=== PATIENT | male | born 1945 | race American Indian/Alaskan Native ===

== ENCOUNTER 2016-11-09 18:09 | Emergency (ER) | payer MEDICARE ==
--- NOTE | 2016-11-09 20:51 | Emergency Department Report ---
Chief Complaint: Arrhythmia/Palpitations Stated Complaint: ELEVATED HEART RATE/COLD Time Seen by Provider: 11/09/16 20:46 - HPI History of Present Illness: Every 71-year-old male comes in for not feeling well feels like his chest and heart is racing. He reports has a past medical history of A. fib and is on warfarin. 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 Clear to auscultation bilateral MSE screening note: Focused history and physical exam performed. Due to findings the following was ordered: CBC CMP PT PTT patient evaluated in the main ER ED Disposition for MSE Condition: Stable
[2016-11-09 21:44] LABS: Hematocrit 43.4 % (35.5-45.6); Hemoglobin 14.5 gm/dl (11.8-15.2); Mean Corpuscular HGB Conc 33 % (32-34); Mean Corpuscular Hemoglobin 31 pg (28-32); Mean Corpuscular Volume 93 fl (84-94); Platelet Count 242 K/mm3 (140-440); Red Blood Count 4.66 M/mm3 (3.65-5.03); Red Cell Distribution Width 15.1 % (13.2-15.2); White Blood Count 5.1 K/mm3 (4.5-11.0)
[2016-11-09 21:54] LABS: INR 2.03 (0.87-1.13)
[2016-11-09 21:55] LABS: Partial Thromboplastin Time 40.5 Sec. (24.2-36.6)
[2016-11-09 22:05] LABS: Anion Gap 19 mmol/L; BUN/Creatinine Ratio 11.11; Blood Urea Nitrogen 10 mg/dL (9-20); Calcium 9.5 mg/dL (8.4-10.2); Carbon Dioxide 29 mmol/L (22-30); Chloride 95.5 mmol/L (98-107); Glucose 103 mg/dL (75-100); Potassium 3.8 mmol/L (3.6-5.0); Sodium 140 mmol/L (137-145)
[2016-11-09 22:39] LABS: Bilirubin,Urine NEG (Negative); Blood,Urine SM (Negative); Ketones,Urine TR mg/dL (Negative); Leukocyte Esterase,Urine NEG (Negative); Mucus,Urine FEW /HPF; Nitrite,Urine NEG (Negative); Protein,Urine <15 mg/dL mg/dL (Negative); Urobilinogen,Urine < 2.0 mg/dL (<2.0)
--- NOTE | 2016-11-10 04:13 | Emergency Department Report ---
HPI - General Chief Complaint: Arrhythmia/Palpitations Time Seen by Provider: 11/09/16 20:46 - HPI HPI: This is a 71-year-old -[place] male who presents to the emergency department from home with complaint of palpitations and feeling as if his heart is racing. He denies any chest pain or shortness of breath, nausea or vomiting , fever or diaphoresis. All started while the patient was resting. It has greatly improved if not resolved since presentation. He did not take anything for symptoms prior to presentation. Patient has history of CVA, atrial fibrillation, kidney stones, hypertension and "prostate problems." The patient has both a primary care doctor and general manager land department but cannot remember their name at this time. Patient takes Coumadin for his history of atrial fibrillation and says he has been compliant with it. No recent travel or sick contacts at home. ED Past Medical Hx - Past Medical History Hx Hypertension: Yes Hx CVA: Yes (2010) Hx Congestive Heart Failure: No Hx Diabetes: No Hx Deep Vein Thrombosis: No Hx Renal Disease: Yes (has ureteral stent for the last year, renal insufficiency ) Hx Kidney Stones: (stents) Hx Asthma: No Hx COPD: No Hx Dementia: No Additional medical history: "prostate Problems" - Surgical History Hx Pacemaker: No Hx Internal Defibrillator: No Additional Surgical History: hernia repair. PROSTATE SURGERY? - Social History Smoking Status: Former Smoker Substance Use Type: None - Medications Home Medications: Home Medications Medication Instructions Recorded Confirmed Last Taken Type Isosorbide Mononitrate [Isosorbide 30 mg PO QDAY 07/24/14 02/19/16 02/18/16 History Mononitrate ER] Simvastatin 20 mg PO QHS 07/24/14 02/19/16 02/18/16 History hydrALAZINE [Apresoline TAB] 25 mg PO Q12H 07/24/14 02/19/16 02/18/16 History Diltiazem HCl [Diltiazem ER] 120 mg PO QDAY #30 capsule.er 10/02/14 02/19/1601/30 Rx Metoprolol [Lopressor TAB] 50 mg PO BID #60 tablet 10/02/14 02/19/16 02/18/16 Rx HYDROcodone/APAP 5-325 [[place] 1 each PO Q6HR PRN #10 tablet 01/10/15 02/19/16 2 Weeks Ago Rx 5-325 mg TAB] Saccharomyces Boulardii [Florastor] 250 mg PO BID #14 capsule 01/10/15 02/09/16 01/31/16 Rx Pantoprazole [Protonix TAB] 40 mg PO QDAY #30 tablet 03/19/15 02/19/16 01/31/16 Rx Tamsulosin [Flomax] 0.4 mg PO QDAY #30 capsule 03/19/15 02/09/16 01/31/16 Rx Warfarin [Coumadin] 2.5 mg PO 1XW 01/30/16 02/19/16 02/15/16 History Warfarin [Coumadin] 5 mg PO 6XW 01/30/16 02/19/16 02/14/16 History HYDROcodone/APAP 5-325 [[place] 1 each PO Q4HR PRN #24 tablet 02/19/16 Unknown Rx 5-325 mg TAB] ED Review of Systems ROS: Stated complaint: ELEVATED HEART RATE/COLD Other details as noted in HPI Comment: All other systems reviewed and negative Constitutional: denies: chills, fever Eyes: denies: eye pain, eye discharge, vision change ENT: denies: ear pain, throat pain Respiratory: denies: cough, shortness of breath, wheezing Cardiovascular: palpitations. denies: edema Gastrointestinal: denies: abdominal pain, nausea, diarrhea Genitourinary: denies: urgency, dysuria Musculoskeletal: denies: back pain, joint swelling, arthralgia Skin: denies: rash, lesions Neurological: denies: headache, weakness, paresthesias Physical Exam - Physical Exam Vital Signs: Vital Signs 11/09/16 11/10/16 11/10/16 20:08 03:04 03:34 Temperature 98.4 F 98.4 F 98.5 F Pulse Rate 95 H 94 H 87 Respiratory 18 18 22 Rate Blood Pressure 153/80 Blood Pressure 152/96 139/91 [Left] O2 Sat by Pulse 96 95 99 Oximetry Physical Exam: GENERAL: The patient is well-developed well-nourished. HEENT: Normocephalic. Atraumatic. Extraocular motions are intact. Patient has moist mucous membranes. Pupils equal reactive to light bilaterally. NECK: Supple. Trachea is midline. CHEST/LUNGS: Clear to auscultation. There is no respiratory distress noted. HEART/CARDIOVASCULAR: Irregularly irregular with normal rate. ABDOMEN: Abdomen is soft, nontender. Patient has normal bowel sounds. There is no abdominal distention. SKIN: There is no rash. There is no diaphoresis. NEURO: The patient is awake, alert, and oriented. The patient is cooperative. The patient has no focal neurologic deficits. The patient has normal speech. MUSCULOSKELETAL: There is no tenderness or deformity. There is no limitation range of motion. There is no evidence of acute injury. ED Course Vital Signs 11/09/16 11/10/16 11/10/16 20:08 03:04 03:34 Temperature 98.4 F 98.4 F 98.5 F Pulse Rate 95 H 94 H 87 Respiratory 18 18 22 Rate Blood Pressure 153/80 Blood Pressure 152/96 139/91 [Left] O2 Sat by Pulse 96 95 99 Oximetry ED Medical Decision Making - Lab Data Result diagrams: 11/09/16 21:29 11/09/16 21:29 - EKG Data -: EKG Interpreted by Nh - EKG Data When compared to previous EKG there are: changes noted (patient's previous EKG showed A. fib with RVR and some apparent conduction, which is not currently seen.) Interpretation: other (atrial fibrillation with controlled rate, no ST elevation [place]) - Radiology Data Radiology results: image reviewed - Medical Decision Making 71-year-old male presents the emergency department with complaint of what appears to be palpitations. Patient does have a history of chronic atrial fibrillation. It is possible the patient had rapid ventricular rate but since he has been in the emergency department and has been rate controlled. Patient had labs that did not show any signs of infection, electrolyte abnormalities, renal insufficiency or glucose abnormalities. Patient does not have any significant thyroid dysfunction. Patient's coags show an INR of greater than 2 which show him to be therapeutic on his Coumadin. This reason there is low suspicion that a pulmonary embolism as the cause of the patient's palpitations. Patient has had a negative troponin. EKG shows atrial fibrillation with a controlled rate. Chest x-ray does not show any acute process. Patient was reevaluated multiple times for multiple hours and is asymptomatic. Vital signs stable throughout his ED course. I spoke with the patient's daughter, at his request, and updated her about the ED course. He'll be discharged home and encouraged to follow up with his general manager land department and primary care doctor the next few days. He'll be brought back to the emergency department with any return of his palpitations, any development of chest pain or shortness of breath or any acute distress. - Differential Diagnosis atrial fibrillation, thyroid dysfunction, [place], pneumonia Critical Care Time: No Critical care attestation.: If time is entered above; I have spent that time in minutes in the direct care of this critically ill patient, excluding procedure time. ED Disposition Clinical Impression: Palpitations, Chronic a-fib Disposition: DISCHARGED TO HOME OR SELFCARE Is pt being admited?: No Condition: Stable Instructions: Palpitations (ED) Additional Instructions: Please follow-up with your primary care doctor and general manager land department in the next few days. Return to the emergency department with any chest pain, shortness of breath/respiratory distress, or any acute distress. Referrals: ROSA PORTER MD [Primary Care Provider] - 3-5 Days ASHER EWING MD [Staff Physician] - 3-5 Days MAITE SPRAGUE MD [Staff Physician] - 3-5 Days Time of Disposition: 05:33
[2016-11-10 05:55] VITALS: BP 128/71
--- NOTE | 2016-11-10 07:49 | XRay Report ---
AP CHEST: HISTORY: Palpitations Mild cardiomegaly is unchanged since 03/16/15. The lungs are clear. No evidence for pneumonia, CHF or pneumothorax. IMPRESSION: Stable cardiomegaly.
== END 2016-11-10 06:00 | disposition home or self-care (01) ==
LOC: ED 18:09
DX: R00.2 Palpitations (principal); I48.2 Chronic atrial fibrillation; I10 Essential (primary) hypertension; I63.9 Cerebral infarction, unspecified; Z87.891 Personal history of nicotine dependence
CPT/HCPCS: 36415; 71010; 80048; 81001; 84443; 84484; 85027; 85610; 85730; 93005; 93010

== ENCOUNTER 2017-11-17 17:04 | Emergency (ER) | payer MEDICARE ==
[2017-11-17 20:27] LABS: Hematocrit 50.9 % (35.5-45.6); Hemoglobin 16.5 gm/dl (11.8-15.2); Mean Corpuscular HGB Conc 33 % (32-34); Mean Corpuscular Hemoglobin 31 pg (28-32); Mean Corpuscular Volume 96 fl (84-94); Platelet Count 284 K/mm3 (140-440); Red Blood Count 5.31 M/mm3 (3.65-5.03); Red Cell Distribution Width 15.4 % (13.2-15.2)
[2017-11-17 20:43] LABS: Alanine Aminotransferase 21 units/L (7-56); Albumin 4.4 g/dL (3.9-5); BUN/Creatinine Ratio 12; Blood Urea Nitrogen 11 mg/dL (9-20); Hemolysis Index 71
[2017-11-17] MEDS ORDERED: NACL 0.9% 1000 ML 1,000 ML IV ONE (21:39)
[2017-11-17 21:58] LABS: Bilirubin,Urine NEG (Negative); Blood,Urine NEG (Negative); Color,Urine Yellow (Yellow); Mucus,Urine FEW /HPF; Nitrite,Urine NEG (Negative); Protein,Urine <15 mg/dL mg/dL (Negative); Urobilinogen,Urine < 2.0 mg/dL (<2.0)
--- NOTE | 2017-11-18 01:28 | Cat Scan Report ---
FINAL REPORT EXAM: CT ABDOMEN PELVIS W CON HISTORY: lower abd pain TECHNIQUE: Routine axial imaging was obtained of the abdomen and pelvis following the intravenous injection of 100 cc of Omnipaque 300. Delayed axial imaging was obtained for evaluation of the kidneys, ureters and bladder. Sagittal coronal reconstructions were reviewed. Comparison is made to the previous study of 05/12/2016. FINDINGS: The lung bases are clear. Pleural fluid is not seen. There is a small hiatal hernia at the GE junction. The liver, gallbladder, pancreas, spleen, and adrenal glands appear normal. The kidneys reveal multiple foci of cortical thinning bilaterally suggesting remote cortical infarcts versus the sequela of bilateral pyelonephritis. There is no evidence of hydronephrosis at this time. There are 2 small stones in the left renal pelvis which are nonobstructing measuring up to 4 millimeters in diameter. Once again there is no evidence of hydronephrosis at this time. The vascular structures enhance normally. The bowel loops are normal in caliber. No definite obstructive pattern is seen. The appendix is not enlarged. There is no evidence of free fluid or adenopathy. In the pelvis there is a Escalona catheter in the bladder. The bladder is decompressed. The prostate gland is mildly enlarged. The skeletal structures reveal multilevel disc degeneration in the lumbar spine. There is also abnormal serpiginous enhancement throughout the lower thoracic and lumbar spine. Some type of vascular malformation within the spine is suspected. IMPRESSION: Nonobstructing calcifications in the left renal pelvis. No evidence of hydronephrosis at this time. Multiple foci of cortical thinning of both kidneys suggesting a history of pyelonephritis versus bilateral infarcts. No acute process in the abdomen and pelvis otherwise Abnormal serpiginous areas of enhancement throughout the spinal column as stated. An underlying spinal vascular malformation cannot be excluded. Further evaluation is recommended with outpatient MRI of the spine without and with contrast.
--- NOTE | 2017-11-18 01:46 | Emergency Department Report ---
ED Male HPI - General Chief complaint: Abdominal Pain Stated complaint: ABD PAIN Time Seen by Provider: 11/17/17 19:42 Source: patient Mode of arrival: Stretcher Limitations: Physical Limitation - History of Present Illness Initial comments: Patient is a 72-year-old male who is presenting with inability to urinate for the past 12 hours. Patient states he has suprapubic discomfort as well. Patient states pain is 3 out of 10. Patient is a poor historian secondary to some mild dementia and has a history also of hypertension and non- insulin-dependent diabetes. Patient denies any fevers chills nausea vomiting or diarrhea at this time. Improves with: none Worsens with: none - Related Data Home Medications Medication Instructions Recorded Confirmed Last Taken Isosorbide Mononitrate [Isosorbide 30 mg PO QDAY 07/24/14 02/19/16 02/18/16 Mononitrate ER] Simvastatin 20 mg PO QHS 07/24/14 02/19/16 02/18/16 hydrALAZINE [Apresoline TAB] 25 mg PO Q12H 07/24/14 02/19/16 02/18/16 Warfarin [Coumadin] 2.5 mg PO 1XW 01/30/16 02/19/16 02/15/16 Warfarin [Coumadin] 5 mg PO 6XW 01/30/16 02/19/16 02/14/16 Previous Rx's Medication Instructions Recorded Last Taken Type Diltiazem HCl [Diltiazem 24Hr ER] 120 mg PO QDAY #30 capsule.er 10/02/14 Rx Metoprolol [Lopressor TAB] 50 mg PO BID #60 tablet 10/02/14 02/18/16 Rx HYDROcodone/APAP 5-325 [[place] 1 each PO Q6HR PRN #10 tablet 01/10/15 2 Weeks Ago Rx 5-325 mg TAB] ~02/05/16 Saccharomyces Boulardii [Florastor] 250 mg PO BID #14 capsule 01/10/15 01/31/16 Rx Pantoprazole [Protonix TAB] 40 mg PO QDAY #30 tablet 03/19/15 01/31/16 Rx Tamsulosin [Flomax] 0.4 mg PO QDAY #30 capsule 03/19/15 01/31/16 Rx HYDROcodone/APAP 5-325 [[place] 1 each PO Q4HR PRN #24 tablet 02/19/16 Unknown Rx 5-325 mg TAB] Ciprofloxacin HCl [Cipro] 500 mg PO BID 7 Days tablet 11/18/17 Unknown Rx traMADol [Ultram] 50 mg PO Q6HR PRN #12 tablet 11/18/17 Unknown Rx Allergies Allergy/AdvReac Type Severity Reaction Status Date / Time No Known Allergies Allergy Verified 12/14/14 12:09 ED Review of Systems ROS: Stated complaint: ABD PAIN Other details as noted in HPI Comment: All other systems reviewed and negative ED Past Medical Hx - Past Medical History Previous Medical History?: Yes Hx Hypertension: Yes Hx CVA: Yes (2010) Hx Congestive Heart Failure: No Hx Diabetes: No Hx Deep Vein Thrombosis: No Hx Renal Disease: Yes (has ureteral stent for the last year, renal insufficiency ) Hx Kidney Stones: (stents) Hx Asthma: No Hx COPD: No Hx Dementia: No Additional medical history: "prostate Problems" - Surgical History Past Surgical History?: Yes Hx Pacemaker: No Hx Internal Defibrillator: No Additional Surgical History: hernia repair. PROSTATE SURGERY? - Social History Smoking Status: Former Smoker Substance Use Type: None - Medications Home Medications: Home Medications Medication Instructions Recorded Confirmed Last Taken Type Isosorbide Mononitrate [Isosorbide 30 mg PO QDAY 07/24/14 02/19/16 02/18/16 History Mononitrate ER] Simvastatin 20 mg PO QHS 07/24/14 02/19/16 02/18/16 History hydrALAZINE [Apresoline TAB] 25 mg PO Q12H 07/24/14 02/19/16 02/18/16 History Diltiazem HCl [Diltiazem 24Hr ER] 120 mg PO QDAY #30 capsule.er 10/02/1402/18/16 Rx Metoprolol [Lopressor TAB] 50 mg PO BID #60 tablet 10/02/14 02/19/16 02/18/16 Rx HYDROcodone/APAP 5-325 [[place] 1 each PO Q6HR PRN #10 tablet 01/10/15 02/19/16 2 Weeks Ago Rx 5-325 mg TAB] ~02/05/16 Saccharomyces Boulardii [Florastor] 250 mg PO BID #14 capsule 01/10/15 02/09/16 01/31/16 Rx Pantoprazole [Protonix TAB] 40 mg PO QDAY #30 tablet 03/19/15 02/19/16 01/31/16 Rx Tamsulosin [Flomax] 0.4 mg PO QDAY #30 capsule 03/19/15 02/09/16 01/31/16 Rx Warfarin [Coumadin] 2.5 mg PO 1XW 01/30/16 02/19/16 02/15/16 History Warfarin [Coumadin] 5 mg PO 6XW 01/30/16 02/19/16 02/14/16 History HYDROcodone/APAP 5-325 [[place] 1 each PO Q4HR PRN #24 tablet 02/19/16 Unknown Rx 5-325 mg TAB] Ciprofloxacin HCl [Cipro] 500 mg PO BID 7 Days tablet 11/18/17 Unknown Rx traMADol [Ultram] 50 mg PO Q6HR PRN #12 tablet 11/18/17 Unknown Rx ED Physical Exam - General Limitations: Physical Limitation General appearance: alert, in no apparent distress - Head Head exam: Present: atraumatic, normocephalic - Eye Eye exam: Present: normal appearance - ENT ENT exam: Present: mucous membranes moist - Neck Neck exam: Present: normal inspection - Respiratory Respiratory exam: Present: normal lung sounds bilaterally. Absent: respiratory distress, wheezes, rales, rhonchi - Cardiovascular Cardiovascular Exam: Present: regular rate, normal rhythm. Absent: systolic murmur, diastolic murmur, rubs, gallop - GI/Abdominal GI/Abdominal exam: Present: soft, tenderness (mild tenderness in suprapubic region), normal bowel sounds. Absent: distended, guarding - Rectal Rectal exam: Present: deferred - Extremities Exam Extremities exam: Present: normal inspection - Back Exam Back exam: Present: normal inspection - Neurological Exam Neurological exam: Present: alert, oriented X3 - Psychiatric Psychiatric exam: Present: normal affect, normal mood - Skin Skin exam: Present: warm, dry, intact, normal color. Absent: rash ED Course Vital Signs 11/17/17 11/17/17 11/17/17 18:04 19:25 19:30 Temperature 98.9 F Pulse Rate 78 79 Respiratory 18 17 28 H Rate Blood Pressure 132/82 135/78 O2 Sat by Pulse 98 99 Oximetry 11/17/17 11/17/17 11/17/17 19:45 20:00 20:15 Temperature Pulse Rate 76 74 92 H Respiratory 13 15 20 Rate Blood Pressure 138/79 129/78 119/86 O2 Sat by Pulse 98 97 99 Oximetry 11/17/17 11/17/17 11/17/17 20:30 20:45 21:00 Temperature Pulse Rate 72 69 72 Respiratory 18 18 14 Rate Blood Pressure 134/71 116/76 119/72 O2 Sat by Pulse 98 98 97 Oximetry 11/17/17 11/17/17 11/17/17 21:15 21:30 21:46 Temperature Pulse Rate 72 79 81 Respiratory 13 9 L 13 Rate Blood Pressure 126/73 117/81 126/73 O2 Sat by Pulse 97 98 95 Oximetry 11/17/17 11/17/17 11/17/17 22:00 22:16 22:30 Temperature Pulse Rate 73 71 75 Respiratory 12 15 25 H Rate Blood Pressure 122/83 111/81 142/82 O2 Sat by Pulse 98 98 99 Oximetry 11/17/17 11/17/17 11/17/17 22:45 23:00 23:15 Temperature Pulse Rate 71 74 74 Respiratory 10 L 17 14 Rate Blood Pressure 147/77 153/87 146/80 O2 Sat by Pulse 99 99 99 Oximetry 11/17/17 11/17/17 11/18/17 23:30 23:45 00:00 Temperature Pulse Rate 76 71 72 Respiratory 15 25 H 12 Rate Blood Pressure 144/81 145/86 141/82 O2 Sat by Pulse 99 99 99 Oximetry 11/18/17 11/18/17 00:15 00:30 Temperature Pulse Rate 73 77 Respiratory 12 13 Rate Blood Pressure 148/78 150/81 O2 Sat by Pulse 98 100 Oximetry ED Medical Decision Making - Lab Data Result diagrams: 11/17/17 19:45 11/17/17 19:45 Lab Results 11/17/17 11/17/17 11/17/17 Range/Units 19:45 19:45 21:00 WBC 7.2 (4.5-11.0) K/mm3 RBC 5.31 H (3.65-5.03) M/mm3 Hgb 16.5 H (11.8-15.2) gm/dl Hct 50.9 H (35.5-45.6) % MCV 96 H (84-94) fl MCH 31 (28-32) pg MCHC 33 (32-34) % RDW 15.4 H (13.2-15.2) % Plt Count 284 (140-440) K/mm3 Lymph % (Auto) Adjunct Professor Sharp % (Auto) Adjunct Professor Eos % (Auto) Adjunct Professor Baso % (Auto) Adjunct Professor Lymph # Adjunct Professor Sharp # Adjunct Professor Eos # Adjunct Professor Baso # Adjunct Professor Seg Neutrophils % Adjunct Professor Seg Neutrophils # Adjunct Professor Sodium 131 L (137-145) mmol/L Potassium 4.5 (3.6-5.0) mmol/L Chloride 92.3 L (98-107) mmol/L Carbon Dioxide 20 L (22-30) mmol/L Anion Gap 23 mmol/L BUN 11 (9-20) mg/dL Creatinine 0.9 (0.8-1.5) mg/dL Estimated GFR > 60 ml/min BUN/Creatinine Ratio 12 % Glucose 102 H (75-100) mg/dL Calcium 10.0 (8.4-10.2) mg/dL Total Bilirubin 0.80 (0.1-1.2) mg/dL AST 24 (5-40) units/L ALT 21 (7-56) units/L Alkaline Phosphatase 69 (35-129) units/L Total Protein 8.8 H (6.3-8.2) g/dL Albumin 4.4 (3.9-5) g/dL Albumin/Globulin Ratio 1.0 % Urine Color Yellow (Yellow) Urine Turbidity Clear (Clear) Urine pH 7.0 (5.0-7.0) Ur Specific [place] 1.017 (1.003-1.030) Urine Protein <15 mg/dl (Negative) mg/dL Urine Glucose (UA) Neg (Negative) mg/dL Urine Ketones Tr (Negative) mg/dL Urine Blood Neg (Negative) Urine Nitrite Neg (Negative) Urine Bilirubin Neg (Negative) Urine Urobilinogen < 2.0 (<2.0) mg/dL Ur Leukocyte Esterase Neg (Negative) Urine WBC (Auto) 1.0 (0.0-6.0) /HPF Urine RBC (Auto) 6.0 (0.0-6.0) /HPF U Epithel Cells (Auto) < 1.0 (0-13.0) /HPF Urine Mucus Few /HPF - Radiology Data Radiology results: report reviewed Some bilateral cortical scarring of the kidneys however no acute process found - Medical Decision Making Patient is a 72-year-old [place] male who is presenting with difficulty urinating for the past 12 hours. Patient is a halfway patient. Escalona catheter was placed in the hopes of alleviating a urinary retention. Escalona cath was placed and only approximately 100 mL of urine was able to be drained. Patient's kidney function is 5 and is not in renal failure at this time. Patient was given IV fluids and patient was made adequate amount of urine. Patient's pain was not alleviated after the Escalona catheter is therefore a CT scan was done. This did not give any further information to the source of the patient's pain. Patient does have a prostate may have a mild prostatitis. Patient will be started on Cipro be given Ultram for pain and will be discharged home with a Escalona catheter in place Critical care attestation.: If time is entered above; I have spent that time in minutes in the direct care of this critically ill patient, excluding procedure time. ED Disposition Clinical Impression: Prostatitis Qualifiers: Prostatitis type: other Qualified Code(s): N41.8 - Other inflammatory diseases of prostate Disposition: DC-01 TO HOME OR SELFCARE Is pt being admited?: No Does the pt Need Aspirin: No Condition: Fair Prescriptions: Ciprofloxacin HCl [Cipro] 500 mg PO BID 7 Days tablet traMADol [Ultram] 50 mg PO Q6HR PRN #12 tablet PRN Reason: Pain Referrals: CONOR JIMÉNEZ MD [Primary Care Provider] - 3-5 Days
[2017-11-18 02:44] VITALS: BP 134/78
== END 2017-11-18 04:18 | disposition home or self-care (01) ==
LOC: ED 17:04
DX: N41.9 Inflammatory disease of prostate, unspecified (principal); I10 Essential (primary) hypertension; Z86.73 Personal history of transient ischemic attack (TIA), and cerebral infarction without residual deficits; Z87.891 Personal history of nicotine dependence; Z79.01 Long term (current) use of anticoagulants
CPT/HCPCS: 36415; 51701; 74177; 80053; 81001; 85025; 96360; 99284; J7030; Q9967

== ENCOUNTER 2018-05-17 10:52 | Day surgery (SDC) | payer MEDICARE ==
[2018-05-11 11:22] LABS: Basophils % (Auto) 0.6 % (0.0-1.8); Eosinophils # (Auto) 0.1 K/mm3 (0.0-0.4); Eosinophils % (Auto) 1.6 % (0.0-4.3); Hematocrit 37.2 % (35.5-45.6); Lymphocytes # (Auto) 1.5 K/mm3 (1.2-5.4); Lymphocytes % (Auto) 33.8 % (13.4-35.0); Mean Corpuscular HGB Conc 35 % (32-34); Mean Corpuscular Hemoglobin 32 pg (28-32); Mean Corpuscular Volume 92 fl (84-94); Monocytes # (Auto) 0.5 K/mm3 (0.0-0.8); Monocytes % (Auto) 11.9 % (0.0-7.3); Platelet Count 191 K/mm3 (140-440); Red Blood Count 4.07 M/mm3 (3.65-5.03); Red Cell Distribution Width 15.1 % (13.2-15.2)
[2018-05-11 11:33] LABS: INR 1.49 (0.87-1.13)
[2018-05-11 11:37] LABS: Alanine Aminotransferase 9 units/L (7-56); Albumin 4.3 g/dL (3.9-5); BUN/Creatinine Ratio 19; Blood Urea Nitrogen 15 mg/dL (9-20); Calcium 9.2 mg/dL (8.4-10.2); Hemolysis Index 8
[~2018-05-17 10:52] MED LIST: WATER FOR IRRIG STERILE IR ONE
[2018-05-17] MEDS ORDERED: NACL BACTERIOSTATIC INFILTRATI ONE (11:04)
[2018-05-17 12:00] LABS: INR 1.04 (0.87-1.13)
[2018-05-17] MEDS ORDERED: ANCEF/STERILE WATER 2 GM/20 ML 2 GM/20 ML SYRINGE IV NR (12:00)
[2018-05-17 12:01] LABS: Partial Thromboplastin Time 36.5 Sec. (24.2-36.6)
[2018-05-17] MEDS ORDERED: ZEMURON IV ONE (12:03)
[2018-05-17] MEDS ORDERED: NACL 0.9% 1000 ML 1,000 ML IV SCH ×3 (12:03→13:00)
[2018-05-17] MEDS ORDERED: DIPRIVAN 10 MG/ML IV ONE (12:03)
[2018-05-17] MEDS ORDERED: XYLOCAINE MPF 2% ONE (12:03)
[2018-05-17] MEDS ORDERED: SUBLIMAZE ONE (12:03)
--- NOTE | 2018-05-17 12:19 | Anesthesia Day of Surgery ---
Anesthesia Day of Surgery - Day of Surgery Patient Examined: Yes Patient H&P Reviewed: Yes Patient is NPO: Yes
[2018-05-17] MEDS ORDERED: DILAUDID IV PRN (12:20)
[2018-05-17] MEDS ORDERED: ZOFRAN IV PRN (12:20)
--- NOTE | 2018-05-17 12:20 | Anesthesia Consultation ---
Anesthesia Consult and Med Hx Date of service: 05/17/18 - Airway ROM Head & Neck: Adequate Mental/Hyoid Distance: Adequate Mallampati Class: Class II Intubation Access Assessment: Probably Good - Pulmonary Exam CTA: Yes - Cardiac Exam Cardiac Exam: RRR - Pre-Operative Health Status ASA Pre-Surgery Classification: ASA3 Proposed Anesthetic Plan: General (Afib, HTN, DM) - Pulmonary Hx Smoking: Yes (STOPPED X 30 YRS) Hx Asthma: No SOB: Yes (SOB WITH ACTIVITY) COPD: No Hx Pneumonia: No Hx Sleep Apnea: No (ANDRIY PRE SCREEN HIGH RISK) - Cardiovascular System Hx Hypertension: Yes (X 10 YRS) Hx Coronary Artery Disease: Yes Hx Angina: Yes (Admitted with afib and chest pain) Hx Cardia Arrhythmia: Yes (Afib) Hx Pacemaker: No Hx Internal Defibrillator: No Hx Valvular 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
[2018-05-17] MEDS ORDERED: DECADRON ONE (13:15)
[2018-05-17] MEDS ORDERED: ZOFRAN ONE (13:15)
[2018-05-17] MEDS ORDERED: NACL 0.9% IR ONE (13:32)
[2018-05-17] MEDS ORDERED: NEO SYNEPHRINE/NS Syringe(OR USE) IV ONE (13:39)
[2018-05-17] MEDS ORDERED: WATER FOR IRRIG STERILE IR ONE (13:54)
--- NOTE | 2018-05-17 14:40 | Post Operative Note ---
Date of procedure: 05/17/18 Pre-op diagnosis: cap Post-op diagnosis: same Findings: rec cap Procedure: cysto cryo ablation prostate Anesthesia: GETA Surgeon: OSKAR QUIÑONES Estimated blood loss: minimal Pathology: none Condition: stable Disposition: PACU
--- NOTE | 2018-05-17 14:41 | Discharge Summary ---
Short Stay Discharge Plan Activity: other (no strainin g) Weight Bearing Status: Full Weight Bearing Diet: low fat Wound: other (ice packs in rr and 24 hrs ) Special Instructions: other (teach chamberlain care) Durable Medical Equipment Needed Upon Discharge: other (chamberlain ) Follow up with: PRIMARY CARE, [Primary Care Provider] - 7 Days OSKAR QUIÑONES MD [Staff Physician] - 7 Days
[2018-05-17] MEDS ORDERED: NACL 0.9% 1000 ML 1,000 ML ONE (14:51)
[2018-05-17 17:12] VITALS: BP 154/81
--- NOTE | 2018-05-17 20:22 | Operative Report ---
PREOPERATIVE DIAGNOSIS: Adenocarcinoma of the prostate, previous cryo over 5 years ago. POSTOPERATIVE DIAGNOSIS: Small area of recurrence. PROCEDURES: Cystoscopy, cryosurgical ablation of prostate. SURGEON: Kali Stratton MD ANESTHESIA: General. FINDINGS: This is a gentleman who has had previous treatment about 5 years ago, now presents for followup. Very low-grade minimal cancer. He wanted it treated. All risks and implications discussed. DESCRIPTION OF PROCEDURE: The patient was brought to the operating room and placed on the operating table. Following induction of anesthesia, placed in lithotomy position, prepped and draped in usual sterile fashion. At this point, a [place] catheter was placed, probes were all checked. At the direction of the ultrasound in the computer, we had basic coordinates for the 6 probes. The gland measured approximately 20-21 g. Probes 1 and 2 were then placed and excellent visualization was achieved, but the gland did move up. We placed [place]villiers in excellent position and the external sphincter temperature probe in excellent position. Probes 5 and 6 and then 4 and 5 were then placed, and before placing them, we changed all of the lengths to 3 because it was a short gland. The patient tolerated the procedure well. Multiple probes were checked multiple times in different images. The patient tolerated the procedure well. At this point, the catheter was removed. Cystoscopy showed no urethral damage, no bladder damage. A stiff Amplatz was placed in the warmer, which was checked and was placed in good position. We then rechecked all the probes and began the first freeze. The first freeze was carried out for a total of approximately 8 minutes. We started 1 and 2 at 40, came down to 3 and 4 and then 5 and 6. We got excellent ice and it met at the midline and a great ice ball was achieved. Den[place]villiers get down to approximately 20 degrees. The second thaw was carried out and the second freeze was carried out in a similar fashion. The patient tolerated the procedure well. The 20-minute warmer was placed. The thaw was carried out, probes were removed and an 8 coude catheter was placed. The patient tolerated the procedure well and brought to recovery in stable condition. JOB# [id number] WILLIAM/MADDISON
== END 2018-05-17 16:58 | disposition home or self-care (01) ==
LOC: OR 10:52
PROVIDERS: ATTEND Urology
DX: C61 Malignant neoplasm of prostate (principal); I48.91 Unspecified atrial fibrillation; I10 Essential (primary) hypertension; E78.00 Pure hypercholesterolemia, unspecified; I25.10 Atherosclerotic heart disease of native coronary artery without angina pectoris; K21.9 Gastro-esophageal reflux disease without esophagitis; E11.9 Type 2 diabetes mellitus without complications; I69.854 Hemiplegia and hemiparesis following other cerebrovascular disease affecting left non-dominant side; Z79.01 Long term (current) use of anticoagulants; Z79.899 Other long term (current) drug therapy; Z87.891 Personal history of nicotine dependence; Z98.890 Other specified postprocedural states
CPT/HCPCS: 36415; 55873; 80053; 82962; 85025; 85610; 85730; A4217; C2618; J0690; J1100; J2370; J2405; J2704; J3010; J7030

== ENCOUNTER 2019-06-02 08:38 | Emergency (ER) | payer MEDICARE ==
--- NOTE | 2019-06-02 09:01 | Emergency Department Report ---
ED Chest Pain HPI - General Stated Complaint: WEAKNESS Time Seen by Provider: 06/02/19 08:47 Source: patient, EMS, old records reviewed Mode of arrival: Stretcher - History of Present Illness Initial Comments: Mr. Santos is a 74-year-old male with history of atrial fibrillation, CVA, diabetes mellitus, GI bleed, CAD, anemia, diverticulitis, nephrolithiasis, congestive heart failure who presents with "heart skipping a beat". His daughter called EMS. According to EMS she was concerned about her father's chest pain. Patient states that he feels as if his heart is skipping a beat. Nonspecific pain, mild discomfort. The discomfort has been present since last night. He also feels cold. Denies fever. Denies shortness of breath. Denies abdominal pain. On warfarin, Patient informed nurse that he has had frequent urination. [facility] Medications metformin tamsulosin pravastatin hydralazine isosorbide mononitrate metoprolol warfarin According to EMR, admitted January 2018 for chest apin January 2018 TTE: EF 55-60%, systolic function normal January 2018 lexican negative for ischemia MD Complaint: chest pain -: Gradual, Last night Onset: during rest Pain Location: substernal Severity: mild Severity scale (0 -10): 4 Quality: dull Consistency: constant Improves With: nothing Worsens With: nothing - Related Data Home Medications Medication Instructions Recorded Confirmed Last Taken Isosorbide Mononitrate [Isosorbide 30 mg PO DAILY 07/24/14 05/16/18 05/16/18 Mononitrate ER] metFORMIN [Glucophage] 500 mg PO QDAY 01/23/18 05/11/18 05/16/18 Aspirin [Aspirin TAB] 325 mg PO PRN PRN 05/11/18 05/17/18 2 Months Ago ~03/17/18 Metoprolol [Lopressor TAB] 25 mg PO BID 05/11/18 05/16/18 05/16/18 Silodosin [Rapaflo] 8 mg PO QHS 05/11/18 05/11/18 05/16/18 Simvastatin (Nf) [Zocor TAB] 20 mg PO QHS 05/11/18 05/11/18 Unknown Furosemide [Lasix] 20 mg PO PRN PRN 05/16/18 05/16/18 05/16/18 Temazepam [Restoril] 15 mg PO QHS 05/16/18 05/16/18 05/16/18 hydrALAZINE [Apresoline] 25 mg PO BID 05/16/18 05/17/18 05/17/18 07:00 Previous Rx's Medication Instructions Recorded Last Taken Type Diltiazem HCl [Diltiazem 24Hr ER] 120 mg PO QDAY #30 capsule.er 10/02/14 05/16/18 Rx Tamsulosin [Flomax] 0.4 mg PO QDAY #30 capsule 01/27/18 05/16/18 Rx Warfarin [Coumadin] 5 mg PO DAILY #30 tablet 01/27/18 5 Days Ago Rx ~05/12/18 cephALEXin [Keflex] 500 mg PO TID 7 Days #21 capsule 06/02/19 Unknown Rx Allergies Allergy/AdvReac Type Severity Reaction Status Date / Time No Known Allergies Allergy Verified 12/14/14 12:09 Heart Score - HEART Score History: Slightly suspicious EKG: Non-specific Age: > 65 Risk factors: > 3 risk factors or hx of atherosclerotic disease Troponin: < normal limit HEART Score: 5 ED Review of Systems ROS: Stated complaint: WEAKNESS Other details as noted in HPI Comment: All other systems reviewed and negative Constitutional: denies: fever, malaise Respiratory: denies: cough Cardiovascular: chest pain, palpitations ED Past Medical Hx - Past Medical History Previous Medical History?: Yes Hx Hypertension: Yes (X 10 YRS) Hx CVA: Yes (2010) Hx Congestive Heart Failure: No Hx Diabetes: Yes Hx Deep Vein Thrombosis: No Hx GERD: Yes Hx Renal Disease: Yes (has ureteral stent for the last year, renal insufficiency) Hx Kidney Stones: Yes Hx Asthma: No Hx COPD: No Hx Dementia: No Hx HIV: No Additional medical history: "prostate Problems" - Surgical History Hx Pacemaker: No Hx Internal Defibrillator: No Additional Surgical History: hernia repair. PROSTATE SURGERY? - Social History Smoking Status: Former Smoker - Medications Home Medications: Home Medications Medication Instructions Recorded Confirmed Last Taken Type Isosorbide Mononitrate [Isosorbide 30 mg PO DAILY 07/24/14 05/16/18 05/16/18 History Mononitrate ER] Diltiazem HCl [Diltiazem 24Hr ER] 120 mg PO QDAY #30 capsule.er 1205/11/18 05/16/18 Rx metFORMIN [Glucophage] 500 mg PO QDAY 01/23/18 05/11/18 05/16/18 History Tamsulosin [Flomax] 0.4 mg PO QDAY #30 capsule 01/27/18 05/11/18 05/16/18 Rx Warfarin [Coumadin] 5 mg PO DAILY #30 tablet 01/27/18 05/17/18 5 Days Ago Rx ~05/12/18 Aspirin [Aspirin TAB] 325 mg PO PRN PRN 05/11/18 05/17/18 2 Months Ago History ~03/17/18 Metoprolol [Lopressor TAB] 25 mg PO BID 05/11/18 05/16/18 05/16/18 History Silodosin [Rapaflo] 8 mg PO QHS 05/11/18 05/11/18 05/16/18 History Simvastatin (Nf) [Zocor TAB] 20 mg PO QHS 05/11/18 05/11/18 Unknown History Furosemide [Lasix] 20 mg PO PRN PRN 05/16/18 05/16/18 05/16/18 History Temazepam [Restoril] 15 mg PO QHS 05/16/18 05/16/18 05/16/18 History hydrALAZINE [Apresoline] 25 mg PO BID 05/16/18 05/17/18 05/17/18 07:00 History cephALEXin [Keflex] 500 mg PO TID 7 Days #21 capsule 06/02/19 Unknown Rx ED Physical Exam - General General appearance: alert, in no apparent distress - Head Head exam: Present: atraumatic, normocephalic - Eye Eye exam: Present: normal appearance - ENT ENT exam: Present: mucous membranes moist - Neck Neck exam: Present: normal inspection, full ROM - Respiratory Respiratory exam: Present: normal lung sounds bilaterally. Absent: respiratory distress, wheezes, rales, rhonchi - Cardiovascular Cardiovascular Exam: Present: regular rate, irregular rhythm. Absent: rubs, gallop - GI/Abdominal GI/Abdominal exam: Present: soft. Absent: distended, tenderness, guarding, rebound - Rectal Rectal exam: Present: deferred - Neurological Exam Neurological exam: Present: alert, oriented X3 - Psychiatric Psychiatric exam: Present: normal affect, normal mood - Skin Skin exam: Present: warm, dry, intact, normal color. Absent: rash ED Course Vital Signs 06/02/19 06/02/19 06/02/19 08:51 09:13 09:16 Temperature 98.1 F Pulse Rate 71 69 69 Respiratory 16 11 L 13 Rate Blood Pressure 150/69 Blood Pressure [Left] O2 Sat by Pulse 100 98 98 Oximetry 06/02/19 06/02/19 06/02/19 09:21 10:00 10:30 Temperature Pulse Rate 62 61 Respiratory 10 L 10 L Rate Blood Pressure 150/69 141/68 Blood Pressure 150/69 [Left] O2 Sat by Pulse 100 100 Oximetry 06/02/19 11:00 Temperature Pulse Rate 61 Respiratory 18 Rate Blood Pressure 135/72 Blood Pressure [Left] O2 Sat by Pulse 100 Oximetry ED Medical Decision Making - Lab Data Result diagrams: 06/02/19 09:33 06/02/19 09:33 Laboratory Results - last 24 hr 06/02/19 06/02/19 06/02/19 09:33 09:33 09:40 WBC 5.5 RBC 4.65 Hgb 15.2 Hct 44.5 MCV 96 H MCH 33 H MCHC 34 RDW 14.9 Plt Count 226 Lymph % (Auto) 42.5 H [place] % (Auto) 11.7 H Eos % (Auto) 2.8 Baso % (Auto) 1.0 Lymph # 2.3 [place] # 0.6 Eos # 0.2 Baso # 0.1 Seg Neutrophils % 42.0 Seg Neutrophils # 2.3 PT 23.5 H INR 2.14 H Sodium 138 Potassium 4.4 Chloride 99.3 Carbon Dioxide 26 Anion Gap 17 BUN 20 Creatinine 1.0 Estimated GFR > 60 BUN/Creatinine Ratio 20 Glucose 90 Calcium 10.0 Total Bilirubin 0.80 AST 20 ALT 10 Alkaline Phosphatase 44 Troponin T < 0.010 Total Protein 9.0 H Albumin 4.9 Albumin/Globulin Ratio 1.2 Urine Bilirubin Urine RBC (Auto) 06/02/19 10:33 WBC RBC Hgb Hct MCV MCH MCHC RDW Plt Count Lymph % (Auto) [place] % (Auto) Eos % (Auto) Baso % (Auto) Lymph # [place] # Eos # Baso # Seg Neutrophils % Seg Neutrophils # PT INR Sodium Potassium Chloride Carbon Dioxide Anion Gap BUN Creatinine Estimated GFR BUN/Creatinine Ratio Glucose Calcium Total Bilirubin AST ALT Alkaline Phosphatase Troponin T Total Protein Albumin Albumin/Globulin Ratio Urine Bilirubin Neg Urine RBC (Auto) 4.0 - EKG Data 06/02/19 10:25 EKG obtained 1018 atrial fibrillation ventricular rate 60 bpm nl axis no ST elevation normal T wa ve pattern - Radiology Data Radiology results: report reviewed Portable chest x-ray: No acute process - Medical Decision Making Mr. Santos presents with generalized malaise, nonspecific chest pain. After clarification, he states "I just do not feel too good." I spoke with his daughter per phone. Daughter also stated that he has not been feeling well for the past week. X-ray labs within normal limits. +UTI on UA INR therapeutic level. EKG showed afib ventricular rate 60. No evidence of acute coronary syndrome. No evidence of infection or sepsis. I spoke with his PCP Dr. Rajput with her close follow-up. Keflex prescribed. I have asked daughter to decrease warfarin from 1 1/2 tabs to 1 tab while on antibiotics. She will arrange INR check this upcoming week. Critical care attestation.: If time is entered above; I have spent that time in minutes in the direct care of this critically ill patient, excluding procedure time. ED Disposition Clinical Impression: Atrial fibrillation, Acute UTI (urinary tract infection), Chest pain Disposition: DC-01 TO HOME OR SELFCARE Is pt being admited?: No Does the pt Need Aspirin: No Condition: Stable Instructions: Urinary Tract Infection in Men (ED) Additional Instructions: Please take 1 tablet of warfarin instead of 1 1/2 tablets while on antibiotics. Prescriptions: cephALEXin [Keflex] 500 mg PO TID 7 Days #21 capsule Referrals: ASHER RAJPUT MD [Staff Physician] - 3-5 Days
[2019-06-02 09:47] LABS: Basophils # (Auto) 0.1 K/mm3 (0.0-0.1); Eosinophils # (Auto) 0.2 K/mm3 (0.0-0.4); Eosinophils % (Auto) 2.8 % (0.0-4.3); Hematocrit 44.5 % (35.5-45.6); Hemoglobin 15.2 gm/dl (11.8-15.2); Lymphocytes # (Auto) 2.3 K/mm3 (1.2-5.4); Lymphocytes % (Auto) 42.5 % (13.4-35.0); Mean Corpuscular HGB Conc 34 % (32-34); Mean Corpuscular Volume 96 fl (84-94); Monocytes # (Auto) 0.6 K/mm3 (0.0-0.8); Monocytes % (Auto) 11.7 % (0.0-7.3); Red Blood Count 4.65 M/mm3 (3.65-5.03); Red Cell Distribution Width 14.9 % (13.2-15.2)
[2019-06-02 09:57] LABS: INR 2.14 (0.87-1.13)
[2019-06-02 10:05] LABS: Alanine Aminotransferase 10 units/L (7-56); Albumin 4.9 g/dL (3.9-5); BUN/Creatinine Ratio 20; Blood Urea Nitrogen 20 mg/dL (9-20); Hemolysis Index 38
[2019-06-02 10:42] LABS: Platelet Count 226 K/mm3 (140-440)
[2019-06-02 10:54] LABS: Bacteria,Urine 1+ /HPF (Negative); Bilirubin,Urine NEG (Negative); Blood,Urine SM (Negative); Color,Urine Yellow (Yellow); Mucus,Urine FEW /HPF; Protein,Urine <15 mg/dL mg/dL (Negative); Urobilinogen,Urine < 2.0 mg/dL (<2.0)
--- NOTE | 2019-06-02 10:55 | XRay Report ---
CHEST 1 VIEW INDICATION: Chest Pain. COMPARISON: 01/23/2018 FINDINGS: SUPPORT DEVICES: None. HEART / MEDIASTINUM: No significant abnormality. LUNGS / PLEURA: No significant pulmonary or pleural abnormality. No pneumothorax. ADDITIONAL FINDINGS: IMPRESSION: 1. No acute findings. Signer Name: Everardo Navarrete MD Signed: 06/02/2019 10:51 AM Workstation Name: [id number]
[2019-06-02 11:15] VITALS: BP 135/72
[2019-06-02] MEDS ORDERED: KEFLEX PO ONE (12:12)
== END 2019-06-02 15:45 | disposition home or self-care (01) ==
LOC: ED 08:38
DX: I48.91 Unspecified atrial fibrillation (principal); N39.0 Urinary tract infection, site not specified; I10 Essential (primary) hypertension; E11.9 Type 2 diabetes mellitus without complications; K21.9 Gastro-esophageal reflux disease without esophagitis; N28.9 Disorder of kidney and ureter, unspecified; Z86.73 Personal history of transient ischemic attack (TIA), and cerebral infarction without residual deficits; Z87.442 Personal history of urinary calculi; Z98.890 Other specified postprocedural states; Z87.891 Personal history of nicotine dependence; Z79.84 Long term (current) use of oral hypoglycemic drugs; Z79.899 Other long term (current) drug therapy
CPT/HCPCS: 36415; 71045; 80053; 81001; 84484; 85025; 85610; 87076; 87086; 87186; 93005; 93010

== ENCOUNTER 2021-03-29 13:02 | Observation (INO) | payer MEDICARE ==
--- NOTE | 2021-03-29 13:40 | Emergency Department Report ---
Blank Doc - Documentation Documentation: 75-year-old male that presents with weakness, dizziness, unsteady gait. Exam: slight left sided weakness. some slurred speech. HX of left sided CVA. Unknown baseline for patient. Stated symptoms started 4 days ago. 1- This initial assessment/diagnostic orders/clinical plan/ treatment(s) is/are subject to change based on pt's health status, clinical progression and re- assessment by fellow clinical providers in the ED. Further treatment and workup at subsequent clinical provers discretion. Patient/guardians urged not to elope from ED as their condition may be serious if not clinically assessed and managed. 2-code stroke initiated
--- NOTE | 2021-03-29 13:54 | Emergency Department Report ---
HPI - General Chief Complaint: Dizziness Time Seen by Provider: 03/29/21 13:32 - HPI HPI: At 1:40 PM I was called to see the patient in triage because stroke alert was activated by IV PA. This is a 75-year-old male with history of A. fib on Coumadin, CHF, prostate cancer and prior stroke with chronic left-sided weakness and slurred speech. He reports that since (4 days ago) he has had several symptoms which have been intermittent. He describes loss of appetite, generalized weakness, nausea, dizziness, and feeling off balance when he tries to walk. He also feels that his left-sided weakness got worse on . This was all I was able to obtain on my initial assessment because the patient was brought emergently to CT for Noncon CT of the head. After CT I resumed my interview. The patient reports that since he has had dizziness which is not room spinning dizziness but is actually the feeling as if he is off balance. He also says his gait has gotten much worse. He says he has had some generalized abdominal pain which is intermittent in nature. He also says he has had urinary frequency with occasional urinary incontinence, although he does have a known history of prostate cancer. He denies any saddle anesthesia or bowel incontinence/retention. He denies any other symptoms or complaints including fever, vision change, neck pain, chest pain, shortness of breath, cough, vomiting, or any other complaints. ED Past Medical Hx - Past Medical History Hx Hypertension: Yes (X 10 YRS) Hx CVA: Yes (2010) Hx Congestive Heart Failure: No Hx Diabetes: Yes Hx Deep Vein Thrombosis: No Hx GERD: Yes Hx Renal Disease: Yes (has ureteral stent for the last year, renal insufficiency) Hx Kidney Stones: Yes Hx Asthma: No Hx COPD: No Hx Dementia: No Hx HIV: No Additional medical history: "prostate Problems" - Surgical History Hx Pacemaker: No Hx Internal Defibrillator: No Additional Surgical History: hernia repair. PROSTATE SURGERY? - Social History Smoking Status: Never Smoker Substance Use Type: None - Medications Home Medications: Home Medications Medication Instructions Recorded Confirmed Last Taken Type Isosorbide Mononitrate [Isosorbide 30 mg PO DAILY 07/24/14 05/16/18 05/16/18 History Mononitrate ER] Diltiazem HCl [Diltiazem 24Hr ER] 120 mg PO QDAY #30 capsule.er 10/02/14 05/11/18 05/16/18 Rx metFORMIN [Glucophage] 500 mg PO QDAY 01/23/18 05/11/18 05/16/18 History Tamsulosin [Flomax] 0.4 mg PO QDAY #30 capsule 01/27/18 05/11/18 05/16/18 Rx Warfarin [Coumadin] 5 mg PO DAILY #30 tablet 01/27/18 05/17/18 5 Days Ago Rx ~05/12/18 Aspirin [Aspirin TAB] 325 mg PO PRN PRN 05/11/18 05/17/18 2 Months Ago History ~03/17/18 Metoprolol [Lopressor TAB] 25 mg PO BID 05/11/18 05/16/18 05/16/18 History Silodosin [Rapaflo] 8 mg PO QHS 05/11/18 05/11/18 05/16/18 History Simvastatin (Nf) [Zocor TAB] 20 mg PO QHS 05/11/18 05/11/18 Unknown History Furosemide [Lasix] 20 mg PO PRN PRN 05/16/18 05/16/18 05/16/18 History Temazepam [Restoril] 15 mg PO QHS 05/16/18 05/16/18 05/16/18 History hydrALAZINE [Apresoline] 25 mg PO BID 05/16/18 05/17/18 05/17/18 07:00 History cephALEXin [Keflex] 500 mg PO TID 7 Days #21 capsule 06/02/19 Unknown Rx ED Review of Systems ROS: Stated complaint: INCOHEARANT/WEAK/COLD/DIZZY Other details as noted in HPI Constitutional: denies: chills, fever Eyes: denies: eye pain, vision change ENT: denies: throat pain, congestion Respiratory: denies: cough, shortness of breath Cardiovascular: denies: chest pain, palpitations, syncope Gastrointestinal: nausea. denies: abdominal pain, diarrhea, constipation, hematochezia Genitourinary: frequency. denies: dysuria, hematuria Musculoskeletal: back pain. denies: myalgia Skin: denies: rash Neurological: weakness, numbness, abnormal gait. denies: headache Psychiatric: denies: anxiety Physical Exam - Physical Exam Vital Signs: Vital Signs 03/29/21 03/29/21 13:33 13:39 Temperature 98.5 F 98.5 F Pulse Rate 76 70 Respiratory 16 18 Rate Blood Pressure 146/73 Blood Pressure 146/73 [Right] O2 Sat by Pulse 99 100 Oximetry Physical Exam: GENERAL: Well developed and well nourished. No acute distress HEENT: Normocephalic. No obvious signs of trauma. Moist mucous membranes. EYES: Extraocular movements are intact but he is slow to follow commands. Pupils are equal round and reactive to light bilaterally NECK: Supple. Trachea is midline. LUNGS: Nonlabored breathing. Equal chest rise bilaterally. Clear to auscultation bilaterally. HEART/CARDIOVASCULAR: Regular rate and rhythm. No murmurs or rubs. ABDOMEN: Abdomen is distended and firm. There is mild generalized tenderness without guarding or rebound. SKIN: Skin is warm and dry NEURO: Patient is awake, alert, and oriented. There is a left-sided facial droop. There is 3 out of 5 strength of the left upper extremity and left lower extremity with 4 out of 5 strength of the right upper extremity and right lower extremity. There is bilateral dysmetria present on aicanj-ilkf-wrvada. NIHSS 6 MUSCULOSKELETAL: No obvious deformities. No significant tenderness. Normal ROM throughout. BACK/SPINE: No midline tenderness or step-offs of the C/T/L spine. No costovertebral angle tenderness. ED Course Vital Signs 03/29/21 03/29/21 13:33 13:39 Temperature 98.5 F 98.5 F Pulse Rate 76 70 Respiratory 16 18 Rate Blood Pressure 146/73 Blood Pressure 146/73 [Right] O2 Sat by Pulse 99 100 Oximetry ED Medical Decision Making - Lab Data Result diagrams: 03/29/21 14:20 03/29/21 14:20 Lab Results 03/29/21 03/29/21 03/29/21 Range/Units 13:38 14:20 14:20 WBC 4.5 (4.5-11.0) K/mm3 RBC 4.31 (3.65-5.03) M/mm3 Hgb 13.8 (11.8-15.2) gm/dl Hct 40.9 (35.5-45.6) % MCV 95 H (84-94) fl MCH 32 (28-32) pg MCHC 34 (32-34) % RDW 15.0 (13.2-15.2) % Plt Count 208 (140-440) K/mm3 Lymph % (Auto) 34.1 (13.4-35.0) % [place] % (Auto) 13.7 H (0.0-7.3) % Eos % (Auto) 1.7 (0.0-4.3) % Baso % (Auto) 0.7 (0.0-1.8) % Lymph # (Auto) 1.5 (1.2-5.4) K/mm3 [place] # (Auto) 0.6 (0.0-0.8) K/mm3 Eos # (Auto) 0.1 (0.0-0.4) K/mm3 Baso # (Auto) 0.0 (0.0-0.1) K/mm3 Seg Neutrophils % 49.8 (40.0-70.0) % Seg Neutrophils # 2.2 (1.8-7.7) K/mm3 PT 20.0 H (12.2-14.9) Sec. INR 1.64 H (0.87-1.13) APTT 32.7 (24.2-36.6) Sec. Thrombin Time 16.5 (15.1-19.6) Sec. Sodium (137-145) mmol/L Potassium (3.6-5.0) mmol/L Chloride (98-107) mmol/L Carbon Dioxide (22-30) mmol/L Anion Gap mmol/L BUN (9-20) mg/dL Creatinine (0.8-1.3) mg/dL Estimated GFR ml/min BUN/Creatinine Ratio % Glucose (75-100) mg/dL POC Glucose 81 (70-105) mg/dL Calcium (8.4-10.2) mg/dL Magnesium (1.7-2.3) mg/dL Total Bilirubin (0.1-1.2) mg/dL AST (5-40) units/L ALT (7-56) units/L Alkaline Phosphatase (35-129) units/L Total Creatine Kinase (55-170) units/L CK-MB (CK-2) (0.0-4.0) ng/mL CK-MB (CK-2) Rel Index (0-4) Troponin T (0.00-0.029) ng/mL Total Protein (6.3-8.2) g/dL Albumin (3.9-5) g/dL Albumin/Globulin Ratio % Urine Color (Yellow) Urine Turbidity (Clear) Urine pH (5.0-7.0) Ur Specific [place] (1.003-1.030) Urine Protein (Negative) mg/dL Urine Glucose (UA) (Negative) mg/dL Urine Ketones (Negative) mg/dL Urine Blood (Negative) Urine Nitrite (Negative) Urine Bilirubin (Negative) Urine Urobilinogen (<2.0) mg/dL Ur Leukocyte Esterase (Negative) Urine WBC (Auto) (0.0-6.0) /HPF Urine RBC (Auto) (0.0-6.0) /HPF U Epithel Cells (Auto) (0-13.0) /HPF Urine Bacteria (Auto) (Negative) /HPF Urine Mucus /HPF 03/29/21 03/29/21 03/29/21 Range/Units 14:20 14:20 Unknown WBC (4.5-11.0) K/mm3 RBC (3.65-5.03) M/mm3 Hgb (11.8-15.2) gm/dl Hct (35.5-45.6) % MCV (84-94) fl MCH (28-32) pg MCHC (32-34) % RDW (13.2-15.2) % Plt Count (140-440) K/mm3 Lymph % (Auto) (13.4-35.0) % [place] % (Auto) (0.0-7.3) % Eos % (Auto) (0.0-4.3) % Baso % (Auto) (0.0-1.8) % Lymph # (Auto) (1.2-5.4) K/mm3 [place] # (Auto) (0.0-0.8) K/mm3 Eos # (Auto) (0.0-0.4) K/mm3 Baso # (Auto) (0.0-0.1) K/mm3 Seg Neutrophils % (40.0-70.0) % Seg Neutrophils # (1.8-7.7) K/mm3 PT (12.2-14.9) Sec. INR (0.87-1.13) APTT (24.2-36.6) Sec. Thrombin Time (15.1-19.6) Sec. Sodium 136 L (137-145) mmol/L Potassium 4.6 (3.6-5.0) mmol/L Chloride 97.6 L (98-107) mmol/L Carbon Dioxide 28 (22-30) mmol/L Anion Gap 15 mmol/L BUN 20 (9-20) mg/dL Creatinine 1.0 (0.8-1.3) mg/dL Estimated GFR > 60 ml/min BUN/Creatinine Ratio 20 % Glucose 105 H (75-100) mg/dL POC Glucose (70-105) mg/dL Calcium 9.3 (8.4-10.2) mg/dL Magnesium 1.80 (1.7-2.3) mg/dL Total Bilirubin 0.80 (0.1-1.2) mg/dL AST 24 (5-40) units/L ALT 5 L (7-56) units/L Alkaline Phosphatase 44 (35-129) units/L Total Creatine Kinase 159 (55-170) units/L CK-MB (CK-2) 2.9 (0.0-4.0) ng/mL CK-MB (CK-2) Rel Index 1.8 (0-4) Troponin T < 0.010 (0.00-0.029) ng/mL Total Protein 7.5 (6.3-8.2) g/dL Albumin 4.8 (3.9-5) g/dL Albumin/Globulin Ratio 1.8 % Urine Color Yellow (Yellow) Urine Turbidity Clear (Clear) Urine pH 5.0 (5.0-7.0) Ur Specific [place] 1.018 (1.003-1.030) Urine Protein <15 mg/dl (Negative) mg/dL Urine Glucose (UA) Neg (Negative) mg/dL Urine Ketones Neg (Negative) mg/dL Urine Blood Sm (Negative) Urine Nitrite Pos (Negative) Urine Bilirubin Neg (Negative) Urine Urobilinogen < 2.0 (<2.0) mg/dL Ur Leukocyte Esterase Sm (Negative) Urine WBC (Auto) 23.0 H (0.0-6.0) /HPF Urine RBC (Auto) 3.0 (0.0-6.0) /HPF U Epithel Cells (Auto) < 1.0 (0-13.0) /HPF Urine Bacteria (Auto) 4+ (Negative) /HPF Urine Mucus Few /HPF - EKG Data -: EKG Interpreted by Nd - EKG Data 03/29/21 17:51 Atrial fibrillation. Normal axis. Otherwise normal intervals. No significant ST segment abnormalities. Nonspecific T wave inversions noted in leads V1 throu gh V3 - Radiology Data CHEST 1 VIEW 03/29/2021 2:28 PM INDICATION / CLINICAL INFORMATION: Chest Pain. COMPARISON: 06/02/2019 FINDINGS: SUPPORT DEVICES: None. HEART / MEDIASTINUM: Stable. LUNGS / PLEURA: No significant pulmonary or pleural abnormality. No pneumothorax. ADDITIONAL FINDINGS: No significant additional findings. IMPRESSION: 1. No acute findings or significant interval change when compared to 06/02/2019. Signer Name: Gerardo Pfeiffer MD Signed: 03/29/2021 3:40 PM Workstation Name: [id number] CT head/brain wo con INDICATION / CLINICAL INFORMATION: 75 years Male; CODE STROKE Stroke symptoms ;EFT WEAKNESS HX CVA PH#[id number]. TECHNIQUE: Routine CT head without contrast. All CT scans at this location are performed using CT dose reduction for [employer] by means of automated exposure control. COMPARISON: None. FINDINGS: BRAIN / INTRACRANIAL CONTENTS: There is encephalomalacia involving right frontal lobe most consistent with old infarct at. There is otherwise mild to moderate cerebral white matter disease most consistent with microvascular angiopathy. There is also moderate cerebral atrophy with associated prominence of the ventricular system. There is no clear CT evidence of acute intracranial hemorrhage or significant mass effect. ORBITS: No significant abnormality of visualized orbits. SINUSES / MASTOIDS: No significant abnormality in the visualized paranasal sinuses or mastoid air cells. CRANIOCERVICAL JUNCTION: No significant abnormality. ADDITIONAL FINDINGS: None. IMPRESSION: 1. There is an older infarct involving right frontal lobe with encephalomalacia. 2. There is moderate to cerebral atrophy at. 3. There is no CT evidence of acute intracranial hemorrhage. Signer Name: Tripp Reyes MD Signed: 03/29/2021 1:29 PM Workstation Name: [id number] CT cervical spine wo con INDICATION / CLINICAL INFORMATION: 75 years Male; bilateral weakness, gait disturbance. TECHNIQUE: Axial CT images of the cervical spine were obtained. Sagittal and coronal reformatted images were produced. All CT scans at this location are performed using CT dose reduction for [employer] by means of automated exposure control. COMPARISON: None available. FINDINGS: POST-SURGICAL CHANGES: None. ALIGNMENT: This mild curvature the cervical spine, convex toward the right at. There is slight reversal the cervical lordosis without significant spondylolisthesis. VERTEBRAE: There are advanced degenerative the disc changes at C6-7 and C7-T1 with notable endplate changes. There is anterior osteophytic formation at C5-6 at. There is beam hardening artifact at the cervicothoracic junction along with prominent uncovertebral joint hypertrophy and facet joint changes additionally, there is small geode on the left at C5-6. The lucency along the lateral margins of the facets at these levels appear to be on a degenerative basis there is no clear evidence of acute fracture. INTRAVERTEBRAL DISCS: The left facet joint hypertrophy at C2-3 results in mild to moderate left foraminal narrowing at. The broad-based disc bulge at C3-4 effaces the ventral subarachnoid space. The moderate foraminal narrowing is greater on the right. There is moderate to marked left foraminal narrowing at C4-5 at. The spondylosis at C5-6 effaces the ventral subarachnoid space. There is moderate to marked foraminal narrowing, greater on the right. The spondylosis at C6-7 effaces the lateral recesses. Furthermore, there is marked neural foraminal narrowing bilaterally. There is milder degree of spondylosis at C7-T1 centrally. However, there does appear to be moderate foraminal narrowing, greater on the right. PARASPINAL SOFT TISSUES: No prevertebral soft tissue fluid collections are identified at. ADDITIONAL FINDINGS: There are foci of air projected the within the subclavian and left internal jugular veins which is likely related to the procedure and IV access at. There are more subtle foci projected within the visualized left pterygoid fossa which are also likely within the venous plexus. IMPRESSION: 1. There are multilevel degenerative the changes involving cervical spine, most notable at C6-7 and C7-T1 as detailed above. 2. There is no definitive CT evidence of acute fracture of the cervical spine. 3. There are scattered foci of air which appear to be intravascular and likely related to IV access. Signer Name: Tripp Reyes MD Signed: 03/29/2021 4:59 PM Workstation Name: [id number] CT thoracic spine wo con INDICATION / CLINICAL INFORMATION: 75 years Male; weakness, gait disturbance. TECHNIQUE: Axial CT images of the thoracic spine were obtained. Sagittal and coronal reformatted images were produced. All CT scans at this location are performed using CT dose reduction for [employer] by means of automated exposure control. COMPARISON: None available. FINDINGS: POST- SURGICAL CHANGES: None. ALIGNMENT: There is slight curvature of the mid to lower thoracic spine, convex toward the right. There is no significant spondylolisthesis. VERTEBRAE: There is slight deformity of the superior endplate of T3. However, there is associated focal sclerosis and this finding is likely on a degenerative basis. Otherwise, there is no clear evidence of acute compression fracture or bony retropulsion. INTERVERTEBRAL DISCS: The intervertebral disc spaces appear fairly well-maintained without evidence of significant bony of spinal stenosis. PARASPINAL SOFT TISSUES: No significant abnormality. ADDITIONAL FINDINGS: None. IMPRESSION: 1. There is no CT evidence of acute compression fracture involving the thoracic spine. Signer Name: Tripp Reyes MD Signed: 03/29/2021 5:05 PM Workstation Name: [id number] CT lumbar spine wo con INDICATION / CLINICAL INFORMATION: 75 years Male; weakness, gait disturbance, prostate Ca. TECHNIQUE: Axial CT images of the lumbar spine were obtained with sagittal and coronal reconstructions. All CT scans at this location are performed using CT dose reduction for [employer] by means of automated exposure control. COMPARISON: None available. FINDINGS: POST- SURGICAL CHANGES: None. ALIGNMENT: There is no significant spondylolisthesis or scoliosis of the lumbar spine. VERTEBRAE: There is transitional component to the L5 vertebrae with sacralization of the L5 transverse processes. There are multilevel degenerative the endplate changes with mild anterior osteophytic formation. However, there is no clear CT evidence of acute compression fracture of the lumbar spine. INTERVERTEBRAL DISCS: There is marked disc space narrowing at L4-5 with vacuum phenomenon, greater on the right. The degenerative the ch anges mildly effaces the right lateral recess at. Additionally, the right foraminal narrowing mildly encroaches on the exiting right L4 nerve root sheath. Spondylosis at L3-4 mildly deforms the ventral thecal sac. The facet joint hypertrophy contributes to right foraminal narrowing with mild encroachment on the exiting right L2 nerve root sheath. Nerve root sheath. Milder narrowing is seen on the left. There appears be mild to moderate degree of spinal stenosis and right foraminal narrowing at L2-3. Milder narrowing is seen on the left. There is no clear CT evidence of significant stenosis at L1-2 PARASPINAL SOFT TISSUES: No significant abnormality. ADDITIONAL FINDINGS: None. IMPRESSION: 1. There is no CT evidence of acute compression fracture involving lumbar spine. 2. There are multilevel degenerative the changes as detailed above. Signer Name: Tripp Reyes MD Signed: 03/29/2021 5:09 PM Workstation Name: [id number] CT ABDOMEN AND PELVIS WITH CONTRAST INDICATION / CLINICAL INFORMATION: abdominal distension and tenderness OMNIPAQUE 300 100ML. TECHNIQUE: Axial CT images were obtained through the abdomen and pelvis after 100 mL Omnipaque [address] scans at this location are performed using CT dose reduction for [employer] by means of automated exposure control. COMPARISON: CT abdomen pelvis 11/18/2017 FINDINGS: LOWER CHEST: Cardiomegaly. LIVER: No significant abnormality. BILIARY SYSTEM: No significant abnormality. PANCREAS: No significant abnormality. SPLEEN: No significant abnormality. ADRENALS: No significant abnormality. KIDNEYS and URETERS: Multifocal cortical scarring in both kidneys. There are several nonobstructive left intrarenal stones, the lar gest in the lower pole measuring up to 7 mm. No hydronephrosis or ureteral stone identified. STOMACH / BOWEL: No significant abnormality. PERITONEUM: No free fluid. No free air. No fluid collection. LYMPH NODES: No significant adenopathy. VASCULAR STRUCTURES: No significant abnormality. URINARY BLADDER: No significant abnormality. REPRODUCTIVE ORGANS: The prostate is heterogeneous. ADDITIONAL FINDINGS: None. SKELETAL SYSTEM: There are multiple prominent dural vessels seen within the lower thoracic and lumbar spine, with more focal dilation in the central canal at the L4-5 level measuring up to approximately 4.4 x 1.4 cm (series 602, image 96). This is overall similar in appearance to prior CT from 2018. IMPRESSION: 1. Prominent dural vessels in the lower thoracic and lumbar spine with more focal dilation at the L4-5 level as described above. This is overall similar in appearance to prior CT from 2018. An MRI was recommended at that time, though does not appear to have been done wi thin our system. Differential considerations include a dural AVM or fistula, and contrast-enhanced MRI could be performed for further evaluation. 2. Otherwise, no acute process identified within the abdomen or pelvis to account for patient's symptoms. 3. Multifocal cortical scarring in both kidneys, and nonobstructive left intrarenal stones. Signer Name: Kylah Valdez MD Signed: 03/29/2021 5:35 PM Workstation Name: [id number] - Medical Decision Making Called to triage for stroke alert which was initiated by the PA. This is a 75-year-old male with history of prior CVA with left-sided weakness and slurred speech as well as left-sided numbness which is chronic presenting with 4 days of balance disturbance, generalized weakness, worsening of his left-sided weakness ,and abnormal gait. On physical exam, the patient has left-sided weakness and numbness which is chronic although there is milder weakness of the right upper extremity and right lower extremity as well as bilateral dysmetria on [id number]-rhagrp. With these findings, suspicious for possible new stroke. In addition to the neurologic symptoms described, the patient reports that he has had very frequent urination with occasional episodes of incontinence. On exam, he has firmness of his abdomen which is distended but there is only very mild generalized tenderness. Given the patient's history of prostate cancer, his urinary frequency and incontinence may be secondary to this. However, given his known malignancy and the possibility of spinal metastasis, we will order CT of the C/T/L-spine in addition to CT of the abdomen pelvis to assess for evidence of metastasis and or other intra-abdominal abnormalities/catastrophe. We will follow up diagnostic studies and teleneurology consult. Spoke over the phone with teleneurologist Dr. Crump regarding the case. He has seen and assessed the patient and agrees with suspicion for new or acute versus subacute stroke. He reviewed the Noncon CT of the head and there is no evidence of intracranial bleeding. Radiology read also confirms that there is no ICH. There is evidence of an old large right frontal infarct. Patient is ineligible for TPA. He also does not recommend aspirin given that the patient is on Coumadin for atrial fibrillation, he recommends continuing anticoagulation. If MRI/MRA shows evidence of acute/subacute infarct he recommends changing this to apixaban. Labs have returned and reveal no significant leukocytosis or anemia. His kidney function is normal and there are no significant electrolyte abnormalities. Of note, the patient's INR is subtherapeutic at 1.6. In addition, his urinalysis shows 23 WBCs with positive leuk esterase and positive nitrites. Therefore I have ordered 1 g of IV ceftriaxone, 500 cc of IV fluid. I spoke over the phone with Dr. Crump regarding the subtherapeutic INR and in that setting he recommends switching the patient to apixaban 5 mg twice daily. I have initiated this order as well. CT of the C/T/L-spine and abdomen are still pending. CT of the C/T/L-spine does not reveal any evidence of pathological fracture and or gross evidence of metastasis. CT of the abdomen pelvis shows no acute abnormalities. We will therefore admit the patient to the hospitalist for further work-up and management. All this was explained to the patient who expressed understanding and agreement with the plan of care. Critical Care Time: Yes (55 mins) Critical care time in (mins) excluding proc time.: 55 Critical care attestation.: If time is entered above; I have spent that time in minutes in the direct care of this critically ill patient, excluding procedure time. Critical care time was spent in the assessment and management of acute stroke, subtherapeutic INR/anticoagulation status and concomitant UTI. ED Disposition Clinical Impression: Prostate CA, Subtherapeutic international normalized ratio (INR) Stroke Qualifiers: CVA mechanism: unspecified Qualified Code(s): I63.9 - Cerebral infarction, unspecified Urinary tract infection Qualifiers: Urinary tract infection type: site unspecified Atrial fibrillation Qualifiers: Atrial fibrillation type: unspecified Qualified Code(s): I48.91 - Unspecified atrial fibrillation Disposition: OP ADMIT IP TO THIS HOSP Is pt being admited?: Yes Does the pt Need Aspirin: No Condition: Serious Referrals: PRIMARY CARE,MD [Primary Care Provider] - 3-5 Days
[2021-03-29 14:27] LABS: Basophils % (Auto) 0.7 % (0.0-1.8); Eosinophils # (Auto) 0.1 K/mm3 (0.0-0.4); Eosinophils % (Auto) 1.7 % (0.0-4.3); Hematocrit 40.9 % (35.5-45.6); Hemoglobin 13.8 gm/dl (11.8-15.2); Lymphocytes # (Auto) 1.5 K/mm3 (1.2-5.4); Lymphocytes % (Auto) 34.1 % (13.4-35.0); Mean Corpuscular HGB Conc 34 % (32-34); Mean Corpuscular Volume 95 fl (84-94); Monocytes # (Auto) 0.6 K/mm3 (0.0-0.8); Monocytes % (Auto) 13.7 % (0.0-7.3); Platelet Count 208 K/mm3 (140-440); Red Blood Count 4.31 M/mm3 (3.65-5.03)
--- NOTE | 2021-03-29 14:34 | Cat Scan Report ---
CT head/brain wo con INDICATION / CLINICAL INFORMATION: 75 years Male; CODE STROKE Stroke symptoms ;EFT WEAKNESS HX CVA #[id number]. TECHNIQUE: Routine CT head without contrast. All CT scans at this location are performed using CT dos e reduction for ALARA by means of automated exposure control. COMPARISON: None. FINDINGS: BRAIN / INTRACRANIAL CONTENTS: There is encephalomalacia involving right frontal lobe most consistent with old infarct at. There is otherwise mild to moderate cerebral white matter disease most consiste nt with microvascular angiopathy. There is also moderate cerebral atrophy with associated prominence of the ventricular system. There is no clear CT evidence of acute intracranial hemorrhage or signific ant mass effect. ORBITS: No significant abnormality of visualized orbits. SINUSES / MASTOIDS: No significant abnormality in the visualized paranasal sinuses or mastoid air zoë ls. CRANIOCERVICAL JUNCTION: No significant abnormality. ADDITIONAL FINDINGS: None. IMPRESSION: 1. There is an older infarct involving right frontal lobe with encephalomalacia. 2. There is moderate to cerebral atrophy at. 3. There is no CT evidence of acute intracranial hemorrhage. Signer Name: Tripp Reyes MD Signed: 03/29/2021 2:29 PM Workstation Name: [id number]
[2021-03-29 14:38] LABS: INR 1.64 (0.87-1.13)
[2021-03-29 14:39] LABS: Partial Thromboplastin Time 32.7 Sec. (24.2-36.6); Thrombin Time 16.5 Sec. (15.1-19.6)
--- NOTE | 2021-03-29 14:39 | Consultation ---
History of Present Illness History of present illness: [facility] Consult Note # Demographics Consult Type: Acute Stroke Level 1 (0-4.5 hrs) Patient Location: Emergency Room First Name: ASHLEY Last Name: SOFÍA Date of : 1945 Age: 75 Gender: Male Time of Initial Page (): 03/29/2021, 13:40 Time of Return Call (): 03/29/2021, 13:41 # HPI Chief Complaint: left-sided weakness History: 75M with DM, CAD, HTN, HLD, prior stroke with residual left-sided weakness, atrial fibrillation on coumadin presents with left-sided weakness. Symptoms have been happening off and on for a year. This time has been going on since . Also feeling dizzy/trouble walking since that time. # Scores Time of exam and NIHSS (): 03/29/2021, 13:42 Level of Consciousness 1a: [0] = Alert; keenly responsive LOC Questions 1b: [0] = Answers both questions correctly LOC Commands 1c: [0] = Performs both tasks correctly Best Gaze 2: [0] = Normal Visual 3: [0] = No visual loss Facial Palsy 4: [2] = Partial paralysis Motor Arm Left 5a: [0] = No drift Motor Arm Right 5b: [0] = No drift Motor Leg Left 6a: [1] = Drift Motor Leg Right 6b: [1] = Drift Limb Ataxia 7: [0] = Absent Sensory 8: [1] = Ecuh-fi-avylzajd sensory loss Best Language 9: [0] = No aphasia Dysarthria 10: [1] = Zqwj-va-xwtfqpcr dysarthria Extinction and Inattention 11: [0] = No abnormality NIHSS Total: 6 # Data Time Head CT personally read by me (): 03/29/2021, 13:[address]: no bleed preliminarily reviewed by me, please refer to radiology read for official reading chronic right frontal stroke # Assessment Impression: Ischemic Stroke (Subacute) # Plan Thrombolytic/Intervention: NOT IV Thrombolytic or IA Intervention Thrombolytic Exclusion: > 4.5 hours Intraarterial Exclusion: other >24 hours Target Blood Pressure: SBP < 160 DBP < 105 Labs: hemoglobin A1c lipid panel Imaging: (urgency: routine): MR Angiogram Head without contrast MR Angiogram Neck with contrast MRI Brain without contrast Diagnostic Test: echo without bubble study Therapy/Evaluation: PT/OT evaluation speech/swallow consultation Medication: Continue coumadin with goal INR 2-3, atorvastatin 80 and tailor to LDL < 70 goal DVT Prophylaxis: SCD Other: telemetry monitoring I have discussed my recommendations with the referring provider Additional Recommendations: if new stroke identified on MRI, would switch from coumadin to NOAC; preferably apixaban Disposition: admit # Logistics Telemedicine: Interactive 2 way audio and visual telecommunication technology was utilized during this visit Electronically signed at 03/29/2021 14:38 (Eastern Time) by Theron Richardson MD Medications and Allergies Allergies Allergy/AdvReac Type Severity Reaction Status Date / Time No Known Allergies Allergy Verified 03/29/21 13:36 Home Medications Medication Instructions Recorded Confirmed Last Taken Type Isosorbide Mononitrate [Isosorbide 30 mg PO DAILY 07/24/14 05/16/18 05/16/18 History Mononitrate ER] Diltiazem HCl [Diltiazem 24Hr ER] 120 mg PO QDAY #30 capsule.er 10/02/14 05/11/18 05/16/18 Rx metFORMIN [Glucophage] 500 mg PO QDAY 01/23/18 05/11/18 05/16/18 History Tamsulosin [Flomax] 0.4 mg PO QDAY #30 capsule 01/27/18 05/11/18 05/16/18 Rx Warfarin [Coumadin] 5 mg PO DAILY #30 tablet 01/27/18 05/17/18 5 Days Ago Rx ~05/12/18 Aspirin [Aspirin TAB] 325 mg PO PRN PRN 05/11/18 05/17/18 2 Months Ago History ~03/17/18 Metoprolol [Lopressor TAB] 25 mg PO BID 05/11/18 05/16/18 05/16/18 History Silodosin [Rapaflo] 8 mg PO QHS 05/11/18 05/11/18 05/16/18 History Simvastatin (Nf) [Zocor TAB] 20 mg PO QHS 05/11/18 05/11/18 Unknown History Furosemide [Lasix] 20 mg PO PRN PRN 05/16/18 05/16/18 05/16/18 History Temazepam [Restoril] 15 mg PO QHS 05/16/18 05/16/18 05/16/18 History hydrALAZINE [Apresoline] 25 mg PO BID 05/16/18 05/17/18 05/17/18 07:00 History cephALEXin [Keflex] 500 mg PO TID 7 Days #21 capsule 06/02/19 Unknown Rx Physical Examination - Vital Signs Vital Signs: Vital Signs Temp Pulse Resp BP Pulse Ox 98.5 F 76 16 146/73 99 03/29/21 13:33 03/29/21 13:33 03/29/21 13:33 03/29/21 13:33 03/29/21 13:33 Results - Laboratory Findings CBC and BMP: 03/29/21 14:20 Abnormal Lab Findings: Abnormal Labs 03/29/21 03/29/21 14:20 14:20 MCV 95 H [place] % (Auto) 13.7 H PT 20.0 H INR 1.64 H
[2021-03-29 14:47] LABS: Bacteria,Urine 4+ /HPF (Negative); Bilirubin,Urine NEG (Negative); Blood,Urine SM (Negative); Color,Urine Yellow (Yellow); Mucus,Urine FEW /HPF; Protein,Urine <15 mg/dL mg/dL (Negative); Urobilinogen,Urine < 2.0 mg/dL (<2.0)
[2021-03-29 15:15] LABS: Creatine Kinase MB 2.9 ng/mL (0.0-4.0)
[2021-03-29 15:19] LABS: Alanine Aminotransferase 5 units/L (7-56); Albumin 4.8 g/dL (3.9-5); BUN/Creatinine Ratio 20; Blood Urea Nitrogen 20 mg/dL (9-20); Calcium 9.3 mg/dL (8.4-10.2); Hemolysis Index 12
[2021-03-29] MEDS ORDERED: SODIUM CHLORIDE 0.9% 500 ML 500 ML IV ONE (16:19)
[2021-03-29] MEDS ORDERED: cefTRIAXone/NS 1 GM/50 ML 1 GM/50 ML BAG IV ONE (16:20)
--- NOTE | 2021-03-29 16:45 | XRay Report ---
CHEST 1 VIEW 03/29/2021 2:28 PM INDICATION / CLINICAL INFORMATION: Chest Pain. COMPARISON: 06/02/2019 FINDINGS: SUPPORT DEVICES: None. HEART / MEDIASTINUM: Stable. LUNGS / PLEURA: No significant pulmonary or pleural abnormality. No pneumothorax. ADDITIONAL FINDINGS: No significant additional findings. IMPRESSION: 1. No acute findings or significant interval change when compared to 06/02/2019. Signer Name: Gerardo Pfeiffer MD Signed: 03/29/2021 4:40 PM Workstation Name: [id number]
--- NOTE | 2021-03-29 18:03 | Cat Scan Report ---
CT cervical spine wo con INDICATION / CLINICAL INFORMATION: 75 years Male; bilateral weakness, gait disturbance. TECHNIQUE: Axial CT images of the cervical spine were obtained. Sagittal and coronal reformatted images were pr oduced. All CT scans at this location are performed using CT dose reduction for ALARA by means of aut omated exposure control. COMPARISON: None available. FINDINGS: POST-SURGICAL CHANGES: None. ALIGNMENT: This mild curvature the cervical spine, convex toward the right at. There is slight revers al the cervical lordosis without significant spondylolisthesis. VERTEBRAE: There are advanced degenerative the disc changes at C6-7 and C7-T1 with notable endplate c hanges. There is anterior osteophytic formation at C5-6 at. There is beam hardening artifact at the c ervicothoracic junction along with prominent uncovertebral joint hypertrophy and facet joint changes additionally, there is small geode on the left at C5-6. The lucency along the lateral margins of the facets at these levels appear to be on a degenerative basis there is no clear evidence of acute fract ure. INTRAVERTEBRAL DISCS: The left facet joint hypertrophy at C2-3 results in mild to moderate left leonie inal narrowing at. The broad-based disc bulge at C3-4 effaces the ventral subarachnoid space. The mod erate foraminal narrowing is greater on the right. There is moderate to marked left foraminal narrowing at C4-5 at. The spondylosis at C5-6 effaces the ventral subarachnoid space. There is moderate to marked foraminal narrowing, greater on the right. The spondylosis at C6-7 effaces the lateral recesses. Furthermore, there is marked neural foraminal n arrowing bilaterally. There is milder degree of spondylosis at C7-T1 centrally. However, there does a ppear to be moderate foraminal narrowing, greater on the right. PARASPINAL SOFT TISSUES: No prevertebral soft tissue fluid collections are identified at. ADDITIONAL FINDINGS: There are foci of air projected the within the subclavian and left internal jugu lar veins which is likely related to the procedure and IV access at. There are more subtle foci proje cted within the visualized left pterygoid fossa which are also likely within the venous plexus. IMPRESSION: 1. There are multilevel degenerative the changes involving cervical spine, most notable at C6-7 and C 7-T1 as detailed above. 2. There is no definitive CT evidence of acute fracture of the cervical spine. 3. There are scattered foci of air which appear to be intravascular and likely related to IV access. Signer Name: Tripp Reyes MD Signed: 03/29/2021 5:59 PM Workstation Name: [id number]
--- NOTE | 2021-03-29 18:09 | Cat Scan Report ---
CT thoracic spine wo con INDICATION / CLINICAL INFORMATION: 75 years Male; weakness, gait disturbance. TECHNIQUE: Axial CT images of the thoracic spine were obtained. Sagittal and coronal reformatted images were pr oduced. All CT scans at this location are performed using CT dose reduction for ALARA by means of aut omated exposure control. COMPARISON: None available. FINDINGS: POST-SURGICAL CHANGES: None. ALIGNMENT: There is slight curvature of the mid to lower thoracic spine, convex toward the right. The re is no significant spondylolisthesis. VERTEBRAE: There is slight deformity of the superior endplate of T3. However, there is associated foc al sclerosis and this finding is likely on a degenerative basis. Otherwise, there is no clear evidenc e of acute compression fracture or bony retropulsion. INTERVERTEBRAL DISCS: The intervertebral disc spaces appear fairly well-maintained without evidence o f significant bony of spinal stenosis. PARASPINAL SOFT TISSUES: No significant abnormality. ADDITIONAL FINDINGS: None. IMPRESSION: 1. There is no CT evidence of acute compression fracture involving the thoracic spine. Signer Name: Tripp Reyes MD Signed: 03/29/2021 6:05 PM Workstation Name: [id number]
--- NOTE | 2021-03-29 18:14 | Cat Scan Report ---
CT lumbar spine wo con INDICATION / CLINICAL INFORMATION: 75 years Male; weakness, gait disturbance, prostate Ca. TECHNIQUE: Axial CT images of the lumbar spine were obtained with sagittal and coronal reconstructions. All CT s cans at this location are performed using CT dose reduction for ALARA by means of automated exposure control. COMPARISON: None available. FINDINGS: POST-SURGICAL CHANGES: None. ALIGNMENT: There is no significant spondylolisthesis or scoliosis of the lumbar spine. VERTEBRAE: There is transitional component to the L5 vertebrae with sacralization of the L5 transvers e processes. There are multilevel degenerative the endplate changes with mild anterior osteophytic fo rmation. However, there is no clear CT evidence of acute compression fracture of the lumbar spine. INTERVERTEBRAL DISCS: There is marked disc space narrowing at L4-5 with vacuum phenomenon, greater on the right. The degenerative the changes mildly effaces the right lateral recess at. Additionally, th e right foraminal narrowing mildly encroaches on the exiting right L4 nerve root sheath. Spondylosis at L3-4 mildly deforms the ventral thecal sac. The facet joint hypertrophy contributes to right foraminal narrowing with mild encroachment on the exiting right L2 nerve root sheath. Nerve ro ot sheath. Milder narrowing is seen on the left. There appears be mild to moderate degree of spinal stenosis and right foraminal narrowing at L2-3. Mi lder narrowing is seen on the left. There is no clear CT evidence of significant stenosis at L1-2 PARASPINAL SOFT TISSUES: No significant abnormality. ADDITIONAL FINDINGS: None. IMPRESSION: 1. There is no CT evidence of acute compression fracture involving lumbar spine. 2. There are multilevel degenerative the changes as detailed above. Signer Name: Tripp Reyes MD Signed: 03/29/2021 6:09 PM Workstation Name: [id number]
--- NOTE | 2021-03-29 18:40 | Cat Scan Report ---
CT ABDOMEN AND PELVIS WITH CONTRAST INDICATION / CLINICAL INFORMATION: abdominal distension and tenderness OMNIPAQUE 300 100ML. TECHNIQUE: Axial CT images were obtained through the abdomen and pelvis after 100 mL Omnipaque [address] scans at this location are performed using CT dose reduction for ALARA by means of automated exposure control. COMPARISON: CT abdomen pelvis 11/18/2017 FINDINGS: LOWER CHEST: Cardiomegaly. LIVER: No significant abnormality. BILIARY SYSTEM: No significant abnormality. PANCREAS: No significant abnormality. SPLEEN: No significant abnormality. ADRENALS: No significant abnormality. KIDNEYS and URETERS: Multifocal cortical scarring in both kidneys. There are several nonobstructive l eft intrarenal stones, the largest in the lower pole measuring up to 7 mm. No hydronephrosis or urete ral stone identified. STOMACH / BOWEL: No significant abnormality. PERITONEUM: No free fluid. No free air. No fluid collection. LYMPH NODES: No significant adenopathy. VASCULAR STRUCTURES: No significant abnormality. URINARY BLADDER: No significant abnormality. REPRODUCTIVE ORGANS: The prostate is heterogeneous. ADDITIONAL FINDINGS: None. SKELETAL SYSTEM: There are multiple prominent dural vessels seen within the lower thoracic and lumbar spine, with more focal dilation in the central canal at the L4-5 level measuring up to approximately 4.4 x 1.4 cm (series 602, image 96). This is overall similar in appearance to prior CT from 2018. IMPRESSION: 1. Prominent dural vessels in the lower thoracic and lumbar spine with more focal dilation at the L4- 5 level as described above. This is overall similar in appearance to prior CT from 2018. An MRI was r ecommended at that time, though does not appear to have been done within our system. Differential con siderations include a dural AVM or fistula, and contrast-enhanced MRI could be performed for further evaluation. 2. Otherwise, no acute process identified within the abdomen or pelvis to account for patient's sympt oms. 3. Multifocal cortical scarring in both kidneys, and nonobstructive left intrarenal stones. Signer Name: Kylah Valdez MD Signed: 03/29/2021 6:35 PM Workstation Name: [id number]
--- NOTE | 2021-03-29 18:57 | History and Physical Report ---
History of Present Illness Chief complaint: I feel weak, left side and I think is getting worse History of present illness: 75 YO Male with Atrial Fib on therapeutic anticoagulation, HLD, DM, HTN, CVA complicated by LHP and Dysarthria, Nephrolithiasis, BPH, CaP, GERD presents to ED for evaluation. Patient is confused and lethargic at the time of my evaluation and is unable to provide detailed history. Patient history provided by daughter who transported patient to the hospital. As per daughter the patient has experienced worsening weakness, slurred speech over the past 3 days with persistent symptoms over the same timeframe. Patient transported to [facility] via private vehicle for further care and evaluation of the aforementioned symptoms. The patient was seen and evaluated in the emergency department. All lab and imaging studies reviewed. Patient was found to have a neurologic deficit on initial evaluation and a code stroke was called. The patient was treated in accordance with stroke protocol. The patient was also found to have a urinary tract infection and was treated with empiric IV antibiotic therapy. Patient placed in observation status and admitted to telemetry for further care and evaluation of the aforementioned symptoms. No reports of fever, chills, palpitations, productive cough, NVD, syncope, trauma, fall, unilateral leg swelling, calf pain, prolonged immobility/travel, individual/family history of DVT/PE. Prior admission on 01/23/2018 reviewed. All medication listed at time of admission has been reconciled. Advanced care planning conducted in the emergency department. Patient has diminished cognition at the time my evaluation but has a positive gag reflex and is able to protect his airway without difficulty. Past History Past Medical History: atrial fib, hypertension, hyperlipidemia, stroke, other (See HPI) Past Surgical History: hernia repair, Other (Prostate surgery) Social history: . denies: smoking, alcohol abuse, prescription drug abuse Family history: hypertension Medications and Allergies Allergies Allergy/AdvReac Type Severity Reaction Status Date / Time No Known Allergies Allergy Verified 03/29/21 13:36 Home Medications Medication Instructions Recorded Confirmed Last Taken Type Isosorbide Mononitrate [Isosorbide 30 mg PO DAILY 07/24/14 05/16/18 05/16/18 History Mononitrate ER] Diltiazem HCl [Diltiazem 24Hr ER] 120 mg PO QDAY #30 capsule.er 10/02/14 05/11/18 05/16/18 Rx metFORMIN [Glucophage] 500 mg PO QDAY 01/23/18 05/11/18 05/16/18 History Tamsulosin [Flomax] 0.4 mg PO QDAY #30 capsule 01/27/18 05/11/18 05/16/18 Rx Warfarin [Coumadin] 5 mg PO DAILY #30 tablet 01/27/18 05/17/18 5 Days Ago Rx ~05/12/18 Aspirin [Aspirin TAB] 325 mg PO PRN PRN 05/11/18 05/17/18 2 Months Ago History ~03/17/18 Metoprolol [Lopressor TAB] 25 mg PO BID 05/11/18 05/16/18 05/16/18 History Silodosin [Rapaflo] 8 mg PO QHS 05/11/18 05/11/18 05/16/18 History Simvastatin (Nf) [Zocor TAB] 20 mg PO QHS 05/11/18 05/11/18 Unknown History Furosemide [Lasix] 20 mg PO PRN PRN 05/16/18 05/16/18 05/16/18 History Temazepam [Restoril] 15 mg PO QHS 05/16/18 05/16/18 05/16/18 History hydrALAZINE [Apresoline] 25 mg PO BID 05/16/18 05/17/18 05/17/18 07:00 History cephALEXin [Keflex] 500 mg PO TID 7 Days #21 capsule 06/02/19 Unknown Rx Active Meds: Active Medications Apixaban (Apixaban 5 Mg Tab) 5 mg PO Q12HR YARITZA Review of Systems ROS unobtainable: due to mental status Exam - Constitutional Vitals: Temp Pulse Resp BP Pulse Ox 98.5 F 70 18 146/73 100 03/29/21 13:39 03/29/21 13:39 03/29/21 13:39 03/29/21 13:39 03/29/21 13:39 General appearance: Present: mild distress - EENT Eyes: Present: PERRL ENT: hearing intact, clear oral mucosa - Neck Neck: Present: supple, normal ROM - Respiratory Respiratory effort: normal Respiratory: bilateral: CTA - Cardiovascular Rhythm: irregularly irregular Heart Sounds: Present: S1 & S2. Absent: rub, click - Extremities Extremities: pulses symmetrical, No edema Peripheral Pulses: within normal limits - Abdominal General gastrointestinal: Present: soft, non-tender, non-distended, normal bowel sounds Male genitourinary: Present: normal - Integumentary Integumentary: Present: clear, dry - Musculoskeletal Musculoskeletal: left sided weakness - Psychiatric Psychiatric: no appropriate mood/affect, no intact judgment & insight, no memory intact - Neurologic Neurologic: CNII-XII intact, focal deficits, moves all extremities, no gait normal HEART Score - HEART Score Troponin: Troponin T < 0.010 ng/mL (0.00-0.029) 03/29/21 14:20 Results - Labs CBC & Chem 7: 03/29/21 14:20 03/29/21 14:20 Labs: Abnormal lab results 03/29/21 03/29/21 03/29/21 Range/Units 14:20 14:20 14:20 MCV 95 H (84-94) fl [place] % (Auto) 13.7 H (0.0-7.3) % PT 20.0 H (12.2-14.9) Sec. INR 1.64 H (0.87-1.13) Sodium 136 L (137-145) mmol/L Chloride 97.6 L (98-107) mmol/L Glucose 105 H (75-100) mg/dL ALT 5 L (7-56) units/L Urine WBC (Auto) (0.0-6.0) /HPF 03/29/21 Range/Units Unknown MCV (84-94) fl [place] % (Auto) (0.0-7.3) % PT (12.2-14.9) Sec. INR (0.87-1.13) Sodium (137-145) mmol/L Chloride (98-107) mmol/L Glucose (75-100) mg/dL ALT (7-56) units/L Urine WBC (Auto) 23.0 H (0.0-6.0) /HPF Assessment and Plan - Patient Problems (1) CVA (cerebral vascular accident) Current Visit: Yes Status: Acute Plan to address problem: CVA protocol: CT head, seizure precautions, neuro precautions, carotid Doppler, echocardiogram, physical therapy consulted, Occupational Therapy consulted, speech therapy consulted, statin therapy, lipid panel, antiplatelet therapy, t elemetry neurology consulted in ED. (2) UTI (urinary tract infection) Current Visit: Yes Status: Acute Qualifiers: Encounter type: initial encounter Plan to address problem: Urinalysis, CBC, IV antibiotic therapy. (3) Diabetes Current Visit: Yes Status: Acute Plan to address problem: Consistent carbohydrate diet, slight scale insulin therapy, Accu-Chek, hypoglycemia protocol. (4) Atrial fibrillation Current Visit: Yes Status: Acute Qualifiers: Atrial fibrillation type: persistent (not longstanding) Qualified Code(s): I48.19 - Other persistent atrial fibrillation; I48.1 - Persistent atrial fibrillation Plan to address problem: Rate control, therapeutic anticoagulation, continue medical management. (5) HTN (hypertension) Current Visit: Yes Status: Acute Qualifiers: Hypertension type: essential hypertension Qualified Code(s): I10 - Essential (primary) hypertension Plan to address problem: Monitor blood pressure every shift, continue medical management (6) HLD (hyperlipidemia) Current Visit: Yes Status: Acute Qualifiers: Hyperlipidemia type: mixed hyperlipidemia Qualified Code(s): E78.2 - Mixed hyperlipidemia Plan to address problem: Lipid panel, statin therapy, supportive care. (7) DVT prophylaxis Current Visit: Yes Status: Acute Plan to address problem: SCD to bilateral lower extremities while in bed, continue therapeutic anticoagulation (8) Advance care planning Current Visit: Yes Status: Acute Plan to address problem: Disease education conducted, care plan discussed, diagnoses discussed, prognosis discussed, patient daughter knowledges understanding and agreement with care plan, patient is full code, +30 minutes.
[2021-03-29] MEDS ORDERED: ACETAMINOPHEN 325 MG TAB PO PRN (19:15)
[2021-03-29] MEDS ORDERED: METOCLOPRAMIDE 10 MG TAB PO PRN (19:15)
[2021-03-29] MEDS ORDERED: MAGNESIUM HYDROXIDE (MOM) ORAL LIQD UDC PO PRN (19:15)
[2021-03-29] MEDS ORDERED: PROMETHAZINE 25 MG RECT SUPP PR PRN (19:15)
[2021-03-29] MEDS ORDERED: ONDANSETRON 4 MG/2 ML INJ IV PRN (19:15)
[2021-03-29] MEDS ORDERED: FUROSEMIDE 20 MG TAB PO PRN (19:17)
[2021-03-29] MEDS ORDERED: SILODOSIN 8 MG PO SCH (22:00)
[2021-03-30 05:43] LABS: Chol/HDL Ratio 2.77 %
[2021-03-30] MEDS ORDERED: dilTIAZem CD 120 MG CAP PO SCH (10:00)
[2021-03-30] MEDS ORDERED: ASPIRIN 325 MG TAB PO SCH (10:00)
[2021-03-30] MEDS ORDERED: DILTIAZEM HCL 120 MG PO SCH (10:00)
[2021-03-30] MEDS ORDERED: TAMSULOSIN 0.4 MG CAP PO SCH (10:00)
[2021-03-30] MEDS: METOPROLOL TARTRATE 25 MG TAB PO SCH ×3 (10:33→21:54)
[2021-03-30] MEDS: hydrALAZINE 25 MG TAB PO SCH ×3 (10:33→21:53)
[2021-03-30] MEDS: TEMAZEPAM 15 MG CAP PO SCH ×2 (10:33→22:10)
[2021-03-30] MEDS: APIXABAN 5 MG TAB PO SCH ×3 (10:33→21:53)
--- NOTE | 2021-03-30 12:54 | Consultation ---
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 Patient is confused and lethargic at the time of my evaluation and is unable to provide detailed history. Patient history provided by daughter who transported patient to the hospital. As per daughter the patient has experienced worsening weakness, slurred speech over the past 3 days with persistent symptoms over the same timeframe. Patient transported to [facility] via private vehicle for further care and evaluation of the aforementioned symptoms. The patient was seen and evaluated in the emergency department. All lab and imaging studies reviewed. Patient was found to have a neurologic defi cit on initial evaluation and a code stroke was called. The patient was treated in accordance with stroke protocol. The patient was also found to have a urinary tract infection and was treated with empiric IV antibiotic therapy. Patient placed in observation status and admitted to telemetry for further care and evaluation of the aforementioned symptoms. No reports of fever, chills, palpitations, productive cough, NVD, syncope, trauma, fall, unilateral leg swelling, calf pain, prolonged immobility/travel, individual/family history of DVT/PE. Prior admission on 01/23/2018 reviewed. All medication listed at time of admission has been reconciled. Advanced care planning conducted in the [facility] department. Patient has diminished cognition at the time my evaluation but has a positive gag reflex and is able to protect his airway without difficulty. Past History Past Medical History: atrial fib, hypertension, hyperlipidemia, stroke, other (See HPI) Past Surgical History: hernia repair, Other (Prostate surgery) Social history: . denies: smoking, alcohol abuse, prescription drug abuse Family history: hypertension Medications and Allergies Allergies Allergy/AdvReac Type Severity Reaction Status Date / Time No Known Allergies Allergy Verified 03/29/21 13:36 Home Medications Medication Instructions Recorded Confirmed Last Taken Type Isosorbide Mononitrate [Isosorbide 30 mg PO DAILY 07/24/14 05/16/18 05/16/18 History Mononitrate ER] Diltiazem HCl [Diltiazem 24Hr ER] 120 mg PO QDAY #30 capsule.er 10/02/14 05/11/18 05/16/18 Rx metFORMIN [Glucophage] 500 mg PO QDAY 01/23/18 05/11/18 05/16/18 History Tamsulosin [Flomax] 0.4 mg PO QDAY #30 capsule 01/27/18 05/11/18 05/16/18 Rx Warfarin [Coumadin] 5 mg PO DAILY #30 tablet 01/27/18 05/17/18 5 Days Ago Rx ~05/12/18 Aspirin [Aspirin TAB] 325 mg PO PRN PRN 05/11/18 05/17/18 2 Months Ago History ~03/17/18 Metoprolol [Lopressor TAB] 25 mg PO BID 05/11/18 05/16/18 05/16/18 History Silodosin [Rapaflo] 8 mg PO QHS 05/11/18 05/11/18 05/16/18 History Simvastatin (Nf) [Zocor TAB] 20 mg PO QHS 05/11/18 05/11/18 Unknown History Furosemide [Lasix] 20 mg PO PRN PRN 05/16/18 05/16/18 05/16/18 History Temazepam [Restoril] 15 mg PO QHS 05/16/18 05/16/18 05/16/18 History hydrALAZINE [Apresoline] 25 mg PO BID 05/16/18 05/17/18 05/17/18 07:00 History cephALEXin [Keflex] 500 mg PO TID 7 Days #21 capsule 06/02/19 Unknown Rx Active Meds: Active Medications Apixaban (Apixaban 5 Mg Tab) 5 mg PO Q12HR [facility] Review of Systems ROS unobtainable: due to mental status Past History Past Medical History: atrial fib, hypertension, hyperlipidemia, stroke, other (See HPI) Past Surgical History: hernia repair, Other (Prostate surgery) Social history: . denies: smoking, alcohol abuse, prescription drug abuse Family history: hypertension Medications and Allergies Allergies Allergy/AdvReac Type Severity Reaction Status Date / Time No Known Allergies Allergy Verified 03/29/21 13:36 Home Medications Medication Instructions Recorded Confirmed Last Taken Type Isosorbide Mononitrate [Isosorbide 30 mg PO DAILY 07/24/14 05/16/18 05/16/18 History Mononitrate ER] Diltiazem HCl [Diltiazem 24Hr ER] 120 mg PO QDAY #30 capsule.er 10/02/14 05/11/18 05/16/18 Rx metFORMIN [Glucophage] 500 mg PO QDAY 01/23/18 05/11/18 05/16/18 History Tamsulosin [Flomax] 0.4 mg PO QDAY #30 capsule 01/27/18 05/11/18 05/16/18 Rx Warfarin [Coumadin] 5 mg PO DAILY #30 tablet 01/27/18 05/17/18 5 Days Ago Rx ~05/12/18 Aspirin [Aspirin TAB] 325 mg PO PRN PRN 05/11/18 05/17/18 2 Months Ago History ~03/17/18 Metoprolol [Lopressor TAB] 25 mg PO BID 05/11/18 05/16/18 05/16/18 History Silodosin [Rapaflo] 8 mg PO QHS 05/11/18 05/11/18 05/16/18 History Simvastatin (Nf) [Zocor TAB] 20 mg PO QHS 05/11/18 05/11/18 Unknown History Furosemide [Lasix] 20 mg PO PRN PRN 05/16/18 05/16/18 05/16/18 History Temazepam [Restoril] 15 mg PO QHS 05/16/18 05/16/18 05/16/18 History hydrALAZINE [Apresoline] 25 mg PO BID 05/16/18 05/17/18 05/17/18 07:00 History cephALEXin [Keflex] 500 mg PO TID 7 Days #21 capsule 06/02/19 Unknown Rx Active Meds: Active Medications Acetaminophen (Acetaminophen 325 Mg Tab) 650 mg PO Q4H PRN PRN Reason: Pain, Mild (1-3) Apixaban (Apixaban 5 Mg Tab) 5 mg PO Q12HR [facility] Last Admin: 03/30/21 10:41 Dose: 5 mg Documented by: Aspirin (Aspirin 325 Mg Tab) 325 mg PO QDAY [facility] Last Admin: 03/30/21 10:40 Dose: 325 mg Documented by: Atorvastatin Calcium (Atorvastatin 40 Mg Tab) 40 mg PO QHS [facility] Last Admin: 03/30/21 10:33 Dose: Not Given Documented by: Bisacodyl (Bisacodyl 10 Mg Rect Supp) 10 mg FL QDAY PRN PRN Reason: Constipation Diltiazem HCl (Diltiazem Cd 120 Mg Cap) 120 mg PO QDAY [facility] Last Admin: 03/30/21 10:41 Dose: 120 mg Documented by: Furosemide (Furosemide 20 Mg Tab) 20 mg PO PRN PRN PRN Reason: Edema Hydralazine HCl (Hydralazine 25 Mg Tab) 25 mg PO BID [facility] Last Admin: 03/30/21 10:41 Dose: 25 mg Documented by: Ceftriaxone Sodium (Rocephin/Ns 1 Gm/50 Ml) 1 gm in 50 mls @ 100 mls/hr IV Q24H [facility]; Protocol Isosorbide Mononitrate (Isosorbide Mononitrate Er 30 Mg Tab) 30 mg PO DAILY [facility] Last Admin: 03/30/21 10:41 Dose: 30 mg Documented by: Magnesium Hydroxide (Magnesium Hydroxide (Mom) Oral Liqd Udc) 30 ml PO Q4H PRN PRN Reason: Constipation Metoclopramide HCl (Metoclopramide 10 Mg Tab) 10 mg PO Q6H PRN PRN Reason: Nausea And Vomiting Metoprolol Tartrate (Metoprolol Tartrate 25 Mg Tab) 25 mg PO BID [facility] Last Admin: 03/30/21 10:41 Dose: 25 mg Documented by: Miscellaneous Medication (Silodosin [Rapaflo]) 8 mg PO QHS [facility] Ondansetron HCl (Ondansetron 4 Mg/2 Ml Inj) 4 mg IV Q8H PRN PRN Reason: Nausea And Vomiting Promethazine HCl (Promethazine 25 Mg Rect Supp) 25 mg FL Q6H PRN PRN Reason: Nausea And Vomiting Sodium Chloride (Sodium Chloride 0.9% 10 Ml Flush Syringe) 10 ml IV PRN PRN PRN Reason: LINE FLUSH Tamsulosin HCl (Tamsulosin 0.4 Mg Cap) 0.4 mg PO QDAY [facility] Last Admin: 03/30/21 10:41 Dose: 0.4 mg Documented by: Temazepam (Temazepam 15 Mg Cap) 15 mg PO QHS [facility] Last Admin: 03/30/21 10:33 Dose: Not Given Documented by: Physical Examination - Vital Signs Vital Signs: Vital Signs Temp Pulse Resp BP Pulse Ox 98.5 F 76 16 146/73 99 03/29/21 13:33 03/29/21 13:33 03/29/21 13:33 03/29/21 13:33 03/29/21 13:33 - Constitutional General appearance: comfortable - EENT EENT: Present: PERRL, mucous membranes moist - Respiratory Respiratory: Present: lungs clear, rhonchi - Cardiovascular Cardiovascular: Present: other (AF ) Extremities: Present: no peripheral edema bilatateraly, no inflammation - Gastrointestinal Gastrointestinal: Present: normoactive bowel sounds - Integumentary Integumentary: Present: normal - Neurologic Cranial nerve examination: EOMI, VFF, V1/V2/V3 grossly intact, intact Speech examination: intact Sensorimotor examination: intact Detailed motor examination: grossly full strength in - Musculoskeletal Musculoskeletal: Present: other (reflexes are suppressed bilteral ) Results - Laboratory Findings CBC and BMP: 03/29/21 14:20 03/29/21 14:20 Abnormal Lab Findings: Abnormal Labs 03/29/21 03/29/21 03/29/21 14:20 14:20 14:20 MCV 95 H [place] % (Auto) 13.7 H PT 20.0 H INR 1.64 H Sodium 136 L Chloride 97.6 L Glucose 105 H ALT 5 L HDL Cholesterol Urine WBC (Auto) 03/29/21 03/30/21 Unknown 04:36 MCV [place] % (Auto) PT INR Sodium Chloride Glucose ALT HDL Cholesterol 66 H Urine WBC (Auto) 23.0 H Assessment and Plan Assessment and Plan # CVA (cerebral vascular accident) -According to pt. he is feeling weak all over for X3 days -On initial evaluation in ER it was felt pt. is with left side weakness -NIH#6 _CT brain is remarkable for remote right frontal ischemia -today evaluation showed no focal weakness -MRI brain and MRA brain and neck are unremarkable. -Echo is pending -LDL#105 -Suggest ASA 325 mg Plus Eliquis ? According to pt. he is taking coumadine at home !!!! his INR#1.64 ? ++++ Findings is suggestive of either weakness diffuse Vs TIA resolved -pt. is with hx of AF # UTI (urinary tract infection) Urinalysis, CBC, IV antibiotic therapy. # Underlying neck pain - No sign of weakness reflexes are suppressed -CT cervical is suggestive of degenerative disc C6-7 and T1 -Ct Dorsal and lumber are unremarkable # Diabetes Consistent carbohydrate diet, slight scale insulin therapy, Accu-Chek, hypoglycemia protocol. # Atrial fibrillation Rate control, therapeutic anticoagulation, continue medical management. # HTN (hypertension) Monitor blood pressure every shift, continue medical management # HLD (hyperlipidemia) Lipid panel #LDL#105 statin therapy, supportive care. # DVT prophylaxis SCD to bilateral lower extremities while in bed, continue therapeutic anticoagulation # Advance care planning Disease education conducted, care plan discussed, diagnoses discussed, prognosis discussed, patient daughter knowledges understanding and agreement with care plan, patient is full code, +30 minutes. PLAN 1- Not sure what AC pt. is taking at home ? he said coumadin !!! 2- Add ASA 325 mg daily and lipitor 40 mg 3- Treat underlying UTI 4- Check PSA 5- review Echo 6- Pt therapy will follow as needed
--- NOTE | 2021-03-30 14:09 | Magnetic Resonance Report ---
MRI BRAIN WITHOUT CONTRAST INDICATION / CLINICAL INFORMATION: CVA. TECHNIQUE: Multisequence, multiplanar images were obtained. COMPARISON: CT head dated 03/29/2021 FINDINGS: CEREBRAL and CEREBELLAR HEMISPHERES: Moderate diffuse volume loss and mild chronic small vessel disea se in the white matter are again noted. Chronic ischemic infarct in the right posterior frontal lobe involving the precentral gyrus is also again noted measuring up to 5.2 x 2.1 cm in axial plane. No acute hemorrhage. No diffusion restriction to suggest acute infarct. No extra-axial fluid collectio n. VENTRICLES: Normal in size and configuration for age. VISUALIZED ORBITS: No significant abnormality. VISUALIZED PARANASAL SINUSES: No significant abnormality. ADDITIONAL FINDINGS: None. IMPRESSION: No acute intracranial abnormality is identified. Volume loss and chronic white matter changes. Chronic ischemic infarct in the right posterior frontal lobe. MRA NECK WITHOUT CONTRAST HISTORY: Stroke COMPARISON: None. TECHNIQUE: Routine MRA of the neck is performed. 3-D/MIP reformats postprocessed. Percentage stenosi s is determined by direct quantitative measurements of distal internal carotid artery diameter compar ed with normal reference segments or by criteria similar to NASCET where applicable. CONTRAST: None. FINDINGS: Aortic arch: Not included. Cervical vertebral arteries: No significant abnormality. Common carotid arteries: No significant abnormality. Cervical internal carotid arteries: No significant abnormality. Additional findings: None. IMPRESSION: No significant abnormality. MRA HEAD WITHOUT CONTRAST HISTORY: Stroke COMPARISON: None. TECHNIQUE: Routine MRA of the head is performed. 3-D/MIP reformats postprocessed. CONTRAST: None. FINDINGS: Comment: Images near the level of the [place] are somewhat compromised secondary to patient motion. Intracranial vertebral arteries: No significant abnormality. Basilar artery: No significant abnormality. Posterior cerebral arteries: No significant abnormality. Intracranial internal carotid arteries: No significant abnormality. Anterior cerebral arteries: No significant abnormality. Middle cerebral arteries: No significant abnormality. Additional findings: Small bilateral posterior communicating arteries are identified. IMPRESSION: Slightly limited exam due to patient motion. No large vessel occlusion or high-grade stenosis is iden tified. Signer Name: Zachary Marina Jr, MD Signed: 03/30/2021 2:05 PM Workstation Name: [id number]
[2021-03-30] MEDS ORDERED: cefTRIAXone/NS 1 GM/50 ML 1 GM/50 ML BAG IV SCH (16:00)
--- NOTE | 2021-03-30 17:30 | Discharge Summary ---
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 As per daughter the patient has experienced worsening weakness, slurred speech over the past 3 days with persistent symptoms over the same timeframe. Patient was found to have a neurologic deficit on initial evaluation and a code stroke was called. The patient was treated in accordance with stroke protocol. The patient was also found to have a urinary tract infection and was treated with empiric IV antibiotic therapy. Patient placed in observation status and admitted to telemetry for further care and evaluation of the aforementioned symptoms. Patient was not found to be a candidate for TPA. Patient was placed on antiplatelets, statin and allowed for permissive hypertension. CT head in the ER did not show any acute abnormality, old right frontal lobe infarct. Patient was further evaluated with MRA head and neck, MRI of the brain. MRI of the brain showed no acute infarct, MRA head and neck showed no large vessel stenosis or occlusion. PT OT evaluated the patient and recommended home health PT OT. Neurology further evaluated the patient and recommended to continue current management and further outpatient follow-up. Patient was further evaluated with a CT abdomen pelvis which was concerning for dural vessels in the lower thoracic and lumbar spine with modalities at L4-5 level. Patient was further evaluated with cervical lumbar and thoracic spine CT scan which did not reveal any acute fracture but did show multilevel degenerative disease. Patient was then discharge home with home health in stable condition. Disposition: HOME HEALTH CARE SERVICE Final Discharge Diagnosis (Prints w/discharge instructions): --Remote CVA: Old infarct involving right frontal lobe with encephalomalacia. --UTI. --Diabetes mellitus type 2. --Atrial fibrillation. --Hypertension. --Hyperlipidemia. --Left-sided weakness with chronic debility Time spent for discharge: 34 minutes Core Measure Documentation - Palliative Care Palliative Care/ Comfort Measures: Not Applicable - Core Measures Any of the following diagnoses?: history only Exam - Physical Exam Narrative exam: - Constitutional General appearance: comfortable - EENT EENT: Present: PERRL, mucous membranes moist - Respiratory Respiratory: Present: lungs clear, rhonchi - Cardiovascular Cardiovascular: Present: other (AF ) Extremities: Present: no peripheral edema bilatateraly, no inflammation - Gastrointestinal Gastrointestinal: Present: normoactive bowel sounds - Integumentary Integumentary: Present: normal - Neurologic Cranial nerve examination: EOMI, VFF, V1/V2/V3 grossly intact, intact Speech examination: intact Sensorimotor examination: intact Detailed motor examination: grossly full strength in - Musculoskeletal Musculoskeletal: Present: other (reflexes are suppressed bilteral ) - Constitutional Vitals: Temp Pulse Resp BP Pulse Ox 98.5 F 61 16 143/72 97 03/29/21 13:39 03/29/21 23:26 03/29/21 23:01 03/29/21 23:01 03/29/21 23:01 Plan Activity: fall precautions Diet: low fat, low salt Additional Instructions: Please follow the result of pending 2D echocardiogram. Outpatient lumbar spine MRI when clinically more stable. Continue anticoagulation for chronic atrial fibrillation. Follow-up with cardiology in 1 week Follow up with: ROSA PORTER MD [Primary Care Provider] - 3-5 Days NATHAN HAMMONDS MD [Staff Physician] - 7 Days
--- NOTE | 2021-03-31 02:53 | Vascular Lab Report ---
"DUPLEX DOPPLER ULTRASOUND CAROTID, BILATERAL INDICATION / CLINICAL INFORMATION: Stroke symptoms COMPARISON: MRA/MRV of the head and neck, 03/30/2021 FINDINGS: RIGHT CAROTID ARTERY: CCA velocity: 123 cm/sec. ICA peak systolic velocity: 95 cm/sec. ICA/CCA PSV Ratio: 0.9 Right Vertebral Artery: Antegrade flow. LEFT CAROTID ARTERY: CCA velocity: 134 cm/sec. ICA peak systolic velocity: 142 cm/sec. ICA/CCA PSV Ratio: 0.9 Left Vertebral Artery: Antegrade flow. IMPRESSION: 1. No evidence of hemodynamically significant stenosis of either carotid artery (less than 50% steno sis). Velocity criteria are extrapolated from diameter data as defined by the Society of Radiologists in Ul trasound Consensus Conference, Radiology 2003; 229;340-346. Degree of || ICA PSV || Plaque || ICA/CCA Stenosis (%) || (cm/sec) || estimate (%) || PSV Ratio Normal ............. || ...<125........... || ...None......... || ...<2.0 <50................... || ...<125........... || ......<50......... || ...<2.0 50-69................ || ..125-230...... || ......>50......... || 2.0-4.0 >70 but <100... || >230.............. || .......>50........ || ...>4.0 Near occlusion || High/low/none || ...visible....... || variable Total occlusion || ....None........... || ..no lumen... || ....N/A Signer Name: Grace Shi MD Signed: 03/31/2021 2:48 AM Workstation Name: [id number]"
[2021-03-31 04:06] VITALS: BP 128/67
--- NOTE | 2021-04-02 13:03 | Electrocardiograph Report ---
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
== END 2021-03-31 04:30 | disposition home or self-care (01) ==
LOC: ED 13:02 → 4A 19:15
PROVIDERS: ADMIT Internal Medicine; ATTEND Internal Medicine
DX: I63.9 Cerebral infarction, unspecified (principal); I48.91 Unspecified atrial fibrillation; N39.0 Urinary tract infection, site not specified; C61 Malignant neoplasm of prostate; E11.9 Type 2 diabetes mellitus without complications; I10 Essential (primary) hypertension; R79.1 Abnormal coagulation profile; E78.5 Hyperlipidemia, unspecified; K21.9 Gastro-esophageal reflux disease without esophagitis; R29.706 NIHSS score 6; M25.59 Pain in other specified joint; Z86.73 Personal history of transient ischemic attack (TIA), and cerebral infarction without residual deficits; Z79.899 Other long term (current) drug therapy; Z98.890 Other specified postprocedural states; Z79.01 Long term (current) use of anticoagulants; Z79.82 Long term (current) use of aspirin; Z79.84 Long term (current) use of oral hypoglycemic drugs; Z87.442 Personal history of urinary calculi
CPT/HCPCS: 36415; 70450; 70544; 70547; 70551; 71045; 72125; 72128; 72131; 74177; 80053; 80061; 81001; 82550; 82553; 82962; 83735; 84484; 85025; 85610; 85670; 85730; 87086; 93005; 93306; 93880; 96365; 96366; 97162; 97530; 99291; A9270; G0378; J0696; J7040; Q9967

== ENCOUNTER 2021-04-21 09:05 | Inpatient (IN) | payer MEDICARE ==
--- NOTE | 2021-04-21 09:13 | Emergency Department Report ---
ED Neuro Deficit HPI - General Chief Complaint: Weakness Stated Complaint: POSS STROKE Time Seen by Provider: 04/21/21 09:12 Source: patient, EMS (Verbal report received from emergency medical services. EMS documentation not available at time of chart dictation ), RN notes reviewed, old records reviewed Mode of arrival: Stretcher Limitations: Physical Limitation - History of Present Illness Initial Comments: Patient is a 75-year-old gentleman. His past medical history includes A. 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 Patient admitted to this hospital last month for remote stroke, encephalomalaci a, UTI, diabetes, A. fib, hypertension, hyperlipidemia. He had MRI of the brain which was negative for acute findings, MRA of the head and neck which was negative for acute findings, he was seen by physical therapy, Occupational Therapy, who recommended home health, PT/OT. Today, the patient is brought to the hospital by emergency medical services as a code stroke. Patient's last known well time was last night, as per EMS. Stroke symptoms are described as aphasia. The patient himself is awake. He is very dysarthric. He is not accompanied by friends or family at this time for additional information or collateral information. He reports he is having abdominal pain. He localizes the abdominal pain to his left upper quadrant. He indicates that he is not having any headache, neck pain, chest pain, shortness of breath, or urinary symptoms. Given his dysarthria, the patient does not able to describe the qualitative nature of his symptoms, exacerbating factors, relieving factors, or aggravating factors. EMS reports normal Accu-Chek in the field, and states that the patient was ne gative on their Somers stroke scale, except for "confusion." -: unknown (EMS states patient's last known well time was last night.) Location: speech Presenting Symptoms: Present: Unable to Speak Clearly History of same: Yes On Anticoagulants: Yes Context: other (Per history of present illness) - Related Data Home Medications: Home Medications Medication Instructions Recorded Confirmed Last Taken Isosorbide Mononitrate [Isosorbide 30 mg PO DAILY 07/24/14 05/16/18 05/16/18 Mononitrate ER] metFORMIN [Glucophage] 500 mg PO QDAY 01/23/18 05/11/18 05/16/18 Aspirin 325 mg PO PRN PRN 05/11/18 05/17/18 2 Months Ago ~03/17/18 Metoprolol [Lopressor TAB] 25 mg PO BID 05/11/18 05/16/18 05/16/18 Silodosin [Rapaflo] 8 mg PO QHS 05/11/18 05/11/18 05/16/18 Simvastatin (Nf) [Zocor TAB] 20 mg PO QHS 05/11/18 05/11/18 Unknown Furosemide [Lasix] 20 mg PO PRN PRN 05/16/18 05/16/18 05/16/18 Temazepam [Restoril] 15 mg PO QHS 05/16/18 05/16/18 05/16/18 hydrALAZINE [Apresoline TAB] 25 mg PO BID 05/16/18 05/17/18 05/17/18 07:00 Previous Rx's Medication Instructions Recorded Last Taken Type Diltiazem HCl [Diltiazem 24Hr ER] 120 mg PO QDAY #30 capsule.er 10/02/14 05/16/18 Rx Tamsulosin [Flomax] 0.4 mg PO QDAY #30 capsule 01/27/18 05/16/18 Rx Warfarin [Coumadin] 5 mg PO DAILY #30 tablet 01/27/18 5 Days Ago Rx ~05/12/18 cephALEXin [Keflex] 500 mg PO TID 5 Days #15 capsule 03/30/21 Unknown Rx Allergies/Adverse Reactions: Allergies Allergy/AdvReac Type Severity Reaction Status Date / Time No Known Allergies Allergy Verified 03/29/21 13:36 ED Review of Systems ROS: Stated complaint: POSS STROKE Other details as noted in HPI Comment: Unobtainable due to pts medical conditions Gastrointestinal: abdominal pain ED Past Medical Hx - Past Medical History Hx Hypertension: Yes (X 10 YRS) Hx CVA: Yes (2010) Hx Congestive Heart Failure: No Hx Diabetes: Yes Hx Deep Vein Thrombosis: No Hx GERD: Yes Hx Renal Disease: Yes (has ureteral stent for the last year, renal insufficiency) Hx Kidney Stones: Yes Hx Asthma: No Hx COPD: No Hx Dementia: No Hx HIV: No Additional medical history: "prostate Problems" - Surgical History Hx Pacemaker: No Hx Internal Defibrillator: No Additional Surgical History: hernia repair. PROSTATE SURGERY? - Social History Smoking Status: Never Smoker - Medications Home Medications: Home Medications Medication Instructions Recorded Confirmed Last Taken Type Isosorbide Mononitrate [Isosorbide 30 mg PO DAILY 07/24/14 05/16/18 05/16/18 History Mononitrate ER] Diltiazem HCl [Diltiazem 24Hr ER] 120 mg PO QDAY #30 capsule.er 10/02/14 05/11/18 05/16/18 Rx metFORMIN [Glucophage] 500 mg PO QDAY 01/23/18 05/11/18 05/16/18 History Tamsulosin [Flomax] 0.4 mg PO QDAY #30 capsule 01/27/18 05/11/18 05/16/18 Rx Warfarin [Coumadin] 5 mg PO DAILY #30 tablet 01/27/18 05/17/18 5 Days Ago Rx ~05/12/18 Aspirin 325 mg PO PRN PRN 05/11/18 05/17/18 2 Months Ago History ~03/17/18 Metoprolol [Lopressor TAB] 25 mg PO BID 05/11/18 05/16/18 05/16/18 History Silodosin [Rapaflo] 8 mg PO QHS 05/11/18 05/11/18 05/16/18 History Simvastatin (Nf) [Zocor TAB] 20 mg PO QHS 05/11/18 05/11/18 Unknown History Furosemide [Lasix] 20 mg PO PRN PRN 05/16/18 05/16/18 05/16/18 History Temazepam [Restoril] 15 mg PO QHS 05/16/18 05/16/18 05/16/18 History hydrALAZINE [Apresoline TAB] 25 mg PO BID 05/16/18 05/17/18 05/17/18 07:00 History cephALEXin [Keflex] 500 mg PO TID 5 Days #15 capsule 03/30/21 Unknown Rx ED Neuro Physical Exam - General Limitations: Physical Limitation General appearance: in no apparent distress, anxious Suspected Stroke: Yes - Head Head exam: Present: atraumatic, normocephalic - Eye Eye exam: Present: normal appearance, EOMI. Absent: nystagmus - ENT ENT exam: Present: normal exam, normal orophraynx, mucous membranes moist, normal external ear exam, other (Patient has poor dentition) - Neck Neck exam: Present: normal inspection, full ROM. Absent: tenderness, meningismus - Respiratory Respiratory exam: Present: normal lung sounds bilaterally. Absent: respiratory distress, wheezes, rales, rhonchi, stridor, chest wall tenderness - Cardiovascular Cardiovascular Exam: Present: regular rate, irregular rhythm, normal heart sounds. Absent: systolic murmur, diastolic murmur, rubs, gallop - GI/Abdominal GI/Abdominal exam: Present: soft. Absent: distended, tenderness, guarding, rebound, rigid, pulsatile mass - Rectal Rectal exam: Present: deferred - Extremities Exam Extremities exam: Present: normal inspection, other (2+ pulses noted in the bilateral upper and lower extremities. There is no palpable cord. negative Homans sign. Muscular compartments are soft. The pelvis is stable.). Absent: calf tenderness - Back Exam Back exam: Present: normal inspection. Absent: tenderness, CVA tenderness (R), CVA tenderness (L), paraspinal tenderness, vertebral tenderness - Neurological Exam Neurological exam: Present: alert, other (The patient is dysarthric. There is facial droop noted. EOMI sensation is intact to light touch and pinch in 4 extremities. Left-sided hemiparesis noted) - NIHSS Assessment Interval: Baseline 1a. Level of Consciousness: alert/keenly responsive 1b. LOC Questions: answers 1 question correctly 1c. LOC Commands: performs tasks correctly 2. Best Gaze: normal 3. Visual: no visual loss 4. Facial Palsy: minor paralysis 5b. Motor Arm Right: drift 5a. Motor Arm Left: drift 6a. Motor Leg Left: drift 6b. Motor Leg Right: drift 7. Limb Ataxia: amputation (Not tested) 8. Sensory: normal 9. Best Language: mild/moderate aphasia 10. Dysarthria: mild/moderate dysarthria 11. Extinction/Inattention: no abnormality Total Score: 8 Stroke Severity: Moderate Stroke - Psychiatric Psychiatric exam: Present: normal affect, normal mood - Skin Skin exam: Present: warm, dry, intact, normal color. Absent: rash ED Course Vital Signs 04/21/21 04/21/21 04/21/21 09:28 09:31 09:45 Temperature Pulse Rate 85 90 82 Respiratory 12 17 12 Rate Blood Pressure 119/67 O2 Sat by Pulse 99 97 Oximetry 04/21/21 09:49 Temperature 97.8 F Pulse Rate Respiratory Rate Blood Pressure O2 Sat by Pulse Oximetry - Reevaluation(s) Reevaluation #1: 04/21/21 11:54 Differential diagnosis, including but not limited to: Stroke, pneumonia, urinary tract infection, retroperitoneal hematoma, A. fib, anticoagulated Assessment and plan: 75-year-old gentleman, presenting with dysarthria, and concern for subacute stroke. Last known well time not explicitly known, patient on Coumadin/anticoagulation, woke up with symptoms, last known well time is last night as per collateral information from EMS. The patient is therefore not a candidate for TPA. He had an MRI/MRA of the brain last month which was negative for acute findings. He had a CT angiogram, CT head today, which did not demonstrate bleed, or large vessel occlusion that would require transfer for emergent endovascular intervention. CT scan of the abdomen pelvis was obtained given nonspecific complaint of abdominal pain, and presence of anticoagulation. Retroperitoneal hematoma, AAA not identified. He has no significant CVA tenderness. He has known renal stones. CT scan abdomen pelvis today demonstrates obstructive left-sided uropathy. Urinalysis reviewed and appreciated. Blood cultures, antibiotics ordered. Recommendation to admit this patient to the medical service for recurrent neurologic symptoms reviewed and appreciated. We will admit this patient to the hospitalist service. However, given potential for complicated urinary tract infection and obstructing stone, we will also obtain urologic consultation 04/21/21 11:55 04/21/21 12:02 04/21/21 12:11 Hospital physician, Dr. Leon, to admit patient to the medical service. Discussed history, physical, laboratory studies, imaging studies with urology on-call, Dr. Eric Rizo Recommends n.p.o. after midnight. He will see the patient in consultation, and advises he will likely place stent tomorrow. I will order blood cultures and a lactic acid. EKG is pending at this time. - Lab Data Result diagrams: 04/21/21 09:38 04/21/21 10:28 Lab Results 04/21/21 04/21/21 04/21/21 Range/Units 09:38 09:38 10:28 WBC 4.4 L (4.5-11.0) K/mm3 RBC 4.73 (3.65-5.03) M/mm3 Hgb 15.3 H (11.8-15.2) gm/dl Hct 44.2 (35.5-45.6) % MCV 94 (84-94) fl MCH 32 (28-32) pg MCHC 35 H (32-34) % RDW 14.5 (13.2-15.2) % Plt Count 224 (140-440) K/mm3 Lymph % (Auto) 21.7 (13.4-35.0) % Grayson % (Auto) 12.5 H (0.0-7.3) % Eos % (Auto) 0.6 (0.0-4.3) % Baso % (Auto) 0.4 (0.0-1.8) % Lymph # (Auto) 1.0 L (1.2-5.4) K/mm3 Grayson # (Auto) 0.5 (0.0-0.8) K/mm3 Eos # (Auto) 0.0 (0.0-0.4) K/mm3 Baso # (Auto) 0.0 (0.0-0.1) K/mm3 Seg Neutrophils % 64.8 (40.0-70.0) % Seg Neutrophils # 2.8 (1.8-7.7) K/mm3 PT 18.0 H (12.2-14.9) Sec. INR 1.44 H (0.87-1.13) APTT 28.8 (24.2-36.6) Sec. Thrombin Time 16.0 (15.1-19.6) Sec. Sodium 130 L (137-145) mmol/L Potassium 4.0 (3.6-5.0) mmol/L Chloride 94.6 L (98-107) mmol/L Carbon Dioxide 25 (22-30) mmol/L Anion Gap 14 mmol/L BUN 21 H (9-20) mg/dL Creatinine 1.0 (0.8-1.3) mg/dL Estimated GFR > 60 ml/min BUN/Creatinine Ratio 21 % Glucose 104 H (75-100) mg/dL Calcium 9.0 (8.4-10.2) mg/dL Magnesium (1.7-2.3) mg/dL Total Bilirubin 1.00 (0.1-1.2) mg/dL AST 16 (5-40) units/L ALT 9 (7-56) units/L Alkaline Phosphatase 38 (35-129) units/L Total Creatine Kinase 81 (55-170) units/L CK-MB (CK-2) 1.7 (0.0-4.0) ng/mL CK-MB (CK-2) Rel Index 2.0 (0-4) Troponin T < 0.010 (0.00-0.029) ng/mL Total Protein 6.7 (6.3-8.2) g/dL Albumin 4.1 (3.9-5) g/dL Albumin/Globulin Ratio 1.6 % Lipase (13-60) units/L Plasma/Serum Alcohol (0-0.07) % 04/21/21 04/21/21 04/21/21 Range/Units 10:28 10:28 10:28 WBC (4.5-11.0) K/mm3 RBC (3.65-5.03) M/mm3 Hgb (11.8-15.2) gm/dl Hct (35.5-45.6) % MCV (84-94) fl MCH (28-32) pg MCHC (32-34) % RDW (13.2-15.2) % Plt Count (140-440) K/mm3 Lymph % (Auto) (13.4-35.0) % Grayson % (Auto) (0.0-7.3) % Eos % (Auto) (0.0-4.3) % Baso % (Auto) (0.0-1.8) % Lymph # (Auto) (1.2-5.4) K/mm3 Grayson # (Auto) (0.0-0.8) K/mm3 Eos # (Auto) (0.0-0.4) K/mm3 Baso # (Auto) (0.0-0.1) K/mm3 Seg Neutrophils % (40.0-70.0) % Seg Neutrophils # (1.8-7.7) K/mm3 PT (12.2-14.9) Sec. INR (0.87-1.13) APTT (24.2-36.6) Sec. Thrombin Time (15.1-19.6) Sec. Sodium (137-145) mmol/L Potassium (3.6-5.0) mmol/L Chloride (98-107) mmol/L Carbon Dioxide (22-30) mmol/L Anion Gap mmol/L BUN (9-20) mg/dL Creatinine (0.8-1.3) mg/dL Estimated GFR ml/min BUN/Creatinine Ratio % Glucose (75-100) mg/dL Calcium (8.4-10.2) mg/dL Magnesium 1.80 (1.7-2.3) mg/dL Total Bilirubin (0.1-1.2) mg/dL AST (5-40) units/L ALT (7-56) units/L Alkaline Phosphatase (35-129) units/L Total Creatine Kinase 81 (55-170) units/L CK-MB (CK-2) (0.0-4.0) ng/mL CK-MB (CK-2) Rel Index (0-4) Troponin T (0.00-0.029) ng/mL Total Protein (6.3-8.2) g/dL Albumin (3.9-5) g/dL Albumin/Globulin Ratio % Lipase 37 (13-60) units/L Plasma/Serum Alcohol < 0.01 (0-0.07) % - EKG Data -: EKG Interpreted by Wa 04/21/21 12:46 EKG interpreted at 12: 17 A. fib, rate 70 bpm. Normal axis, QTC prolonged, motion artifact, abnormal EKG, not a STEMI. - Radiology Data Radiology results: report reviewed, image reviewed CT abdomen pelvis w con INDICATION / CLINICAL INFORMATION: acute abd pain 100 ML OMNI 350 . TECHNIQUE: Axial CT images were obtained through the abdomen and pelvis after IV contrast. All CT scans at this location are performed using CT dose reduction for ALARA by means of automated exposure control. COMPARISON: 03/29/2021. FINDINGS: LOWER CHEST: Heart is enlarged. Lung bases are clear. LIVER: No significant abnormality GALLBLADDER/BILIARY TREE: No significant abnormality PANCREAS: No significant abnormality SPLEEN: No significant abnormality ADRENALS: No significant abnormality KIDNEYS / URETER: Extensive bilateral renal cortical scarring. Small right renal cyst noted at the lower pole. 5 mm calcification is present within the mid left ureter. There is mild asymmetric prominence of the left ureter without significant hydronephrosis. Right ureter is normal in caliber. URINARY BLADDER: Bladder is partially decompressed, though grossly unremarkable. REPRODUCTIVE ORGANS: No significant abnormality STOMACH / BOWEL: No significant abnormality. The appendix is normal in caliber. LYMPH NODES: No significant adenopathy. VASCULATURE: Mild atherosclerotic calcification without acute abnormality. OTHER: No free air, kit e fluid, or focal fluid collection is identified. SKELETAL SYSTEM: Prominent dural vessels are again seen within the lower thoracic and lumbar spine with focal dilation/ectasia at the L4-L5 level. This is unchanged in appearance from prior exam. No acute process. IMPRESSION: 1. 5 mm mid left ureteral calculus with mild asymmetric prominence of the left ureter, may reflect early obstructive uropathy. No brad hydronephrosis. 2. Otherwise, no acute abnormality. 3. Stable prominent dural vessels in the lower thoracic and lumbar spine, unchanged in appearance from 2018. This could reflect a dural AVM or fistula. Recommendations are unchanged. 4. Other stable chronic and incidental findings as above. Signer Name: Dougie Ayala MD Signed: 04/21/2021 9:53 AM Workstation Name: [employer] . CT angio neck INDICATION / CLINICAL INFORMATION: 75 years Male; cva, dysarthria 100 ML OMNI 350 . TECHNIQUE: Thin cut axial images obtained through the head during IV bolus contrast administration. Sagittal, coronal, and 3 plane MIP reconstructions performed by the technologist. NASCET type criteria used evaluate stenoses. All CT scans at this location are performed using CT dose reduction for ALARA by means of automated exposure control. COMPARISON: None available. FINDINGS: ARCH: Normal aortic arch branching suggested. CAROTID ARTERIES: The visualized common and internal carotid arteries are patent. However, there are areas of bandlike narrowing in the mid to distal, extracranial internal carotid arteries. These findings have the appearance of fibromuscular dysplasia. Findings certainly may be hemodynamically significant. VERTEBRAL ARTERIES: Codominant vertebral system seen. No significant stenosis appreciated. ADDITIONAL FINDINGS: Mild mucosal thickening seen in the ethmoids. Disc space narrowing seen at C6-7 and C7-T1. Mild kyphosis identified, centered about the C6 level. There is osseous foraminal narrowing on the right at C3-4, C5-6, and C6-7 from uncinate and facet hypertrophy. Similar findings seen on the left at C6-7, as well as C5-6 and C4-5. Poor dentition noted. IMPRESSION: 1. Fibromuscular dysplasia type changes seen in both internal carotid arteries, as described above. 2. Otherwise, no significant narrowing appreciated. Signer Name: Carson Genao MD, III Signed: 04/21/2021 10:04 AM Workstation Name: [id number] Cerebrovascular accident. Dysarthria. TECHNIQUE: 0.625 mm thick contiguous axial scans were obtained from the skull base to the skull vertex during rapid bolus administration of intravenous contrast material. Multiplanar rec onstructions were produced in the coronal and sagittal planes. In addition 3 plane MIP instructions were produced and reviewed for this report. The axial source images and reconstructed images were reviewed for this report. CONTRAST DOSE REPORT: Omnipaque 350: 100 ml administered intravenously. All CT scans at this location are performed using CT dose reduction for ALARA by means of automated exposure control. COMPARISON: MRI brain 03/30/2021 and MRA head FINDINGS: Internal carotid arteries:Abena, cavernous, opthalmic, clinoid and supraclinoid segments of the ICAs have an unremarkable appearance. Middle cerebral arteries:Normal and symmetrical M1 segments of the middle cerebral arteries are demonstrated. No abnormalities are seen on evaluation of the insular or opercular branches. Anterior cerebral arteries:Bilaterally symmetrical A1 segments are demonstrated. No abnormalities are seen along the course of the A2 segments or their visualized pericallosal branches. Vertebral arteries:Bilaterally symmetrical vertebral arteries are demonstrated. Both vertebral arteries contribute to the basilar artery origin. Basilar artery:Basilar artery has an unremarkable appearance. Posterior cerebral arteries:Bilaterally symmetrical posterior cerebral arteries are identified. Large bilateral posterior communicating arteries are identified. Dural sinuses: Dural venous sinuses are well demonstrated on this exam. There is no evidence of dural sinus thrombosis. Evidence of remote right frontal lobe (right MCA) infarction is again demonstrated. IMPRESSION: 1. No indication of large vessel occlusion or intracranial stenosis. Signer Name: Obed Torres MD Signed: 04/21/2021 10:25 AM Workstation Name: [email or web address] CT HEAD WITHOUT CONTRAST INDICATION / CLINICAL INFORMATION: CODE STROKE CALL [phone] . TECHNIQUE: Axial imaging performed from the skull apex through the skull base without the use of contrast. Sagittal and coronal reformatted images. All CT scans at this location are performed using CT dose reduction for ALARA by means of automated exposure control. COMPARISON: 03/29/2021 FINDINGS: CEREBRAL PARENCHYMA: Mild cortical volume loss and nonspecific chronic white matter changes are again noted. Stable chronic infarct in the right frontal lobe measuring 3.7 x 3.9 cm in axial plane. No acute parenchymal abnormality is appreciated. HEMORRHAGE: None. EXTRA-AXIAL SPACES: Normal in size and morphology for the patient's age. VENTRICULAR SYSTEM: Normal in size and morphology for the patient's age. MIDLINE SHIFT OR HERNIATION: None. CEREBELLUM / BRAINSTEM: No significant abnormality. CALVARIUM: No significant abnormality. ORBITS: Normal as visualized. PARANASAL SINUSES / MASTOID AIR CELLS: Normal as visualized. SOFT TISSUES of HEAD: No significant abnormality. ADDITIONAL FINDINGS: None. IMPRESSION: No acute intracranial abnormality. No change since 03/29/2021. CODE STROKE: Time of Communication (JAVA SYSTEMS ANALYST/CDT): 0826 hours Licensed Practitioner Receiving Report: Morgan Morejon Signer Name: Zachary Marina Jr, MD Signed: 04/21/2021 8:26 AM Workstation Name: [id number] CT ABDOMEN AND PELVIS WITH CONTRAST INDICATION / CLINICAL INFORMATION: abdominal distension and tenderness OMNIPAQUE 300 100ML. TECHNIQUE: Axial CT images were obtained through the abdomen and pelvis after 100 mL Omnipaque [address] scans at this location are performed using CT dose reduction for ALARA by means of automated exposure control. COMPARISON: CT abdomen pel vis 11/18/2017 FINDINGS: LOWER CHEST: Cardiomegaly. LIVER: No significant abnormality. BILIARY SYSTEM: No significant abnormality. PANCREAS: No significant abnormality. SPLEEN: No significant abnormality. ADRENALS: No significant abnormality. KIDNEYS and URETERS: Multifocal cortical scarring in both kidneys. There are several nonobstructive left intrarenal stones, the largest in the lower pole measuring up to 7 mm. No hydronephrosis or ureteral stone identified. STOMACH / BOWEL: No significant abnormality. PERITONEUM: No free fluid. No free air. No fluid collection. LYMPH NODES: No significant adenopathy. VASCULAR STRUCTURES: No significant abnormality. URINARY BLADDER: No significant abnormality. REPRODUCTIVE ORGANS: The prostate is heterogeneous. ADDITIONAL FINDINGS: None. SKELETAL SYSTEM: There are multiple prominent dural vessels seen within the lower thoracic and lumbar spine, with more focal dilation in the central canal at the L4-5 level measuring up to approximately 4.4 x 1.4 cm (series 602, image 96). This is overall similar in appearance to prior CT from 2018. IMPRESSION: 1. Prominent dural vessels in the lower thoracic and lumbar spine with more focal dilation at the L4-5 level as described above. This is overall similar in appearance to prior CT from 2018. An MRI was recommended at that time, though does not appear to have been done within our system. Differential considerations include a dural AVM or fistula, and contrast-enhanced MRI could be performed for further evaluation. 2. Otherwise, no acute process identified within the abdomen or pelvis to account for patient's symptoms. 3. Multifocal cortical scarring in both kidneys, and nonobstructive left intrarenal stones. Signer Name: Kylah Valdez MD Signed: 03/29/2021 5:35 PM Workstation Name: [id number] - Core Measures Measure Exclusions: not indicated - Thrombolytic Inclusion/Exclusion Thrombolytic Exclusion Criteria: Onset of Symptoms Unknown Critical Care Time: Yes Critical care time in (mins) excluding proc time.: 35 Critical care attestation.: If time is entered above; I have spent that time in minutes in the direct care of this critically ill patient, excluding procedure time. ED Disposition Clinical Impression: Hydroureter, left, History of CVA (cerebrovascular accident), Acute abdominal pain, Nephrolithiasis, Acute UTI (urinary tract infection), Dysarthria Atrial fibrillation Qualifiers: Atrial fibrillation type: persistent (not longstanding) Qualified Code(s): I48.19 - Other persistent atrial fibrillation Disposition: OP ADMIT IP TO THIS HOSP Is pt being admited?: Yes Does the pt Need Aspirin: Yes Condition: Good
[2021-04-21] MEDS ORDERED: SODIUM CHLORIDE 0.9% 500 ML 500 ML IV ONE (09:25)
--- NOTE | 2021-04-21 09:31 | Cat Scan Report ---
CT HEAD WITHOUT CONTRAST INDICATION / CLINICAL INFORMATION: CODE STROKE CALL [phone] . TECHNIQUE: Axial imaging performed from the skull apex through the skull base without the use of cont rast. Sagittal and coronal reformatted images. All CT scans at this location are performed using CT dose reduction for ALARA by means of automated exposure control. COMPARISON: 03/29/2021 FINDINGS: CEREBRAL PARENCHYMA: Mild cortical volume loss and nonspecific chronic white matter changes are again noted. Stable chronic infarct in the right frontal lobe measuring 3.7 x 3.9 cm in axial plane. No ac adali parenchymal abnormality is appreciated. HEMORRHAGE: None. EXTRA-AXIAL SPACES: Normal in size and morphology for the patient's age. VENTRICULAR SYSTEM: Normal in size and morphology for the patient's age. MIDLINE SHIFT OR HERNIATION: None. CEREBELLUM / BRAINSTEM: No significant abnormality. CALVARIUM: No significant abnormality. ORBITS: Normal as visualized. PARANASAL SINUSES / MASTOID AIR CELLS: Normal as visualized. SOFT TISSUES of HEAD: No significant abnormality. ADDITIONAL FINDINGS: None. IMPRESSION: No acute intracranial abnormality. No change since 03/29/2021. 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
[2021-04-21 09:47] LABS: Basophils % (Auto) 0.4 % (0.0-1.8); Eosinophils % (Auto) 0.6 % (0.0-4.3); Hematocrit 44.2 % (35.5-45.6); Hemoglobin 15.3 gm/dl (11.8-15.2); Lymphocytes % (Auto) 21.7 % (13.4-35.0); Mean Corpuscular HGB Conc 35 % (32-34); Mean Corpuscular Volume 94 fl (84-94); Monocytes # (Auto) 0.5 K/mm3 (0.0-0.8); Monocytes % (Auto) 12.5 % (0.0-7.3); Platelet Count 224 K/mm3 (140-440); Red Blood Count 4.73 M/mm3 (3.65-5.03); Red Cell Distribution Width 14.5 % (13.2-15.2)
--- NOTE | 2021-04-21 09:50 | Consultation ---
Medications and Allergies Allergies Allergy/AdvReac Type Severity Reaction Status Date / Time No Known Allergies Allergy Verified 03/29/21 13:36 Home Medications Medication Instructions Recorded Confirmed Last Taken Type Isosorbide Mononitrate [Isosorbide 30 mg PO DAILY 07/24/14 05/16/18 05/16/18 H istory Mononitrate ER] Diltiazem HCl [Diltiazem 24Hr ER] 120 mg PO QDAY #30 capsule.er 10/02/14 05/11/18 05/16/18 Rx metFORMIN [Glucophage] 500 mg PO QDAY 01/23/18 05/11/18 05/16/18 History Tamsulosin [Flomax] 0.4 mg PO QDAY #30 capsule 01/27/18 05/11/18 05/16/18 Rx Warfarin [Coumadin] 5 mg PO DAILY #30 tablet 01/27/18 05/17/18 5 Days Ago Rx ~05/12/18 Aspirin 325 mg PO PRN PRN 05/11/18 05/17/18 2 Months Ago History ~03/17/18 Metoprolol [Lopressor TAB] 25 mg PO BID 05/11/18 05/16/18 05/16/18 History Silodosin [Rapaflo] 8 mg PO QHS 05/11/18 05/11/18 05/16/18 History Simvastatin (Nf) [Zocor TAB] 20 mg PO QHS 05/11/18 05/11/18 Unknown History Furosemide [Lasix] 20 mg PO PRN PRN 05/16/18 05/16/18 05/16/18 History Temazepam [Restoril] 15 mg PO QHS 05/16/18 05/16/18 05/16/18 History hydrALAZINE [Apresoline TAB] 25 mg PO BID 05/16/18 05/17/18 05/17/18 07:00 History cephALEXin [Keflex] 500 mg PO TID 5 Days #15 capsule 03/30/21 Unknown Rx Active Meds: Active Medications Sodium Chloride (Nacl 0.9% 500 Ml) 500 mls @ 999 mls/hr IV ONCE ONE Stop: 04/21/21 09:55 Physical Examination - Vital Signs Vital Signs: Vital Signs Temp 97.8 F 04/21/21 09:49 Results - Laboratory Findings CBC and BMP: 04/21/21 09:38 Abnormal Lab Findings: Abnormal Labs 04/21/21 09:38 WBC 4.4 L Hgb 15.3 H MCHC 35 H [place] % (Auto) 12.5 H Lymph # (Auto) 1.0 L Assessment and Plan [facility] Consult Note # Demographics Consult Type: Acute Stroke Level 2 (4.5-24 hrs) Patient Location: Emergency Room First Name: Vivek Last Name: Danielle Date of : 1945 Age: 75 Gender: Male Time of Initial Page ( Time): 04/21/2021, 09:11 Time of Return Call ( Time): 04/21/2021, 09:11 # HPI History: 75 yo man with history of AFib (on coumadin), previous stroke with left hemiparesis, presents wtih aphasia since awakening. Had similar symptoms last month associated with UTI Last Known Normal: I have collected independent history specific to time last normal or last known well. We have collaborated with the provider and at this time, we have the most current timeline with the information that is available. Last night # Scores Time of exam and NIHSS ( Time): 04/21/2021, 09:37 Level of Consciousness 1a: [0] = Alert; keenly responsive LOC Questions 1b: [0] = Answers both questions correctly LOC Commands 1c: [0] = Performs both tasks correctly Best Gaze 2: [0] = Normal Visual 3: [0] = No visual loss Facial Palsy 4: [1] = Minor paralysis Motor Arm Left 5a: [0] = No drift Motor Arm Right 5b: [0] = No drift Motor Leg Left 6a: [1] = Drift Motor Leg Right 6b: [2] = Some effort against gravity Limb Ataxia 7: [0] = Absent Sensory 8: [1] = Zltd-op-uxqptlnf sensory loss Best Language 9: [0] = No aphasia Dysarthria 10: [2] = Severe dysarthria Extinction and Inattention 11: [0] = No abnormality NIHSS Total: 7 # Exam SBP: 126 DBP: 62 # PMH-FH-SH Past Medical History: Diabetes stroke Social History: non-smoker non-drinker Medications: Metformin, Tamsulosin, Metoprolol, pravastatin, warfarin Allergies: NKDA # Assessment Impression: Severe dysarthria concerning for acute stroke. Given unclear time of onset and anticoagulation use he is not a candidate for IV tpa. # Plan Thrombolytic/Intervention: NOT IV Thrombolytic or IA Intervention Thrombolytic Exclusion (< 3 hour window): actively on Coumadin/warfarin with INR > 1.7 time of onset unclear Intraarterial Exclusion: other Symptoms not suggestive of LVO, call back if CTA abnormal Imaging: (urgency: routine): MRI Brain without contrast Therapy/Evaluation: NPO until swallow evaluation PT/OT evaluation speech/swallow consultation Medication: anticoagulation with coumadin (Warfarin) DVT Prophylaxis: SCD Other: permissive hypertension telemetry monitoring would not pursue stroke work-up if MRI is negative I have discussed my recommendations with the referring provider Additional Recommendations: Metabolic and infectious workup MRI brain to further rule out stroke Disposition: admit
[2021-04-21 09:58] LABS: INR 1.44 (0.87-1.13)
[2021-04-21 09:59] LABS: Partial Thromboplastin Time 28.8 Sec. (24.2-36.6)
[2021-04-21 10:49] LABS: Creatine Kinase MB 1.7 ng/mL (0.0-4.0)
[2021-04-21 10:50] LABS: Alanine Aminotransferase 9 units/L (7-56); Albumin 4.1 g/dL (3.9-5); BUN/Creatinine Ratio 21; Blood Urea Nitrogen 21 mg/dL (9-20); Hemolysis Index 6
--- NOTE | 2021-04-21 10:57 | Cat Scan Report ---
CT abdomen pelvis w con INDICATION / CLINICAL INFORMATION: acute abd pain 100 ML OMNI 350 . TECHNIQUE: Axial CT images were obtained through the abdomen and pelvis after IV contrast. All CT sc ans at this location are performed using CT dose reduction for ALARA by means of automated exposure c ontrol. COMPARISON: 03/29/2021. FINDINGS: LOWER CHEST: Heart is enlarged. Lung bases are clear. LIVER: No significant abnormality GALLBLADDER/BILIARY TREE: No significant abnormality PANCREAS: No significant abnormality SPLEEN: No significant abnormality ADRENALS: No significant abnormality KIDNEYS / URETER: Extensive bilateral renal cortical scarring. Small right renal cyst noted at the lo wer pole. 5 mm calcification is present within the mid left ureter. There is mild asymmetric prominen ce of the left ureter without significant hydronephrosis. Right ureter is normal in caliber. URINARY BLADDER: Bladder is partially decompressed, though grossly unremarkable. REPRODUCTIVE ORGANS: No significant abnormality STOMACH / BOWEL: No significant abnormality. The appendix is normal in caliber. LYMPH NODES: No significant adenopathy. VASCULATURE: Mild atherosclerotic calcification without acute abnormality. OTHER: No free air, free fluid, or focal fluid collection is identified. SKELETAL SYSTEM: Prominent dural vessels are again seen within the lower thoracic and lumbar spine wi th focal dilation/ectasia at the L4-L5 level. This is unchanged in appearance from prior exam. No acu te process. IMPRESSION: 1. 5 mm mid left ureteral calculus with mild asymmetric prominence of the left ureter, may reflect ea rly obstructive uropathy. No brad hydronephrosis. 2. Otherwise, no acute abnormality. 3. Stable prominent dural vessels in the lower thoracic and lumbar spine, unchanged in appearance fro 2017. This could reflect a dural AVM or fistula. Recommendations are unchanged. 4. Other stable chronic and incidental findings as above. Signer Name: Dougie Ayala MD Signed: 04/21/2021 10:53 AM Workstation Name: [id number]
--- NOTE | 2021-04-21 11:08 | Cat Scan Report ---
. CT angio neck INDICATION / CLINICAL INFORMATION: 75 years Male; cva, dysarthria 100 ML OMNI 350 . TECHNIQUE: Thin cut axial images obtained through the head during IV bolus contrast administration. S agittal, coronal, and 3 plane MIP reconstructions performed by the technologist. NASCET type criteria used evaluate stenoses. All CT scans at this location are performed using CT dose reduction for ALAR A by means of automated exposure control. COMPARISON: None available. FINDINGS: ARCH: Normal aortic arch branching suggested. CAROTID ARTERIES: The visualized common and internal carotid arteries are patent. However, there are areas of bandlike narrowing in the mid to distal, extracranial internal carotid ar teries. These findings have the appearance of fibromuscular dysplasia. Findings certainly may be hemo dynamically significant. VERTEBRAL ARTERIES: Codominant vertebral system seen. No significant stenosis appreciated. ADDITIONAL FINDINGS: Mild mucosal thickening seen in the ethmoids. Disc space narrowing seen at C6-7 and C7-T1. Mild kyphosis identified, centered about the C6 level. T here is osseous foraminal narrowing on the right at C3-4, C5-6, and C6-7 from uncinate and facet hype rtrophy. Similar findings seen on the left at C6-7, as well as C5-6 and C4-5. Poor dentition noted. IMPRESSION: 1. Fibromuscular dysplasia type changes seen in both internal carotid arteries, as described above. 2. Otherwise, no significant narrowing appreciated. Signer Name: Carson Genao MD, III Signed: 04/21/2021 11:04 AM Workstation Name: [id number]
--- NOTE | 2021-04-21 11:30 | Cat Scan Report ---
CTA head with intravenous contrast CLINICAL HISTORY: Cerebrovascular accident. Dysarthria. TECHNIQUE: 0.625 mm thick contiguous axial scans were obtained from the skull base to the skull vertex during r apid bolus administration of intravenous contrast material. Multiplanar reconstructions were produced in the coronal and sagittal planes. In addition 3 plane MIP instructions were produced and reviewed for this report. The axial source images and reconstructed images were reviewed for this report. CONTRAST DOSE REPORT: Omnipaque 350: 100 ml administered intravenously. All CT scans at this location are performed using CT dose reduction for ALARA by means of automated e xposure control. COMPARISON: MRI brain 03/30/2021 and MRA head FINDINGS: Internal carotid arteries:Abena, cavernous, opthalmic, clinoid and supraclinoid segments of the ICAs have an unremarkable appearance. Middle cerebral arteries:Normal and symmetrical M1 segments of the middle cerebral arteries are demon strated. No abnormalities are seen on evaluation of the insular or opercular branches. Anterior cerebral arteries:Bilaterally symmetrical A1 segments are demonstrated. No abnormalities are seen along the course of the A2 segments or their visualized pericallosal branches. Vertebral arteries:Bilaterally symmetrical vertebral arteries are demonstrated. Both vertebral arteri es contribute to the basilar artery origin. Basilar artery:Basilar artery has an unremarkable appearance. Posterior cerebral arteries:Bilaterally symmetrical posterior cerebral arteries are identified. Larg e bilateral posterior communicating arteries are identified. Dural sinuses: Dural venous sinuses are well demonstrated on this exam. There is no evidence of dural sinus thrombosis. Evidence of remote right frontal lobe (right MCA) infarction is again demonstrated. IMPRESSION: 1. No indication of large vessel occlusion or intracranial stenosis. Signer Name: Obed Torres MD Signed: 04/21/2021 11:25 AM Workstation Name: [id number]
[2021-04-21 11:43] LABS: Bacteria,Urine 3+ /HPF (Negative); Bilirubin,Urine NEG (Negative); Blood,Urine MOD (Negative); Color,Urine Yellow (Yellow); Mucus,Urine FEW /HPF; Protein,Urine <15 mg/dL mg/dL (Negative); Urobilinogen,Urine < 2.0 mg/dL (<2.0)
[2021-04-21] MEDS ORDERED: ASPIRIN 81 MG TAB CHEW PO ONE (11:57)
[2021-04-21] MEDS ORDERED: cefTRIAXone/NS 1 GM/50 ML 1 GM/50 ML BAG IV ONE (11:58)
[2021-04-21] MEDS ORDERED: ASPIRIN 300 MG RECT SUPP PR ONE (12:22)
[2021-04-21] MEDS ORDERED: oxyCODONE /ACETAMINOPHEN 5-325MG TAB PO PRN (12:30)
[2021-04-21] MEDS ORDERED: ONDANSETRON 4 MG/2 ML INJ IV PRN ×2 (12:30→12:32)
[2021-04-21] MEDS ORDERED: HYDROmorphone 1 MG/1 ML INJ IV PRN (12:30)
[2021-04-21] MEDS ORDERED: ACETAMINOPHEN 325 MG TAB PO PRN ×2 (12:30→12:32)
--- NOTE | 2021-04-21 12:30 | History and Physical Report ---
History of Present Illness Chief complaint: He cannot talk History of present illness: 75 YO Male with Atrial Fib on therapeutic anticoagulation, DM, HTN, 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 Patient has diminished cognition and provides minimal history. Patient history taken from EMS staff, ED staff, as well as the patient's family who was made available via telephone. Patient family reports the patient was in his usual state of health around bedtime at 2030 hrs. Patient awakened from sleep this morning and was found to have increased weakness and decreased abilit y to speak. EMS was notified and upon arrival the patient was found to have a new neurologic deficit. A code stroke was called and the patient was transported to [facility] for further care and evaluation of the aforementioned symptoms. The patient was seen and evaluated in the emergency department. All lab and imaging studies reviewed. Patient found to have clinical symptoms consistent with CVA. Patient initiated on CVA protocol and placed in observation status and admitted to medical floor due to increased risk of worsening symptoms. The patient was also found to have urinary tract infection complicated by left renal calculus with resultant urinary outlet obstruction. Urology team consulted in ED. Patient initiated on IV antibiotic therapy. Patient is n.p.o. for possible surgical intervention in a.m. No reports of fever, chills, chest pain, palpitation, productive cough, skin rash, recent ill contacts, or known exposure to COVID-19. No prior admission for review. All medication listed at time of admission has been reconciled. Advanced care planning conducted in ED. Past History Past Medical History: diabetes, GERD, hypertension, hyperlipidemia, stroke, other (See HPI) Past Surgical History: hernia repair, Other (Prostate surgery) Social history: , lives with family. denies: smoking, alcohol abuse, prescription drug abuse Family history: diabetes, hypertension Medications and Allergies Allergies Allergy/AdvReac Type Severity Reaction Status Date / Time No Known Allergies Allergy Verified 03/29/21 13:36 Home Medications Medication Instructions Recorded Confirmed Last Taken Type Isosorbide Mononitrate [Isosorbide 30 mg PO DAILY 07/24/14 05/16/18 05/16/18 History Mononitrate ER] Diltiazem HCl [Diltiazem 24Hr ER] 120 mg PO QDAY #30 capsule.er 10/02/14 05/11/18 05/16/18 Rx metFORMIN [Glucophage] 500 mg PO QDAY 01/23/18 05/11/18 05/16/18 History Tamsulosin [Flomax] 0.4 mg PO QDAY #30 capsule 01/27/18 05/11/18 05/16/18 Rx Warfarin [Coumadin] 5 mg PO DAILY #30 tablet 01/27/18 05/17/18 5 Days Ago Rx ~05/12/18 Aspirin 325 mg PO PRN PRN 05/11/18 05/17/18 2 Months Ago History ~03/17/18 Metoprolol [Lopressor TAB] 25 mg PO BID 05/11/18 05/16/18 05/16/18 History Silodosin [Rapaflo] 8 mg PO QHS 05/11/18 05/11/18 05/16/18 History Simvastatin (Nf) [Zocor TAB] 20 mg PO QHS 05/11/18 05/11/18 Unknown History Furosemide [Lasix] 20 mg PO PRN PRN 05/16/18 05/16/18 05/16/18 History Temazepam [Restoril] 15 mg PO QHS 05/16/18 05/16/18 05/16/18 History hydrALAZINE [Apresoline TAB] 25 mg PO BID 05/16/18 05/17/18 05/17/18 07:00 History cephALEXin [Keflex] 500 mg PO TID 5 Days #15 capsule 03/30/21 Unknown Rx Review of Systems ROS unobtainable: due to mental status Exam - Constitutional Vitals: Temp Pulse Resp BP Pulse Ox 97.8 F 82 12 119/67 97 04/21/21 09:49 04/21/21 09:45 04/21/21 09:45 04/21/21 09:45 04/21/21 09:45 General appearance: Present: mild distress - EENT Eyes: Present: PERRL ENT: clear oral mucosa, hearing decreased - Neck Neck: Present: supple, normal ROM - Respiratory Respiratory: bilateral: CTA - Cardiovascular Heart Sounds: Present: S1 & S2. Absent: rub, click - Extremities Extremities: pulses symmetrical, No edema Peripheral Pulses: within normal limits - Abdominal General gastrointestinal: Present: soft, non-tender, non-distended, normal bowel sounds Male genitourinary: Present: normal - Integumentary Integumentary: Present: dry, clammy, decreased turgor - Musculoskeletal Musculoskeletal: left sided weakness - Psychiatric Psychiatric: no appropriate mood/affect, no intact judgment & insight, no memory intact - Neurologic Neurologic: no CNII-XII intact (Amount over the last week, nephrology), focal deficits, moves all extremities, no gait normal HEART Score - HEART Score Troponin: Troponin T < 0.010 ng/mL (0.00-0.029) 04/21/21 10:28 Results - Labs CBC & Chem 7: 04/21/21 09:38 04/21/21 10:28 Labs: Abnormal lab results 04/21/21 04/21/21 04/21/21 Range/Units 09:38 09:38 10:28 WBC 4.4 L (4.5-11.0) K/mm3 Hgb 15.3 H (11.8-15.2) gm/dl MCHC 35 H (32-34) % [place] % (Auto) 12.5 H (0.0-7.3) % Lymph # (Auto) 1.0 L (1.2-5.4) K/mm3 PT 18.0 H (12.2-14.9) Sec. INR 1.44 H (0.87-1.13) Sodium 130 L (137-145) mmol/L Chloride 94.6 L (98-107) mmol/L BUN 21 H (9-20) mg/dL Glucose 104 H (75-100) mg/dL Ur Specific [place] (1.003-1.030) Urine WBC (Auto) (0.0-6.0) /HPF 04/21/21 Range/Units Unknown WBC (4.5-11.0) K/mm3 Hgb (11.8-15.2) gm/dl MCHC (32-34) % [place] % (Auto) (0.0-7.3) % Lymph # (Auto) (1.2-5.4) K/mm3 PT (12.2-14.9) Sec. INR (0.87-1.13) Sodium (137-145) mmol/L Chloride (98-107) mmol/L BUN (9-20) mg/dL Glucose (75-100) mg/dL Ur Specific [place] 1.049 H (1.003-1.030) Urine WBC (Auto) 15.0 H (0.0-6.0) /HPF Assessment and Plan - Patient Problems (1) CVA (cerebral vascular accident) Current Visit: Yes Status: Acute Plan to address problem: CVA protocol: CT head, neuro check, seizure precaution, aspiration cautions, physical therapy consulted, Occupational Therapy consulted, speech therapy consulted, antiplatelet therapy as clinically indicated. (2) Acute UTI (urinary tract infection) Current Visit: Yes Status: Acute Plan to address problem: Urinalysis, IV antibiotic therapy, CBC, supportive care. (3) Atrial fibrillation Current Visit: No Status: Chronic Qualifiers: Atrial fibrillation type: unspecified Qualified Code(s): I48.91 - Unspecified atrial fibrillation Plan to address problem: Continue therapeutic anticoagulation, supportive care. (4) HTN (hypertension) Current Visit: No Status: Chronic Qualifiers: Hypertension type: primary hypertension Qualified Code(s): I10 - Essential (primary) hypertension Plan to address problem: Monitor blood pressure every shift, continue medical management, permissive hypertension overnight. (5) GERD (gastroesophageal reflux disease) Current Visit: Yes Status: Acute Qualifiers: Esophagitis presence: without esophagitis Qualified Code(s): K21.9 - Gastro-esophageal reflux disease without esophagitis Plan to address problem: PPI therapy, supportive care. (6) BPH (benign prostatic hyperplasia) Current Visit: Yes Status: Acute Qualifiers: Lower urinary tract symptom detail: unspecified Plan to address problem: Supportive care, urology team consulted. Continue medical management. (7) Urinary obstruction Current Visit: Yes Status: Acute Plan to address problem: Urology team consulted, patient is pending surgical intervention as per urology team. (8) DVT prophylaxis Current Visit: Yes Status: Acute Plan to address problem: SCD to bilateral lower extremities while in bed, continue therapeutic anticoagulation (9) Advance care planning Current Visit: No Status: Acute Plan to address problem: Disease education conducted, care plan discussed, diagnoses discussed, prognosis discussed, patient is full code, patient family knowledges understanding and agree with care plan, +30 minutes.
[2021-04-21] MEDS ORDERED: MAGNESIUM HYDROXIDE (MOM) ORAL LIQD UDC PO PRN (12:32)
[2021-04-21] MEDS ORDERED: PROMETHAZINE 25 MG RECT SUPP PR PRN (12:32)
[2021-04-21] MEDS ORDERED: METOCLOPRAMIDE 10 MG TAB PO PRN (12:32)
[2021-04-22 06:22] LABS: BUN/Creatinine Ratio 20; Blood Urea Nitrogen 18 mg/dL (9-20); Calcium 9.2 mg/dL (8.4-10.2); Chol/HDL Ratio 2.91 %; HDL Cholesterol 56 mg/dL (40-59); Hemolysis Index 5; LDL Cholesterol,Direct 98 mg/dL (50-130)
[2021-04-22 06:23] LABS: Hematocrit 38.5 % (35.5-45.6); Hemoglobin 13.1 gm/dl (11.8-15.2); Mean Corpuscular HGB Conc 34 % (32-34); Mean Corpuscular Volume 92 fl (84-94); Platelet Count 200 K/mm3 (140-440); Red Blood Count 4.16 M/mm3 (3.65-5.03); Red Cell Distribution Width 14.6 % (13.2-15.2)
[2021-04-22] MEDS: ASPIRIN 325 MG TAB PO SCH (11:07)
--- NOTE | 2021-04-22 11:48 | Anesthesia Consultation ---
Anesthesia Consult and Med Hx Date of service: 04/22/21 - Airway Anesthetic Teeth Evaluation: Poor (multiple missing teeth, remaining teeth are loose) ROM Head & Neck: Adequate Mental/Hyoid Distance: Adequate Mallampati Class: Class III Intubation Access Assessment: Possibly Difficult - Pulmonary Exam CTA: Yes - Cardiac Exam Cardiac Exam: No Murmur (irregular rhythm) - Pre-Operative Health Status ASA Pre-Surgery Classification: ASA4 Proposed Anesthetic Plan: MAC - Pulmonary Hx Smoking: Yes (remote smoking hx) Hx Respiratory Symptoms: No Hx Sleep Apnea: No (ANDRIY PRE SCREEN HIGH RISK) - Cardiovascular System Hx Hypertension: Yes Hx Heart Attack/AMI: No Hx Percutaneous Transluminal Coronary Angioplasty (PTCA): No Hx Cardia Arrhythmia: Yes (Afib, last dose coumadin 04/20/21) Hx Pacemaker: No Hx Internal Defibrillator: No - Central Nervous System CVA: Yes (acute CVA this admission w/ left facial droop and slurred speech) - Endocrine Hx Renal Disease: No (obstructing renal stone) Hx Liver Disease: No Hx Insulin Dependent Diabetes: No Hx Non-Insulin Dependent Diabetes: No Hx Thyroid Disease: No - Other Systems Hx Obesity: No - Additional Comments Anesthesia Medical History Comments: No hx anesthetic complications. Significant left facial droop and slurred speech noted. B/l UE strength 5/5. LE strength somewhat diminished but equal bilaterally. Patient presented with symptoms of acute CVA 04/21/21 and was also found to have obstructing renal stone. Patient was not a candidate for thrombolytic interevention at time of presentation. Timing and urgency of procedure discussed with surgery. Discussed w/ patient risk of worsening of stroke symptoms perioperatively; he verbalized understanding.
--- NOTE | 2021-04-22 11:49 | Anesthesia Day of Surgery ---
Anesthesia Day of Surgery - Day of Surgery Patient Examined: Yes Patient H&P Reviewed: Yes Patient is NPO: Yes
[2021-04-22] MEDS: cefTRIAXone/NS 1 GM/50 ML 1 GM/50 ML BAG IV SCH (11:53)
[2021-04-22] MEDS ORDERED: LACTATED RINGERS 1,000 ML ONE (12:26)
[2021-04-22] MEDS: LACTATED RINGERS 1,000 ML IV SCH (12:30)
[2021-04-22 12:32] LABS: Platelet Estimate Consistent w Auto; RBC Morphology Normal; Total Cells Counted 100
[2021-04-22] MEDS ORDERED: LIDOCAINE 2% UROJECT 10 ML JELLY ONE (12:33)
[2021-04-22] MEDS ORDERED: propofoL 200 MG/20 ML VIAL IV ONE (12:45)
[2021-04-22] MEDS ORDERED: LIDOCAINE 2% UROJECT 10 ML JELLY UR ONE (13:07)
[2021-04-22] MEDS ORDERED: WATER FOR IRRIG STERILE 1,500 ML BOTTLE IR ONE (13:08)
[2021-04-22] MEDS ORDERED: WATER FOR IRRIG STERILE 2000 ML IR ONE (13:09)
[2021-04-22] MEDS ORDERED: PHENYLEPHRINE/NS 1,000 MCG/10 ML SYRINGE (OR USE) IV ONE (13:11)
[2021-04-22] MEDS ORDERED: LIDOCAINE MPF (2%) 20 MG/1 ML VIAL 5 ML ONE (13:11)
--- NOTE | 2021-04-22 13:32 | Post Operative Note ---
Date of procedure: 04/22/21 Pre-op diagnosis: left ureteral stone Post-op diagnosis: same Findings: ureteral stone Procedure: cysto l rpg ureteroscopy stent Anesthesia: GETA Surgeon: OSKAR QUIÑONES Estimated blood loss: none Pathology: none Specimen disposition: to lab Condition: stable Disposition: PACU
--- NOTE | 2021-04-22 13:34 | Progress Note ---
Assessment and Plan left stone for stent sig neuro issues Subjective Date of service: 04/22/21 Principal diagnosis: left ureteral stone Objective - Constitutional Vitals: Vital Signs - 12hr 04/22/21 04/22/21 04/22/21 05:00 08:30 11:15 Temperature 98.6 F 98.8 F 98.1 F Pulse Rate 82 84 86 Respiratory 18 20 20 Rate Blood Pressure 117/65 Blood Pressure 147/72 131/74 [Left] O2 Sat by Pulse 95 Oximetry General appearance: Present: mild distress - Respiratory Respiratory effort: normal - Genitourinary Male genitourinary: normal - Labs CBC & Chem 7: 04/22/21 04:54 04/22/21 04:54 Labs: Abnormal lab results 04/22/21 04/22/21 04/22/21 Range/Units 04:54 04:54 12:09 WBC 3.6 L (4.5-11.0) K/mm3 Monocytes % (Manual) 14.0 H (0.0-7.3) % Sodium 135 L (137-145) mmol/L Chloride 97.9 L (98-107) mmol/L POC Glucose 67 L (70-105) mg/dL Medications & Allergies - Medications Allergies/Adverse Reactions: Allergies No Known Allergies Allergy (Verified 03/29/21 13:36) Home Medications: Home Medications Medication Instructions Recorded Confirmed Last Taken Type Isosorbide Mononitrate [Isosorbide 30 mg PO DAILY 07/24/14 05/16/18 05/16/18 History Mononitrate ER] Diltiazem HCl [Diltiazem 24Hr ER] 120 mg PO QDAY #30 capsule.er 10/02/14 05/11/18 05/16/18 Rx metFORMIN [Glucophage] 500 mg PO QDAY 01/23/18 05/11/18 05/16/18 History Tamsulosin [Flomax] 0.4 mg PO QDAY #30 capsule 01/27/18 05/11/18 05/16/18 Rx Warfarin [Coumadin] 5 mg PO DAILY #30 tablet 01/27/18 05/17/18 5 Days Ago Rx ~05/12/18 Aspirin 325 mg PO PRN PRN 05/11/18 05/17/18 2 Months Ago History ~03/17/18 Metoprolol [Lopressor TAB] 25 mg PO BID 05/11/18 05/16/18 05/16/18 History Silodosin [Rapaflo] 8 mg PO QHS 05/11/18 05/11/18 05/16/18 History Simvastatin (Nf) [Zocor TAB] 20 mg PO QHS 05/11/18 05/11/18 Unknown History Furosemide [Lasix] 20 mg PO PRN PRN 05/16/18 05/16/18 05/16/18 History Temazepam [Restoril] 15 mg PO QHS 05/16/18 05/16/18 05/16/18 History hydrALAZINE [Apresoline TAB] 25 mg PO BID 05/16/18 05/17/18 05/17/18 07:00 History cephALEXin [Keflex] 500 mg PO TID 5 Days #15 capsule 03/30/21 Unknown Rx Active Medications: Generic Name Dose Route Start Last Admin Trade Name Freq PRN Reason Stop Dose Admin Acetaminophen 650 mg 04/21/21 12:30 Acetaminophen 325 Mg Tab PO Q4H PRN Pain MILD(1-3)/Fever >100.5/ARCINIEGA Aspirin 325 mg 04/22/21 10:00 04/22/21 11:07 Aspirin 325 Mg Tab PO Not Given QDAY [facility] Atorvastatin Calcium 40 mg 04/21/21 22:00 04/21/21 21:52 Atorvastatin 40 Mg Tab PO 40 mg QHS [facility] Administration Bisacodyl 10 mg 04/21/21 12:32 Bisacodyl 10 Mg Rect Supp MN QDAY PRN Constipation Hydromorphone HCl 0.5 mg 04/21/21 12:30 Hydromorphone 1 Mg/1 Ml Inj IV Q6H PRN Pain , Severe (7-10) Ceftriaxone Sodium 1 gm in 50 mls @ 100 mls/hr 04/22/21 10:00 04/22/21 11:53 Rocephin/Ns 1 Gm/50 Ml IV Not Given Q24H [facility] Protocol Magnesium Hydroxide 30 ml 04/21/21 12:32 Magnesium Hydroxide (Mom) Oral Liqd Udc PO Q4H PRN Constipation Metoclopramide HCl 10 mg 04/21/21 12:32 Metoclopramide 10 Mg Tab PO Q6H PRN Nausea And Vomiting Ondansetron HCl 4 mg 04/21/21 12:32 Ondansetron 4 Mg/2 Ml Inj IV Q8H PRN Nausea And Vomiting Oxycodone/Acetaminophen 1 tab 04/21/21 12:30 Oxycodone /Acetaminophen 5-325mg Tab PO Q6H PRN Pain, Moderate (4-6) Promethazine HCl 25 mg 04/21/21 12:32 Promethazine 25 Mg Rect Supp MN Q6H PRN Nausea And Vomiting Sodium Chloride 10 ml 04/21/21 22:00 04/21/21 21:52 Sodium Chloride 0.9% 10 Ml Flush Syringe IV 10 ml BID YARITZA Administration Sodium Chloride 10 ml 04/21/21 12:32 Sodium Chloride 0.9% 10 Ml Flush Syringe IV PRN PRN LINE FLUSH HEART Score - HEART Score Troponin: Troponin T < 0.010 ng/mL (0.00-0.029) 04/21/21 10:28
[2021-04-22] MEDS ORDERED: ONDANSETRON 4 MG/2 ML INJ IV PRN (14:30)
--- NOTE | 2021-04-22 14:36 | Fluoroscopy Report ---
FLUOROSCOPY RETROGRADE UROGRAPHY HISTORY: Left ureteral stone FINDINGS: Fluoroscopy was provided by radiology during retrograde urography by the urologist. Only im ages of the left collecting system are presented. A filling defect consistent with a stone is identif ied in the mid left ureter. Subsequent images demonstrate placement of a double-J left ureteral stent which appears in good position with good drainage on the final image. Please correlate with the proc edural report as needed. IMPRESSION: Left ureteral stent placement as described. Fluoroscopy time: 31 seconds Fluoroscopic images: 3 Signer Name: Zachary Marina Jr, MD Signed: 04/22/2021 2:31 PM Workstation Name: [id number]
--- NOTE | 2021-04-22 16:45 | Post Anesthesia Evaluation ---
- Post Anesthesia Evaluation Patient Participated: Yes Airway Patent: Yes Stable Respiratory Function: Yes Nausea/Vomiting: Yes (improved with IV antiemetics) Temp > 96.8F: Yes Pain Manageable: Yes Adequeate Hydration: Yes Anesthesia Complications: No
--- NOTE | 2021-04-22 17:36 | Progress Note ---
Assessment and Plan Assessment and Plan - Patient Problems (1) left ureteral stone with obstruction Cystoscopy and RPG's were done 2) UTI continue IV antibiotics (3) Atrial fibrillation Current Visit: No Status: Chronic Qualifiers: Atrial fibrillation type: unspecified Qualified Code(s): I48.91 - Unspecified atrial fibrillation Plan to address problem: Continue therapeutic anticoagulation, supportive care. (4) HTN (hypertension) Current Visit: No Status: Chronic Qualifiers: Hypertension type: primary hypertension Qualified Code(s): I10 - Essential (primary) hypertension Plan to address problem: Monitor blood pressure every shift, continue medical management, permissive hypertension overnight. (5) CVA Normal exam Patient had MRI/MRA recently No further work-up No neuro consult Patient may be discharged tomorrow with okay with Follow-up with urology as outpatient (6) BPH (benign prostatic hyperplasia) Current Visit: Yes Status: Acute Qualifiers: Lower urinary tract symptom detail: unspecified Plan to address problem: Supportive care, urology team consulted. Continue medical management. (7) Urinary obstruction Current Visit: Yes Status: Acute Plan to address problem: Had a cystoscopy and left RPG stent (8) DVT prophylaxis Current Visit: Yes Status: Acute Plan to address problem: SCD to bilateral lower extremities while in bed, continue therapeutic anticoag ulation (9) Advance care planning Current Visit: No Status: Acute Plan to address problem: Disease education conducted, care plan discussed, diagnoses discussed, prognosis discussed, patient is full code, patient family knowledges understanding and agree with care plan, +30 minutes. Subjective Date of service: 04/22/21 Principal diagnosis: left ureteral stone Interval history: 75 YO Male with Atrial Fib on therapeutic anticoagulation, DM, HTN, 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 Patient has diminished cognition and provides minimal history. Patient history taken from EMS staff, ED staff, as well as the patient's family who was made available via telephone. Patient family reports the patient was in his usual state of health around bedtime at 2030 hrs. Patient awakened from sleep this morning and was found to have increased weakness and decreased eliza lity to speak. EMS was notified and upon arrival the patient was found to have a new neurologic deficit. A code stroke was called and the patient was transported to [facility] for further care and evaluation of the aforementioned symptoms. The patient was seen and evaluated in the emergency department. All lab and imaging studies reviewed. Patient found to have clinical symptoms consistent with CVA. Patient initiated on CVA protocol and placed in observation status and admitted to medical floor due to increased risk of worsening symptoms. The patient was also found to have urinary tract infection complicated by left renal calculus with resultant urinary outlet obstruction. Urology team consulted in ED. Patient initiated on IV antibiotic therapy. Patient is n.p.o. for possible surgical intervention in a.m. No reports of fever, chills, chest pain, palpitation, productive cough, skin rash, recent ill contacts, or known exposure to COVID-19. No prior admission for review. All medication listed at time of admission has been reconciled. Advanced care planning conducted in ED. 04/22/2021 Had cysto l rpg ureteroscopy stent today Post procedure patient doing well Patient able to move all 4 extremities No signs of CVA No dysarthria Had CVA work-up recently 1 month ago along with MRI/MRA and was inconclusive If patient is cleared by physical therapy-patient can be discharged home to [place] to follow-up with urology as outpatient Objective - Constitutional Vitals: Vital Signs - 12hr 04/22/21 04/22/21 04/22/21 08:30 10:00 11:15 Temperature 98.8 F 98.1 F Pulse Rate 84 86 Respiratory 20 20 Rate Blood Pressure Blood Pressure 147/72 131/74 [Left] O2 Sat by Pulse 98 Oximetry 04/22/21 04/22/21 04/22/21 12:15 12:20 13:20 Temperature 98.7 F 98.7 F 96.9 F L Pulse Rate 88 88 83 Respiratory 18 18 12 Rate Blood Pressure 147/90 147/90 128/80 Blood Pressure [Left] O2 Sat by Pulse 96 96 98 Oximetry 04/22/21 04/22/21 04/22/21 13:25 13:30 13:45 Temperature Pulse Rate 80 87 84 Respiratory 16 16 18 Rate Blood Pressure 114/70 113/78 126/77 Blood Pressure [Left] O2 Sat by Pulse 100 100 99 Oximetry 04/22/21 15:50 Temperature 98.3 F Pulse Rate 88 Respiratory 20 Rate Blood Pressure Blood Pressure 147/70 [Left] O2 Sat by Pulse Oximetry General appearance: Present: no acute distress, well-nourished - EENT Eyes: PERRL, EOM intact ENT: hearing intact, clear oral mucosa Ears: bilateral: normal - Neck Neck: supple, normal ROM - Respiratory Respiratory effort: normal Respiratory: bilateral: CTA - Breasts Breasts: normal - Cardiovascular Heart rate: 78 Rhythm: regular Heart Sounds: Present: S1 & S2. Absent: gallop, rub Extremities: pulses intact, No edema, normal color, Full ROM - Gastrointestinal General gastrointestinal: Present: soft, non-tender, non-distended, normal bowel sounds - Genitourinary Male genitourinary: normal - Integumentary Integumentary: clear, warm, dry - Musculoskeletal Musculoskeletal: 1, strength equal bilaterally - Neurologic Neurologic: moves all extremities - Psychiatric Psychiatric: memory intact, appropriate mood/affect, intact judgment & insight - Labs CBC & Chem 7: 04/23/21 06:53 04/23/21 06:53 Labs: Abnormal lab results 04/22/21 04/22/21 04/22/21 Range/Units 04:54 04:54 12:09 WBC 3.6 L (4.5-11.0) K/mm3 Monocytes % (Manual) 14.0 H (0.0-7.3) % Sodium 135 L (137-145) mmol/L Chloride 97.9 L (98-107) mmol/L POC Glucose 67 L (70-105) mg/dL 04/22/21 Range/Units 15:39 WBC (4.5-11.0) K/mm3 Monocytes % (Manual) (0.0-7.3) % Sodium (137-145) mmol/L Chloride (98-107) mmol/L POC Glucose 67 L (70-105) mg/dL HEART Score - HEART Score Troponin: Troponin T < 0.010 ng/mL (0.00-0.029) 04/21/21 10:28
--- NOTE | 2021-04-22 17:56 | Electrocardiograph Report ---
[facility] Test Date: 2021-04-21 Test Time: 12:08:48 Pat Name: ASHLEY GORE Department: Room: B317 1 Gender: M Equity Structurer: PAIGE : 1945 Requested By: CONOR ASIF Order Number: [id number] Reading MD: Florentin Smith Measurements Intervals [place]er Rate: 77 P: AR: QRS: 70 QRSD: 85 T: 69 QT: 428 QTc: 486 Interpretive Statements Atrial fibrillation Early repolarization ST changes Compared to ECG 03/29/2021 14:34:54 No significant change Electronically Signed On 04-22-2021 17:55:47 EDT by Florentin Smith
[2021-04-22] MEDS: SODIUM CHLORIDE 0.9% 1000 ML 1,000 ML IV SCH (18:54)
--- NOTE | 2021-04-23 00:27 | Operative Report ---
DATE OF SURGERY: 04/22/2021 PREOPERATIVE DIAGNOSIS: Left mid ureteral stone. POSTOPERATIVE DIAGNOSIS: Left mid ureteral stone. PROCEDURE: Cystoscopy, left retrograde, left double-J stent. SURGEON: Kali Stratton MD ANESTHESIA: MAC. FINDINGS: This is a gentleman with progressive neurological acute issues on Coumadin with a mid ureteral stone. He now presents for stenting. All risks and implications discussed. DESCRIPTION OF PROCEDURE: The patient was brought to the OR and placed on the operating table. Following induction of anesthesia, placed in lithotomy position, prepped and draped in usual sterile fashion. Cystourethroscopy showed a slightly elevated bladder neck. The orifice was cannulated. A retrograde showed a mid ureteral filling defect consistent with the stone. A wire coiled in the kidney. We placed an open ended into the kidney. There was clear urine. We then placed a #6 double-J and a Escalona. The patient tolerated the procedure well. The Escalona can be discontinued when it is no longer needed. Stent was in good position. He will need further lithotripsy or ureteroscopy at a later date after the acute neurological condition is stabilized. TID: [id number] RECEIPT: WILLAIM/YAZ
--- NOTE | 2021-04-23 04:07 | Consultation ---
DATE OF CONSULTATION: 04/22/2021 PREOPERATIVE DIAGNOSES: Left mid ureteral stone with pain, dementia, acute neurological issue. POSTOPERATIVE DIAGNOSES: Left mid ureteral stone with pain, dementia, acute neurological issue. FINDINGS: This is a 75-year-old gentleman we have been seeing for a while, who presented with a left stone and progressive neurological issues. He was admitted by the emergency room. We were notified to see the patient after his neurological status was stable. He had no white count, just intermittent pain and they were concerned that he was having an acute stroke. PAST MEDICAL HISTORY: As mentioned above, previous stroke, heart disease, hypertension. PAST SURGICAL HISTORY: Prostate surgery. SOCIAL HISTORY: Noncontributory. FAMILY HISTORY: Hypertension. ALLERGIES: Negative. MEDICATIONS: He is on nitrates, Flomax, Coumadin, Lasix, Restoril, metoprolol. REVIEW OF SYSTEMS: Left flank pain, dysarthria. PHYSICAL EXAMINATION: GENERAL: He is in no distress, mild discomfort. ABDOMEN: Soft, nondistended. GENITALIA: Atrophic testes, uncircumcised. IMPRESSION: Left mid ureteral stone, possible stroke, on Coumadin. Could not have a percutaneous nephrostomy. PLAN: Plan for semi-emergent intervention after neuro clearance. TID: [id number] RECEIPT: [id number] WILLIAM/YAZ/FLORI
[2021-04-23 07:21] LABS: Basophils % (Auto) 0.8 % (0.0-1.8); Eosinophils # (Auto) 0.1 K/mm3 (0.0-0.4); Eosinophils % (Auto) 1.8 % (0.0-4.3); Hematocrit 38.3 % (35.5-45.6); Hemoglobin 13.2 gm/dl (11.8-15.2); Lymphocytes # (Auto) 1.1 K/mm3 (1.2-5.4); Lymphocytes % (Auto) 22.8 % (13.4-35.0); Mean Corpuscular HGB Conc 35 % (32-34); Mean Corpuscular Volume 93 fl (84-94); Monocytes # (Auto) 0.7 K/mm3 (0.0-0.8); Monocytes % (Auto) 13.9 % (0.0-7.3); Platelet Count 186 K/mm3 (140-440); Red Blood Count 4.14 M/mm3 (3.65-5.03); Red Cell Distribution Width 14.3 % (13.2-15.2)
[2021-04-23 07:36] LABS: Alanine Aminotransferase 8 units/L (7-56); Albumin 3.8 g/dL (3.9-5); BUN/Creatinine Ratio 14; Blood Urea Nitrogen 13 mg/dL (9-20); Calcium 8.8 mg/dL (8.4-10.2); Hemolysis Index 6
[2021-04-23] MEDS: ASPIRIN 325 MG TAB PO SCH (09:42)
[2021-04-23] MEDS: cefTRIAXone/NS 1 GM/50 ML 1 GM/50 ML BAG IV SCH (09:42)
--- NOTE | 2021-04-23 10:00 | Discharge Summary ---
Providers - Providers Date of Admission: 04/22/21 12:00 Attending physician: AMALIA HENDERSON MD 04/21/21 12:11 Consult to Physician [CONS] Urgent Comment: Consulting Provider: OSKAR QUIÑONES Physician Instructions: Reason For Exam: Obstructing nephrolithiasis 04/21/21 12:32 Occupational Therapy Evaluate and Treat [CONS] Routine Comment: Reason For Exam: Neuro deficits Physical Therapy Evaluation and Treat [CONS] Routine Comment: Reason For Exam: Neuro deficits 04/21/21 12:33 Speech Therapy Evaluation and Treat [CONS] Routine Reason For Exam: swallow eval Primary care physician: THERAPIST'S ASSISTANT Hospitalization Condition: Good Hospital course: (1) left ureteral stone with obstruction Cystoscopy and RPG's were done 2) UTI continue IV antibiotics (3) Atrial fibrillation Current Visit: No Status: Chronic Qualifiers: Atrial fibrillation type: unspecified Qualified Code(s): I48.91 - Unspecified atrial fibrillation Plan to address problem: Continue therapeutic anticoagulation, supportive care. (4) HTN (hypertension) Current Visit: No Status: Chronic Qualifiers: Hypertension type: primary hypertension Qualified Code(s): I10 - Essential (primary) hypertension Plan to address problem: Monitor blood pressure every shift, continue medical management, permissive hypertension overnight. (5) CVA Normal exam Patient had MRI/MRA recently No further work-up No neuro consult Patient may be discharged tomorrow with okay with Follow-up with urology as outpatient (6) BPH (benign prostatic hyperplasia) Current Visit: Yes Status: Acute Qualifiers: Lower urinary tract symptom detail: unspecified Plan to address problem: Supportive care, urology team consulted. Continue medical management. (7) Urinary obstruction Current Visit: Yes Status: Acute Plan to address problem: Had a cystoscopy and left RPG stent (8) DVT prophylaxis Current Visit: Yes Status: Acute Plan to address problem: SCD to bilateral lower extremities while in bed, continue therapeutic anticoagulation (9) Advance care planning Current Visit: No Status: Acute Plan to address problem: Disease education conducted, care plan discussed, diagnoses discussed, prognosis discussed, patient is full code, patient family knowledges understanding and agree with care plan, +30 minutes. Subjective Date of service: 04/22/21 Principal diagnosis: left ureteral stone Interval history: 75 YO Male with Atrial Fib on therapeutic anticoagulation, DM, HTN, CVA complic ated by LHP,Dysarthria, and Debility on Antiplatelet therapy, BPH, GERD, HLD, Vascular Dementia, Cerebral Atherosclerosis, Nephrolithiasis presents to ED for evaluation. Patient has diminished cognition and provides minimal history. Patient history taken from EMS staff, ED staff, as well as the patient's family who was made available via telephone. Patient family reports the patient was in his usual state of health around bedtime at 2030 hrs. Patient awakened from sleep this morning and was found to have increased weakness and decreased ability to speak. EMS was notified and upon arrival the patient was found to have a new neurologic deficit. A code stroke was called and the patient was transported to [facility] for further care and evaluation of the aforementioned symptoms. The patient was seen and evaluated in the emergency department. All lab and imaging studies reviewed. Patient found to have clinical symptoms consistent with CVA. Patient initiated on CVA protocol and placed in observation status and admitted to medical floor due to increased risk of worsening symptoms. The patient was also found to have urinary tract infection complicated by left renal calculus with resultant urinary outlet obstruction. Urology team consulted in ED. Patient initiated on IV antibiotic therapy. Patient is n.p.o. for possible surgical intervention in a.m. No reports of fever, chills, chest pain, palpitation, productive cough, skin rash, recent ill contacts, or known exposure to COVID-19. No prior admission for review. All medication listed at time of admission has been reconciled. Advanced care planning conducted in ED. 04/22/2021 Had cysto l rpg ureteroscopy stent today Post procedure patient doing well Patient able to move all 4 extremities No signs of CVA No dysarthria Had CVA work-up recently 1 month ago along with MRI/MRA and was inconclusive If patient is cleared by physical therapy-patient can be discharged home tomorrow to follow-up with urology as outpatient Disposition: DC-30 STILL A PATIENT Exam - Constitutional Vitals: Temp Pulse Resp BP Pulse Ox 98.2 F 83 18 137/77 97 04/23/21 08:12 04/23/21 08:12 04/23/21 08:12 04/23/21 08:12 04/23/21 08:12 Plan Follow up with: PRIMARY MD GERMAN [Primary Care Provider] - 3-5 Days
--- NOTE | 2021-04-23 13:55 | Progress Note ---
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 Patient has diminished cognition and provides minimal history. Patient history taken from EMS staff, ED staff, as well as the patient's family who was made available via telephone. Patient family reports the patient was in his usual state of health around bedtime at 2030 hrs. Patient awakened from sleep this morning and was found to have increased weakness and decreased ability to speak. EMS was notified and upon arrival the patient was found to h ave a new neurologic deficit. A code stroke was called and the patient was transported to [facility] for further care and evaluation of the aforementioned symptoms. The patient was seen and evaluated in the emergency department. All lab and imaging studies reviewed. Patient found to have clinical symptoms consistent with CVA. Patient initiated on CVA protocol and placed in observation status and admitted to medical floor due to increased risk of worsening symptoms. The patient was also found to have urinary tract infection complicated by left renal calculus with resultant urinary outlet obstruction. Urology team consulted in ED. Patient initiated on IV antibiotic therapy. Patient is n.p.o. for possible surgical intervention in a.m. No reports of fever, chills, chest pain, palpitation, productive cough, skin rash, recent ill contacts, or known exposure to COVID-19. No prior admission for review. All medication listed at time of admission has been reconciled. Advanced care planning conducted in ED. 04/22/2021 Had cysto l rpg ureteroscopy stent today Post procedure patient doing well Patient able to move all 4 extremities No signs of CVA No dysarthria Had CVA work-up recently 1 month ago along with MRI/MRA and was inconclusive If patient is cleared by physical therapy-patient can be discharged home tomorrow to follow-up with urology as outpatient 04/23: Patient seen and examined this morning he is awake alert oriented he just states that he does not feel well. He cannot describe what it is. No dysarthria noted. Discussed with nursing staff at bedside we will also still get neurologist to evaluate the patient despite having an MRI before. CT of the head and neck reviewed no acute pathology noted. PT OT was done today awaiting for the final read up anticipate discharge in 24 to 48 hours (1) left ureteral stone with obstruction Cystoscopy and RPG's were done (2) UTI continue IV antibiotics (3) Atrial fibrillation Current Visit: No Status: Chronic Qualifiers: Atrial fibrillation type: unspecified Qualified Code(s): I48.91 - Unspecified atrial fibrillation Plan to address problem: Continue therapeutic anticoagulation, supportive care. (4) HTN (hypertension) Current Visit: No Status: Chronic Qualifiers: Hypertension type: primary hypertension Qualified Code(s): I10 - Essential (primary) hypertension Plan to address problem: Monitor blood pressure every shift, continue medical management, permissive hypertension overnight. (5) CVA Normal exam Patient had MRI/MRA recently No further work-up No neuro consult Patient may be discharged tomorrow with okay with Follow-up with urology as outpatient (6) BPH (benign prostatic hyperplasia) Current Visit: Yes Status: Acute Qualifiers: Lower urinary tract symptom detail: unspecified Plan to address problem: Supportive care, urology team consulted. Continue medical management. (7) Urinary obstruction Current Visit: Yes Status: Acute Plan to address problem: Had a cystoscopy and left RPG stent (8) DVT prophylaxis Current Visit: Yes Status: Acute Plan to address problem: SCD to bilateral lower extremities while in bed, continue therapeutic a nticoagulation (9) Advance care planning Current Visit: No Status: Acute Plan to address problem: Disease education conducted, care plan discussed, diagnoses discussed, prognosis discussed, patient is full code, patient family knowledges understanding and agree with care plan, +30 minutes. History Interval history: Patient seen and examined with nursing staff at the bedside says he does not feel well. He is able to communicate verbalized his concerns. But unable to fully describe what he means by he does not feel well Hospitalist Physical - Physical exam Narrative exam: General appearance: Present: no acute distress, well-nourished - EENT Eyes: PERRL, EOM intact ENT: hearing intact, clear oral mucosa Ears: bilateral: normal - Neck Neck: supple, normal ROM - Respiratory Respiratory effort: normal Respiratory: bilateral: CTA - Breasts Breasts: normal - Cardiovascular Heart rate: 78 Rhythm: regular Heart Sounds: Present: S1 & S2. Absent: gallop, rub Extremities: pulses intact, No edema, normal color, Full ROM - Gastrointestinal General gastrointestinal: Present: soft, non-tender, non-distended, normal bowel sounds - Genitourinary Male genitourinary: normal - Integumentary Integumentary: clear, warm, dry - Musculoskeletal Musculoskeletal: 1, strength equal bilaterally - Neurologic Neurologic: moves all extremities - Psychiatric Psychiatric: memory intact, appropriate mood/affect, intact judgment & insight - Constitutional Vitals: Temp Pulse Resp BP Pulse Ox 98.1 F 85 18 126/69 98 04/23/21 11:27 04/23/21 11:27 04/23/21 11:27 04/23/21 11:27 04/23/21 11:27 General appearance: Present: no acute distress, well-nourished HEART Score - HEART Score Troponin: Troponin T < 0.010 ng/mL (0.00-0.029) 04/21/21 10:28 Results - Labs CBC & Chem 7: 04/23/21 06:53 04/23/21 06:53 Labs: Laboratory Last Values WBC 4.7 K/mm3 (4.5-11.0) 04/23/21 06:53 RBC 4.14 M/mm3 (3.65-5.03) 04/23/21 06:53 Hgb 13.2 gm/dl (11.8-15.2) 04/23/21 06:53 Hct 38.3 % (35.5-45.6) 04/23/21 06:53 MCV 93 fl (84-94) 04/23/21 06:53 MCH 32 pg (28-32) 04/23/21 06:53 MCHC 35 % (32-34) H 04/23/21 06:53 RDW 14.3 % (13.2-15.2) 04/23/21 06:53 Plt Count 186 K/mm3 (140-440) 04/23/21 06:53 Lymph % (Auto) 22.8 % (13.4-35.0) 04/23/21 06:53 [place] % (Auto) 13.9 % (0.0-7.3) H 04/23/21 06:53 Eos % (Auto) 1.8 % (0.0-4.3) 04/23/21 06:53 Baso % (Auto) 0.8 % (0.0-1.8) 04/23/21 06:53 Lymph # (Auto) 1.1 K/mm3 (1.2-5.4) L 04/23/21 06:53 [place] # (Auto) 0.7 K/mm3 (0.0-0.8) 04/23/21 06:53 Eos # (Auto) 0.1 K/mm3 (0.0-0.4) 04/23/21 06:53 Baso # (Auto) 0.0 K/mm3 (0.0-0.1) 04/23/21 06:53 Add Manual Diff Complete 04/22/21 04:54 Total Counted 100 04/22/21 04:54 Seg Neutrophils % 60.7 % (40.0-70.0) 04/23/21 06:53 Seg Neuts % (Manual) 51.0 % (40.0-70.0) 04/22/21 04:54 Lymphocytes % (Manual) 34.0 % (13.4-35.0) 04/22/21 04:54 Monocytes % (Manual) 14.0 % (0.0-7.3) H 04/22/21 04:54 Eosinophils % (Manual) 1.0 % (0.0-4.3) 04/22/21 04:54 Nucleated RBC % Not Reportable 04/22/21 04:54 Seg Neutrophils # 2.9 K/mm3 (1.8-7.7) 04/23/21 06:53 Seg Neutrophils # Man 1.8 K/mm3 (1.8-7.7) 04/22/21 04:54 Band Neutrophils # 0.0 K/mm3 04/22/21 04:54 Lymphocytes # (Manual) 1.2 K/mm3 (1.2-5.4) 04/22/21 04:54 Abs React Lymphs (Man) 0.0 K/mm3 04/22/21 04:54 Monocytes # (Manual) 0.5 K/mm3 (0.0-0.8) 04/22/21 04:54 Eosinophils # (Manual) 0.0 K/mm3 (0.0-0.4) 04/22/21 04:54 Basophils # (Manual) 0.0 K/mm3 (0.0-0.1) 04/22/21 04:54 Metamyelocytes # 0.0 K/mm3 04/22/21 04:54 Myelocytes # 0.0 K/mm3 04/22/21 04:54 Promyelocytes # 0.0 K/mm3 04/22/21 04:54 Blast Cells # 0.0 K/mm3 04/22/21 04:54 WBC Morphology Not Reportable 04/22/21 04:54 Hypersegmented Neuts Not Reportable 04/22/21 04:54 Hyposegmented Neuts Not Reportable 04/22/21 04:54 Hypogranular Neuts Not Reportable 04/22/21 04:54 Smudge Cells Not Reportable 04/22/21 04:54 Toxic Granulation Not Reportable 04/22/21 04:54 Toxic Vacuolation Not Reportable 04/22/21 04:54 Dohle Bodies Not Reportable 04/22/21 04:54 Pelger-Huet Anomaly Not Reportable 04/22/21 04:54 Chris Rods Not Reportable 04/22/21 04:54 Platelet Estimate Consistent w auto 04/22/21 04:54 Clumped Platelets Not Reportable 04/22/21 04:54 Plt Clumps, EDTA Not Reportable 04/22/21 04:54 Large Platelets Not Reportable 04/22/21 04:54 Giant Platelets Not Reportable 04/22/21 04:54 Platelet Satelliting Not Reportable 04/22/21 04:54 Plt Morphology Comment Not Reportable 04/22/21 04:54 RBC Morphology Normal 04/22/21 04:54 Dimorphic RBCs Not Reportable 04/22/21 04:54 Polychromasia Not Reportable 04/22/21 04:54 Hypochromasia Not Reportable 04/22/21 04:54 Poikilocytosis Not Reportable 04/22/21 04:54 Anisocytosis Not Reportable 04/22/21 04:54 Microcytosis Not Reportable 04/22/21 04:54 Macrocytosis Not Reportable 04/22/21 04:54 Spherocytes Not Reportable 04/22/21 04:54 Pappenheimer Bodies Not Reportable 04/22/21 04:54 Sickle Cells Not Reportable 04/22/21 04:54 Target Cells Not Reportable 04/22/21 04:54 Tear Drop Cells Not Reportable 04/22/21 04:54 Ovalocytes Not Reportable 04/22/21 04:54 Helmet Cells Not Reportable 04/22/21 04:54 Márquez-Kirwin Bodies Not Reportable 04/22/21 04:54 [place] Rings Not Reportable 04/22/21 04:54 Christopher Cells Not Reportable 04/22/21 04:54 Bite Cells Not Reportable 04/22/21 04:54 Crenated Cell Not Reportable 04/22/21 04:54 Elliptocytes Not Reportable 04/22/21 04:54 Acanthocytes (Spur) Not Reportable 04/22/21 04:54 Rouleaux Not Reportable 04/22/21 04:54 Hemoglobin C Crystals Not Reportable 04/22/21 04:54 Schistocytes Not Reportable 04/22/21 04:54 Malaria parasites Not Reportable 04/22/21 04:54 Jeffrey Bodies Not Reportable 04/22/21 04:54 Hem Pathologist Commnt No 04/22/21 04:54 PT 18.0 Sec. (12.2-14.9) H 04/21/21 09:38 INR 1.44 (0.87-1.13) H 04/21/21 09:38 APTT 28.8 Sec. (24.2-36.6) 04/21/21 09:38 Thrombin Time 16.0 Sec. (15.1-19.6) 04/21/21 09:38 Sodium 136 mmol/L (137-145) L 04/23/21 06:53 Potassium 4.0 mmol/L (3.6-5.0) 04/23/21 06:53 Chloride 100.2 mmol/L (98-107) 04/23/21 06:53 Carbon Dioxide 25 mmol/L (22-30) 04/23/21 06:53 Anion Gap 15 mmol/L 04/23/21 06:53 BUN 13 mg/dL (9-20) 04/23/21 06:53 Creatinine 0.9 mg/dL (0.8-1.3) 04/23/21 06:53 Estimated GFR > 60 ml/min 04/23/21 06:53 BUN/Creatinine Ratio 14 % 04/23/21 06:53 Glucose 91 mg/dL (75-100) 04/23/21 06:53 POC Glucose 85 mg/dL (70-105) 04/23/21 11:15 Lactic Acid 1.00 mmol/L (0.7-2.0) 04/21/21 16:28 Calcium 8.8 mg/dL (8.4-10.2) 04/23/21 06:53 Magnesium 1.80 mg/dL (1.7-2.3) 04/21/21 10:28 Total Bilirubin 0.90 mg/dL (0.1-1.2) 04/23/21 06:53 AST 15 units/L (5-40) 04/23/21 06:53 ALT 8 units/L (7-56) 04/23/21 06:53 Alkaline Phosphatase 43 units/L (35-129) 04/23/21 06:53 Total Creatine Kinase 81 units/L (55-170) 04/21/21 10:28 Total Creatine Kinase 81 units/L (55-170) 04/21/21 10:28 CK-MB (CK-2) 1.7 ng/mL (0.0-4.0) 04/21/21 10:28 CK-MB (CK-2) Rel Index 2.0 (0-4) 04/21/21 10:28 Troponin T < 0.010 ng/mL (0.00-0.029) 04/21/21 10:28 Total Protein 6.6 g/dL (6.3-8.2) 04/23/21 06:53 Albumin 3.8 g/dL (3.9-5) L 04/23/21 06:53 Albumin/Globulin Ratio 1.4 % 04/23/21 06:53 Triglycerides 79 mg/dL (2-149) 04/22/21 04:54 Cholesterol 163 mg/dL (50-199) 04/22/21 04:54 LDL Cholesterol Direct 98 mg/dL (50-130) 04/22/21 04:54 HDL Cholesterol 56 mg/dL (40-59) 04/22/21 04:54 Cholesterol/HDL Ratio 2.91 % 04/22/21 04:54 Lipase 37 units/L (13-60) 04/21/21 10:28 Urine Color Yellow (Yellow) 04/21/21 Unknown Urine Turbidity Clear (Clear) 04/21/21 Unknown Urine pH 5.0 (5.0-7.0) 04/21/21 Unknown Ur Specific [place] 1.049 (1.003-1.030) H 04/21/21 Unknown Urine Protein <15 mg/dl mg/dL (Negative) 04/21/21 Unknown Urine Glucose (UA) Neg mg/dL (Negative) 04/21/21 Unknown Urine Ketones Tr mg/dL (Negative) 04/21/21 Unknown Urine Blood Mod (Negative) 04/21/21 Unknown Urine Nitrite Pos (Negative) 04/21/21 Unknown Urine Bilirubin Neg (Negative) 04/21/21 Unknown Urine Urobilinogen < 2.0 mg/dL (<2.0) 04/21/21 Unknown Ur Leukocyte Esterase Sm (Negative) 04/21/21 Unknown Urine WBC (Auto) 15.0 /HPF (0.0-6.0) H 04/21/21 Unknown Urine RBC (Auto) 28.0 /HPF (0.0-6.0) 04/21/21 Unknown U Epithel Cells (Auto) 1.0 /HPF (0-13.0) 04/21/21 Unknown Urine Bacteria (Auto) 3+ /HPF (Negative) 04/21/21 Unknown Urine Mucus Few /HPF 04/21/21 Unknown Plasma/Serum Alcohol < 0.01 % (0-0.07) 04/21/21 10:28 Microbiology: Microbiology 04/21/21 Unknown Urine,Clean Catch Urine Culture - Final 04/21/21 16:28 Peripheral/Venous Blood Culture - Preliminary NO GROWTH AFTER 24 HOURS 04/21/21 16:46 Peripheral/Venous Blood Culture - Preliminary NO GROWTH AFTER 24 HOURS [place]/IV: Voiding Method Indwelling Catheter Active Medications - Current Medications Current Medications: Generic Name Dose Route Start Last Admin Trade Name Freq PRN Reason Stop Dose Admin Acetaminophen 650 mg 04/21/21 12:30 Acetaminophen 325 Mg Tab PO Q4H PRN Pain MILD(1-3)/Fever >100.5/ARCINIEGA Aspirin 325 mg 04/22/21 10:00 04/23/21 09:42 Aspirin 325 Mg Tab PO 325 mg QDAY YARITZA Administration Atorvastatin Calcium 40 mg 04/21/21 22:00 04/22/21 22:34 Atorvastatin 40 Mg Tab PO 40 mg QHS YARITZA Administration Bisacodyl 10 mg 04/21/21 12:32 Bisacodyl 10 Mg Rect Supp HI QDAY PRN Constipation Hydromorphone HCl 0.5 mg 04/21/21 12:30 Hydromorphone 1 Mg/1 Ml Inj IV Q6H PRN Pain , Severe (7-10) Ceftriaxone Sodium 1 gm in 50 mls @ 100 mls/hr 04/22/21 10:00 04/23/21 09:42 Rocephin/Ns 1 Gm/50 Ml IV 100 mls/hr Q24H YARITZA Administration Protocol Lactated Ringer's 1,000 mls @ 75 mls/hr 04/22/21 12:00 04/22/21 12:30 Lactated Ringers IV 75 mls/hr DIRECT YARITZA Administration Sodium Chloride 1,000 mls @ 75 mls/hr 04/22/21 18:45 04/22/21 18:54 Nacl 0.9% 1000 Ml IV 75 mls/hr DIRECT YARITZA Administration Magnesium Hydroxide 30 ml 04/21/21 12:32 Magnesium Hydroxide (Mom) Oral Liqd Udc PO Q4H PRN Constipation Metoclopramide HCl 10 mg 04/21/21 12:32 Metoclopramide 10 Mg Tab PO Q6H PRN Nausea And Vomiting Ondansetron HCl 4 mg 04/21/21 12:32 04/22/21 17:31 Ondansetron 4 Mg/2 Ml Inj IV 4 mg Q8H PRN Administration Nausea And Vomiting Oxycodone/Acetaminophen 1 tab 04/21/21 12:30 04/22/21 22:37 Oxycodone /Acetaminophen 5-325mg Tab PO 1 tab Q6H PRN Administration Pain, Moderate (4-6) Promethazine HCl 25 mg 04/21/21 12:32 Promethazine 25 Mg Rect Supp HI Q6H PRN Nausea And Vomiting Sodium Chloride 10 ml 04/21/21 22:00 04/23/21 10:02 Sodium Chloride 0.9% 10 Ml Flush Syringe IV Not Given BID YARITZA Sodium Chloride 10 ml 04/21/21 12:32 Sodium Chloride 0.9% 10 Ml Flush Syringe IV PRN PRN LINE FLUSH Nutrition/Malnutrition Assess - Dietary Evaluation Nutrition/Malnutrition Findings: Nutrition Notes Start: 04/22/21 07:33 Freq: Status: Active Protocol: Document 04/22/21 07:33 MAME (Rec: 04/22/21 07:34 MAME [email or web address]) Nutrition Notes 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 No Ronald score in chart. No wounds noted. Skin intact. Likely an error. Nutrition Intervention Revisit per MD consult or patient Sign Off request: Additional Comments Please consult if needed
--- NOTE | 2021-04-23 13:59 | Consultation ---
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 Patient has diminished cognition and provides minimal history. Patient history taken from EMS staff, ED staff, as well as the patient's family who was made available via telephone. Patient family reports the patient was in his usual state of health around bedtime at 2030 hrs. Patient awakened from ee this morning and was found to have increased weakness and decreased ability to speak. EMS was notified and upon arrival the patient was found to have a new neurologic deficit. A code stroke was called and the patient was transported to [facility] for further care and evaluation of the aforementioned symptoms. The patient was seen and evaluated in the emergency department. All lab and imaging studies reviewed. Patient found to have clinical symptoms consistent with CVA. Patient initiated on CVA protocol and placed in observation status and admitted to medical floor due to increased risk of worsening symptoms. The patient was also found to have urinary tract infection complicated by left renal calculus with resultant urinary outlet obstruction. Urology team consulted in ED. Patient initiated on IV antibiotic therapy. Patient is n.p.o. for possible surgical intervention in a.m. No reports of fever, chills, chest pain, palpitation, productive cough, skin rash, recent ill contacts, or known exposure to COVID-19. No prior admission for review. All medication listed at time of admission has been reconciled. Advanced care planning conducted in ED. pt. initall INR was 1.44 he had been on coumadine for X3 years , he is with hx of AF CT brain is unremarkable CTA brain and neck are remarkable for fibromuscular dysplasia both ICA with no clear extent of stenosis also noted significant Bilateral cerviacl spinal stenosis -pt. had cystoscopy for extraction of ureter stone he is with hx of CVA 2018 and residual left side weakness Past History Past Medical History: diabetes, GERD, hypertension, hyperlipidemia, stroke, other (See HPI) Past Surgical History: hernia repair, Other (Prostate surgery) Social history: , lives with family. denies: smoking, alcohol abuse, prescription drug abuse Family history: diabetes, hypertension Medications and Allergies Allergies Allergy/AdvReac Type Severity Reaction Status Date / Time No Known Allergies Allergy Verified 03/29/21 13:36 Home Medications Medication Instructions Recorded Confirmed Last Taken Type Isosorbide Mononitrate [Isosorbide 30 mg PO DAILY 07/24/14 05/16/18 05/16/18 History Mononitrate ER] Diltiazem HCl [Diltiazem 24Hr ER] 120 mg PO QDAY #30 capsule.er 10/02/14 05/11/18 05/16/18 Rx metFORMIN [Glucophage] 500 mg PO QDAY 01/23/18 05/11/18 05/16/18 History Tamsulosin [Flomax] 0.4 mg PO QDAY #30 capsule 01/27/18 05/11/18 05/16/18 Rx Warfarin [Coumadin] 5 mg PO DAILY #30 tablet 01/27/18 05/17/18 5 Days Ago Rx ~05/12/18 Aspirin 325 mg PO PRN PRN 05/11/18 05/17/18 2 Months Ago History ~03/17/18 Metoprolol [Lopressor TAB] 25 mg PO BID 05/11/18 05/16/18 05/16/18 History Silodosin [Rapaflo] 8 mg PO QHS 05/11/18 05/11/18 05/16/18 History Simvastatin (Nf) [Zocor TAB] 20 mg PO QHS 05/11/18 05/11/18 Unknown History Furosemide [Lasix] 20 mg PO PRN PRN 05/16/18 05/16/18 05/16/18 History Temazepam [Restoril] 15 mg PO QHS 05/16/18 05/16/18 05/16/18 History hydrALAZINE [Apresoline TAB] 25 mg PO BID 05/16/18 05/17/18 05/17/18 07:00 History cephALEXin [Keflex] 500 mg PO TID 5 Days #15 capsule 03/30/21 Unknown Rx Review of Systems ROS unobtainable: due to mental status Past History Past Medical History: diabetes, GERD, hypertension, hyperlipidemia, stroke, other (See HPI) Past Surgical History: hernia repair, Other (Prostate surgery) Social history: , lives with family. denies: smoking, alcohol abuse, prescription drug abuse Family history: diabetes, hypertension Medications and Allergies Allergies Allergy/AdvReac Type Severity Reaction Status Date / Time No Known Allergies Allergy Verified 03/29/21 13:36 Home Medications Medication Instructions Recorded Confirmed Last Taken Type Isosorbide Mononitrate [Isosorbide 30 mg PO DAILY 07/24/14 04/22/21 05/16/18 History Mononitrate ER] Diltiazem HCl [Diltiazem 24Hr ER] 120 mg PO QDAY #30 capsule.er 10/02/14 04/22/21 05/16/18 Rx metFORMIN [Glucophage] 500 mg PO QDAY 01/23/18 04/22/21 05/16/18 History Tamsulosin [Flomax] 0.4 mg PO QDAY #30 capsule 01/27/18 04/22/21 05/16/18 Rx Warfarin [Coumadin] 5 mg PO DAILY #30 tablet 01/27/18 04/22/21 5 Days Ago Rx ~05/12/18 Aspirin 325 mg PO PRN PRN 05/11/18 04/22/21 2 Months Ago History ~03/17/18 Metoprolol [Lopressor TAB] 25 mg PO BID 05/11/18 04/22/21 05/16/18 History Silodosin [Rapaflo] 8 mg PO QHS 05/11/18 04/22/21 05/16/18 History Simvastatin (Nf) [Zocor TAB] 20 mg PO QHS 05/11/18 04/22/21 Unknown History Furosemide [Lasix] 20 mg PO PRN PRN 05/16/18 04/22/21 05/16/18 History Temazepam [Restoril] 15 mg PO QHS 05/16/18 04/22/21 05/16/18 History hydrALAZINE [Apresoline TAB] 25 mg PO BID 05/16/18 04/22/21 05/17/18 07:00 History cephALEXin [Keflex] 500 mg PO TID 5 Days #15 capsule 03/30/21 04/22/21 Unknown Rx Active Meds: Active Medications Acetaminophen (Acetaminophen 325 Mg Tab) 650 mg PO Q4H PRN PRN Reason: Pain MILD(1-3)/Fever >100.5/ARCINIEGA Aspirin (Aspirin 325 Mg Tab) 325 mg PO QDAY [facility] Last Admin: 04/23/21 09:42 Dose: 325 mg Documented by: Atorvastatin Calcium (Atorvastatin 40 Mg Tab) 40 mg PO QHS [facility] Last Admin: 04/22/21 22:34 Dose: 40 mg Documented by: Bisacodyl (Bisacodyl 10 Mg Rect Supp) 10 mg [place] QDAY PRN PRN Reason: Constipation Hydromorphone HCl (Hydromorphone 1 Mg/1 Ml Inj) 0.5 mg IV Q6H PRN PRN Reason: Pain , Severe (7-10) Ceftriaxone Sodium (Rocephin/Ns 1 Gm/50 Ml) 1 gm in 50 mls @ 100 mls/hr IV Q24H [facility]; Protocol Last Admin: 04/23/21 09:42 Dose: 100 mls/hr Documented by: Lactated Ringer's (Lactated Ringers) 1,000 mls @ 75 mls/hr IV DIRECT YARITZA Last Admin: 04/22/21 12:30 Dose: 75 mls/hr Documented by: Sodium Chloride (Nacl 0.9% 1000 Ml) 1,000 mls @ 75 mls/hr IV DIRECT YARITZA Last Admin: 04/22/21 18:54 Dose: 75 mls/hr Documented by: Magnesium Hydroxide (Magnesium Hydroxide (Mom) Oral Liqd Udc) 30 ml PO Q4H PRN PRN Reason: Constipation Metoclopramide HCl (Metoclopramide 10 Mg Tab) 10 mg PO Q6H PRN PRN Reason: Nausea And Vomiting Ondansetron HCl (Ondansetron 4 Mg/2 Ml Inj) 4 mg IV Q8H PRN PRN Reason: Nausea And Vomiting Last Admin: 04/22/21 17:31 Dose: 4 mg Documented by: Oxycodone/Acetaminophen (Oxycodone /Acetaminophen 5-325mg Tab) 1 tab PO Q6H PRN PRN Reason: Pain, Moderate (4-6) Last Admin: 04/22/21 22:37 Dose: 1 tab Documented by: Promethazine HCl (Promethazine 25 Mg Rect Supp) 25 mg [place] Q6H PRN PRN Reason: Nausea And Vomiting Sodium Chloride (Sodium Chloride 0.9% 10 Ml Flush Syringe) 10 ml IV BID [facility] Last Admin: 04/23/21 10:02 Dose: Not Given Documented by: Sodium Chloride (Sodium Chloride 0.9% 10 Ml Flush Syringe) 10 ml IV PRN PRN PRN Reason: LINE FLUSH Physical Examination - Vital Signs Vital Signs: Vital Signs Pulse Resp 85 12 04/21/21 09:28 04/21/21 09:28 - Constitutional General appearance: comfortable - EENT EENT: Present: PERRL, mucous membranes moist - Respiratory Respiratory: Present: chest non-tender, lungs clear, rhonchi - Cardiovascular Cardiovascular: Present: other (irregular) Extremities: Present: no peripheral edema bilatateraly, no clubbing, cyanosis - Gastrointestinal Gastrointestinal: Present: normoactive bowel sounds - Integumentary Integumentary: Present: normal - Neurologic Cranial nerve examination: PERRL, EOMI, other (slight left facial droop , he is with significant dysarthia , no aphasia . no visual field deficit ,EOMI , ) Speech examination: other (dysarthic speech) Sensorimotor examination: other (he is with left pronator drift , bilateral wasted interossei , lower 4/5 bilateral planter is down able to do finger to nose , gait not done ,reflexes are suppressed bilateral.) - Psychiatric Psychiatric: Present: other (he is oriented to place knows year , not day or month , knows his age , not recall name of president .) - Level of Consciousness 1a. Level of Consciousness: alert/keenly responsive - LOC Questions 1b. LOC Questions: answers 1 question correctly - LOC Command 1c. LOC Commands: performs tasks correctly - Best Gaze 2. Best Gaze: normal - Visual 3. Visual: no visual loss - Facial Palsy 4. Facial Palsy: minor paralysis - Motor Arm 5a. Motor Arm Left: drift 5b. Motor Arm Right: no drift - Motor Leg 6a. Motor Leg Left: no drift 6b. Motor Leg Right: no drift - Limb Ataxia 7. Limb Ataxia: absent - Sensory 8. Sensory: normal - Best Language 9. Best Language: no aphasia - Dysarthria 10. Dysarthria: mild/moderate dysarthria - Extinction and Inattention 11. Extinction/Inattention: no abnormality - Scoring Total Score: 4 Stroke Severity: Minor Stroke Results - Laboratory Findings CBC and BMP: 04/23/21 06:53 04/23/21 06:53 Abnormal Lab Findings: Abnormal Labs 04/21/21 04/21/2121 09:38 09:38 10:28 WBC 4.4 L Hgb 15.3 H MCHC 35 H [place] % (Auto) 12.5 H Lymph # (Auto) 1.0 L Monocytes % (Manual) PT 18.0 H INR 1.44 H Sodium 130 L Chloride 94.6 L BUN 21 H Glucose 104 H POC Glucose Albumin Ur Specific [place] Urine WBC (Auto) 04/21/21 04/22/21 04/22/21 Unknown 04:54 04:54 WBC 3.6 L Hgb MCHC [place] % (Auto) Lymph # (Auto) Monocytes % (Manual) 14.0 H PT INR Sodium 135 L Chloride 97.9 L BUN Glucose POC Glucose Albumin Ur Specific [place] 1.049 H Urine WBC (Auto) 15.0 H 04/22/21 04/22/21 04/22/21 12:09 15:39 21:20 WBC Hgb MCHC [place] % (Auto) Lymph # (Auto) Monocytes % (Manual) PT INR Sodium Chloride BUN Glucose POC Glucose 67 L 67 L 117 H Albumin Ur Specific [place] Urine WBC (Auto) 04/23/21 04/23/21 06:53 06:53 WBC Hgb MCHC 35 H [place] % (Auto) 13.9 H Lymph # (Auto) 1.1 L Monocytes % (Manual) PT INR Sodium 136 L Chloride BUN Glucose POC Glucose Albumin 3.8 L Ur Specific [place] Urine WBC (Auto) Assessment and Plan Assessment and Plan - Patient Problems # CVA (cerebral vascular accident) -this is 75 ys old male with hx of CVA and left side weakness since 2018 he is with hx of AF on coumadine presented with new onset of dysarthia on awaking am , -he is not a candidate for TPA , Nor thrombectomy -CT Brain Is unremarkable -CTA brain and neck remarkable for fibromuscular dysplasia ? extent of stenosis -he is on coumadine -current NIH#4 initial was#7 -Echo is pending -MRI brain is pending -LDL# pending -A1C pending -Pt/ST evaluation # Acute UTI (urinary tract infection) -Urinalysis, IV antibiotic therapy, CBC, supportive care. -evaluated by urology for kidney stone had cystoscopy # Atrial fibrillation -Continue therapeutic anticoagulation, supportive care. -check echo -MRI brain ,MRA brain and neck if there is no contraindication # HTN (hypertension) -Monitor blood pressure every shift, continue medical management, permissive hypertension overnight. # GERD (gastroesophageal reflux disease) -PPI therapy, supportive care. # BPH (benign prostatic hyperplasia) Supportive care, urology team consulted. Continue medical management. #Urinary obstruction -Urology team consulted, # Underlying dementia moderate -check MRI,B12 ,TSH #Cervical spinal stenosis -No sign of cervical mylopathy -? MRI cerviacl spine As needed # DVT prophylaxis SCD to bilateral lower extremities while in bed, continue therapeutic anticoagulation # Poor dental hygien -consider dental evaluation at OP. # Advance care planning -Disease education conducted, care plan discussed, diagnoses discussed, prognosis discussed, patient is full code, patient family knowledges understanding and agree with care plan, +30 minutes. will follow as needed
[2021-04-23] MEDS: SODIUM CHLORIDE 0.9% 1000 ML 1,000 ML IV SCH (21:55)
[2021-04-24] MEDS: LACTATED RINGERS 1,000 ML IV SCH (05:32)
[2021-04-24] MEDS: ASPIRIN 325 MG TAB PO SCH (09:33)
[2021-04-24] MEDS: cefTRIAXone/NS 1 GM/50 ML 1 GM/50 ML BAG IV SCH (09:33)
--- NOTE | 2021-04-24 10:36 | Progress Note ---
Hospitalist Physical - Constitutional Vitals: Temp Pulse Resp BP Pulse Ox 98.6 F 81 18 138/66 95 04/24/21 07:34 04/24/21 07:34 04/24/21 07:34 04/24/21 07:34 04/24/21 07:34 General appearance: Present: no acute distress, well-nourished HEART Score - HEART Score Troponin: Troponin T < 0.010 ng/mL (0.00-0.029) 04/21/21 10:28 Results - Labs CBC & Chem 7: 04/23/21 06:53 04/23/21 06:53 Labs: Laboratory Last Values WBC 4.7 K/mm3 (4.5-11.0) 04/23/21 06:53 RBC 4.14 M/mm3 (3.65-5.03) 04/23/21 06:53 Hgb 13.2 gm/dl (11.8-15.2) 04/23/21 06:53 Hct 38.3 % (35.5-45.6) 04/23/21 06:53 MCV 93 fl (84-94) 04/23/21 06:53 MCH 32 pg (28-32) 04/23/21 06:53 MCHC 35 % (32-34) H 04/23/21 06:53 RDW 14.3 % (13.2-15.2) 04/23/21 06:53 Plt Count 186 K/mm3 (140-440) 04/23/21 06:53 Lymph % (Auto) 22.8 % (13.4-35.0) 04/23/21 06:53 [place] % (Auto) 13.9 % (0.0-7.3) H 04/23/21 06:53 Eos % (Auto) 1.8 % (0.0-4.3) 04/23/21 06:53 Baso % (Auto) 0.8 % (0.0-1.8) 04/23/21 06:53 Lymph # (Auto) 1.1 K/mm3 (1.2-5.4) L 04/23/21 06:53 [place] # (Auto) 0.7 K/mm3 (0.0-0.8) 04/23/21 06:53 Eos # (Auto) 0.1 K/mm3 (0.0-0.4) 04/23/21 06:53 Baso # (Auto) 0.0 K/mm3 (0.0-0.1) 04/23/21 06:53 Add Manual Diff Complete 04/22/21 04:54 Total Counted 100 04/22/21 04:54 Seg Neutrophils % 60.7 % (40.0-70.0) 04/23/21 06:53 Seg Neuts % (Manual) 51.0 % (40.0-70.0) 04/22/21 04:54 Lymphocytes % (Manual) 34.0 % (13.4-35.0) 04/22/21 04:54 Monocytes % (Manual) 14.0 % (0.0-7.3) H 04/22/21 04:54 Eosinophils % (Manual) 1.0 % (0.0-4.3) 04/22/21 04:54 Nucleated RBC % Not Reportable 04/22/21 04:54 Seg Neutrophils # 2.9 K/mm3 (1.8-7.7) 04/23/21 06:53 Seg Neutrophils # Man 1.8 K/mm3 (1.8-7.7) 04/22/21 04:54 Band Neutrophils # 0.0 K/mm3 04/22/21 04:54 Lymphocytes # (Manual) 1.2 K/mm3 (1.2-5.4) 04/22/21 04:54 Abs React Lymphs (Man) 0.0 K/mm3 04/22/21 04:54 Monocytes # (Manual) 0.5 K/mm3 (0.0-0.8) 04/22/21 04:54 Eosinophils # (Manual) 0.0 K/mm3 (0.0-0.4) 04/22/21 04:54 Basophils # (Manual) 0.0 K/mm3 (0.0-0.1) 04/22/21 04:54 Metamyelocytes # 0.0 K/mm3 04/22/21 04:54 Myelocytes # 0.0 K/mm3 04/22/21 04:54 Promyelocytes # 0.0 K/mm3 04/22/21 04:54 Blast Cells # 0.0 K/mm3 04/22/21 04:54 WBC Morphology Not Reportable 04/22/21 04:54 Hypersegmented Neuts Not Reportable 04/22/21 04:54 Hyposegmented Neuts Not Reportable 04/22/21 04:54 Hypogranular Neuts Not Reportable 04/22/21 04:54 Smudge Cells Not Reportable 04/22/21 04:54 Toxic Granulation Not Reportable 04/22/21 04:54 Toxic Vacuolation Not Reportable 04/22/21 04:54 Dohle Bodies Not Reportable 04/22/21 04:54 Pelger-Huet Anomaly Not Reportable 04/22/21 04:54 Chris Rods Not Reportable 04/22/21 04:54 Platelet Estimate Consistent w auto 04/22/21 04:54 Clumped Platelets Not Reportable 04/22/21 04:54 Plt Clumps, EDTA Not Reportable 04/22/21 04:54 Large Platelets Not Reportable 04/22/21 04:54 Giant Platelets Not Reportable 04/22/21 04:54 Platelet Satelliting Not Reportable 04/22/21 04:54 Plt Morphology Comment Not Reportable 04/22/21 04:54 RBC Morphology Normal 04/22/21 04:54 Dimorphic RBCs Not Reportable 04/22/21 04:54 Polychromasia Not Reportable 04/22/21 04:54 Hypochromasia Not Reportable 04/22/21 04:54 Poikilocytosis Not Reportable 04/22/21 04:54 Anisocytosis Not Reportable 04/22/21 04:54 Microcytosis Not Reportable 04/22/21 04:54 Macrocytosis Not Reportable 04/22/21 04:54 Spherocytes Not Reportable 04/22/21 04:54 Pappenheimer Bodies Not Reportable 04/22/21 04:54 Sickle Cells Not Reportable 04/22/21 04:54 Target Cells Not Reportable 04/22/21 04:54 Tear Drop Cells Not Reportable 04/22/21 04:54 Ovalocytes Not Reportable 04/22/21 04:54 Helmet Cells Not Reportable 04/22/21 04:54 Márquez-Hague Bodies Not Reportable 04/22/21 04:54 [place] Rings Not Reportable 04/22/21 04:54 Christopher Cells Not Reportable 04/22/21 04:54 Bite Cells Not Reportable 04/22/21 04:54 Crenated Cell Not Reportable 04/22/21 04:54 Elliptocytes Not Reportable 04/22/21 04:54 Acanthocytes (Spur) Not Reportable 04/22/21 04:54 Rouleaux Not Reportable 04/22/21 04:54 Hemoglobin C Crystals Not Reportable 04/22/21 04:54 Schistocytes Not Reportable 04/22/21 04:54 Malaria parasites Not Reportable 04/22/21 04:54 Jeffrey Bodies Not Reportable 04/22/21 04:54 Hem Pathologist Commnt No 04/22/21 04:54 PT 18.0 Sec. (12.2-14.9) H 04/21/21 09:38 INR 1.44 (0.87-1.13) H 04/21/21 09:38 APTT 28.8 Sec. (24.2-36.6) 04/21/21 09:38 Thrombin Time 16.0 Sec. (15.1-19.6) 04/21/21 09:38 Sodium 136 mmol/L (137-145) L 04/23/21 06:53 Potassium 4.0 mmol/L (3.6-5.0) 04/23/21 06:53 Chloride 100.2 mmol/L (98-107) 04/23/21 06:53 Carbon Dioxide 25 mmol/L (22-30) 04/23/21 06:53 Anion Gap 15 mmol/L 04/23/21 06:53 BUN 13 mg/dL (9-20) 04/23/21 06:53 Creatinine 0.9 mg/dL (0.8-1.3) 04/23/21 06:53 Estimated GFR > 60 ml/min 04/23/21 06:53 BUN/Creatinine Ratio 14 % 04/23/21 06:53 Glucose 91 mg/dL (75-100) 04/23/21 06:53 POC Glucose 78 mg/dL (70-105) 04/24/21 07:34 Lactic Acid 1.00 mmol/L (0.7-2.0) 04/21/21 16:28 Calcium 8.8 mg/dL (8.4-10.2) 04/23/21 06:53 Magnesium 1.80 mg/dL (1.7-2.3) 04/21/21 10:28 Total Bilirubin 0.90 mg/dL (0.1-1.2) 04/23/21 06:53 AST 15 units/L (5-40) 04/23/21 06:53 ALT 8 units/L (7-56) 04/23/21 06:53 Alkaline Phosphatase 43 units/L (35-129) 04/23/21 06:53 Total Creatine Kinase 81 units/L (55-170) 04/21/21 10:28 Total Creatine Kinase 81 units/L (55-170) 04/21/21 10:28 CK-MB (CK-2) 1.7 ng/mL (0.0-4.0) 04/21/21 10:28 CK-MB (CK-2) Rel Index 2.0 (0-4) 04/21/21 10:28 Troponin T < 0.010 ng/mL (0.00-0.029) 04/21/21 10:28 Total Protein 6.6 g/dL (6.3-8.2) 04/23/21 06:53 Albumin 3.8 g/dL (3.9-5) L 04/23/21 06:53 Albumin/Globulin Ratio 1.4 % 04/23/21 06:53 Triglycerides 79 mg/dL (2-149) 04/22/21 04:54 Cholesterol 163 mg/dL (50-199) 04/22/21 04:54 LDL Cholesterol Direct 98 mg/dL (50-130) 04/22/21 04:54 HDL Cholesterol 56 mg/dL (40-59) 04/22/21 04:54 Cholesterol/HDL Ratio 2.91 % 04/22/21 04:54 Lipase 37 units/L (13-60) 04/21/21 10:28 Urine Color Yellow (Yellow) 04/21/21 Unknown Urine Turbidity Clear (Clear) 04/21/21 Unknown Urine pH 5.0 (5.0-7.0) 04/21/21 Unknown Ur Specific [place] 1.049 (1.003-1.030) H 04/21/21 Unknown Urine Protein <15 mg/dl mg/dL (Negative) 04/21/21 Unknown Urine Glucose (UA) Neg mg/dL (Negative) 04/21/21 Unknown Urine Ketones Tr mg/dL (Negative) 04/21/21 Unknown Urine Blood Mod (Negative) 04/21/21 Unknown Urine Nitrite Pos (Negative) 04/21/21 Unknown Urine Bilirubin Neg (Negative) 04/21/21 Unknown Urine Urobilinogen < 2.0 mg/dL (<2.0) 04/21/21 Unknown Ur Leukocyte Esterase Sm (Negative) 04/21/21 Unknown Urine WBC (Auto) 15.0 /HPF (0.0-6.0) H 04/21/21 Unknown Urine RBC (Auto) 28.0 /HPF (0.0-6.0) 04/21/21 Unknown U Epithel Cells (Auto) 1.0 /HPF (0-13.0) 04/21/21 Unknown Urine Bacteria (Auto) 3+ /HPF (Negative) 04/21/21 Unknown Urine Mucus Few /HPF 04/21/21 Unknown Plasma/Serum Alcohol < 0.01 % (0-0.07) 04/21/21 10:28 Microbiology: Microbiology 04/21/21 16:28 Peripheral/Venous Blood Culture - Preliminary NO GROWTH AFTER 48 HOURS 04/21/21 16:46 Peripheral/Venous Blood Culture - Preliminary NO GROWTH AFTER 48 HOURS 04/21/21 Unknown Urine,Clean Catch Urine Culture - Final [place]/IV: Voiding Method Urinal Active Medications - Current Medications Current Medications: Generic Name Dose Route Start Last Admin Trade Name Freq PRN Reason Stop Dose Admin Acetaminophen 650 mg 04/21/21 12:30 Acetaminophen 325 Mg Tab PO Q4H PRN Pain MILD(1-3)/Fever >100.5/ARCINIEGA Aspirin 325 mg 04/22/21 10:00 04/24/21 09:33 Aspirin 325 Mg Tab PO 325 mg QDAY YARITZA Administration Atorvastatin Calcium 40 mg 04/21/21 22:00 04/23/21 21:43 Atorvastatin 40 Mg Tab PO 40 mg QHS YARITZA Administration Bisacodyl 10 mg 04/21/21 12:32 Bisacodyl 10 Mg Rect Supp [place] QDAY PRN Constipation Hydromorphone HCl 0.5 mg 04/21/21 12:30 Hydromorphone 1 Mg/1 Ml Inj IV Q6H PRN Pain , Severe (7-10) Ceftriaxone Sodium 1 gm in 50 mls @ 100 mls/hr 04/22/21 10:00 04/24/21 09:33 Rocephin/Ns 1 Gm/50 Ml IV 04/28/21 10:29 100 mls/hr Q24H YARITZA Administration Protocol Lactated Ringer's 1,000 mls @ 75 mls/hr 04/22/21 12:00 04/24/21 05:32 Lactated Ringers IV 75 mls/hr DIRECT YARITZA Administration Sodium Chloride 1,000 mls @ 75 mls/hr 04/22/21 18:45 04/23/21 21:55 Nacl 0.9% 1000 Ml IV 75 mls/hr DIRECT YARITZA Administration Magnesium Hydroxide 30 ml 04/21/21 12:32 Magnesium Hydroxide (Mom) Oral Liqd Udc PO Q4H PRN Constipation Metoclopramide HCl 10 mg 04/21/21 12:32 Metoclopramide 10 Mg Tab PO Q6H PRN Nausea And Vomiting Ondansetron HCl 4 mg 04/21/21 12:32 04/22/21 17:31 Ondansetron 4 Mg/2 Ml Inj IV 4 mg Q8H PRN Administration Nausea And Vomiting Oxycodone/Acetaminophen 1 tab 04/21/21 12:30 04/22/21 22:37 Oxycodone /Acetaminophen 5-325mg Tab PO 1 tab Q6H PRN Administration Pain, Moderate (4-6) Promethazine HCl 25 mg 04/21/21 12:32 Promethazine 25 Mg Rect Supp [place] Q6H PRN Nausea And Vomiting Sodium Chloride 10 ml 04/21/21 22:00 04/24/21 09:33 Sodium Chloride 0.9% 10 Ml Flush Syringe IV 10 ml BID YARITZA Administration Sodium Chloride 10 ml 04/21/21 12:32 Sodium Chloride 0.9% 10 Ml Flush Syringe IV PRN PRN LINE FLUSH Nutrition/Malnutrition Assess - Dietary Evaluation Nutrition/Malnutrition Findings: Nutrition Notes Start: 04/22/21 07:33 Freq: Status: Active Protocol: Document 04/22/21 07:33 MAME (Rec: 04/22/21 07:34 MAME [id number]) Nutrition Notes Need for Assessment 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 No Ronald score in chart. No wounds noted. Skin intact. Likely an error. Nutrition Intervention Revisit per MD consult or patient Sign Off request: Additional Comments Please consult if needed
--- NOTE | 2021-04-24 11:28 | Progress Note ---
Assessment and Plan Assessment and Plan - Patient Problems # CVA (cerebral vascular accident) -this is 75 ys old male with hx of CVA and left side weakness since 2018 he is with hx of AF on coumadine presented with new onset of dysarthia on awaking am , -he is not a candidate for TPA , Nor thrombectomy -CT Brain Is unremarkable -CTA brain and neck remarkable for fibromuscular dysplasia ? extent of stenosis -he is on coumadine -current NIH#4 initial was#7 -Echo is pending -MRI brain is pending as well as MRA -LDL# pending -A1C pending -Pt/ST evaluation # Acute UTI (urinary tract infection) -Urinalysis, IV antibiotic therapy, CBC, supportive care. -evaluated by urology for kidney stone had cystoscopy # Atrial fibrillation -Continue therapeutic anticoagulation, supportive care. -check echo is pending -MRI brain ,MRA brain and neck if there is no contraindication # HTN (hypertension) -Monitor blood pressure every shift, continue medical management, permissive hypertension overnight. # GERD (gastroesophageal reflux disease) -PPI therapy, supportive care. # BPH (benign prostatic hyperplasia) Supportive care, urology team consulted. Continue medical management. #Urinary obstruction -Urology team consulted, # Underlying dementia moderate -check MRI,B12 ,TSH #Cervical spinal stenosis -No sign of cervical mylopathy -? MRI cerviacl spine As needed # DVT prophylaxis SCD to bilateral lower extremities while in bed, continue therapeutic anticoagulation # Poor dental hygien -consider dental evaluation at OP. # Advance care planning -Disease education conducted, care plan discussed, diagnoses discussed, prognosis discussed, patient is full code, patient family knowledges understanding and agree with care plan, +30 minutes. will follow as needed Subjective Date of service: 04/24/21 Principal diagnosis: left ureteral stone Interval history: More alert he is with significant dysarthia and left side weakness , More oriented today knows place and date and president name follows command MRI brain is still on hold await family to sign the form Objective - Vital Sign Vital Signs - 12hr 04/23/21 04/24/21 04/24/21 23:46 01:00 04:52 Temperature 98.1 F 98.3 F Pulse Rate 84 84 Respiratory 18 17 20 Rate Blood Pressure 138/69 138/75 O2 Sat by Pulse 95 97 Oximetry 04/24/21 07:34 Temperature 98.6 F Pulse Rate 81 Respiratory 18 Rate Blood Pressure 138/66 O2 Sat by Pulse 95 Oximetry - General Apperance Constitutional: comfortable - EENT EENT: PERRL, mucous membranes moist - Respiratory Respiratory: lungs clear, rhonchi - Cardiovascular Cardiovascular: normal S1, normal S2, other (Irregular ) Extremities: no peripheral edema bilat, no clubbing, cyanosis - Gastrointestinal Gastrointestinal: normoactive bowel sounds - Integumentary Integumentary: normal - Neurologic Cranial nerve examination: PERRL, EOMI, other (left facial droop and dysarthia , left pronator drift unchanged) - Laboratory Findings CBC and BMP: 04/23/21 06:53 04/23/21 06:53 Abnormal Lab Findings: Abnormal Labs 04/21/21 04/21/21 04/21/21 09:38 09:38 10:28 WBC 4.4 L Hgb 15.3 H MCHC 35 H [place] % (Auto) 12.5 H Lymph # (Auto) 1.0 L Monocytes % (Manual) PT 18.0 H INR 1.44 H Sodium 130 L Chloride 94.6 L BUN 21 H Glucose 104 H POC Glucose Albumin Ur Specific [place] Urine WBC (Auto) 04/21/21 04/22/21 04/22/21 Unknown 04:54 04:54 WBC 3.6 L Hgb MCHC [place] % (Auto) Lymph # (Auto) Monocytes % (Manual) 14.0 H PT INR Sodium 135 L Chlor[place] 97.9 L BUN Glucose POC Glucose Albumin Ur Specific [place] 1.049 H Urine WBC (Auto) 15.0 H 04/22/21 04/22/21 04/22/21 12:09 15:39 21:20 WBC Hgb MCHC [place] % (Auto) Lymph # (Auto) Monocytes % (Manual) PT INR Sodium Chloride BUN Glucose POC Glucose 67 L 67 L 117 H Albumin Ur Specific [place] Urine WBC (Auto) 04/23/21 04/23/21 04/23/21 06:53 06:53 16:14 WBC Hgb MCHC 35 H [place] % (Auto) 13.9 H Lymph # (Auto) 1.1 L Monocytes % (Manual) PT INR Sodium 136 L Chloride BUN Glucose POC Glucose 132 H Albumin 3.8 L Ur Specific [place] Urine WBC (Auto)
--- NOTE | 2021-04-24 12:35 | Discharge Summary ---
Providers - Providers Date of Admission: 04/22/21 12:00 Attending physician: AMALIA HENDERSON MD 04/21/21 12:11 Consult to Physician [CONS] Urgent Comment: Consulting Provider: OSKAR QUIÑONES Physician Instructions: Reason For Exam: Obstructing nephrolithiasis 04/21/21 12:32 Occupational Therapy Evaluate and Treat [CONS] Routine Comment: Reason For Exam: Neuro deficits Physical Therapy Evaluation and Treat [CONS] Routine Comment: Reason For Exam: Neuro deficits 04/21/21 12:33 Speech Therapy Evaluation and Treat [CONS] Routine Reason For Exam: swallow eval 04/23/21 10:27 Consult to Physician [CONS] Routine Comment: Consulting Provider: JAY EDWARDS Physician Instructions: Reason For Exam: ams Primary care physician: ASSEMBLY PERSON Hospitalization Reason for admission: cva Condition: Stable Hospital course: 75 YO Male with Atrial Fib on therapeutic anticoagulation, DM, HTN, 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 Patient has diminished cognition and provides minimal history. Patient history taken from EMS staff, ED staff, as well as the patient's family who was made available via telephone. Patient family reports the patient was in his usual state of health around bedtime at 2030 hrs. Patient awakened from sleep this morning and was found to have increased weakness and decreased ability to speak. EMS was notified and upon arrival the patient was found to have a new neurologic deficit. A code stroke was called and the patient was transported to [facility] for further care and evaluation of the aforementioned symptoms. The patient was seen and evaluated in the emergency department. All lab and imaging studies reviewed. Patient found to have clinical symptoms consistent with CVA. Patient initiated on CVA protocol and placed in observation status and admitted to medical floor due to increased risk of worsening symptoms. The patient was also found to have urinary tract infection complicated by left renal calculus with resultant urinary outlet obstruction. Urology team consulted in ED. Patient initiated on IV antibiotic therapy. Patient is n.p.o. for possible surgical intervention in a.m. No reports of fever, chills, chest pain, palpitation, productive cough, skin rash, recent ill contacts, or known exposure to COVID-19. No prior admission for review. All medication listed at time of admission has been reconciled. Advanced care planning conducted in ED. 04/22/2021 Had cysto l rpg ureteroscopy stent today Post procedure patient doing well Patient able to move all 4 extremities No signs of CVA No dysarthria Had CVA work-up recently 1 month ago along with MRI/MRA and was inconclusive If patient is cleared by physical therapy-patient can be discharged home tomorrow to follow-up with urology as outpatient 04/23: Patient seen and examined this morning he is awake alert oriented he just states that he does not feel well. He cannot describe what it is. No dysarthria noted. Discussed with nursing staff at bedside we will also still get neurologist to evaluate the patient despite having an MRI before. CT of the head and neck reviewed no acute pathology noted. PT OT was done today awaiting for the final read up anticipate discharge in 24 to 48 hours 04/24: Patient seen and examined, mental status is improved. he is AAOX3, KNOWS Where he is, who the president is. Patient is awaiting MRI and if it does not show any new pathology, will be discharged to complete abx therapy outpatint and follow with Urologist. (1) left ureteral stone with obstruction Cystoscopy and RPG's were done (2) UTI continue IV antibiotics (3) Atrial fibrillation Current Visit: No Status: Chronic Qualifiers: Atrial fibrillation type: unspecified Qualified Code(s): I48.91 - Unspecified atrial fibrillation Plan to address problem: Continue therapeutic anticoagulation, supportive care. (4) HTN (hypertension) Current Visit: No Status: Chronic Qualifiers: Hypertension type: primary hypertension Qualified Code(s): I10 - Essential (primary) hypertension Plan to address problem: Monitor blood pressure every shift, continue medical management, permissive hypertension overnight. (5) CVA Normal exam Patient had MRI/MRA recently No further work-up No neuro consult Patient may be discharged tomorrow with okay with Follow-up with urology as outpatient (6) BPH (benign prostatic hyperplasia) Current Visit: Yes Status: Acute Qualifiers: Lower urinary tract symptom detail: unspecified Plan to address problem: Supportive care, urology team consulted. Continue medical management. (7) Urinary obstruction Current Visit: Yes Status: Acute Plan to address problem: Had a cystoscopy and left RPG stent (8) DVT prophylaxis Current Visit: Yes Status: Acute Plan to address problem: SCD to bilateral lower extremities while in bed, continue therapeutic anticoagulation (9) Advance care planning Current Visit: No Status: Acute Plan to address problem: Disease education conducted, care plan discussed, diagnoses discussed, prognosis discussed, patient is full code, patient family knowledges understanding and agree with care plan, +30 minutes. Disposition: DC-01 TO HOME OR SELFCARE Final Discharge Diagnosis (Prints w/discharge instructions): cva Time spent for discharge: 35 mins Core Measure Documentation - Palliative Care Palliative Care/ Comfort Measures: Not Applicable - Core Measures Any of the following diagnoses?: none Exam - Physical Exam Narrative exam: General appearance: Present: no acute distress, well-nourished - EENT Eyes: PERRL, EOM intact ENT: hearing intact, clear oral mucosa Ears: bilateral: normal - Neck Neck: supple, normal ROM - Respiratory Respiratory effort: normal Respiratory: bilateral: CTA - Breasts Breasts: normal - Cardiovascular Heart rate: 78 Rhythm: regular Heart Sounds: Present: S1 & S2. Absent: gallop, rub Extremities: pulses intact, No edema, normal color, Full ROM - Gastrointestinal General gastrointestinal: Present: soft, non-tender, non-distended, normal bowel sounds - Genitourinary Male genitourinary: normal - Integumentary Integumentary: clear, warm, dry - Musculoskeletal Musculoskeletal: 1, strength equal bilaterally - Neurologic Neurologic: moves all extremities, alert awake oriented x3 - Psychiatric Psychiatric: memory intact, appropriate mood/affect, intact judgment & insight - Constitutional Vitals: Temp Pulse Resp BP Pulse Ox 98.6 F 81 18 138/66 95 04/24/21 07:34 04/24/21 07:34 04/24/21 07:34 04/24/21 07:34 04/24/21 07:34 Plan Activity: advance as tolerated, fall precautions Diet: low fat, diabetic Special Instructions: record daily weights, record daily BP diary, record blood sugar diary Durable Medical Equipment Needed Upon Discharge: other Follow up with: ROSA PORTER MD [Primary Care Provider] - 3-5 Days OSKAR QUIÑONES MD [Staff Physician] - 7 Days SHERYL BANGURA MD [Staff Physician] - 7 Days Prescriptions: AtorvaSTATin [Lipitor] 40 mg PO QHS #30 tablet Ciprofloxacin HCl [Ciprofloxacin TAB] 500 mg PO BID #20 tablet
--- NOTE | 2021-04-24 14:15 | Magnetic Resonance Report ---
MR brain wo con INDICATION / CLINICAL INFORMATION: 75 years Male; cva. TECHNIQUE: Multiplanar, multisequence MR images of the brain were obtained. COMPARISON: The study is compared to the previous MRI of 03/30/2021. FINDINGS: BRAIN / INTRACRANIAL CONTENTS: There is a 6 mm focus of increased diffusion signal along the left at precentral gyrus compatible with acute to infarct. There is a continued an septal malacia involving r ight frontal lobe and superior insular most consistent with old infarct at. Milder findings are noted along the left posterior insula and correlate with the previous MRI. There is otherwise mild cerebra l white matter disease compatible with microvascular angiopathy. The diffusion imaging reveals no fur ther evidence of recent infarction. There is mild to moderate cerebral atrophy with associated prominence of the ventricular system. No e xtra-axial fluid collections or significant mass effect is identified at. CRANIOCERVICAL JUNCTION: No significant abnormality. VASCULAR FLOW-VOIDS: No significant abnormality. ORBITS: No significant abnormality of visualized orbits. SINUSES / MASTOIDS: No significant abnormality in the visualized paranasal sinuses or mastoid air zoë ls. ADDITIONAL FINDINGS: None. IMPRESSION: 1. There is a small 6 mm acute infarct involving left precentral gyrus. 2. There is otherwise continued microvascular angiopathy and old infarcts as detailed above. Signer Name: Tripp Reyes MD Signed: 04/24/2021 2:11 PM Workstation Name: [id number]
--- NOTE | 2021-04-24 14:29 | Magnetic Resonance Report ---
MR MRA/MRV head wo con INDICATION / CLINICAL INFORMATION: 75 years Male; disc disease. TECHNIQUE: 3-D time of flight. NASCET type criteria used to evaluate stenoses. COMPARISON: None available. FINDINGS: INTERNAL CAROTID ARTERIES: The motion again degrades image quality at. However, there is no evidence of significant developing stenosis involving the distal internal carotid arteries by NASCET criteria from 03/30/2021. VERTEBROBASILAR SYSTEM: There is continued developmental tortuosity of the vertebral basilar system. There is no significant developing stenosis. CEREBRAL ARTERIES: There is again noted developmental hypoplasia the left MARGARITO. However, there is no c lear evidence of developing focal stenosis involving remaining cerebral arteries or adjacent branches . ANEURYSM: None identified. IMPRESSION: There is no clear MRA evidence of significant developing stenosis involving the visualized intracrani al vessels from 03/30/2020 Signer Name: Tripp Reyes MD Signed: 04/24/2021 2:25 PM Workstation Name: [id number]
--- NOTE | 2021-04-24 14:32 | Magnetic Resonance Report ---
MR MRA/MRV neck wo con INDICATION / CLINICAL INFORMATION: 75 years Male; disc disease. TECHNIQUE: 2-D time of flight performed prior to contrast. NASCET criteria used for stenosis evaluati on. COMPARISON: The study is compared to the previous MRA of 03/30/2021. FINDINGS: CAROTID ARTERIES: The motion degrades image quality. However, there is no clear MRA evidence of devel oping stenosis involving carotid arteries from the previous MRA. VERTEBRAL ARTERIES: The visualized vertebral arteries also demonstrate appropriate caliber without si gnificant developing focal narrowing. ARCH: The arch of vessels are grossly unremarkable IMPRESSION: There is no MRA evidence of significant developing stenosis involving cervical carotid or vertebral a rteries from 03/30/2021 by NASCET criteria. Signer Name: Tripp Reyes MD Signed: 04/24/2021 2:27 PM Workstation Name: [id number]
--- NOTE | 2021-04-24 14:46 | Magnetic Resonance Report ---
MR cervical spine wo con INDICATION / CLINICAL INFORMATION: 75 years Male; disc disease. TECHNIQUE: Multisequence, multiplanar images of the cervical spine were obtained. COMPARISON: None available. FINDINGS: CRANIOCERVICAL JUNCTION:No significant abnormality. ALIGNMENT: There is minimal reversal the cervical lordosis without significant spondylolisthesis. VERTEBRAE:There are notable degenerative endplate changes at C6-7 and C7-T1 and anteriorly at C5-6. T here is associated mild endplate edema at C6-7 and C7-T1. VISUALIZED SPINAL CORD: The cervical spinal cord appears to demonstrate appropriate signal intensity on the combination of sequences. KFGRE-ED-YNEJM ANALYSIS: C2-3: There is no disc protrusion or significant spinal stenosis. There is mild left neural foraminal narrowing. C3-4: The broad-based disc bulge and ligamentum flavum hypertrophy efface the subarachnoid space with slight flattening of the ventral cord. Additionally, there appears to be moderate to left and mild r ight foraminal narrowing. C4-5: There is a slight disc bulge without significant spinal stenosis or foraminal narrowing. C5-6: The posterior spondylosis effaces the subarachnoid space without significant direct cord compre ssion at. There appears to be moderate to right and milder left neural foraminal narrowing. C6-7: There is a left lateral disc protrusion which effaces the left lateral recess and mildly deform s the left lateral cord.. This finding may be position to affect the left C7 nerve root at. There is milder effacement of the right lateral recess at. There appears be moderate to marked neural from rudy rowing bilaterally. The C7-T1: The spondylosis effaces the ventral subarachnoid space without direct cord compression at. The re is moderate right and milder left neural foraminal narrowing. PARASPINAL SOFT TISSUES: No significant abnormality. ADDITIONAL FINDINGS: No definitive epidural collections are identified. IMPRESSION: 1. There is a left lateral disc protrusion at C6-7 which effaces the left lateral recess and mildly d eforms the left ventral cord as described at. There is moderate to marked foraminal narrowing bilater ally. 2. There are multilevel degenerative the changes involving remaining cervical segments with spondylos is and foraminal narrowing as detailed above. Signer Name: Tripp Reyes MD Signed: 04/24/2021 2:41 PM Workstation Name: [id number]
[2021-04-25] MEDS: cefTRIAXone/NS 1 GM/50 ML 1 GM/50 ML BAG IV SCH (09:41)
[2021-04-25] MEDS: ASPIRIN 325 MG TAB PO SCH (09:41)
--- NOTE | 2021-04-25 10:18 | Progress Note ---
Assessment and Plan Assessment and Plan - Patient Problems # CVA (cerebral vascular accident) -this is 75 ys old male with hx of CVA and left side weakness since 2018 he is with hx of AF on coumadine presented with new onset of dysarthia on awaking am , -he is not a candidate for TPA , Nor thrombectomy -CT Brain Is unremarkable -CTA brain and neck remarkable for fibromuscular dysplasia ? extent of stenosis -he is on coumadine ? INR -current NIH#4 initial was#7 -Echo is pending not done -MRI brain is as well as MRA are remarkable for recent left paracental embolic event -LDL# 98 on Lipitor 40 mg -A1C pending -Pt/ST evaluation -MRI cervical spine is remarkable for cervical spinal stenosis C3-4 and C6-7 -Suggest neurosurgery evaluation as out.pt. # Acute UTI (urinary tract infection) -Urinalysis, IV antibiotic therapy, CBC, supportive care. -evaluated by urology for kidney stone had cystoscopy # Atrial fibrillation -Continue therapeutic anticoagulation, supportive care. -check echo is pending -MRI brain ,MRA brain and neck if there is no contraindication -D/W PCP with start him on Eliquis # HTN (hypertension) -Monitor blood pressure every shift, continue medical management, permissive hypertension overnight. # GERD (gastroesophageal reflux disease) -PPI therapy, supportive care. # BPH (benign prostatic hyperplasia) Supportive care, urology team consulted. Continue medical management. #Urinary obstruction -Urology team consulted, # Underlying dementia moderate -check MRI,B12 ,TSH #Cervical spinal stenosis -No sign of cervical mylopathy -? MRI cerviacl spine As needed # DVT prophylaxis SCD to bilateral lower extremities while in bed, continue therapeutic anticoagulation # Poor dental hygien -consider dental evaluation at OP. # Advance care planning -Disease education conducted, care plan discussed, diagnoses discussed, prognosis discussed, patient is full code, patient family knowledges understanding and agree with care plan, +30 minutes. PLAN 1- AC ,NOAC or coumadine ? 2-echo review see if had one within the last 6 months 3- Pt therapy and ST 4-Follow up with neurology ,Urology , cardiology and Neurosurgery will sign off Subjective Date of service: 04/25/21 Principal diagnosis: left ureteral stone Interval history: More alert he is with significant dysarthia and left side weakness , More oriented today knows place and date and president name follows command MRI brain showed possible left paracental embolic event MRA brain and neck are unrevaling MRI neck-- cervical disc disease more noted C3-4 with central and to lesser extent Bilateral spinal stenosis -- and C6-7 left spinal stenosis ? is he on coumadine !!! INR !!!! Objective - Vital Sign Vital Signs - 12hr 04/25/21 04/25/21 04/25/21 00:42 05:01 07:22 Temperature 98.8 F 98.9 F 99.2 F Pulse Rate 82 83 99 H Respiratory 18 18 16 Rate Blood Pressure 152/81 150/76 139/73 O2 Sat by Pulse 99 95 95 Oximetry - General Apperance Constitutional: comfortable, other (slightly irritated this am , does not wants to talk or answear questions ) - EENT EENT: PERRL, mucous membranes moist - Respiratory Respiratory: chest non-tender, lungs clear - Cardiovascular Cardiovascular: other (irregular ) Extremities: no peripheral edema bilat, no clubbing, cyanosis - Gastrointestinal Gastrointestinal: normoactive bowel sounds - Integumentary Integumentary: normal - Neurologic Cranial nerve examination: PERRL, EOMI Speech examination: other (slurred unchanged with difficult to understand ) Detailed motor examination: other (slight left pronator drift remote , gait not done) - Laboratory Findings CBC and BMP: 04/23/21 06:53 04/23/21 06:53 Abnormal Lab Findings: Abnormal Labs 04/21/21 04/21/21 04/21/21 09:38 09:38 10:28 WBC 4.4 L Hgb 15.3 H MCHC 35 H [place] % (Auto) 12.5 H Lymph # (Auto) 1.0 L Monocytes % (Manual) PT 18.0 H INR 1.44 H Sodium 130 L Chloride 94.6 L BUN 21 H Glucose 104 H POC Glucose Albumin Ur Specific [place] Urine WBC (Auto) 04/21/21 04/22/21 04/22/21 Unknown 04:54 04:54 WBC 3.6 L Hgb MCHC [place] % (Auto) Lymph # (Auto) Monocytes % (Manual) 14.0 H PT INR Sodium 135 L Chlor[place] 97.9 L BUN Glucose POC Glucose Albumin Ur Specific [place] 1.049 H Urine WBC (Auto) 15.0 H 04/22/21 04/22/21 04/22/21 12:09 15:39 21:20 WBC Hgb MCHC [place] % (Auto) Lymph # (Auto) Monocytes % (Manual) PT INR Sodium Chloride BUN Glucose POC Glucose 67 L 67 L 117 H Albumin Ur Specific [place] Urine WBC (Auto) 04/23/21 04/23/21 04/23/21 06:53 06:53 16:14 WBC Hgb MCHC 35 H [place] % (Auto) 13.9 H Lymph # (Auto) 1.1 L Monocytes % (Manual) PT INR Sodium 136 L Chloride BUN Glucose POC Glucose 132 H Albumin 3.8 L Ur Specific [place] Urine WBC (Auto) 04/24/21 04/24/21 04/25/21 16:37 20:41 07:57 WBC Hgb MCHC [place] % (Auto) Lymph # (Auto) Monocytes % (Manual) PT INR Sodium Chloride BUN Glucose POC Glucose 144 H 126 H 106 H Albumin Ur Specific [place] Urine WBC (Auto)
--- NOTE | 2021-04-25 10:19 | Discharge Summary ---
Providers - Providers Date of Admission: 04/22/21 12:00 Attending physician: AMALIA HENDERSON MD 04/21/21 12:11 Consult to Physician [CONS] Urgent Comment: Consulting Provider: OSKAR QUIÑONES Physician Instructions: Reason For Exam: Obstructing nephrolithiasis 04/21/21 12:32 Occupational Therapy Evaluate and Treat [CONS] Routine Comment: Reason For Exam: Neuro deficits Physical Therapy Evaluation and Treat [CONS] Routine Comment: Reason For Exam: Neuro deficits 04/21/21 12:33 Speech Therapy Evaluation and Treat [CONS] Routine Reason For Exam: swallow eval 04/23/21 10:27 Consult to Physician [CONS] Routine Comment: Consulting Provider: JAY EDWARDS Physician Instructions: Reason For Exam: ams Primary care physician: [employer]ER Hospitalization Reason for admission: cva Condition: Stable Hospital course: 75 YO Male with Atrial Fib on therapeutic anticoagulation, DM, HTN, 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 Patient has diminished cognition and provides minimal history. Patient history taken from EMS staff, ED staff, as well as the patient's family who was made available via telephone. Patient family reports the patient was in his usual state of health around bedtime at 2030 hrs. Patient awakened from sleep this morning and was found to have increased weakness and decreased ability to speak. EMS was notified and upon arrival the patient was found to have a new neurologic deficit. A code stroke was called and the patient was transported to [facility] for further care and evaluation of the aforementioned symptoms. The patient was seen and evaluated in the emergency department. All lab and imaging studies reviewed. Patient found to have clinical symptoms consistent with CVA. Patient initiated on CVA protocol and placed in observation status and admitted to medical floor due to increased risk of worsening symptoms. The patient was also found to have urinary tract infection complicated by left renal calculus with resultant urinary outlet obstruction. Urology team consulted in ED. Patient initiated on IV antibiotic therapy. Patient is n.p.o. for possible surgical intervention in a.m. No reports of fever, chills, chest pain, palpitation, productive cough, skin rash, recent ill contacts, or known exposure to COVID-19. No prior admission for review. All medication listed at time of admission has been reconciled. Advanced care planning conducted in ED. 04/22/2021 Had cysto l rpg ureteroscopy stent today Post procedure patient doing well Patient able to move all 4 extremities No signs of CVA No dysarthria Had CVA work-up recently 1 month ago along with MRI/MRA and was inconclusive If patient is cleared by physical therapy-patient can be discharged home tomorrow to follow-up with urology as outpatient 04/23: Patient seen and examined this morning he is awake alert oriented he just states that he does not feel well. He cannot describe what it is. No dysarthria noted. Discussed with nursing staff at bedside we will also still get neurologist to evaluate the patient despite having an MRI before. CT of the head and neck reviewed no acute pathology noted. PT OT was done today awaiting for the final read up anticipate discharge in 24 to 48 hours 04/24: Patient seen and examined, mental status is improved. he is AAOX3, KNOWS Where he is, who the president is. Patient is awaiting MRI and if it does not show any new pathology, will be discharged to complete abx therapy outpatient and follow with Urologist. 04/25: MRI showed CVA, left paracental embolic event, MRA brain and neck are unrevealing MRI neck-- cervical disc disease more noted C3-4 with central and to lesser extent Bilateral spinal stenosis -- and C6-7 left spinal stenosis I confirmed with daughter the is coumadin and the dose, also discussed the expected INR setting, I discussed with the Neurologist. Will switch to Eliquis and discharge patient due to recurrent low inr which can be contributing to the problem. I discussed this change with the who is agreeable with a switch to Eliquis side effects discussed in detail including discontinuation of Coumadin. (1) left ureteral stone with obstruction Cystoscopy and RPG's were done (2) UTI continue IV antibiotics (3) Atrial fibrillation Current Visit: No Status: Chronic Qualifiers: Atrial fibrillation type: unspecified Qualified Code(s): I48.91 - Unspecified atrial fibrillation Plan to address problem: Continue therapeutic anticoagulation, supportive care. (4) HTN (hypertension) Current Visit: No Status: Chronic Qualifiers: Hypertension type: primary hypertension Qualified Code(s): I10 - Essential (primary) hypertension Plan to address problem: Monitor blood pressure every shift, continue medical management, permissive hypertension overnight. (5) CVA Normal exam Patient had MRI/MRA recently No further work-up No neuro consult Patient may be discharged tomorrow with okay with Follow-up with urology as outpatient (6) BPH (benign prostatic hyperplasia) Current Visit: Yes Status: Acute Qualifiers: Lower urinary tract symptom detail: unspecified Plan to address problem: Supportive care, urology team consulted. Continue medical management. (7) Urinary obstruction Current Visit: Yes Status: Acute Plan to address problem: Had a cystoscopy and left RPG stent Disposition: TO HOME OR SELFCARE Final Discharge Diagnosis (Prints w/discharge instructions): CVA Time spent for discharge: 35 mins Core Measure Documentation - Palliative Care Palliative Care/ Comfort Measures: Not Applicable - Core Measures Any of the following diagnoses?: none Exam - Physical Exam Narrative exam: General appearance: Present: no acute distress, well-nourished - EENT Eyes: PERRL, EOM intact ENT: hearing intact, clear oral mucosa Ears: bilateral: normal - Neck Neck: supple, normal ROM - Respiratory Respiratory effort: normal Respiratory: bilateral: CTA - Breasts Breasts: normal - Cardiovascular Heart rate: 78 Rhythm: regular Heart Sounds: Present: S1 & S2. Absent: gallop, rub Extremities: pulses intact, No edema, normal color, Full ROM - Gastrointestinal General gastrointestinal: Present: soft, non-tender, non-distended, normal bowel sounds - Genitourinary Male genitourinary: normal - Integumentary Integumentary: clear, warm, dry - Musculoskeletal Musculoskeletal: 1, strength equal bilaterally - Neurologic Neurologic: moves all extremities, alert awake oriented x3 - Psychiatric Psychiatric: memory intact, appropriate mood/affect, intact judgment & insight - Constitutional Vitals: Temp Pulse Resp BP Pulse Ox 99.2 F 99 H 16 139/73 95 04/25/21 07:22 04/25/21 07:22 04/25/21 07:22 04/25/21 07:22 04/25/21 07:22 Plan Activity: advance as tolerated, fall precautions Diet: low salt Special Instructions: record daily BP diary, record blood sugar diary Plan of Treatment: FOLLOW UP WITH HIS CARDIOLOGY Follow up with: OSKAR QUIÑONES MD [Staff Physician] - 7 Days PRIMARY CARE, [Primary Care Provider] - 3-5 Days SHERYL BANGURA MD [Staff Physician] - 7 Days Prescriptions: AtorvaSTATin [Lipitor] 40 mg PO QHS #30 tablet Ciprofloxacin HCl [Ciprofloxacin TAB] 500 mg PO BID #20 tablet Apixaban [Eliquis] 10 mg PO Q12HR #10 tablet Apixaban [Eliquis] 5 mg PO Q12HR #60 tablet
[2021-04-25] MEDS ORDERED: ASPIRIN 325 MG TAB PO PRN (10:22)
[2021-04-25] MEDS ORDERED: FUROSEMIDE 20 MG TAB PO PRN (10:22)
[2021-04-25 10:49] LABS: INR 1.12 (0.87-1.13)
[2021-04-25 10:50] LABS: Partial Thromboplastin Time 30.5 Sec. (24.2-36.6)
[2021-04-25] MEDS ORDERED: WARFARIN 5 MG TAB PO SCH (11:00)
[2021-04-25] MEDS ORDERED: ENOXAPARIN 100 MG/1 ML INJ SUB-Q SCH (11:00)
[2021-04-25 12:28] VITALS: BP 137/77
[2021-04-25 12:35] LABS: Hematocrit 40.1 % (35.5-45.6); Hemoglobin 13.5 gm/dl (11.8-15.2); Mean Corpuscular HGB Conc 34 % (32-34); Mean Corpuscular Volume 94 fl (84-94); Platelet Count 181 K/mm3 (140-440); Red Blood Count 4.25 M/mm3 (3.65-5.03); Red Cell Distribution Width 14.5 % (13.2-15.2)
[2021-04-25] MEDS ORDERED: hydrALAZINE 25 MG TAB PO SCH (13:00)
[2021-04-25] MEDS ORDERED: APIXABAN 5 MG TAB PO SCH (13:00)
[2021-04-25] MEDS ORDERED: METOPROLOL TARTRATE 25 MG TAB PO SCH (22:00)
[2021-04-25] MEDS ORDERED: TEMAZEPAM 15 MG CAP PO SCH (22:00)
[2021-04-25] MEDS ORDERED: SILODOSIN 8 MG PO SCH (22:00)
[2021-04-26] MEDS ORDERED: metFORMIN 500 MG TAB PO SCH (10:00)
[2021-04-26] MEDS ORDERED: dilTIAZem CD 120 MG CAP PO SCH (10:00)
[2021-04-26] MEDS ORDERED: TAMSULOSIN 0.4 MG CAP PO SCH (10:00)
[2021-04-26] MEDS ORDERED: DILTIAZEM HCL 120 MG PO SCH (10:00)
[2021-05-02] MEDS ORDERED: APIXABAN 5 MG TAB PO SCH (10:00)
== END 2021-04-25 17:10 | disposition home health service (06) | DRG 659 ==
LOC: ED 09:05 → 3B-SURG 12:30 → OBSVTOIN 04-22 12:00 → INTOOBSV 04-22 16:19
PROVIDERS: ADMIT Internal Medicine; ATTEND Internal Medicine
PROC: 0T778ZZ Dilation of Left Ureter, Via Natural or Artificial Opening Endoscopic (ICD-10-PCS; principal; 2021-04-22)
PROC: 0T778DZ Dilation of Left Ureter with Intraluminal Device, Via Natural or Artificial Opening Endoscopic (ICD-10-PCS; 2021-04-22)
PROC: BT1F1ZZ Fluoroscopy of Left Kidney, Ureter and Bladder using Low Osmolar Contrast (ICD-10-PCS; 2021-04-22)
DX: N20.1 Calculus of ureter (principal); I63.9 Cerebral infarction, unspecified; N39.0 Urinary tract infection, site not specified; N13.8 Other obstructive and reflux uropathy; N13.4 Hydroureter; N23 Unspecified renal colic; N40.1 Benign prostatic hyperplasia with lower urinary tract symptoms; I48.91 Unspecified atrial fibrillation; E11.9 Type 2 diabetes mellitus without complications; R29.708 NIHSS score 8; N20.0 Calculus of kidney; I67.2 Cerebral atherosclerosis; F01.50 Vascular dementia, unspecified severity, without behavioral disturbance, psychotic disturbance, mood disturbance, and anxiety; K21.9 Gastro-esophageal reflux disease without esophagitis; E78.5 Hyperlipidemia, unspecified; Z79.899 Other long term (current) drug therapy; Z79.891 Long term (current) use of opiate analgesic; Z79.01 Long term (current) use of anticoagulants; Z79.82 Long term (current) use of aspirin; Z79.84 Long term (current) use of oral hypoglycemic drugs; Z83.3 Family history of diabetes mellitus; Z82.49 Family history of ischemic heart disease and other diseases of the circulatory system; Z63.4 Disappearance and death of family member
CPT/HCPCS: 36415; 70450; 70496; 70498; 70544; 70547; 70551; 72141; 74177; 74420; 80048; 80053; 80061; 80320; 81001; 82140; 82550; 82553; 82565; 82962; 83690; 83735; 84484; 85007; 85025; 85027; 85610; 85670; 85730; 87040; 87086; 93005; 96365; G0378; A4217; A9270-GY; C1769; C2617; G0480; J0696; J2370; J2405; J2704; J7030; J7040; J7120; Q9967

== ENCOUNTER 2021-10-26 13:20 | Observation (INO) | payer MEDICARE ==
--- NOTE | 2021-10-26 16:06 | Emergency Department Report ---
HPI - General Chief Complaint: Weakness Time Seen by Provider: 10/26/21 15:35 - HPI HPI: 76-year-old -[place] male presents to the emergency department with a complaint of "I am not feeling well." For the past 2 to 3 days the patient has been complaining of generalized weakness, decreased appetite with decreased oral intake of food and water, difficulty with urination. He has a history of CVA, atrial fibrillation anticoagulated on Eliquis, CHF, hypertension, history of prostate cancer, BPH, hyperlipidemia, GERD, diverticulosis/diverticulitis. The patient has not taken anything for symptoms prior to presentation. He says that the generalized weakness has gotten to the point where he is having difficulty ambulating. On examination the patient has decreased sensation to the left side of the face and left arm. No last known well time but it started sometime "over the weekend." The patient will be worked up for this generalized weakness and potential CVA, but he is not in the window for tPA or thrombectomy and a code stroke does not need to be initiated. ED Past Medical Hx - Past Medical History Previous Medical History?: Yes Hx Hypertension: Yes Hx CVA: Yes (2010) Hx Heart Attack/AMI: No Hx Congestive Heart Failure: No Hx Diabetes: Yes Hx Deep Vein Thrombosis: No Hx GERD: Yes Hx Liver Disease: No Hx Renal Disease: No (obstructing renal stone) Hx Kidney Stones: Yes Hx Asthma: No Hx COPD: No Hx Dementia: No Hx HIV: No Additional medical history: "prostate Problems" - Surgical History Past Surgical History?: Yes Hx Pacemaker: No Hx Internal Defibrillator: No Additional Surgical History: hernia repair. PROSTATE SURGERY? - Social History Smoking Status: Former Smoker - Medications Home Medications: Home Medications Medication Instructions Recorded Confirmed Last Taken Type Isosorbide Mononitrate [Isosorbide 30 mg PO DAILY 07/24/14 04/22/21 05/16/18 History Mononitrate ER] Diltiazem HCl [Diltiazem 24Hr ER] 120 mg PO QDAY #30 capsule.er 10/02/14 04/22/21 05/16/18 Rx metFORMIN [Glucophage] 500 mg PO QDAY 01/23/18 04/22/21 05/16/18 History Tamsulosin [Flomax] 0.4 mg PO QDAY #30 capsule 01/27/18 04/22/2118 Rx Aspirin 325 mg PO PRN PRN 05/11/18 04/22/21 2 Months Ago History ~03/17/18 Metoprolol [Lopressor TAB] 25 mg PO BID 05/11/18 04/22/21 05/16/18 History Silodosin [Rapaflo] 8 mg PO QHS 05/11/18 04/22/21 05/16/18 History Furosemide [Lasix] 20 mg PO PRN PRN 05/16/18 04/22/21 05/16/18 History Temazepam [Restoril] 15 mg PO QHS 05/16/18 04/22/21 05/16/18 History hydrALAZINE [Apresoline TAB] 25 mg PO BID 05/16/18 04/22/21 05/17/18 07:00 History AtorvaSTATin [Lipitor] 40 mg PO QHS #30 tablet 04/24/21 Unknown Rx Ciprofloxacin HCl [Ciprofloxacin 500 mg PO BID #20 tablet 04/24/21 Unknown Rx TAB] Apixaban [Eliquis] 5 mg PO Q12HR #60 tablet 04/25/21 Unknown Rx Apixaban [Eliquis] 10 mg PO Q12HR #10 tablet 04/25/21 Unknown Rx ED Review of Systems ROS: Stated complaint: HASN'T EATEN OR DRANKED ANY WATER IN THREE DAYS Other details as noted in HPI Comment: All other systems reviewed and negative Constitutional: weakness. denies: fever Eyes: denies: eye pain, vision change ENT: denies: ear pain, throat pain Respiratory: denies: cough, shortness of breath Cardiovascular: denies: chest pain, palpitations Gastrointestinal: nausea. denies: vomiting Genitourinary: dysuria, other (urinary retention). denies: hematuria, discharge Musculoskeletal: denies: back pain, joint swelling Skin: denies: rash, lesions Neurological: weakness, numbness. denies: headache Physical Exam - Physical Exam Vital Signs: Vital Signs 10/26/21 15:25 Temperature 98.4 F Pulse Rate 99 H Respiratory 16 Rate Blood Pressure 136/61 [Left] O2 Sat by Pulse 100 Oximetry Physical Exam: GENERAL: The patient is well-developed well-nourished. HENT: Normocephalic. Atraumatic. Patient has moist mucous membranes. EYES: Extraocular motions are intact. No nystagmus. NECK: Supple. Trachea is midline. CHEST/LUNGS: Clear to auscultation. There is no respiratory distress noted. HEART/CARDIOVASCULAR: Irregular rhythm. There is no tachycardia. There is no murmur. ABDOMEN: Abdomen is soft, nontender. Patient has normal bowel sounds. SKIN: Skin is warm and dry. NEURO: The patient is awake, alert, and oriented. The patient is cooperative. Mild dysarthria. Mild left upper extremity pronator drift. Subjective decrease sensation to the left side of the face and left upper extremity when compared to the right. MUSCULOSKELETAL: There is no tenderness or deformity. There is no limitation range of motion. ED Course Vital Signs 10/26/21 15:25 Temperature 98.4 F Pulse Rate 99 H Respiratory 16 Rate Blood Pressure 136/61 [Left] O2 Sat by Pulse 100 Oximetry ED Medical Decision Making - Lab Data Result diagrams: 10/26/21 15:58 10/26/21 15:58 Lab Results 10/26/21 10/26/21 10/26/21 Range/Units 15:58 15:58 15:58 WBC 5.7 (4.5-11.0) K/mm3 RBC 4.91 (3.65-5.03) M/mm3 Hgb 15.5 H (11.8-15.2) gm/dl Hct 46.9 H (35.5-45.6) % MCV 96 H (84-94) fl MCH 32 (28-32) pg MCHC 33 (32-34) % RDW 14.2 (13.2-15.2) % Plt Count 293 (140-440) K/mm3 Lymph % (Auto) 22.2 (13.4-35.0) % Heard % (Auto) 11.2 H (0.0-7.3) % Eos % (Auto) 0.3 (0.0-4.3) % Baso % (Auto) 0.8 (0.0-1.8) % Lymph # (Auto) 1.3 (1.2-5.4) K/mm3 Heard # (Auto) 0.6 (0.0-0.8) K/mm3 Eos # (Auto) 0.0 (0.0-0.4) K/mm3 Baso # (Auto) 0.0 (0.0-0.1) K/mm3 Seg Neutrophils % 65.5 (40.0-70.0) % Seg Neutrophils # 3.7 (1.8-7.7) K/mm3 PT 14.5 (12.2-14.9) Sec. INR 1.02 (0.87-1.13) Sodium 140 (137-145) mmol/L Potassium 4.9 (3.6-5.0) mmol/L Chloride 95.4 L (98-107) mmol/L Carbon Dioxide 19 L (22-30) mmol/L Anion Gap 31 mmol/L BUN 23 H (9-20) mg/dL Creatinine 1.3 (0.8-1.3) mg/dL Estimated GFR > 60 ml/min BUN/Creatinine Ratio 18 % Glucose 87 (75-100) mg/dL Calcium 10.6 H (8.4-10.2) mg/dL Total Bilirubin 0.70 (0.1-1.2) mg/dL AST 15 (5-40) units/L ALT 7 (7-56) units/L Alkaline Phosphatase 53 (35-129) units/L Ammonia (25-60) umol/L Troponin T (0.00-0.029) ng/mL Total Protein 8.7 H (6.3-8.2) g/dL Albumin 4.7 (3.9-5) g/dL Albumin/Globulin Ratio 1.2 % TSH (0.270-4.200) mlU/mL 10/26/21 10/26/21 10/26/21 Range/Units 15:58 15:58 15:58 WBC (4.5-11.0) K/mm3 RBC (3.65-5.03) M/mm3 Hgb (11.8-15.2) gm/dl Hct (35.5-45.6) % MCV (84-94) fl MCH (28-32) pg MCHC (32-34) % RDW (13.2-15.2) % Plt Count (140-440) K/mm3 Lymph % (Auto) (13.4-35.0) % Heard % (Auto) (0.0-7.3) % Eos % (Auto) (0.0-4.3) % Baso % (Auto) (0.0-1.8) % Lymph # (Auto) (1.2-5.4) K/mm3 Heard # (Auto) (0.0-0.8) K/mm3 Eos # (Auto) (0.0-0.4) K/mm3 Baso # (Auto) (0.0-0.1) K/mm3 Seg Neutrophils % (40.0-70.0) % Seg Neutrophils # (1.8-7.7) K/mm3 PT (12.2-14.9) Sec. INR (0.87-1.13) Sodium (137-145) mmol/L Potassium (3.6-5.0) mmol/L Chloride (98-107) mmol/L Carbon Dioxide (22-30) mmol/L Anion Gap mmol/L BUN (9-20) mg/dL Creatinine (0.8-1.3) mg/dL Estimated GFR ml/min BUN/Creatinine Ratio % Glucose (75-100) mg/dL Calcium (8.4-10.2) mg/dL Total Bilirubin (0.1-1.2) mg/dL AST (5-40) units/L ALT (7-56) units/L Alkaline Phosphatase (35-129) units/L Ammonia 29.0 (25-60) umol/L Troponin T < 0.010 (0.00-0.029) ng/mL Total Protein (6.3-8.2) g/dL Albumin (3.9-5) g/dL Albumin/Globulin Ratio % TSH 3.240 (0.270-4.200) mlU/mL - EKG Data -: EKG Interpreted by Me - EKG Data When compared to previous EKG there are: no significant change Interpretation: unchanged when compared t (04/21/21), other (Atrial fibrillation with a rate of 104 bpm. Normal axis, normal intervals. No ST elevation [place].) - Radiology Data Radiology results: report reviewed CT BRAIN: 10/26/2021 INDICATION / CLINICAL INFORMATION: weakness, left sided numbness. COMPARISON: CT brain 10/22/2020. CT brain angiogram and CT neck angiogram were also performed at that time. FINDINGS: BRAIN/INTRACRANIAL STRUCTURES: Unenhanced CT images of the brain demonstrate no evidence of acute abnormality. Prominent diffuse cerebral atrophy is again noted. Focal area of right frontal cortical encephalomalacia consistent with prior ischemic injury is present, unchanged when compared to the prior exam. There is no CT evidence of acute large vessel territory ischemic injury, hemorrhage, or mass. There are no abnormal extra-axial fluid collections. EXTRACRANIAL STRUCTURES: Unremarkable. IMPRESSION: No acute abnormality. Chronic ischemic and age-related changes, stable when compared to 04/21/2021. - Medical Decision Making This patient initially came in with the complaint of a 3-day history of decreased appetite leading to decreased oral intake of food and water, generalized weakness and fatigue. He also started telling me that he felt like the left side of his face felt different than the right. On examination he has mild dysarthria, subjective decreased sensation to the left face and left upper extremity when compared to the right, and he has a slight left upper extremity pronator drift. As the last known well time is greater than 24 hours, and we do not have an exact last known well time, the patient is not a candidate for tPA or even a thrombectomy. CT scan of the head without contrast does not show any hemorrhage, large vessel occlusion, or any other acute process. The labs have been mostly unremarkable including CBC, metabolic panel, negative troponin, nor mal thyroid function, but urinalysis is positive for a UTI and hematuria. Patient will be admitted to the hospital for further evaluation and treatment and was accepted for admission by the hospitalist, Dr. Michael. Critical Care Time: No Critical care attestation.: If time is entered above; I have spent that time in minutes in the direct care of this critically ill patient, excluding procedure time. ED Disposition Clinical Impression: CVA (cerebral vascular accident) Qualifiers: CVA mechanism: unspecified Qualified Code(s): I63.9 - Cerebral infarction, unspecified UTI (urinary tract infection) Qualifiers: Urinary tract infection type: acute cystitis Hematuria presence: with hematuria Qualified Code(s): N30.01 - Acute cystitis with hematuria Atrial fibrillation Qualifiers: Atrial fibrillation type: unspecified Qualified Code(s): I48.91 - Unspecified atrial fibrillation Disposition: 09 ADMITTED INPATIENT Is pt being admited?: Yes Condition: Serious Time of Disposition: 17:45 - Level of Consciousness 1a. Level of Consciousness: alert/keenly responsive - LOC Questions 1b. LOC Questions: answers both correctly - LOC Command 1c. LOC Commands: performs tasks correctly - Best Gaze 2. Best Gaze: normal - Visual 3. Visual: no visual loss - Facial Palsy 4. Facial Palsy: normal symmetrical movement - Motor Arm 5a. Motor Arm Left: drift 5b. Motor Arm Right: no drift - Motor Leg 6a. Motor Leg Left: no drift 6b. Motor Leg Right: no drift - Limb Ataxia 7. Limb Ataxia: absent - Sensory 8. Sensory: mild/moderate sensory loss - Best Language 9. Best Language: no aphasia - Dysarthria 10. Dysarthria: mild/moderate dysarthria - Extinction and Inattention 11. Extinction/Inattention: no abnormality - Scoring Total Score: 3 Stroke Severity: Minor Stroke
[2021-10-26 16:36] LABS: Basophils % (Auto) 0.8 % (0.0-1.8); Eosinophils % (Auto) 0.3 % (0.0-4.3); Hematocrit 46.9 % (35.5-45.6); Hemoglobin 15.5 gm/dl (11.8-15.2); Lymphocytes # (Auto) 1.3 K/mm3 (1.2-5.4); Lymphocytes % (Auto) 22.2 % (13.4-35.0); Mean Corpuscular HGB Conc 33 % (32-34); Mean Corpuscular Volume 96 fl (84-94); Monocytes # (Auto) 0.6 K/mm3 (0.0-0.8); Monocytes % (Auto) 11.2 % (0.0-7.3); Platelet Count 293 K/mm3 (140-440); Red Blood Count 4.91 M/mm3 (3.65-5.03); Red Cell Distribution Width 14.2 % (13.2-15.2)
[2021-10-26 16:46] LABS: INR 1.02 (0.87-1.13)
[2021-10-26 16:47] LABS: Alanine Aminotransferase 7 units/L (7-56); Albumin 4.7 g/dL (3.9-5); BUN/Creatinine Ratio 18; Blood Urea Nitrogen 23 mg/dL (9-20); Calcium 10.6 mg/dL (8.4-10.2); Hemolysis Index 9
--- NOTE | 2021-10-26 17:09 | Cat Scan Report ---
CT BRAIN: 10/26/2021 INDICATION / CLINICAL INFORMATION: weakness, left sided numbness. COMPARISON: CT brain 10/22/2020. CT brain angiogram and CT neck angiogram were also performed at that time. FINDINGS: BRAIN/INTRACRANIAL STRUCTURES: Unenhanced CT images of the brain demonstrate no evidence of acute abn ormality. Prominent diffuse cerebral atrophy is again noted. Focal area of right frontal cortical encephalomalacia consistent with prior ischemic injury is presen t, unchanged when compared to the prior exam. There is no CT evidence of acute large vessel territory ischemic injury, hemorrhage, or mass. There a re no abnormal extra-axial fluid collections. EXTRACRANIAL STRUCTURES: Unremarkable. IMPRESSION: No acute abnormality. Chronic ischemic and age-related changes, stable when compared to 04/21/2021. All CT scans at this location are performed using dose reduction to ALARA by means of automated expos ure control. Signer Name: Dylan Santa MD Signed: 10/26/2021 5:05 PM Workstation Name: [id number]
[2021-10-26 18:49] LABS: Bacteria,Urine 2+ /HPF (Negative); Bilirubin,Urine NEG (Negative); Blood,Urine LG (Negative); Color,Urine Amber (Yellow); Mucus,Urine FEW /HPF; Urobilinogen,Urine < 2.0 mg/dL (<2.0)
[2021-10-26 18:50] LABS: Protein,Urine >500 mg/dL (Negative); RBC,Urine > 182.0 /HPF (0.0-6.0); WBC,Urine > 182.0 /HPF (0.0-6.0)
[2021-10-26] MEDS: NITROFURANTOIN MONOHYD/M-CRYST 100 MG CAP PO SCH (22:12)
--- NOTE | 2021-10-26 22:22 | History and Physical Report ---
History of Present Illness Date of examination: 10/26/21 Date of admission: 10/26/21 17:45 Chief complaint: Left-sided numbness since a.m. History of present illness: 76-year-old -Turkmen male presents to the emergency department with a complaint of "I am not feeling well." For the past 2 to 3 days the patient has been complaining of generalized weakness, decreased appetite with decreased oral intake of food and water, difficulty with urination. He has a history of CVA, atrial fibrillation anticoagulated on Eliquis, CHF, hypertension, history of prostate cancer, BPH, hyperlipidemia, GERD, diverticulosis/diverticulitis. The patient has not taken anything for symptoms prior to presentation. He says that the generalized weakness has gotten to the point where he is having difficulty ambulating. On examination the patient has decreased sensation to the left side of the face and left arm. No last known well time but it started sometime "over the weekend." The patient will be worked up for this generalized weakness and potential CVA, but he is not in the window for tPA or thrombectomy and a code stroke does not need to be initiated. Patient is a poor historian--- unable to give reliable history - Past Medical History Previous Medical History?: Yes --Hypertension: Yes --CVA: Yes (2010) -- Diabetes: Yes --GERD: Yes --Kidney Stones: Yes --Additional medical history: "prostate Problems" - Surgical History Past Surgical History?: Yes Additional Surgical History: hernia repair. PROSTATE SURGERY? - Social History Smoking Status: Former Smoker - Medications Home Medications: Home Medications Medication Instructions Recorded Confirmed Last Taken Type Isosorbide Mononitrate [Isosorbide 30 mg PO DAILY 07/24/14 04/22/21 05/16/18 History Mononitrate ER] Diltiazem HCl [Diltiazem 24Hr ER] 120 mg PO QDAY #30 capsule.er 10/02/14 04/22/21 05/16/18 Rx metFORMIN [Glucophage] 500 mg PO QDAY 01/23/18 04/22/21 05/16/18 History Tamsulosin [Flomax] 0.4 mg PO QDAY #30 capsule 01/27/18 04/22/21 05/16/18 Rx Aspirin 325 mg PO PRN PRN 05/11/18 04/22/21 2 Months Ago History ~03/17/18 Metoprolol [Lopressor TAB] 25 mg PO BID 05/11/18 04/22/21 05/16/18 History Silodosin [Rapaflo] 8 mg PO QHS 05/11/18 04/22/21 05/16/18 History Furosemide [Lasix] 20 mg PO PRN PRN 05/16/18 04/22/21 05/16/18 History Temazepam [Restoril] 15 mg PO QHS 05/16/18 04/22/21 05/16/18 History hydrALAZINE [Apresoline TAB] 25 mg PO BID 05/16/18 04/22/21 05/17/18 07:00 History AtorvaSTATin [Lipitor] 40 mg PO QHS #30 tablet 04/24/21 Unknown Rx Ciprofloxacin HCl [Ciprofloxacin 500 mg PO BID #20 tablet 04/24/21 Unknown Rx TAB] Apixaban [Eliquis] 5 mg PO Q12HR #60 tablet 04/25/21 Unknown Rx Apixaban [Eliquis] 10 mg PO Q12HR #10 tablet 04/25/21 Unknown Rx Review of Systems ROS: Stated complaint: HASN'T EATEN OR DRANKED ANY WATER IN THREE DAYS Other details as noted in HPI Comment: All other systems reviewed and negative Constitutional: weakness. denies: fever Eyes: denies: eye pain, vision change ENT: denies: ear pain, throat pain Respiratory: denies: cough, shortness of breath Cardiovascular: denies: chest pain, palpitations Gastrointestinal: nausea. denies: vomiting Genitourinary: dysuria, other (urinary retention). denies: hematuria, discharge Musculoskeletal: denies: back pain, joint swelling Skin: denies: rash, lesions Neurological: weakness, numbness. denies: headache Medications and Allergies Allergies Allergy/AdvReac Type Severity Reaction Status Date / Time No Known Allergies Allergy Verified 03/29/21 13:36 Home Medications Medication Instructions Recorded Confirmed Last Taken Type Isosorbide Mononitrate [Isosorbide 30 mg PO DAILY 07/24/14 04/22/21 05/16/18 History Mononitrate ER] Diltiazem HCl [Diltiazem 24Hr ER] 120 mg PO QDAY #30 capsule.er 10/02/14 04/22/21 05/16/18 Rx metFORMIN [Glucophage] 500 mg PO QDAY 01/23/18 04/22/21 05/16/18 History Tamsulosin [Flomax] 0.4 mg PO QDAY #30 capsule 01/27/18 04/22/21 05/16/18 Rx Aspirin 325 mg PO PRN PRN 05/11/18 04/22/21 2 Months Ago History ~03/17/18 Metoprolol [Lopressor TAB] 25 mg PO BID 05/11/18 04/22/21 05/16/18 History Silodosin [Rapaflo] 8 mg PO QHS 05/11/18 04/22/21 05/16/18 History Furosemide [Lasix] 20 mg PO PRN PRN 05/16/18 04/22/21 05/16/18 History Temazepam [Restoril] 15 mg PO QHS 05/16/18 04/22/21 05/16/18 History hydrALAZINE [Apresoline TAB] 25 mg PO BID 05/16/18 04/22/21 05/17/18 07:00 History AtorvaSTATin [Lipitor] 40 mg PO QHS #30 tablet 04/24/21 Unknown Rx Ciprofloxacin HCl [Ciprofloxacin 500 mg PO BID #20 tablet 04/24/21 Unknown Rx TAB] Apixaban [Eliquis] 5 mg PO Q12HR #60 tablet 04/25/21 Unknown Rx Apixaban [Eliquis] 10 mg PO Q12HR #10 tablet 04/25/21 Unknown Rx Active Meds: Active Medications Nitrofurantoin Macrocrystals (Nitrofurantoin Monohyd/M-Cryst 100 Mg Cap) 100 mg PO Q12HR [facility]AR[facility] Last Admin: 10/26/21 22:12 Dose: 100 mg Exam - Constitutional Vitals: Temp Pulse Resp BP Pulse Ox 98.4 F 99 H 16 136/61 100 10/26/21 15:25 10/26/21 15:25 10/26/21 15:25 10/26/21 15:25 10/26/21 15:25 General appearance: Present: no acute distress, well-nourished - EENT Eyes: Present: PERRL ENT: hearing intact, clear oral mucosa - Neck Neck: Present: supple, normal ROM - Respiratory Respiratory effort: normal Respiratory: bilateral: CTA - Cardiovascular Heart rate: 78 Rhythm: regular Heart Sounds: Present: S1 & S2. Absent: rub, click - Extremities Extremities: pulses symmetrical, No edema Peripheral Pulses: within normal limits - Abdominal General gastrointestinal: Present: soft, non-tender, non-distended, normal bowel sounds Male genitourinary: Present: normal - Integumentary Integumentary: Present: clear, warm, dry - Musculoskeletal Musculoskeletal: gait normal, strength equal bilaterally - Psychiatric Psychiatric: appropriate mood/affect, intact judgment & insight - Neurologic Neurologic: CNII-XII intact, focal deficits (Left arm numbness), moves all extremities, gait normal HEART Score - HEART Score History: Moderately suspicious Age: > 65 Risk factors: 1-2 risk factors Troponin: Troponin T < 0.010 ng/mL (0.00-0.029) 10/26/21 15:58 Troponin: < normal limit - Critical Actions Critical Actions: 4-6 pts:12-16.6% risk of adverse cardiac event. Should be admitted Results - Labs CBC & Chem 7: 10/27/21 03:57 10/27/21 03:57 Labs: Laboratory Last Values WBC 5.7 K/mm3 (4.5-11.0) 10/26/21 15:58 RBC 4.91 M/mm3 (3.65-5.03) 10/26/21 15:58 Hgb 15.5 gm/dl (11.8-15.2) H 10/26/21 15:58 Hct 46.9 % (35.5-45.6) H 10/26/21 15:58 MCV 96 fl (84-94) H 10/26/21 15:58 MCH 32 pg (28-32) 10/26/21 15:58 MCHC 33 % (32-34) 10/26/21 15:58 RDW 14.2 % (13.2-15.2) 10/26/21 15:58 Plt Count 293 K/mm3 (140-440) 10/26/21 15:58 Lymph % (Auto) 22.2 % (13.4-35.0) 10/26/21 15:58 [place] % (Auto) 11.2 % (0.0-7.3) H 10/26/21 15:58 Eos % (Auto) 0.3 % (0.0-4.3) 10/26/21 15:58 Baso % (Auto) 0.8 % (0.0-1.8) 10/26/21 15:58 Lymph # (Auto) 1.3 K/mm3 (1.2-5.4) 10/26/21 15:58 [place] # (Auto) 0.6 K/mm3 (0.0-0.8) 10/26/21 15:58 Eos # (Auto) 0.0 K/mm3 (0.0-0.4) 10/26/21 15:58 Baso # (Auto) 0.0 K/mm3 (0.0-0.1) 10/26/21 15:58 Seg Neutrophils % 65.5 % (40.0-70.0) 10/26/21 15:58 Seg Neutrophils # 3.7 K/mm3 (1.8-7.7) 10/26/21 15:58 PT 14.5 Sec. (12.2-14.9) 10/26/21 15:58 INR 1.02 (0.87-1.13) 10/26/21 15:58 Sodium 140 mmol/L (137-145) 10/26/21 15:58 Potassium 4.9 mmol/L (3.6-5.0) 10/26/21 15:58 Chloride 95.4 mmol/L (98-107) L 10/26/21 15:58 Carbon Dioxide 19 mmol/L (22-30) L 10/26/21 15:58 Anion Gap 31 mmol/L 10/26/21 15:58 BUN 23 mg/dL (9-20) H 10/26/21 15:58 Creatinine 1.3 mg/dL (0.8-1.3) 10/26/21 15:58 Estimated GFR > 60 ml/min 10/26/21 15:58 BUN/Creatinine Ratio 18 % 10/26/21 15:58 Glucose 87 mg/dL (75-100) 10/26/21 15:58 Calcium 10.6 mg/dL (8.4-10.2) H 10/26/21 15:58 Total Bilirubin 0.70 mg/dL (0.1-1.2) 10/26/21 15:58 AST 15 units/L (5-40) 10/26/21 15:58 ALT 7 units/L (7-56) 10/26/21 15:58 Alkaline Phosphatase 53 units/L (35-129) 10/26/21 15:58 Ammonia 29.0 umol/L (25-60) 10/26/21 15:58 Troponin T < 0.010 ng/mL (0.00-0.029) 10/26/21 15:58 Total Protein 8.7 g/dL (6.3-8.2) H 10/26/21 15:58 Albumin 4.7 g/dL (3.9-5) 10/26/21 15:58 Albumin/Globulin Ratio 1.2 % 10/26/21 15:58 TSH 3.240 mlU/mL (0.270-4.200) 10/26/21 15:58 Urine Color [place] (Yellow) 10/26/21 18:34 Urine Turbidity Turbid (Clear) 10/26/21 18:34 Urine pH 5.0 (5.0-7.0) 10/26/21 18:34 Ur Specific [place] 1.015 (1.003-1.030) 10/26/21 18:34 Urine Protein >500 mg/dL (Negative) 10/26/21 18:34 Urine Glucose (UA) Neg mg/dL (Negative) 10/26/21 18:34 Urine Ketones 20 mg/dL (Negative) 10/26/21 18:34 Urine Blood Lg (Negative) 10/26/21 18:34 Urine Nitrite Neg (Negative) 10/26/21 18:34 Urine Bilirubin Neg (Negative) 10/26/21 18:34 Urine Urobilinogen < 2.0 mg/dL (<2.0) 10/26/21 18:34 Ur Leukocyte Esterase Lg (Negative) 10/26/21 18:34 Urine WBC (Auto) > 182.0 /HPF (0.0-6.0) H 10/26/21 18:34 Urine RBC (Auto) > 182.0 /HPF (0.0-6.0) 10/26/21 18:34 U Epithel Cells (Auto) 6.0 /HPF (0-13.0) 10/26/21 18:34 Urine Bacteria (Auto) 2+ /HPF (Negative) 10/26/21 18:34 Urine WBC Clumps 2+ /HPF 10/26/21 18:34 Urine Mucus Few /HPF 10/26/21 18:34 Short CBC 10/26/21 10/27/21 Range/Units 15:58 03:57 WBC 5.7 5.2 (4.5-11.0) K/mm3 Hgb 15.5 H 15.3 H (11.8-15.2) gm/dl Hct 46.9 H 47.1 H (35.5-45.6) % Plt Count 293 330 (140-440) K/mm3 BMP 10/26/21 10/27/21 15:58 03:57 Sodium 140 140 Potassium 4.9 4.2 Chloride 95.4 L 97.6 L Carbon Dioxide 19 L 23 BUN 23 H 26 H Creatinine 1.3 1.1 Glucose 87 92 Calcium 10.6 H 9.8 Cardiac Enzymes 10/26/21 Range/Units 15:58 Troponin T < 0.010 (0.00-0.029) ng/mL Liver Function 10/26/21 10/27/21 Range/Units 15:58 03:57 Total Bilirubin 0.70 0.80 (0.1-1.2) mg/dL AST 15 17 (5-40) units/L ALT 7 7 (7-56) units/L Alkaline Phosphatase 53 52 (35-129) units/L Albumin 4.7 4.7 (3.9-5) g/dL Urine 10/26/21 Range/Units 18:34 Urine Color [place] (Yellow) Urine pH 5.0 (5.0-7.0) Ur Specific [place] 1.015 (1.003-1.030) Urine Protein >500 (Negative) mg/dL Urine Glucose (UA) Neg (Negative) mg/dL - Imaging and Cardiology Chest x-ray: report reviewed CT Scan - head: report reviewed Imaging and Cardiology: Head CT No acute abnormalities Chronic ischemic and age-related changes stable when compared to 04/21/2021. In the previous CTs right frontal cortical and encephalomalacia consistent with prior ischemic injury is present unchanged with compared to the prior exam. Also with no CT evidence of acute large vessel territory ischemic injury Assessment and Plan Advance Directives: Yes (Full code) - Patient Problems (1) TIA (transient ischemic attack) Current Visit: Yes Status: Acute Plan to address problem: Clinical picture consistent with TIA Carotid duplex scan and echocardiogram Neurology consult requested Possible discharge tomorrow MRI brain (2) Atrial fibrillation Current Visit: Yes Status: Chronic Qualifiers: Atrial fibrillation type: unspecified Qualified Code(s): I48.91 - Unspecified atrial fibrillation Plan to address problem: On Eliquis (3) Hypertension Current Visit: Yes Status: Chronic Qualifiers: Hypertension type: primary hypertension Qualified Code(s): I10 - Essential (primary) hypertension Plan to address problem: Continue antihypertensive (4) T2DM (type 2 diabetes mellitus) Current Visit: Yes Status: Chronic Qualifiers: Diabetes mellitus lobsterman insulin use: unspecified lobsterman insulin use status Plan to address problem: Coverage for now (5) BPH (benign prostatic hyperplasia) Current Visit: Yes Status: Chronic Qualifiers: Lower urinary tract symptom presence: symptoms present Plan to address problem: On Flomax (6) Anticoagulation adequate Current Visit: Yes Status: Chronic (7) DVT prophylaxis Current Visit: No Status: Acute Plan to address problem: On Eliquis and GI prophylaxis
[2021-10-26] MEDS ORDERED: ONDANSETRON 4 MG/2 ML INJ IV PRN (22:27)
[2021-10-26] MEDS ORDERED: ACETAMINOPHEN 325 MG TAB PO PRN (22:27)
[2021-10-26] MEDS ORDERED: oxyCODONE /ACETAMINOPHEN 5-325MG TAB PO PRN (22:29)
[2021-10-26] MEDS ORDERED: MORPHINE 2 MG/1 ML INJ IV PRN (22:29)
[2021-10-26] MEDS ORDERED: METOCLOPRAMIDE 10 MG/2 ML INJ IV PRN (22:29)
[2021-10-26] MEDS ORDERED: SODIUM CHLORIDE 0.9% 1000 ML 1,000 ML IV SCH (22:30)
[2021-10-26] MEDS ORDERED: FAMOTIDINE 20 MG TAB PO SCH (23:00)
[2021-10-26] MEDS ORDERED: METOPROLOL TARTRATE 25 MG TAB PO SCH (23:00)
[2021-10-27] MEDS: APIXABAN 5 MG TAB PO SCH ×2 (02:25→13:05)
[2021-10-27] MEDS: hydrALAZINE 25 MG TAB PO SCH ×2 (02:31→13:04)
[2021-10-27 04:46] LABS: Basophils # (Auto) 0.1 K/mm3 (0.0-0.1); Basophils % (Auto) 2.4 % (0.0-1.8); Eosinophils % (Auto) 0.1 % (0.0-4.3); Hematocrit 47.1 % (35.5-45.6); Hemoglobin 15.3 gm/dl (11.8-15.2); Lymphocytes # (Auto) 1.3 K/mm3 (1.2-5.4); Lymphocytes % (Auto) 24.7 % (13.4-35.0); Mean Corpuscular HGB Conc 33 % (32-34); Mean Corpuscular Volume 95 fl (84-94); Monocytes # (Auto) 0.4 K/mm3 (0.0-0.8); Platelet Count 330 K/mm3 (140-440); Red Blood Count 4.94 M/mm3 (3.65-5.03); Red Cell Distribution Width 14.1 % (13.2-15.2)
[2021-10-27 05:10] LABS: BUN/Creatinine Ratio 24
[2021-10-27 05:42] LABS: Alanine Aminotransferase 7 units/L (7-56); Albumin 4.7 g/dL (3.9-5); Blood Urea Nitrogen 26 mg/dL (9-20); Calcium 9.8 mg/dL (8.4-10.2); Hemolysis Index 12
[2021-10-27] MEDS ORDERED: metFORMIN 500 MG TAB PO SCH (08:00)
--- NOTE | 2021-10-27 09:07 | Consultation ---
History of Present Illness Consult date: 10/27/21 Reason for Consult: not seen he left hospital Medications and Allergies Allergies Allergy/AdvReac Type Severity Reaction Status Date / Time No Known Allergies Allergy Verified 10/27/21 15:05 Home Medications Medication Instructions Recorded Confirmed Last Taken Type Isosorbide Mononitrate [Isosorbide 30 mg PO DAILY 07/24/14 10/27/21 05/16/18 History Mononitrate ER] Diltiazem HCl [Diltiazem 24Hr ER] 120 mg PO QDAY #30 capsule.er 10/02/14 10/27/21 05/16/18 Rx metFORMIN [Glucophage] 500 mg PO QDAY 01/23/18 10/27/21 05/16/18 History Tamsulosin [Flomax] 0.4 mg PO QDAY #30 capsule 01/27/18 10/27/21 05/16/18 Rx Aspirin 325 mg PO PRN PRN 05/11/18 10/27/21 2 Months Ago History ~03/17/18 Metoprolol [Lopressor TAB] 25 mg PO BID 05/11/18 10/27/21 05/16/18 History Silodosin [Rapaflo] 8 mg PO QHS 05/11/18 10/27/21 05/16/18 History Furosemide [Lasix] 20 mg PO PRN PRN 05/16/18 10/27/21 05/16/18 History Temazepam [Restoril] 15 mg PO QHS 05/16/18 10/27/21 05/16/18 History hydrALAZINE [Apresoline TAB] 25 mg PO BID 05/16/18 10/27/21 05/17/18 07:00 History AtorvaSTATin [Lipitor] 40 mg PO QHS #30 tablet 04/24/21 10/27/21 Unknown Rx Ciprofloxacin HCl [Ciprofloxacin 500 mg PO BID #20 tablet 04/24/21 10/27/21 Unknown Rx TAB] Apixaban [Eliquis] 5 mg PO Q12HR #60 tablet 04/25/21 10/27/21 Unknown Rx Apixaban [Eliquis] 10 mg PO Q12HR #10 tablet 04/25/21 10/27/21 Unknown Rx Active Meds: Active Medications Acetaminophen (Acetaminophen 325 Mg Tab) 650 mg PO Q4H PRN PRN Reason: Pain MILD(1-3)/Fever >100.5/ARCINIEGA Apixaban (Apixaban 5 Mg Tab) 5 mg PO Q12HR [facility] Last Admin: 10/27/21 02:25 Dose: 5 mg Aspirin (Aspirin 325 Mg Tab) 325 mg PO QDAY [facility] Atorvastatin Calcium (Atorvastatin 40 Mg Tab) 40 mg PO QHS [facility] Diltiazem HCl (Diltiazem Cd 120 Mg Cap) 120 mg PO QDAY [facility] Famotidine (Famotidine 20 Mg Tab) 20 mg PO BID [facility] Hydralazine HCl (Hydralazine 25 Mg Tab) 25 mg PO BID [facility] Last Admin: 10/27/21 02:31 Dose: 25 mg Sodium Chloride (Nacl 0.9% 1000 Ml) 1,000 mls @ 100 mls/hr IV DIRECT [facility] Stop: 10/27/21 10:00 Isosorbide Mononitrate (Isosorbide Mononitrate Er 30 Mg Tab) 30 mg PO DAILY [facility] Metformin HCl (Metformin 500 Mg Tab) 500 mg PO QDDIAB [facility] Metoclopramide HCl (Metoclopramide 10 Mg/2 Ml Inj) 10 mg IV Q6H PRN PRN Reason: Nausea And Vomiting Metoprolol Tartrate (Metoprolol Tartrate 25 Mg Tab) 25 mg PO BID@0800,1700 [facility] Last Admin: 10/27/21 02:30 Dose: 25 mg Miscellaneous Medication (Silodosin [Rapaflo]) 8 mg PO QHS [facility] Morphine Sulfate (Morphine 2 Mg/1 Ml Inj) 2 mg IV Q4H PRN PRN Reason: Pain, Moderate (4-6) Nitrofurantoin Macrocrystals (Nitrofurantoin Monohyd/M-Cryst 100 Mg Cap) 100 mg PO Q12HR [facility] Last Admin: 10/26/21 22:12 Dose: 100 mg Ondansetron HCl (Ondansetron 4 Mg/2 Ml Inj) 4 mg IV Q8H PRN PRN Reason: Nausea And Vomiting Oxycodone/Acetaminophen (Oxycodone /Acetaminophen 5-325mg Tab) 1 tab PO Q6H PRN PRN Reason: Pain, Moderate (4-6) Sodium Chloride (Sodium Chloride 0.9% 10 Ml Flush Syringe) 10 ml IV BID [facility] Sodium Chloride (Sodium Chloride 0.9% 10 Ml Flush Syringe) 10 ml IV PRN PRN PRN Reason: LINE FLUSH Tamsulosin HCl (Tamsulosin 0.4 Mg Cap) 0.4 mg PO QDAY [facility] Temazepam (Temazepam 15 Mg Cap) 15 mg PO QHS [facility] Physical Examination - Vital Signs Vital Signs: Vital Signs Temp Pulse Resp BP Pulse Ox 98.4 F 99 H 16 136/61 100 10/26/21 15:25 10/26/21 15:25 10/26/21 15:25 10/26/21 15:25 10/26/21 15:25 Results - Laboratory Findings CBC and BMP: 10/27/21 03:57 10/27/21 03:57 Abnormal Lab Findings: Abnormal Labs 10/26/21 10/26/21 10/26/21 15:58 15:58 18:34 Hgb 15.5 H Hct 46.9 H MCV 96 H [place] % (Auto) 11.2 H Baso % (Auto) Chloride 95.4 L Carbon Dioxide 19 L BUN 23 H Calcium 10.6 H Total Protein 8.7 H Urine WBC (Auto) > 182.0 H 10/27/21 10/27/21 03:57 03:57 Hgb 15.3 H Hct 47.1 H MCV 95 H [place] % (Auto) 8.0 H Baso % (Auto) 2.4 H Chloride 97.6 L Carbon Dioxide BUN 26 H Calcium Total Protein 8.6 H Urine WBC (Auto)
[2021-10-27] MEDS ORDERED: ASPIRIN 325 MG TAB PO SCH (10:00)
[2021-10-27] MEDS ORDERED: TAMSULOSIN 0.4 MG CAP PO SCH (10:00)
[2021-10-27] MEDS ORDERED: dilTIAZem CD 120 MG CAP PO SCH (10:00)
--- NOTE | 2021-10-27 10:04 | Electrocardiograph Report ---
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
--- NOTE | 2021-10-27 11:56 | Vascular Lab Report ---
DUPLEX DOPPLER ULTRASOUND CAROTID, BILATERAL INDICATION / CLINICAL INFORMATION: TIA. COMPARISON: MRA neck 04/23/2021. FINDINGS: RIGHT CAROTID: No significant atherosclerotic plaque. Mild intimal thickening. - PLAQUE ESTIMATE (%): < 50% - CCA velocity: 89 cm/sec. - ICA peak systolic velocity: 122 cm/sec. - ICA/CCA PSV Ratio: Less than 2. Right Vertebral Artery: Antegrade flow. LEFT CAROTID: Mild calcified atherosclerotic plaque. Mild intimal thickening. - PLAQUE ESTIMATE (%): < 50% - CCA velocity: 91 cm/sec. - ICA peak systolic velocity: 102 cm/sec. - ICA/CCA PSV Ratio: Less than 2. Left Vertebral Artery: Antegrade flow. IMPRESSION: 1. Right Internal Carotid Artery: Less than 50% diameter stenosis. 2. Left Internal Carotid Artery: Less than 50% diameter stenosis. Velocity criteria are extrapolated from diameter data as defined by the Society of Radiologists in Ul trasound Consensus Conference, Radiology 2003; 229;340-346. NO STENOSIS (NORMAL) - Plaque = none; ICA PSV < 125 cm/sec; ICA/CCA PSV Ratio < 2.0 <50% STENOSIS - Plaque < 50%; ICA PSV < 125 cm/sec; ICA/CCA PSV Ratio < 2.0 50-69% STENOSIS - Plaque > 50%; ICA PSV = 125-230 cm/sec; ICA/CCA PSV Ratio = 2.0-4.0 >70% BUT <100% STENOSIS - Plaque > 50%; ICA PSV > 230 cm/sec; ICA/CCA PSV Ratio > 4.0 NEAR OCCLUSION - Plaque = visible lumen; ICA PSV = high/low/none; ICA/CCA PSV Ratio = variable TOTAL OCCLUSION - Plaque = no lumen; ICA PSV = none; ICA/CCA PSV Ratio = N/A Scribed by: Lauren Zhuo RDMS, RVT Scribed: 10/27/2021 10:15 AM I have reviewed the images, agree with this report, and edited this report as needed. Signer Name: Anthony Cardenas MD Signed: 10/27/2021 11:51 AM Workstation Name: [id number]
--- NOTE | 2021-10-27 13:36 | Event Note ---
Date: 10/27/21 pt. is not found in ER and there is code marroquin initiated in ER will reevaluate am !!!
[2021-10-27] MEDS: NITROFURANTOIN MONOHYD/M-CRYST 100 MG CAP PO SCH (16:35)
--- NOTE | 2021-10-27 19:54 | Discharge Summary ---
Providers - Providers Date of Admission: 10/26/21 17:45 Date of discharge: 10/27/21 Attending physician: HI LEOS 10/26/21 22:29 Consult to Physician [CONS] Routine Comment: Consulting Provider: JAY EDWARDS Physician Instructions: Reason For Exam: TIA Primary care physician: [employer] Hospitalization Condition: Serious Hospital course: 76-year-old -Togolese male presents to the emergency department with a complaint of "I am not feeling well." For the past 2 to 3 days the patient has been complaining of generalized weakness, decreased appetite with decreased oral intake of food and water, difficulty with urination. He has a history of CVA, atrial fibrillation anticoagulated on Eliquis, CHF, hypertension, history of prostate cancer, BPH, hyperlipidemia, GERD, diverticulosis/diverticulitis. The patient has not taken anything for symptoms prior to presentation. He says that the generalized weakness has gotten to the point where he is having difficulty ambulating. On examination the patient has decreased sensation to the left side of the face and left arm. No last known well time but it started sometime "over the weekend." The patient will be worked up for this generalized weakness and potential CVA, but he is not in the window for tPA or thrombectomy and a code stroke does not need to be initiated. Patient is a poor historian--- unable to give reliable history Assessment and Plan Advance Directives: Yes (Full code) - Patient Problems (1) TIA (transient ischemic attack) Current Visit: Yes Status: Acute Plan to address problem: Clinical picture consistent with TIA Carotid duplex scan and echocardiogram Neurology consult requested Possible discharge tomorrow MRI brain not done (2) Atrial fibrillation Current Visit: Yes Status: Chronic Qualifiers: Atrial fibrillation type: unspecified Qualified Code(s): I48.91 - Unspecified atrial fibrillation Plan to address problem: On Eliquis (3) Hypertension Current Visit: Yes Status: Chronic Qualifiers: Hypertension type: primary hypertension Qualified Code(s): I10 - Essential (primary) hypertension Plan to address problem: Continue antihypertensive (4) T2DM (type 2 diabetes mellitus) Current Visit: Yes Status: Chronic Qualifiers: Diabetes mellitus terminal computer operator insulin use: unspecified terminal computer operator insulin use status Plan to address problem: Coverage for now (5) BPH (benign prostatic hyperplasia) Current Visit: Yes Status: Chronic Qualifiers: Lower urinary tract symptom presence: symptoms present Plan to address problem: On Flomax (6) Anticoagulation adequate Current Visit: Yes Status: Chronic (7) DVT prophylaxis Current Visit: No Status: Acute Plan to address problem: On Eliquis and GI prophylaxis Disposition: 01 HOME / SELF CARE / HOMELESS Final Discharge Diagnosis (Prints w/discharge instructions): TIA. A Fib. HTN. T2dm. BPH Time spent for discharge: 34 minutes - Discharge Diagnoses (1) TIA (transient ischemic attack) Status: Acute (2) Atrial fibrillation Status: Chronic Qualifiers: Atrial fibrillation type: unspecified Qualified Code(s): I48.91 - Unspecified atrial fibrillation (3) Hypertension Status: Chronic Qualifiers: Hypertension type: primary hypertension Qualified Code(s): I10 - Essential (primary) hypertension (4) T2DM (type 2 diabetes mellitus) Status: Chronic Qualifiers: Diabetes mellitus terminal computer operator insulin use: unspecified terminal computer operator insulin use status (5) BPH (benign prostatic hyperplasia) Status: Chronic Qualifiers: Lower urinary tract symptom presence: symptoms present (6) Anticoagulation adequate Status: Chronic (7) DVT prophylaxis Status: Acute Core Measure Documentation - Palliative Care Palliative Care/ Comfort Measures: Not Applicable - Core Measures Any of the following diagnoses?: none Exam - Constitutional Vitals: Temp Pulse Resp BP Pulse Ox 99.0 F 93 H 16 109/57 99 10/27/21 14:49 10/27/21 14:49 10/27/21 14:49 10/27/21 14:49 10/27/21 14:49 General appearance: Present: no acute distress, well-nourished - EENT Eyes: Present: PERRL ENT: hearing intact, clear oral mucosa - Neck Neck: Present: supple, normal ROM - Respiratory Respiratory effort: normal Respiratory: bilateral: CTA - Cardiovascular Heart Sounds: Present: S1 & S2. Absent: rub, click - Extremities Extremities: pulses symmetrical, No edema Peripheral Pulses: within normal limits - Abdominal General gastrointestinal: Present: soft, non-tender, non-distended, normal bowel sounds Male genitourinary: Present: normal - Integumentary Integumentary: Present: clear, warm, dry - Musculoskeletal Musculoskeletal: gait normal, strength equal bilaterally - Psychiatric Psychiatric: appropriate mood/affect, intact judgment & insight - Neurologic Neurologic: CNII-XII intact, moves all extremities Plan Activity: no restrictions Diet: low fat, low cholesterol, low salt Follow up with: PRIMARY CARE, [Primary Care Provider] - 3-5 Days Forms: AMA Form
[2021-10-27 20:06] VITALS: BP 116/79
[2021-10-27] MEDS ORDERED: SILODOSIN 8 MG PO SCH (22:00)
[2021-10-27] MEDS ORDERED: TEMAZEPAM 15 MG CAP PO SCH (22:00)
== END 2021-10-27 20:13 | disposition home or self-care (01) ==
LOC: ED 13:20 → 4A 17:45
PROVIDERS: ADMIT Internal Medicine; ATTEND Internal Medicine
DX: I63.9 Cerebral infarction, unspecified (principal); G45.9 Transient cerebral ischemic attack, unspecified; I48.91 Unspecified atrial fibrillation; I10 Essential (primary) hypertension; E11.9 Type 2 diabetes mellitus without complications; N40.0 Benign prostatic hyperplasia without lower urinary tract symptoms; R79.1 Abnormal coagulation profile; K21.9 Gastro-esophageal reflux disease without esophagitis; N30.01 Acute cystitis with hematuria; R29.703 NIHSS score 3; Z87.442 Personal history of urinary calculi; Z79.899 Other long term (current) drug therapy; Z98.890 Other specified postprocedural states; Z87.891 Personal history of nicotine dependence; Z79.84 Long term (current) use of oral hypoglycemic drugs; Z79.82 Long term (current) use of aspirin
CPT/HCPCS: 36415; 70450; 80053; 81001; 82140; 83036; 84443; 84484; 85025; 85610; 93005; 93306; 93880; 99285; G0378

== ENCOUNTER 2021-11-04 10:43 | Day surgery (SDC) | payer MEDICARE ==
--- NOTE | 2021-11-03 13:01 | Anesthesia Consultation ---
Anesthesia Consult and Med Hx Date of service: 11/03/21 - Airway Anesthetic Teeth Evaluation: Poor (LOOSE) ROM Head & Neck: Adequate Mental/Hyoid Distance: Adequate Mallampati Class: Class II Intubation Access Assessment: Good - Pre-Operative Health Status ASA Pre-Surgery Classification: ASA4 Proposed Anesthetic Plan: General - Pulmonary Hx Smoking: Yes (STOPPED 1984) Hx Asthma: No Hx Respiratory Symptoms: No SOB: Yes (SOB WITH ACTIVITY) COPD: No Hx Pneumonia: No Hx Sleep Apnea: No (ANDRIY PRE SCREEN HIGH RISK) - Cardiovascular System Hx Hypertension: Yes (Cardiac records reviewed) Hx Coronary Artery Disease: Yes Hx Angina: Yes Hx Percutaneous Transluminal Coronary Angioplasty (PTCA): No Hx Cardia Arrhythmia: Yes (Afib) Hx Pacemaker: No Hx Internal Defibrillator: No Hx Valvular Heart Disease: Yes (Moderate MR, TR, and TX) - Central Nervous System Hx Neuromuscular Disorder: Yes (Was recently hospitalized) CVA: Yes (2010, 10/2021- LEFT FACE DROOP,SLURRED SPEACH) - Gastrointestinal Hx Gastroesophageal Reflux Disease: No - Endocrine Hx Renal Disease: Yes (obstructing renal stone) Hx End Stage Renal Disease: No Hx Liver Disease: No Hx Insulin Dependent Diabetes: No Hx Non-Insulin Dependent Diabetes: Yes Hx Thyroid Disease: No - Hematic Hx Anemia: Yes Hx Sickle Cell Disease: No - Other Systems Hx Alcohol Use: No Hx Substance Use: No Hx Obesity: No - Additional Comments Anesthesia Medical History Comments: Was here [id number]
[~2021-11-04 10:43] MED LIST changes: +LACTATED RINGERS 1,000 ML IV SCH; -WATER FOR IRRIG STERILE IR ONE
[2021-11-04] MEDS ORDERED: ONDANSETRON 4 MG/2 ML INJ IV PRN (12:28)
[2021-11-04] MEDS ORDERED: HYDROmorphone 1 MG/1 ML INJ IV PRN ×2 (12:28)
--- NOTE | 2021-11-04 12:28 | Anesthesia Day of Surgery ---
Anesthesia Day of Surgery - Day of Surgery Patient Examined: Yes Patient H&P Reviewed: Yes Patient is NPO: Yes
[2021-11-04] MEDS ORDERED: ceFAZolin/Water 2 GM/20 ML 2 GM/20 ML SYRINGE IV SCH (14:20)
[2021-11-04] MEDS ORDERED: ceFAZolin/Water 2 GM/20 ML 2 GM/20 ML SYRINGE IV ONE (14:25)
[2021-11-04] MEDS ORDERED: propofoL 200 MG/20 ML VIAL IV ONE ×2 (14:54→15:17)
[2021-11-04] MEDS ORDERED: fentaNYL 100 MCG/2 ML INJ ONE (14:54)
[2021-11-04] MEDS ORDERED: LIDOCAINE MPF (2%) 20 MG/1 ML VIAL 5 ML ONE (14:54)
[2021-11-04] MEDS ORDERED: PHENYLEPHRINE/NS 1,000 MCG/10 ML SYRINGE (OR USE) IV ONE ×2 (15:03→15:45)
[2021-11-04] MEDS ORDERED: ePHEDrine SULFATE 50 MG/1 ML INJ ONE (15:06)
--- NOTE | 2021-11-04 15:09 | Post Operative Note ---
Date of procedure: 11/04/21 Pre-op diagnosis: retained stent ureteral stone Post-op diagnosis: same Findings: as above Procedure: cysto rpg ureteroscopy stent laser Anesthesia: GETA Surgeon: OSKAR QUIÑONES Estimated blood loss: none Pathology: none Condition: stable Disposition: PACU
--- NOTE | 2021-11-04 15:11 | Discharge Summary ---
Short Stay Discharge Plan Activity: other (no straining ) Weight Bearing Status: Partial Weight Bearing Diet: low fat, low cholesterol, low salt Special Instructions: other (has stent ) Follow up with: PRIMARY CARE, [Primary Care Provider] - 7 Days OSKAR QUIÑONES MD [Staff Physician] - 7 Days
[2021-11-04] MEDS ORDERED: SODIUM CHLORIDE 0.9% 100 ML ONE (15:45)
[2021-11-04] MEDS ORDERED: METOPROLOL TARTRATE 5 MG/5 ML INJ IV ONE (15:45)
[2021-11-04] MEDS ORDERED: ONDANSETRON 4 MG/2 ML INJ ONE (15:45)
[2021-11-04] MEDS ORDERED: PHENYLEPHRINE 10 MG/1 ML INJ SDV ONE (15:45)
[2021-11-04] MEDS ORDERED: WATER FOR IRRIG STERILE 2000 ML IR ONE (16:00)
--- NOTE | 2021-11-04 16:47 | Operative Report ---
DATE OF SURGERY: 11/04/2021 PREOPERATIVE DIAGNOSES: Left mid ureteral stone, retained stent. POSTOPERATIVE DIAGNOSES: Left mid ureteral stone, retained stent. PROCEDURES: Cystoscopy, stent exchange, left ureteroscopy, laser of large stone that was transposed into the lower pole marian. SURGEON: Kali Stratton MD. ANESTHESIA: General. FINDINGS: This is a gentleman with a large stone, left mid ureter. He now presents for treatment. All risks and implications discussed. DESCRIPTION OF PROCEDURE: The patient was brought to the operating table. Following induction of anesthesia, placed in lithotomy position, prepped and draped in usual sterile fashion. Cystourethroscopy showed the stent and a wire coiled up in the kidney alongside the stent. The stent was withdrawn without difficulty. Flexible ureteroscopy showed the stone in the upper ureter at the UPJ, which was elongated and pushed in the lower pole marian. We lasered the stones into many, many pieces. The patient tolerated the procedure well. We could not see the stone anymore. We dusted it. The patient tolerated the procedure well and brought to recovery room with a 7-Occitan double-J. We left the string and a Escalona catheter, we want to make sure he does not ____ the stent. He was brought to recovery in stable condition. TID: [id number] RECEIPT: [id number] WILLIAM/LOLIS/JOSH
--- NOTE | 2021-11-04 16:48 | Fluoroscopy Report ---
INTRAOPERATIVE FLUOROSCOPY: ABDOMEN AND PELVIS INDICATION / CLINICAL INFORMATION: HYDRONEPHROSIS. TECHNIQUE: Intraoperative spot images were obtained during the procedure. FINDINGS: Intraoperative images from left ureteroscopy and stent exchange. Please refer to operative report for further information. Fluoroscopy Time: 1 minute 23 seconds. Fluoroscopy Images: 6. Signer Name: Cong Arellano MD Signed: 11/04/2021 4:43 PM Workstation Name: [id number]
--- NOTE | 2021-11-04 17:37 | Post Anesthesia Evaluation ---
- Post Anesthesia Evaluation Patient Participated: Yes Airway Patent: Yes Stable Respiratory Function: Yes Nausea/Vomiting: No Temp > 96.8F: Yes Pain Manageable: Yes Adequeate Hydration: Yes Anesthesia Complications: No Block Receding Appropriately: Not Applicable Patient on Ventilator: No
[2021-11-04 21:47] VITALS: BP 110/60
== END 2021-11-04 18:30 | disposition home or self-care (01) ==
LOC: OR 10:43
PROVIDERS: ATTEND Urology
DX: N13.2 Hydronephrosis with renal and ureteral calculous obstruction (principal); C61 Malignant neoplasm of prostate; I25.10 Atherosclerotic heart disease of native coronary artery without angina pectoris; I48.91 Unspecified atrial fibrillation; E11.9 Type 2 diabetes mellitus without complications; D64.9 Anemia, unspecified; I11.0 Hypertensive heart disease with heart failure; I50.9 Heart failure, unspecified; K21.9 Gastro-esophageal reflux disease without esophagitis; E78.00 Pure hypercholesterolemia, unspecified; M19.90 Unspecified osteoarthritis, unspecified site; F41.9 Anxiety disorder, unspecified; Z86.73 Personal history of transient ischemic attack (TIA), and cerebral infarction without residual deficits; Z87.891 Personal history of nicotine dependence; Z79.82 Long term (current) use of aspirin; Z79.84 Long term (current) use of oral hypoglycemic drugs; Z79.899 Other long term (current) drug therapy; Z98.890 Other specified postprocedural states
CPT/HCPCS: 52356; 74420; 82962; C1758; C1769; C2617; J0690; J2370; J2405; J2704; J3010; J3490; J7120; J9280; Q9967; U0003

== ENCOUNTER 2021-11-10 08:40 | Inpatient (IN) | payer MEDICARE ==
--- NOTE | 2021-11-10 09:25 | Emergency Department Report ---
HPI - General Chief Complaint: Weakness Time Seen by Provider: 11/10/21 09:09 - HPI HPI: 76-year-old -Sud[place] male presents to the emergency department via EMS from home with complaints of right-sided flank and back pain, and concern for generalized weakness. He has a past medical history that includes atrial fibrillation anticoagulated on Eliquis, history of CVA with left-sided deficits, CHF, hypertension, history of prostate cancer, BPH, hyperlipidemia, GERD, diverticulosis/diverticulitis. Patient has a history of left-sided ureteral jessica nt and nephrolithiasis. He was just here on 11/04 and had a cystoscopy, stent exchange, and lasering of a large stone done by Dr. Stratton. He presents with a Escalona catheter in place. Per EMS, the patient's daughter says that he has not gotten out of bed over the past 3 days due to his right-sided pain. He was found to have his Escalona catheter bag completely full with it backing up into the tubing as it does not appear to have been changed. Also per EMS, the patient's daughter told them that she is having difficulty taking care of him and that he needs to go to a correction. ED Past Medical Hx - Past Medical History Hx Hypertension: Yes (Cardiac records reviewed) Hx CVA: Yes (2010) Hx Congestive Heart Failure: Yes Hx Diabetes: Yes Hx Deep Vein Thrombosis: No Hx GERD: Yes Hx Liver Disease: No Hx Renal Disease: Yes (obstructing renal stone) Hx Sickle Cell Disease: No Hx Arthritis: Yes Hx Kidney Stones: Yes Hx Asthma: No Hx COPD: No Hx Dementia: No Hx HIV: No Additional medical history: "prostate Problems" - Surgical History Hx Pacemaker: No Hx Internal Defibrillator: No Additional Surgical History: hernia repair. PROSTATE SURGERY? - Social History Smoking Status: Former Smoker - Medications Home Medications: Home Medications Medication Instructions Recorded Confirmed Last Taken Type Isosorbide Mononitrate [Isosorbide 30 mg PO DAILY 07/24/14 10/29/21 11/03/21 History Mononitrate ER] Diltiazem HCl [Diltiazem 24Hr ER] 120 mg PO QDAY #30 capsule.er 10/02/14 10/29/21 11/03/21 Rx metFORMIN [Glucophage] 500 mg PO QDAY 01/23/18 10/29/21 11/03/21 History Tamsulosin [Flomax] 0.4 mg PO QDAY #30 capsule 01/27/18 10/29/21 11/03/21 Rx Aspirin 325 mg PO PRN PRN 05/11/18 11/04/21 10/28/21 History Metoprolol [Lopressor TAB] 25 mg PO BID 05/11/18 10/29/21 11/04/21 07:00 History Silodosin [Rapaflo] 8 mg PO QHS 05/11/18 10/29/21 11/03/21 History Furosemide [Lasix] 20 mg PO PRN PRN 05/16/18 10/29/21 11/03/21 History Temazepam [Restoril] 15 mg PO QHS 05/16/18 10/29/21 11/03/21 History hydrALAZINE [Apresoline TAB] 25 mg PO BID 05/16/18 10/29/21 11/04/21 07:00 History AtorvaSTATin [Lipitor] 40 mg PO QHS #30 tablet 04/24/21 10/29/21 11/03/21 Rx Ciprofloxacin HCl [Ciprofloxacin 500 mg PO BID #20 tablet 04/24/21 10/29/21 11/03/21 Rx TAB] Apixaban [Eliquis] 5 mg PO Q12HR #60 tablet 04/25/21 10/29/21 10/31/21 Rx Apixaban [Eliquis] 10 mg PO Q12HR #10 tablet 04/25/21 10/29/21 10/31/21 Rx ED Review of Systems ROS: Stated complaint: RT SIDE FLANK PAIN Other details as noted in HPI Comment: All other systems reviewed and negative Constitutional: weakness. denies: chills, fever Eyes: denies: eye pain, vision change ENT: denies: ear pain, throat pain Respiratory: denies: cough, shortness of breath Cardiovascular: denies: chest pain, palpitations Gastrointestinal: denies: nausea, vomiting Genitourinary: denies: dysuria, discharge Musculoskeletal: back pain. denies: arthralgia Skin: denies: rash, lesions Neurological: denies: headache, numbness Physical Exam - Physical Exam Vital Signs: Vital Signs 11/10/21 08:55 Temperature 98.8 F Pulse Rate 97 H Respiratory 16 Rate Blood Pressure 138/88 [Right] O2 Sat by Pulse 98 Oximetry Physical Exam: GENERAL: The patient is debilitated appearing. HENT: Normocephalic. Atraumatic. Patient has moist mucous membranes. EYES: Extraocular motions are intact. Pupils equal reactive to light bilaterally. NECK: Supple. Trachea is midline. CHEST/LUNGS: Clear to auscultation. There is no respiratory distress noted. HEART/CARDIOVASCULAR: Regular. There is mild tachycardia. There is no murmur. ABDOMEN: Abdomen is soft. Right-sided abdominal tenderness to palpation. No guarding. Patient has normal bowel sounds. There is no abdominal distention. SKIN: Skin is warm and dry. NEURO: The patient is awake, alert, and cooperative. Normal speech. MUSCULOSKELETAL: There is no tenderness or deformity. ED Course Vital Signs 11/10/21 08:55 Temperature 98.8 F Pulse Rate 97 H Respiratory 16 Rate Blood Pressure 138/88 [Right] O2 Sat by Pulse 98 Oximetry ED Medical Decision Making - Lab Data Result diagrams: 11/10/21 10:34 11/10/21 10:34 Lab Results 11/10/21 11/10/21 11/10/21 Range/Units 09:12 10:02 10:34 WBC 5.5 (4.5-11.0) K/mm3 RBC 4.48 (3.65-5.03) M/mm3 Hgb 13.9 (11.8-15.2) gm/dl Hct 43.4 (35.5-45.6) % MCV 97 H (84-94) fl MCH 31 (28-32) pg MCHC 32 (32-34) % RDW 14.1 (13.2-15.2) % Plt Count 211 (140-440) K/mm3 Lymph % (Auto) 14.5 (13.4-35.0) % Rock % (Auto) 10.2 H (0.0-7.3) % Eos % (Auto) 0.1 (0.0-4.3) % Baso % (Auto) 0.2 (0.0-1.8) % Lymph # (Auto) 0.8 L (1.2-5.4) K/mm3 Rock # (Auto) 0.6 (0.0-0.8) K/mm3 Eos # (Auto) 0.0 (0.0-0.4) K/mm3 Baso # (Auto) 0.0 (0.0-0.1) K/mm3 Seg Neutrophils % 75.0 H (40.0-70.0) % Seg Neutrophils # 4.1 (1.8-7.7) K/mm3 Sodium (137-145) mmol/L Potassium (3.6-5.0) mmol/L Chloride (98-107) mmol/L Carbon Dioxide (22-30) mmol/L Anion Gap mmol/L BUN (9-20) mg/dL Creatinine (0.8-1.3) mg/dL Estimated GFR ml/min BUN/Creatinine Ratio % Glucose (75-100) mg/dL POC Glucose 179 H (70-105) mg/dL Calcium (8.4-10.2) mg/dL Total Bilirubin (0.1-1.2) mg/dL AST (5-40) units/L ALT (7-56) units/L Alkaline Phosphatase (35-129) units/L Troponin T (0.00-0.029) ng/mL Total Protein (6.3-8.2) g/dL Albumin (3.9-5) g/dL Albumin/Globulin Ratio % TSH (0.270-4.200) mlU/mL Urine Color Yellow (Yellow) Urine Turbidity Cloudy (Clear) Urine pH 5.0 (5.0-7.0) Ur Specific Midway 1.016 (1.003-1.030) Urine Protein 30 mg/dl (Negative) mg/dL Urine Glucose (UA) 150 (Negative) mg/dL Urine Ketones Neg (Negative) mg/dL Urine Blood Lg (Negative) Urine Nitrite Pos (Negative) Urine Bilirubin Neg (Negative) Urine Urobilinogen < 2.0 (<2.0) mg/dL Ur Leukocyte Esterase Lg (Negative) Urine WBC (Auto) > 182.0 H (0.0-6.0) /HPF Urine RBC (Auto) > 182.0 (0.0-6.0) /HPF U Epithel Cells (Auto) 6.0 (0-13.0) /HPF Urine Bacteria (Auto) 4+ (Negative) /HPF Urine Mucus 1+ /HPF Urine Yeast (Budding) 2+ /HPF 11/10/21 11/10/21 Range/Units 10:34 10:34 WBC (4.5-11.0) K/mm3 RBC (3.65-5.03) M/mm3 Hgb (11.8-15.2) gm/dl Hct (35.5-45.6) % MCV (84-94) fl MCH (28-32) pg MCHC (32-34) % RDW (13.2-15.2) % Plt Count (140-440) K/mm3 Lymph % (Auto) (13.4-35.0) % Rock % (Auto) (0.0-7.3) % Eos % (Auto) (0.0-4.3) % Baso % (Auto) (0.0-1.8) % Lymph # (Auto) (1.2-5.4) K/mm3 Rock # (Auto) (0.0-0.8) K/mm3 Eos # (Auto) (0.0-0.4) K/mm3 Baso # (Auto) (0.0-0.1) K/mm3 Seg Neutrophils % (40.0-70.0) % Seg Neutrophils # (1.8-7.7) K/mm3 Sodium 137 (137-145) mmol/L Potassium 4.4 (3.6-5.0) mmol/L Chloride 101.0 (98-107) mmol/L Carbon Dioxide 21 L (22-30) mmol/L Anion Gap 19 mmol/L BUN 20 (9-20) mg/dL Creatinine 1.2 (0.8-1.3) mg/dL Estimated GFR > 60 ml/min BUN/Creatinine Ratio 17 % Glucose 157 H (75-100) mg/dL POC Glucose (70-105) mg/dL Calcium 10.0 (8.4-10.2) mg/dL Total Bilirubin 0.50 (0.1-1.2) mg/dL AST 22 (5-40) units/L ALT 9 (7-56) units/L Alkaline Phosphatase 45 (35-129) units/L Troponin T < 0.010 (0.00-0.029) ng/mL Total Protein 8.1 (6.3-8.2) g/dL Albumin 4.0 (3.9-5) g/dL Albumin/Globulin Ratio 1.0 % TSH 1.690 (0.270-4.200) mlU/mL Urine Color (Yellow) Urine Turbidity (Clear) Urine pH (5.0-7.0) Ur Specific Midway (1.003-1.030) Urine Protein (Negative) mg/dL Urine Glucose (UA) (Negative) mg/dL Urine Ketones (Negative) mg/dL Urine Blood (Negative) Urine Nitrite (Negative) Urine Bilirubin (Negative) Urine Urobilinogen (<2.0) mg/dL Ur Leukocyte Esterase (Negative) Urine WBC (Auto) (0.0-6.0) /HPF Urine RBC (Auto) (0.0-6.0) /HPF U Epithel Cells (Auto) (0-13.0) /HPF Urine Bacteria (Auto) (Negative) /HPF Urine Mucus /HPF Urine Yeast (Budding) /HPF - EKG Data -: EKG Interpreted by Me - EKG Data When compared to previous EKG there are: no significant change Interpretation: unchanged when compared t (10/26/21), other (Atrial fibrillation rate of 82 bpm, normal axis, no ST elevation TX) - Radiology Data Radiology results: report reviewed CT ABDOMEN AND PELVIS WITH CONTRAST HISTORY: right sided flank and abd pain 100 ML OMNI 300 COMPARISON: 04/21/2021 TECHNIQUE: Axial CT images were obtained through the abdomen and pelvis after 100 cc of Omnipaque 300 IV contrast. Sagittal and coronal reformatted images. All CT scans at this location are performed using CT dose reduction for ALARA by means of automated exposure control. FINDINGS: CT ABDOMEN: Lung Bases: Clear. Stable mild cardiomegaly. Liver: No significant abnormality. Biliary: No significant abnormality. Spleen: No significant abnormality. Unenlarged. Pancreas: No significant abnormality. Ad renals: No significant abnormality. Kidneys: Multifocal cortical scarring is again seen throughout both kidneys which is unchanged. A left ureteral stent has been placed since the previous exam which extends from the left renal pelvis to the bladder. Large nonobstructing stone at the inferior pole of the left kidney measures 1.4 cm. No cystic disease, mass or hydronephrosis. Lymphatics: No lymphadenopathy. Vasculature: No significant abnormality. Bowel/Peritoneum: No significant abnormality. No free air. No free fluid. Normal appendix. CT PELVIS: : The bladder is decompressed with a Escalona catheter. No gross abnormality. Osseous Structures: Moderate degenerative changes throughout the lumbar spine. No acute osseous findings. Additional Findings: None IMPRESSION: No acute inflammatory process is appreciated. Multifocal scarring in both kidneys. Nonobstructing left nephrolithiasis. Mild cardiomegaly. - Medical Decision Making This patient was sent into the emergency department after he was found not to be eating, drinking, taking his medications and there was a complaint of generalized weakness. The patient also has the complaint of some right-sided fl ank pain. On examination the patient is awake, alert, cooperative and currently pleasant. However, throughout his emergency department course, he is anxious to remove his pulse ox and telemetry monitoring. Patient's labs are mostly unremarkable except for a urinary tract infection with greater than 180 WBCs, and hematuria with the same number of RBCs. CT of the abdomen and pelvis with IV contrast does not show any acute process. I spoke to the patient's daughter who says that the patient claims that he is able to take care of himself including his ADLs but has not been eating, drinking, taking his medications. When they recently and previously had home health care the patient would not be compliant with their care and send them home saying that he did not need them. The patient's daughter has concerns as she is end-stage renal disease on hemodialysis and does not feel that she can care for him. She is open to him going to a correction facility but does not feel that she can facilitate this immediately. The patient just recently had a procedure done with his urologist and was sent home on antibiotics. As his urine shows greater than 180 WBCs, this could be consistent with medication noncompliance, unless the antibiotic given is resistant to the bacteria causing his UTI. Urine culture has been sent and the patient has been given a dose of Rocephin. Case management consult has been placed. Patient will be admitted to the hospital for further evaluation and treatment and has been accepted for admission by the hospitalist, Dr. Michael. Critical Care Time: No Critical care attestation.: If time is entered above; I have spent that time in minutes in the direct care of this critically ill patient, excluding procedure time. ED Disposition Clinical Impression: Debility Urinary tract infection Qualifiers: Urinary tract infection type: acute cystitis Hematuria presence: with hematuria Qualified Code(s): N30.01 - Acute cystitis with hematuria Failure to thrive Qualifiers: Failure to thrive age range: in adult Qualified Code(s): R62.7 - Adult failure to thrive Hematuria Qualifiers: Hematuria type: unspecified type Qualified Code(s): R31.9 - Hematuria, unspecified Disposition: 09 ADMITTED INPATIENT Is pt being admited?: Yes Condition: Fair Time of Disposition: 13:18
--- NOTE | 2021-11-10 10:11 | XRay Report ---
ABDOMINAL SERIES WITH CHEST X-RAY ONE VIEW INDICATION: weakness, right sided abd/flank pain. COMPARISON: CT abdomen pelvis dated 03/22/2021 IMPRESSION: A left ureteral stent has been placed since the previous CT which appears in good positi on. No obvious nephrolithiasis is detected on x-ray although the renal shadows are partially obscured by gas and stool. The bowel gas pattern is unremarkable with no evidence for obstruction, fluid leve ls or free air. Single view of the chest demonstrates borderline to mild cardiomegaly and clear lung s. Signer Name: Zachary Marina Jr, MD Signed: 11/10/2021 10:06 AM Workstation Name: [id number]
[2021-11-10 10:28] LABS: Bacteria,Urine 4+ /HPF (Negative); Bilirubin,Urine NEG (Negative); Blood,Urine LG (Negative); Color,Urine Yellow (Yellow); Mucus,Urine 1+ /HPF; Urobilinogen,Urine < 2.0 mg/dL (<2.0)
[2021-11-10 10:30] LABS: RBC,Urine > 182.0 /HPF (0.0-6.0); WBC,Urine > 182.0 /HPF (0.0-6.0)
[2021-11-10] MEDS ORDERED: cefTRIAXone/NS 1 GM/50 ML 1 GM/50 ML BAG IV ONE (10:35)
[2021-11-10 11:07] LABS: Basophils % (Auto) 0.2 % (0.0-1.8); Eosinophils % (Auto) 0.1 % (0.0-4.3); Hematocrit 43.4 % (35.5-45.6); Hemoglobin 13.9 gm/dl (11.8-15.2); Lymphocytes # (Auto) 0.8 K/mm3 (1.2-5.4); Lymphocytes % (Auto) 14.5 % (13.4-35.0); Mean Corpuscular HGB Conc 32 % (32-34); Mean Corpuscular Volume 97 fl (84-94); Monocytes # (Auto) 0.6 K/mm3 (0.0-0.8); Monocytes % (Auto) 10.2 % (0.0-7.3); Platelet Count 211 K/mm3 (140-440); Red Blood Count 4.48 M/mm3 (3.65-5.03); Red Cell Distribution Width 14.1 % (13.2-15.2)
[2021-11-10 11:30] LABS: Alanine Aminotransferase 9 units/L (7-56); BUN/Creatinine Ratio 17; Blood Urea Nitrogen 20 mg/dL (9-20); Hemolysis Index 51
--- NOTE | 2021-11-10 12:32 | Cat Scan Report ---
CT ABDOMEN AND PELVIS WITH CONTRAST HISTORY: right sided flank and abd pain 100 ML OMNI 300 COMPARISON: 04/21/2021 TECHNIQUE: Axial CT images were obtained through the abdomen and pelvis after 100 cc of Omnipaque 300 IV contrast. Sagittal and coronal reformatted images. All CT scans at this location are performed us ing CT dose reduction for ILIANARA by means of automated exposure control. FINDINGS: CT ABDOMEN: Lung Bases: Clear. Stable mild cardiomegaly. Liver: No significant abnormality. Biliary: No significant abnormality. Spleen: No significant abnormality. Unenlarged. Pancreas: No significant abnormality. Adrenals: No significant abnormality. Kidneys: Multifocal cortical scarring is again seen throughout both kidneys which is unchanged. A lef t ureteral stent has been placed since the previous exam which extends from the left renal pelvis to the bladder. Large nonobstructing stone at the inferior pole of the left kidney measures 1.4 cm. No c ystic disease, mass or hydronephrosis. Lymphatics: No lymphadenopathy. Vasculature: No significant abnormality. Bowel/Peritoneum: No significant abnormality. No free air. No free fluid. Normal appendix. CT PELVIS: : The bladder is decompressed with a Escalona catheter. No gross abnormality. Osseous Structures: Moderate degenerative changes throughout the lumbar spine. No acute osseous findi ngs. Additional Findings: None IMPRESSION: No acute inflammatory process is appreciated. Multifocal scarring in both kidneys. Nonobstructing left nephrolithiasis. Mild cardiomegaly. Signer Name: Zachary Marina Jr, MD Signed: 11/10/2021 12:28 PM Workstation Name: [id number]
[2021-11-10] MEDS ORDERED: SODIUM CHLORIDE 0.9% 250ML 250 ML IV ONE (13:26)
[2021-11-10] MEDS ORDERED: LORazepam 2 MG/ML VIAL IV ONE (13:26)
[2021-11-10] MEDS ORDERED: ASPIRIN 325 MG TAB PO PRN (18:37)
[2021-11-10] MEDS ORDERED: ACETAMINOPHEN 325 MG TAB PO PRN (18:40)
[2021-11-10] MEDS ORDERED: ONDANSETRON 4 MG/2 ML INJ IV PRN (18:40)
[2021-11-10] MEDS ORDERED: oxyCODONE /ACETAMINOPHEN 5-325MG TAB PO PRN (18:41)
[2021-11-10] MEDS ORDERED: METOCLOPRAMIDE 10 MG/2 ML INJ IV PRN (18:41)
[2021-11-10] MEDS ORDERED: DILTIAZEM HCL 120 MG PO SCH (18:45)
[2021-11-10] MEDS ORDERED: SODIUM CHLORIDE 0.9% 1000 ML 1,000 ML IV SCH (18:45)
[2021-11-10] MEDS ORDERED: dilTIAZem CD 120 MG CAP PO SCH (18:45)
--- NOTE | 2021-11-10 18:45 | History and Physical Report ---
History of Present Illness Date of examination: 11/10/21 Date of admission: November 10, 2021 Chief complaint: Altered sensorium for 1 day Not eating or drinking for 1 week History of present illness: 76-year-old -[place] male with history of hypertension, BPH, T2DM, coronary artery disease, atrial fibrillation, hyperlipidemia and anticoagulation brought in by EMS for right-sided flank pain and back pain. Patient also has generalized weakness. Patient has a history of CVA with left-sided residual deficits. Patient was recently admitted for large renal stone and had dialysis cystoscopy and stent exchange. Patient has a Escalona catheter in place. Patient did not get out of the bed for the past 3 days due to his right-sided pain and was also found lethargic and altered. Patient has a Escalona in place. Patient has not been eating drinking enough fluids. As per the daughter who is on hemodialysis --- says that she cannot take care of the patient and needs a alf facility. In the emergency room patient was initially lethargic and then he became more responsive. Patient had a florid urinary tract infection for which patient is being admitted. - Past Medical History --Hypertension: Yes (Cardiac records reviewed) --CVA: Yes (2010) --Congestive Heart Failure: Yes --Diabetes: Yes --GERD: Yes --Renal Disease: Yes (obstructing renal stone) --Arthritis: Yes --Kidney Stones: Yes --Additional medical history: "prostate Problems" - Surgical History ---Additional Surgical History: hernia repair. PROSTATE SURGERY? - Social History --Smoking Status: Former Smoker - Family history Htn Review of Systems ROS: Stated complaint: RT SIDE FLANK PAIN Other details as noted in HPI Comment: All other systems reviewed and negative Constitutional: weakness. denies: chills, fever Eyes: denies: eye pain, vision change ENT: denies: ear pain, throat pain Respiratory: denies: cough, shortness of breath Cardiovascular: denies: chest pain, palpitations Gastrointestinal: denies: nausea, vomiting Genitourinary: denies: dysuria, discharge Musculoskeletal: back pain. denies: arthralgia Skin: denies: rash, lesions Neurological: denies: headache, numbness Medications and Allergies Allergies Allergy/AdvReac Type Severity Reaction Status Date / Time No Known Allergies Allergy Verified 10/27/21 15:05 Home Medications Medication Instructions Recorded Confirmed Last Taken Type Isosorbide Mononitrate [Isosorbide 30 mg PO DAILY 07/24/14 10/29/21 11/03/21 History Mononitrate ER] Diltiazem HCl [Diltiazem 24Hr ER] 120 mg PO QDAY #30 capsule.er 10/02/14 10/29/21 11/03/21 Rx metFORMIN [Glucophage] 500 mg PO QDAY 01/23/18 10/29/21 11/03/21 History Tamsulosin [Flomax] 0.4 mg PO QDAY #30 capsule 01/27/18 10/29/21 11/03/21 Rx Aspirin 325 mg PO PRN PRN 05/11/18 11/04/21 10/28/21 History Metoprolol [Lopressor TAB] 25 mg PO BID 05/11/18 10/29/21 11/04/21 07:00 History Silodosin [Rapaflo] 8 mg PO QHS 05/11/18 10/29/21 11/03/21 History Furosemide [Lasix] 20 mg PO PRN PRN 05/16/18 10/29/21 11/03/21 History Temazepam [Restoril] 15 mg PO QHS 05/16/18 10/29/21 11/03/21 History hydrALAZINE [Apresoline TAB] 25 mg PO BID 05/16/18 10/29/21 11/04/21 07:00 History AtorvaSTATin [Lipitor] 40 mg PO QHS #30 tablet 04/24/21 10/29/21 11/03/21 Rx Ciprofloxacin HCl [Ciprofloxacin 500 mg PO BID #20 tablet 04/24/21 10/29/21 11/03/21 Rx TAB] Apixaban [Eliquis] 5 mg PO Q12HR #60 tablet 04/25/21 10/29/21 10/31/21 Rx Apixaban [Eliquis] 10 mg PO Q12HR #10 tablet 04/25/21 10/29/21 10/31/21 Rx Active Meds: Active Medications Aspirin (Aspirin 325 Mg Tab) 325 mg PO PRN PRN PRN Reason: Pain , Severe (7-10) Atorvastatin Calcium (Atorvastatin 40 Mg Tab) 40 mg PO QHS [facility] Hydralazine HCl (Hydralazine 25 Mg Tab) 25 mg PO BID [facility] Isosorbide Mononitrate (Isosorbide Mononitrate Er 30 Mg Tab) 30 mg PO DAILY [facility] Metoprolol Tartrate (Metoprolol Tartrate 25 Mg Tab) 25 mg PO BID [facility] Miscellaneous Medication (Apixaban) 5 mg PO Q12HR [facility] Miscellaneous Medication (Diltiazem Hcl [Diltiazem 24hr Er]) 120 mg PO QDAY [facility] Miscellaneous Medication (Silodosin [Rapaflo]) 8 mg PO QHS [facility] Tamsulosin HCl (Tamsulosin 0.4 Mg Cap) 0.4 mg PO QDAY [facility] Temazepam (Temazepam 15 Mg Cap) 15 mg PO QHS [facility] Exam - Constitutional Vitals: Temp Pulse Resp BP Pulse Ox 98.8 F 86 16 123/71 90 11/10/21 08:55 11/10/21 16:31 11/10/21 16:31 11/10/21 16:31 11/10/21 16:15 General appearance: Present: no acute distress, well-nourished - EENT Eyes: Present: PERRL ENT: hearing intact, clear oral mucosa - Neck Neck: Present: supple, normal ROM - Respiratory Respiratory effort: normal Respiratory: bilateral: CTA - Cardiovascular Heart rate: 78 Rhythm: irregularly irregular Heart Sounds: Present: S1 & S2. Absent: rub, click - Extremities Extremities: no ischemia, pulses intact, pulses symmetrical, No edema Peripheral Pulses: within normal limits - Abdominal General gastrointestinal: Present: soft, non-tender, non-distended, normal bowel sounds Male genitourinary: Present: normal - Integumentary Integumentary: Present: clear, warm, dry - Musculoskeletal Musculoskeletal: left sided weakness - Psychiatric Psychiatric: appropriate mood/affect, intact judgment & insight, other (Patient was initially lethargic in the emergency room) - Neurologic Neurologic: CNII-XII intact, moves all extremities HEART Score - HEART Score Troponin: Troponin T < 0.010 ng/mL (0.00-0.029) 11/10/21 10:34 Results - Labs CBC & Chem 7: 11/10/21 19:03 11/10/21 19:03 Labs: Laboratory Last Values WBC 5.5 K/mm3 (4.5-11.0) 11/10/21 10:34 RBC 4.48 M/mm3 (3.65-5.03) 11/10/21 10:34 Hgb 13.9 gm/dl (11.8-15.2) 11/10/21 10:34 Hct 43.4 % (35.5-45.6) 11/10/21 10:34 MCV 97 fl (84-94) H 11/10/21 10:34 MCH 31 pg (28-32) 11/10/21 10:34 MCHC 32 % (32-34) 11/10/21 10:34 RDW 14.1 % (13.2-15.2) 11/10/21 10:34 Plt Count 211 K/mm3 (140-440) 11/10/21 10:34 Lymph % (Auto) 14.5 % (13.4-35.0) 11/10/21 10:34 [place] % (Auto) 10.2 % (0.0-7.3) H 11/10/21 10:34 Eos % (Auto) 0.1 % (0.0-4.3) 11/10/21 10:34 Baso % (Auto) 0.2 % (0.0-1.8) 11/10/21 10:34 Lymph # (Auto) 0.8 K/mm3 (1.2-5.4) L 11/10/21 10:34 [place] # (Auto) 0.6 K/mm3 (0.0-0.8) 11/10/21 10:34 Eos # (Auto) 0.0 K/mm3 (0.0-0.4) 11/10/21 10:34 Baso # (Auto) 0.0 K/mm3 (0.0-0.1) 11/10/21 10:34 Seg Neutrophils % 75.0 % (40.0-70.0) H 11/10/21 10:34 Seg Neutrophils # 4.1 K/mm3 (1.8-7.7) 11/10/21 10:34 Sodium 137 mmol/L (137-145) 11/10/21 10:34 Potassium 4.4 mmol/L (3.6-5.0) 11/10/21 10:34 Chloride 101.0 mmol/L (98-107) 11/10/21 10:34 Carbon Dioxide 21 mmol/L (22-30) L 11/10/21 10:34 Anion Gap 19 mmol/L 11/10/21 10:34 BUN 20 mg/dL (9-20) 11/10/21 10:34 Creatinine 1.2 mg/dL (0.8-1.3) 11/10/21 10:34 Estimated GFR > 60 ml/min 11/10/21 10:34 BUN/Creatinine Ratio 17 % 11/10/21 10:34 Glucose 157 mg/dL (75-100) H 11/10/21 10:34 POC Glucose 90 mg/dL (70-105) 11/10/21 16:51 Calcium 10.0 mg/dL (8.4-10.2) 11/10/21 10:34 Total Bilirubin 0.50 mg/dL (0.1-1.2) 11/10/21 10:34 AST 22 units/L (5-40) 11/10/21 10:34 ALT 9 units/L (7-56) 11/10/21 10:34 Alkaline Phosphatase 45 units/L (35-129) 11/10/21 10:34 Troponin T < 0.010 ng/mL (0.00-0.029) 11/10/21 10:34 Total Protein 8.1 g/dL (6.3-8.2) 11/10/21 10:34 Albumin 4.0 g/dL (3.9-5) 11/10/21 10:34 Albumin/Globulin Ratio 1.0 % 11/10/21 10:34 TSH 1.690 mlU/mL (0.270-4.200) 11/10/21 10:34 Urine Color Yellow (Yellow) 11/10/21 10:02 Urine Turbidity Cloudy (Clear) 11/10/21 10:02 Urine pH 5.0 (5.0-7.0) 11/10/21 10:02 Ur Specific [place] 1.016 (1.003-1.030) 11/10/21 10:02 Urine Protein 30 mg/dl mg/dL (Negative) 11/10/21 10:02 Urine Glucose (UA) 150 mg/dL (Negative) 11/10/21 10:02 Urine Ketones Neg mg/dL (Negative) 11/10/21 10:02 Urine Blood Lg (Negative) 11/10/21 10:02 Urine Nitrite Pos (Negative) 11/10/21 10:02 Urine Bilirubin Neg (Negative) 11/10/21 10:02 Urine Urobilinogen < 2.0 mg/dL (<2.0) 11/10/21 10:02 Ur Leukocyte Esterase Lg (Negative) 11/10/21 10:02 Urine WBC (Auto) > 182.0 /HPF (0.0-6.0) H 11/10/21 10:02 Urine RBC (Auto) > 182.0 /HPF (0.0-6.0) 11/10/21 10:02 U Epithel Cells (Auto) 6.0 /HPF (0-13.0) 11/10/21 10:02 Urine Bacteria (Auto) 4+ /HPF (Negative) 11/10/21 10:02 Urine Mucus 1+ /HPF 11/10/21 10:02 Urine Yeast (Budding) 2+ /HPF 11/10/21 10:02 - Imaging and Cardiology EKG: report reviewed (Atrial fibrillation) Imaging and Cardiology: Abdomen and pelvis CAT scan Acute inflammatory process is appreciated Multifocal scarring in both kidneys Nonobstructing left nephrolithiasis Mild cardiomegaly Chest CT No acute findings Assessment and Plan Advance Directives: Yes (Full code) - Patient Problems (1) Acute encephalopathy Current Visit: Yes Status: Acute Plan to address problem: Patient was confused and initially very lethargic Improved over the next 3 to 4 hours while in the emergency room with IV fluids and IV antibiotics Able to talk but still very confused (2) Urinary tract infection Current Visit: Yes Status: Acute Qualifiers: Urinary tract infection type: acute cystitis Plan to address problem: Patient has indwelling Escalona catheter Patiently recently had ureteral stent exchange for nephrolithiasis Nonobstructing left-sided nephrolithiasis Urine cultures pending Patient started on IV Rocephin pending cultures (3) Failure to thrive Current Visit: Yes Status: Chronic Qualifiers: Failure to thrive age range: in adult Qualified Code(s): R62.7 - Adult failure to thrive Plan to address problem: Patient has not been eating or drinking and not taking care of his ADLs for the past 1 week (4) Anticoagulation adequate Current Visit: No Status: Chronic Plan to address problem: Continue Eliquis for atrial fibrillation (5) Atrial fibrillation Current Visit: No Status: Chronic Qualifiers: Atrial fibrillation type: persistent (not longstanding) Qualified Code(s): I48.91 - Unspecified atrial fibrillation Plan to address problem: On Eliquis (6) BPH (benign prostatic hyperplasia) Current Visit: No Status: Chronic Qualifiers: Lower urinary tract symptom presence: symptoms present Plan to address problem: Continue Flomax and Rapaflo (7) HTN (hypertension) Current Visit: No Status: Chronic Qualifiers: Hypertension type: primary hypertension Qualified Code(s): I10 - Essential (primary) hypertension Plan to address problem: Continue antihypertensives and adjust medications (8) History of CVA (cerebrovascular accident) Current Visit: No Status: Chronic (9) T2DM (type 2 diabetes mellitus) Current Visit: No Status: Chronic 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 transplanted heart: [place] heart Plan to address problem: Continue aspirin and isosorbide mononitrate (11) Hyperlipidemia Current Visit: Yes Status: Chronic Qualifiers: Hyperlipidemia type: mixed hyperlipidemia Qualified Code(s): E78.2 - Mixed hyperlipidemia Plan to address problem: Continue statins (12) CVA, old, cognitive deficits Current Visit: Yes Status: Chronic Plan to address problem: Left-sided weakness and unable to take care of himself Supportive care and physical therapy (13) DVT prophylaxis Current Visit: Yes Status: Acute Plan to address problem: Patient on Eliquis and GI prophylaxis (14) Discharge planning issues Current Visit: No Status: Acute Plan to address problem: This patient was sent into the emergency department after he was found not to be eating, drinking, taking his medications and there was a complaint of generalized weakness. The patient also has the complaint of some right-sided flank pain. Patient's labs are mostly unremarkable except for a urinary tract infection with greater than 180 WBCs, and hematuria with the same number of RBCs. CT of the abdomen and pelvis with IV contrast does not show any acute process. I spoke to the patient's daughter who says that the patient claims that he is able to take care of himself including his ADLs but has not been eating, drinking, taking his medications. When they recently and previously had home health care the patient would not be compliant with their care and send them home saying that he did not need them. The patient's daughter has concerns as she is end-stage renal disease on hemodialysis and does not feel that she can care for him. She is open to him going to a senior care facility but does not feel that she can facilitate this immediately. The patient just recently had a procedure done with his urologist and was sent home on antibiotics. As his urine shows greater than 180 WBCs, this could be consistent with medication noncompliance, unless the antibiotic given is resistant to the bacteria causing his UTI. Urine culture has been sent and the patient has been given a dose of Rocephin. Case management consult has been placed. (15) Advance care planning Current Visit: No Status: Acute Plan to address problem: Disease education care plan discussed diagnosis discussed prognosis discussed with the daughter. Patient is full code. Daughter acknowledges understanding and agreement with care plan. +30 minutes. Patient daughter wants alf facility.
[2021-11-10 19:16] LABS: Hematocrit 39.2 % (35.5-45.6); Hemoglobin 12.7 gm/dl (11.8-15.2); Mean Corpuscular HGB Conc 32 % (32-34); Mean Corpuscular Volume 95 fl (84-94); Platelet Count 223 K/mm3 (140-440); Red Blood Count 4.14 M/mm3 (3.65-5.03); Red Cell Distribution Width 14.1 % (13.2-15.2)
[2021-11-10 19:34] LABS: INR 1.07 (0.87-1.13)
[2021-11-10] MEDS ORDERED: SILODOSIN 8 MG PO SCH (22:00)
[2021-11-10] MEDS ORDERED: NON-FORMULARY EACH (Apixaban 5 MG Tablet) PO SCH (22:00)
[2021-11-10] MEDS ORDERED: HEPARIN 5,000 UNIT/1 ML VIAL SUB-Q SCH (22:00)
[2021-11-10] MEDS: APIXABAN 5 MG TAB PO SCH (23:27)
[2021-11-10] MEDS: hydrALAZINE 25 MG TAB PO SCH (23:27)
[2021-11-10] MEDS: METOPROLOL TARTRATE 25 MG TAB PO SCH (23:27)
[2021-11-10] MEDS: dilTIAZem CD 120 MG CAP PO SCH (23:28)
[2021-11-10] MEDS: TAMSULOSIN 0.4 MG CAP PO SCH (23:28)
[2021-11-10] MEDS: TEMAZEPAM 15 MG CAP PO SCH (23:28)
[2021-11-10] MEDS: cefTRIAXone/NS 2 GM/100 ML 2 GM/100 ML BAG IV SCH (23:29)
--- NOTE | 2021-11-11 08:47 | Electrocardiograph Report ---
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
[2021-11-11] MEDS: cefTRIAXone/NS 2 GM/100 ML 2 GM/100 ML BAG IV SCH (09:58)
[2021-11-11] MEDS: METOPROLOL TARTRATE 25 MG TAB PO SCH ×2 (09:59→22:40)
[2021-11-11] MEDS: APIXABAN 5 MG TAB PO SCH ×2 (09:59→22:40)
[2021-11-11] MEDS: hydrALAZINE 25 MG TAB PO SCH ×2 (09:59→22:40)
[2021-11-11] MEDS: TAMSULOSIN 0.4 MG CAP PO SCH (09:59)
[2021-11-11 11:58] LABS: Basophils % (Auto) 0.6 % (0.0-1.8); Eosinophils # (Auto) 0.1 K/mm3 (0.0-0.4); Eosinophils % (Auto) 0.9 % (0.0-4.3); Hematocrit 42.4 % (35.5-45.6); Hemoglobin 13.6 gm/dl (11.8-15.2); Lymphocytes # (Auto) 0.9 K/mm3 (1.2-5.4); Lymphocytes % (Auto) 16.5 % (13.4-35.0); Mean Corpuscular HGB Conc 32 % (32-34); Mean Corpuscular Volume 95 fl (84-94); Monocytes # (Auto) 0.6 K/mm3 (0.0-0.8); Monocytes % (Auto) 11.2 % (0.0-7.3); Platelet Count 218 K/mm3 (140-440); Red Blood Count 4.47 M/mm3 (3.65-5.03); Red Cell Distribution Width 14.2 % (13.2-15.2)
[2021-11-11 12:20] LABS: Alanine Aminotransferase 8 units/L (7-56); BUN/Creatinine Ratio 19; Blood Urea Nitrogen 17 mg/dL (9-20); Calcium 9.6 mg/dL (8.4-10.2); Hemolysis Index 3
[2021-11-11] MEDS: dilTIAZem CD 120 MG CAP PO SCH (12:22)
--- NOTE | 2021-11-11 18:41 | Progress Note ---
Assessment and Plan - Patient Problems (1) Acute encephalopathy Current Visit: Yes Status: Acute Plan to address problem: Patient was confused and initially very lethargic Improved over the next 3 to 4 hours while in the emergency room with IV fluids a nd IV antibiotics Able to talk but still very confused (2) Urinary tract infection Current Visit: Yes Status: Acute Qualifiers: Urinary tract infection type: acute cystitis Plan to address problem: Patient has indwelling Escalona catheter Patiently recently had ureteral stent exchange for nephrolithiasis Nonobstructing left-sided nephrolithiasis Urine cultures pending Patient started on IV Rocephin pending cultures (3) Failure to thrive Current Visit: Yes Status: Chronic Qualifiers: Failure to thrive age range: in adult Qualified Code(s): R62.7 - Adult failure to thrive Plan to address problem: Patient has not been eating or drinking and not taking care of his ADLs for the past 1 week (4) Anticoagulation adequate Current Visit: No Status: Chronic Plan to address problem: Continue Eliquis for atrial fibrillation (5) Atrial fibrillation Current Visit: No Status: Chronic Qualifiers: Atrial fibrillation type: persistent (not longstanding) Qualified Code(s): I48.91 - Unspecified atrial fibrillation Plan to address problem: On Eliquis (6) BPH (benign prostatic hyperplasia) Current Visit: No Status: Chronic Qualifiers: Lower urinary tract symptom presence: symptoms present Plan to address problem: Continue Flomax and Rapaflo (7) HTN (hypertension) Current Visit: No Status: Chronic Qualifiers: Hypertension type: primary hypertension Qualified Code(s): I10 - Essential (primary) hypertension Plan to address problem: Continue antihypertensives and adjust medications (8) History of CVA (cerebrovascular accident) Current Visit: No Status: Chronic (9) T2DM (type 2 diabetes mellitus) Current Visit: No Status: Chronic 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 transplanted heart: [place] heart Plan to address problem: Continue aspirin and isosorbide mononitrate (11) Hyperlipidemia Current Visit: Yes Status: Chronic Qualifiers: Hyperlipidemia type: mixed hyperlipidemia Qualified Code(s): E78.2 - Mixed hyperlipidemia Plan to address problem: Continue statins (12) CVA, old, cognitive deficits Current Visit: Yes Status: Chronic Plan to address problem: Left-sided weakness and unable to take care of himself Supportive care and physical therapy (13) DVT prophylaxis Current Visit: Yes Status: Acute Plan to address problem: Patient on Eliquis and GI prophylaxis (14) Discharge planning issues Current Visit: No Status: Acute Plan to address problem: This patient was sent into the emergency department after he was found not to be eating, drinking, taking his medications and there was a complaint of generalized weakness. The patient also has the complaint of some right-sided flank pain. Patient's labs are mostly unremarkable except for a urinary tract infection with greater than 180 WBCs, and hematuria with the same number of RBCs. CT of the abdomen and pelvis with IV contrast does not show any acute process. I spoke to the patient's daughter who says that the patient claims that he is able to take care of himself including his ADLs but has not been eating, drinking, taking his medications. When they recently and previously had home health care the patient would not be compliant with their care and send them home saying that he did not need them. The patient's daughter has concerns as she is end-stage renal disease on hemodialysis and does not feel that she can care for him. She is open to him going to a custodial facility but does not feel that she can facilitate this immediately. The patient just recently had a procedure done with his urologist and was sent home on antibiotics. As his urine shows greater than 180 WBCs, this could be consistent with medication n oncompliance, unless the antibiotic given is resistant to the bacteria causing his UTI. Urine culture has been sent and the patient has been given a dose of Rocephin. Case management consult has been placed. (15) Advance care planning Current Visit: No Status: Acute Plan to address problem: Disease education care plan discussed diagnosis discussed prognosis discussed with the daughter. Patient is full code. Daughter acknowledges understanding and agreement with care plan. +30 minutes. Patient daughter wants assisted facility. Subjective Date of service: 11/11/21 Objective - Constitutional General appearance: Present: no acute distress, well-nourished - EENT Eyes: PERRL, EOM intact ENT: hearing intact, clear oral mucosa Ears: bilateral: normal - Neck Neck: supple, normal ROM - Respiratory Respiratory effort: normal Respiratory: bilateral: CTA - Breasts Breasts: normal - Cardiovascular Rhythm: regular Heart Sounds: Present: S1 & S2. Absent: gallop, rub Extremities: pulses intact, No edema, normal color, Full ROM - Gastrointestinal General gastrointestinal: Present: soft, non-tender, non-distended, normal bowel sounds - Genitourinary Male genitourinary: normal - Integumentary Integumentary: clear, warm, dry - Musculoskeletal Musculoskeletal: 1, strength equal bilaterally - Neurologic Neurologic: moves all extremities - Psychiatric Psychiatric: memory intact, appropriate mood/affect, intact judgment & insight - Labs CBC & Chem 7: 11/11/21 11:23 11/11/21 11:23 Labs: Abnormal lab results 11/10/21 11/10/21 11/11/21 Range/Units 19:03 19:03 11:23 MCV 95 H 95 H (84-94) fl [place] % (Auto) 11.2 H (0.0-7.3) % Lymph # (Auto) 0.9 L (1.2-5.4) K/mm3 Seg Neutrophils % 70.8 H (40.0-70.0) % PT 15.1 H (12.2-14.9) Sec. Glucose (75-100) mg/dL 11/11/21 Range/Units 11:23 MCV (84-94) fl [place] % (Auto) (0.0-7.3) % Lymph # (Auto) (1.2-5.4) K/mm3 Seg Neutrophils % (40.0-70.0) % PT (12.2-14.9) Sec. Glucose 147 H (75-100) mg/dL HEART Score - HEART Score Troponin: Troponin T < 0.010 ng/mL (0.00-0.029) 11/10/21 10:34
[2021-11-11] MEDS ORDERED: SILODOSIN 8 MG PO SCH (22:00)
[2021-11-11] MEDS: TEMAZEPAM 15 MG CAP PO SCH (22:40)
[2021-11-12 05:15] LABS: Hematocrit 44.5 % (35.5-45.6); Hemoglobin 14.7 gm/dl (11.8-15.2); Mean Corpuscular HGB Conc 33 % (32-34); Mean Corpuscular Volume 95 fl (84-94); Platelet Count 225 K/mm3 (140-440); Red Blood Count 4.69 M/mm3 (3.65-5.03); Red Cell Distribution Width 14.2 % (13.2-15.2)
[2021-11-12] MEDS: APIXABAN 5 MG TAB PO SCH ×2 (09:21→23:11)
[2021-11-12] MEDS: TAMSULOSIN 0.4 MG CAP PO SCH (09:21)
[2021-11-12] MEDS: cefTRIAXone/NS 2 GM/100 ML 2 GM/100 ML BAG IV SCH (09:22)
[2021-11-12] MEDS: hydrALAZINE 25 MG TAB PO SCH ×2 (09:43→23:09)
[2021-11-12] MEDS: METOPROLOL TARTRATE 25 MG TAB PO SCH ×2 (09:44→23:10)
[2021-11-12] MEDS: dilTIAZem CD 120 MG CAP PO SCH (09:44)
--- NOTE | 2021-11-12 17:54 | Progress Note ---
Assessment and Plan - Patient Problems (1) Acute encephalopathy Current Visit: Yes Status: Acute Plan to address problem: Patient was confused and initially very lethargic Improved over the next 3 to 4 hours while in the emergency room with IV fluids a nd IV antibiotics Able to talk but still very confused (2) Urinary tract infection Current Visit: Yes Status: Acute Qualifiers: Urinary tract infection type: acute cystitis Plan to address problem: Patient has indwelling [place] catheter Patiently recently had ureteral stent exchange for nephrolithiasis Nonobstructing left-sided nephrolithiasis Urine cultures pending Patient started on IV Rocephin pending cultures (3) Failure to thrive Current Visit: Yes Status: Chronic Qualifiers: Failure to thrive age range: in adult Qualified Code(s): R62.7 - Adult failure to thrive Plan to address problem: Patient has not been eating or drinking and not taking care of his ADLs for the past 1 week (4) Anticoagulation adequate Current Visit: No Status: Chronic Plan to address problem: Continue Eliquis for atrial fibrillation (5) Atrial fibrillation Current Visit: No Status: Chronic Qualifiers: Atrial fibrillation type: persistent (not longstanding) Qualified Code(s): I48.19 - Other persistent atrial fibrillation; I48.1 - Persistent atrial fibrillation Plan to address problem: On Eliquis (6) BPH (benign prostatic hyperplasia) Current Visit: No Status: Chronic Qualifiers: Lower urinary tract symptom presence: symptoms present Plan to address problem: Continue Flomax and Rapaflo (7) HTN (hypertension) Current Visit: No Status: Chronic Qualifiers: Hypertension type: primary hypertension Qualified Code(s): I10 - Essential (primary) hypertension Plan to address problem: Continue antihypertensives and adjust medications (8) History of CVA (cerebrovascular accident) Current Visit: No Status: Chronic (9) T2DM (type 2 diabetes mellitus) Current Visit: No Status: Chronic Qualifiers: Diabetes mellitus halfway insulin use: 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 transplanted heart: [place] heart Plan to address problem: Continue aspirin and isosorbide mononitrate (11) Hyperlipidemia Current Visit: Yes Status: Chronic Qualifiers: Hyperlipidemia type: mixed hyperlipidemia Qualified Code(s): E78.2 - Mixed hyperlipidemia (12) CVA, old, cognitive deficits Current Visit: Yes Status: Chronic Plan to address problem: Left-sided weakness and unable to take care of himself Supportive care and physical therapy (13) DVT prophylaxis Current Visit: Yes Status: Acute Plan to address problem: Patient on Eliquis and GI prophylaxis (14) Discharge planning issues Current Visit: No Status: Acute Plan to address problem: This patient was sent into the emergency department after he was found not to be eating, drinking, taking his medications and there was a complaint of generalized weakness. The patient also has the complaint of some right-sided flank pain. Patient's labs are mostly unremarkable except for a urinary tract infection with greater than 180 WBCs, and hematuria with the same number of RBCs. CT of the abdomen and pelvis with IV contrast does not show any acute process. I spoke to the patient's daughter who says that she cannot take care of her dad. Daughter is also in the hospital at this point time for some medical reasons. She wants to be replaced in a snf facility/subacute rehab at least for 6 weeks Case management informed (15) Advance care planning Current Visit: No Status: Acute Plan to address problem: Disease education care plan discussed diagnosis discussed prognosis discussed with the daughter. Patient is full code. Daughter acknowledges understanding and agreement with care plan. +30 minutes. Patient daughter wants snf facility. (16) Discharge planning issues Current Visit: Yes Status: Acute Plan to address problem: Talked with the daughter Ms. Tata Macias. Her phone number is [phone]. Daughter says she is in the hospital with Covid. She says that she cannot take care of her father. She wants him to be placed in a snf facility with subacute rehab. Patient has left-sided weakness especially in the left upper extremity and slightly in the left lower extremity. SNF placement for tomorrow Covid test for tomorrow Subjective Date of service: 11/12/21 Objective - Constitutional Vitals: Vital Signs - 12hr 11/12/21 11/12/21 06:00 09:43 Pulse Rate 78 Blood Pressure 102/59 O2 Sat by Pulse 98 Oximetry General appearance: Present: no acute distress, well-nourished - EENT Eyes: PERRL, EOM intact ENT: hearing intact, clear oral mucosa Ears: bilateral: normal - Neck Neck: supple, normal ROM - Respiratory Respiratory effort: normal Respiratory: bilateral: CTA - Breasts Breasts: normal - Cardiovascular Rhythm: regular Heart Sounds: Present: S1 & S2. Absent: gallop, rub Extremities: pulses intact, No edema, normal color, Full ROM - Gastrointestinal General gastrointestinal: Present: soft, non-tender, non-distended, normal bowel sounds - Genitourinary Male genitourinary: normal - Integumentary Integumentary: clear, warm, dry - Musculoskeletal Musculoskeletal: 1, strength equal bilaterally - Neurologic Neurologic: moves all extremities - Psychiatric Psychiatric: memory intact, appropriate mood/affect, intact judgment & insight - Labs CBC & Chem 7: 11/12/21 04:45 11/13/21 05:52 Labs: Abnormal lab results 11/12/21 Range/Units 04:45 MCV 95 H (84-94) fl HEART Score - HEART Score Troponin: Troponin T < 0.010 ng/mL (0.00-0.029) 11/10/21 10:34
[2021-11-12] MEDS: TEMAZEPAM 15 MG CAP PO SCH (23:11)
[2021-11-13] MEDS: hydrALAZINE 25 MG TAB PO SCH (11:40)
[2021-11-13] MEDS: cefTRIAXone/NS 2 GM/100 ML 2 GM/100 ML BAG IV SCH (11:40)
[2021-11-13] MEDS: APIXABAN 5 MG TAB PO SCH ×2 (12:35→23:58)
[2021-11-13] MEDS: TAMSULOSIN 0.4 MG CAP PO SCH (12:35)
[2021-11-13] MEDS: METOPROLOL TARTRATE 25 MG TAB PO SCH (12:35)
[2021-11-13] MEDS: dilTIAZem CD 120 MG CAP PO SCH (12:40)
[2021-11-13 18:56] LABS: Bilirubin,Urine NEG (Negative); Blood,Urine LG (Negative); Color,Urine Amber (Yellow); Urobilinogen,Urine < 2.0 mg/dL (<2.0); WBC,Urine < 1.0 /HPF (0.0-6.0)
[2021-11-13 19:05] LABS: Protein,Urine >500 mg/dL (Negative)
[2021-11-14] MEDS: TEMAZEPAM 15 MG CAP PO SCH ×2 (00:03→22:56)
[2021-11-14] MEDS: METOPROLOL TARTRATE 25 MG TAB PO SCH ×3 (00:04→22:58)
[2021-11-14] MEDS: hydrALAZINE 25 MG TAB PO SCH ×3 (00:04→22:58)
[2021-11-14 07:11] LABS: Hematocrit 41.6 % (35.5-45.6); Hemoglobin 13.5 gm/dl (11.8-15.2); Mean Corpuscular HGB Conc 33 % (32-34); Mean Corpuscular Volume 95 fl (84-94); Platelet Count 233 K/mm3 (140-440); Red Blood Count 4.39 M/mm3 (3.65-5.03); Red Cell Distribution Width 14.1 % (13.2-15.2)
[2021-11-14] MEDS: TAMSULOSIN 0.4 MG CAP PO SCH (11:06)
[2021-11-14] MEDS: APIXABAN 5 MG TAB PO SCH ×2 (11:06→22:56)
[2021-11-14] MEDS: dilTIAZem CD 120 MG CAP PO SCH (11:07)
[2021-11-14] MEDS: cefTRIAXone/NS 2 GM/100 ML 2 GM/100 ML BAG IV SCH (11:08)
--- NOTE | 2021-11-15 07:01 | Progress Note ---
Assessment and Plan - Patient Problems (1) Acute encephalopathy Current Visit: Yes Status: Acute Plan to address problem: Patient was confused and initially very lethargic Improved over the next 3 to 4 hours while in the emergency room with IV fluids a nd IV antibiotics Able to talk but still very confused (2) Urinary tract infection Current Visit: Yes Status: Acute Qualifiers: Urinary tract infection type: acute cystitis Plan to address problem: Patient has indwelling Esc[place] catheter Patiently recently had ureteral stent exchange for nephrolithiasis Nonobstructing left-sided nephrolithiasis Urine cultures pending Patient started on IV Rocephin pending cultures (3) Failure to thrive Current Visit: Yes Status: Chronic Qualifiers: Failure to thrive age range: in adult Qualified Code(s): R62.7 - Adult failure to thrive Plan to address problem: Patient has not been eating or drinking and not taking care of his ADLs for the past 1 week (4) Anticoagulation adequate Current Visit: No Status: Chronic Plan to address problem: Continue Eliquis for atrial fibrillation (5) Atrial fibrillation Current Visit: No Status: Chronic Qualifiers: Atrial fibrillation type: persistent (not longstanding) Qualified Code(s): I48.19 - Other persistent atrial fibrillation; I48.1 - Persistent atrial fibrillation Plan to address problem: On Eliquis (6) BPH (benign prostatic hyperplasia) Current Visit: No Status: Chronic Qualifiers: Lower urinary tract symptom presence: symptoms present Plan to address problem: Continue Flomax and Rapaflo (7) HTN (hypertension) Current Visit: No Status: Chronic Qualifiers: Hypertension type: primary hypertension Qualified Code(s): I10 - Essential (primary) hypertension Plan to address problem: Continue antihypertensives and adjust medications (8) History of CVA (cerebrovascular accident) Current Visit: No Status: Chronic (9) T2DM (type 2 diabetes mellitus) Current Visit: No Status: Chronic Qualifiers: Diabetes mellitus penitentiary insulin use: unspecified 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 transplanted heart: [place] heart Plan to address problem: Continue aspirin and isosorbide mononitrate (11) Hyperlipidemia Current Visit: Yes Status: Chronic Qualifiers: Hyperlipidemia type: mixed hyperlipidemia Qualified Code(s): E78.2 - Mixed hyperlipidemia Plan to address problem: Continue statins (12) CVA, old, cognitive deficits Current Visit: Yes Status: Chronic Plan to address problem: Left-sided weakness and unable to take care of himself Supportive care and physical therapy (13) DVT prophylaxis Current Visit: Yes Status: Acute Plan to address problem: Patient on Eliquis and GI prophylaxis (14) Discharge planning issues Current Visit: No Status: Acute Plan to address problem: This patient was sent into the emergency department after he was found not to be eating, drinking, taking his medications and there was a complaint of generalized weakness. The patient also has the complaint of some right-sided flank pain. Patient's labs are mostly unremarkable except for a urinary tract infection with greater than 180 WBCs, and hematuria with the same number of RBCs. CT of the abdomen and pelvis with IV contrast does not show any acute process. I spoke to the patient's daughter who says that she cannot take care of her dad. Daughter is also in the hospital at this point time for some medical reasons. She wants to be replaced in a long-term facility/subacute rehab at least for 6 weeks Case management informed (15) Advance care planning Current Visit: No Status: Acute Plan to address problem: Disease education care plan discussed diagnosis discussed prognosis discussed with the daughter. Patient is full code. Daughter acknowledges understanding and agreement with care plan. +30 minutes. Patient daughter wants long-term facility. (16) Discharge planning issues Current Visit: Yes Status: Acute Plan to address problem: Talked with the daughter Ms. Tata Macias. Her phone number is [phone]. Daughter says she is in the hospital with Covid. She says that she cannot take care of her father. She wants him to be placed in a long-term facility with subacute rehab. Patient has left-sided weakness especially in the left upper extremity and slightly in the left lower extremity. SNF placement for tomorrow Covid test for tomorrow Subjective Date of service: 11/13/21 Objective - Constitutional Vitals: Vital Signs - 12hr 11/14/21 11/14/21 11/14/21 22:00 22:52 22:58 Temperature 98.7 F Pulse Rate 88 88 Respiratory 17 Rate Respiratory 17 Rate [Lower Abdomen] Respiratory 17 Rate [Right Flank] Blood Pressure 103/61 103/61 O2 Sat by Pulse 98 Oximetry 11/15/21 01:00 Temperature Pulse Rate Respiratory 17 Rate Respiratory Rate [Lower Abdomen] Respiratory Rate [Right Flank] Blood Pressure O2 Sat by Pulse 98 Oximetry General appearance: Present: no acute distress, well-nourished - EENT Eyes: PERRL, EOM intact ENT: hearing intact, clear oral mucosa Ears: bilateral: normal - Neck Neck: supple, normal ROM - Respiratory Respiratory effort: normal Respiratory: bilateral: CTA - Breasts Breasts: normal - Cardiovascular Rhythm: regular Heart Sounds: Present: S1 & S2. Absent: gallop, rub Extremities: pulses intact, No edema, normal color, Full ROM - Gastrointestinal General gastrointestinal: Present: soft, non-tender, non-distended, normal bowel sounds - Genitourinary Male genitourinary: normal - Integumentary Integumentary: clear, warm, dry - Musculoskeletal Musculoskeletal: 1, strength equal bilaterally - Neurologic Neurologic: moves all extremities - Psychiatric Psychiatric: memory intact, appropriate mood/affect, intact judgment & insight - Labs CBC & Chem 7: 11/14/21 06:07 11/13/21 05:52 Labs: Abnormal lab results 11/14/21 Range/Units 06:07 MCV 95 H (84-94) fl HEART Score - HEART Score Troponin: Troponin T < 0.010 ng/mL (0.00-0.029) 11/10/21 10:34
--- NOTE | 2021-11-15 07:03 | Progress Note ---
Assessment and Plan - Patient Problems (1) Acute encephalopathy Current Visit: Yes Status: Acute Plan to address problem: Patient was confused and initially very lethargic Improved over the next 3 to 4 hours while in the emergency room with IV fluids a nd IV antibiotics Able to talk but still very confused (2) Urinary tract infection Current Visit: Yes Status: Acute Qualifiers: Urinary tract infection type: acute cystitis Plan to address problem: Patient has indwelling Escal[place] catheter Patiently recently had ureteral stent exchange for nephrolithiasis Nonobstructing left-sided nephrolithiasis Urine cultures pending Patient started on IV Rocephin pending cultures (3) Failure to thrive Current Visit: Yes Status: Chronic Qualifiers: Failure to thrive age range: in adult Qualified Code(s): R62.7 - Adult failure to thrive Plan to address problem: Patient has not been eating or drinking and not taking care of his ADLs for the past 1 week (4) Anticoagulation adequate Current Visit: No Status: Chronic Plan to address problem: Continue Eliquis for atrial fibrillation (5) Atrial fibrillation Current Visit: No Status: Chronic Qualifiers: Atrial fibrillation type: persistent (not longstanding) Qualified Code(s): I48.19 - Other persistent atrial fibrillation; I48.1 - Persistent atrial fibrillation Plan to address problem: On Eliquis (6) BPH (benign prostatic hyperplasia) Current Visit: No Status: Chronic Qualifiers: Lower urinary tract symptom presence: symptoms present Plan to address problem: Continue Flomax and Rapaflo (7) HTN (hypertension) Current Visit: No Status: Chronic Qualifiers: Hypertension type: primary hypertension Qualified Code(s): I10 - Essential (primary) hypertension Plan to address problem: Continue antihypertensives and adjust medications (8) History of CVA (cerebrovascular accident) Current Visit: No Status: Chronic (9) T2DM (type 2 diabetes mellitus) Current Visit: No Status: Chronic Qualifiers: Diabetes mellitus residential insulin use: unspecified long term 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 transplanted heart: [place] heart Plan to address problem: Continue aspirin and isosorbide mononitrate (11) Hyperlipidemia Current Visit: Yes Status: Chronic Qualifiers: Hyperlipidemia type: mixed hyperlipidemia Qualified Code(s): E78.2 - Mixed hyperlipidemia Plan to address problem: Continue statins (12) CVA, old, cognitive deficits Current Visit: Yes Status: Chronic Plan to address problem: Left-sided weakness and unable to take care of himself Supportive care and physical therapy (13) DVT prophylaxis Current Visit: Yes Status: Acute Plan to address problem: Patient on Eliquis and GI prophylaxis (14) Discharge planning issues Current Visit: No Status: Acute Plan to address problem: This patient was sent into the emergency department after he was found not to be eating, drinking, taking his medications and there was a complaint of generalized weakness. The patient also has the complaint of some right-sided flank pain. Patient's labs are mostly unremarkable except for a urinary tract infection with greater than 180 WBCs, and hematuria with the same number of RBCs. CT of the abdomen and pelvis with IV contrast does not show any acute process. I spoke to the patient's daughter who says that she cannot take care of her dad. Daughter is also in the hospital at this point time for some medical reasons. She wants to be replaced in a [facility] facility/subacute rehab at least for 6 weeks Case management informed (15) Advance care planning Current Visit: No Status: Acute Plan to address problem: Disease education care plan discussed diagnosis discussed prognosis discussed with the daughter. Patient is full code. Daughter acknowledges understanding and agreement with care plan. +30 minutes. Patient daughter wants [facility]p facility. (16) Discharge planning issues Current Visit: Yes Status: Acute Plan to address problem: Talked with the daughter Ms. Tata Macias. Her phone number is [phone]. Daughter says she is in the hospital with Covid. She says that she cannot take care of her father. She wants him to be placed in a [facility] facility with subacute rehab. Patient has left-sided weakness especially in the left upper extremity and slightly in the left lower extremity. SNF placement for tomorrow Covid test for tomorrow Subjective Date of service: 11/14/21 Objective - Constitutional Vitals: Vital Signs - 12hr 11/14/21 11/14/21 11/14/21 22:00 22:52 22:58 Temperature 98.7 F Pulse Rate 88 88 Respiratory 17 Rate Respiratory 17 Rate [Lower Abdomen] Respiratory 17 Rate [Right Flank] Blood Pressure 103/61 103/61 O2 Sat by Pulse 98 Oximetry 11/15/21 01:00 Temperature Pulse Rate Respiratory 17 Rate Respiratory Rate [Lower Abdomen] Respiratory Rate [Right Flank] Blood Pressure O2 Sat by Pulse 98 Oximetry General appearance: Present: no acute distress, well-nourished - EENT Eyes: PERRL, EOM intact ENT: hearing intact, clear oral mucosa Ears: bilateral: normal - Neck Neck: supple, normal ROM - Respiratory Respiratory effort: normal Respiratory: bilateral: CTA - Breasts Breasts: normal - Cardiovascular Rhythm: regular Heart Sounds: Present: S1 & S2. Absent: gallop, rub Extremities: pulses intact, No edema, normal color, Full ROM - Gastrointestinal General gastrointestinal: Present: soft, non-tender, non-distended, normal bowel sounds - Genitourinary Male genitourinary: normal - Integumentary Integumentary: clear, warm, dry - Musculoskeletal Musculoskeletal: 1, strength equal bilaterally - Neurologic Neurologic: moves all extremities - Psychiatric Psychiatric: memory intact, appropriate mood/affect, intact judgment & insight - Labs CBC & Chem 7: 11/14/21 06:07 11/13/21 05:52 Labs: Abnormal lab results 11/14/21 Range/Units 06:07 MCV 95 H (84-94) fl HEART Score - HEART Score Troponin: Troponin T < 0.010 ng/mL (0.00-0.029) 11/10/21 10:34
[2021-11-15] MEDS: APIXABAN 5 MG TAB PO SCH ×2 (09:51→21:59)
[2021-11-15] MEDS: TAMSULOSIN 0.4 MG CAP PO SCH (09:51)
[2021-11-15] MEDS: cefTRIAXone/NS 2 GM/100 ML 2 GM/100 ML BAG IV SCH (09:51)
[2021-11-15] MEDS: METOPROLOL TARTRATE 25 MG TAB PO SCH ×2 (09:54→21:58)
[2021-11-15] MEDS: hydrALAZINE 25 MG TAB PO SCH ×2 (09:55→21:58)
[2021-11-15] MEDS: dilTIAZem CD 120 MG CAP PO SCH (09:57)
--- NOTE | 2021-11-15 20:24 | Progress Note ---
Assessment and Plan - Patient Problems (1) Acute encephalopathy Current Visit: Yes Status: Acute Plan to address problem: Patient was confused and initially very lethargic Improved over the next 3 to 4 hours while in the emergency room with IV fluids a nd IV antibiotics Able to talk but still very confused (2) Urinary tract infection Current Visit: Yes Status: Acute Qualifiers: Urinary tract infection type: acute cystitis Plan to address problem: Patient has indwelling [place] catheter Patiently recently had ureteral stent exchange for nephrolithiasis Nonobstructing left-sided nephrolithiasis Urine cultures pending Patient started on IV Rocephin pending cultures (3) Failure to thrive Current Visit: Yes Status: Chronic Qualifiers: Failure to thrive age range: in adult Qualified Code(s): R62.7 - Adult failure to thrive Plan to address problem: Patient has not been eating or drinking and not taking care of his ADLs for the past 1 week (4) Anticoagulation adequate Current Visit: No Status: Chronic Plan to address problem: Continue Eliquis for atrial fibrillation (5) Atrial fibrillation Current Visit: No Status: Chronic Qualifiers: Atrial fibrillation type: persistent (not longstanding) Qualified Code(s): I48.19 - Other persistent atrial fibrillation; I48.1 - Persistent atrial fibrillation Plan to address problem: On Eliquis (6) BPH (benign prostatic hyperplasia) Current Visit: No Status: Chronic Qualifiers: Lower urinary tract symptom presence: symptoms present Plan to address problem: Continue Flomax and Rapaflo (7) HTN (hypertension) Current Visit: No Status: Chronic Qualifiers: Hypertension type: primary hypertension Qualified Code(s): I10 - Essential (primary) hypertension Plan to address problem: Continue antihypertensives and adjust medications (8) History of CVA (cerebrovascular accident) Current Visit: No Status: Chronic (9) T2DM (type 2 diabetes mellitus) Current Visit: No Status: Chronic Qualifiers: Diabetes mellitus snf insulin 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 transplanted heart: [place] heart Plan to address problem: Continue aspirin and isosorbide mononitrate (11) Hyperlipidemia Current Visit: Yes Status: Chronic Qualifiers: Hyperlipidemia type: mixed hyperlipidemia Qualified Code(s): E78.2 - Mixed hyperlipidemia Plan to address problem: Continue statins (12) CVA, old, cognitive deficits Current Visit: Yes Status: Chronic Plan to address problem: Left-sided weakness and unable to take care of himself Supportive care and physical therapy (13) DVT prophylaxis Current Visit: Yes Status: Acute Plan to address problem: Patient on Eliquis and GI prophylaxis (14) Discharge planning issues Current Visit: No Status: Acute Plan to address problem: This patient was sent into the emergency department after he was found not to be eating, drinking, taking his medications and there was a complaint of generalized weakness. The patient also has the complaint of some right-sided flank pain. Patient's labs are mostly unremarkable except for a urinary tract infection with greater than 180 WBCs, and hematuria with the same number of RBCs. CT of the abdomen and pelvis with IV contrast does not show any acute process. I spoke to the patient's daughter who says that she cannot take care of her dad. Daughter is also in the hospital at this point time for some medical reasons. She wants to be replaced in a retirement facility/subacute rehab at least for 6 weeks Case management informed (15) Advance care planning Current Visit: No Status: Acute Plan to address problem: Disease education care plan discussed diagnosis discussed prognosis discussed with the daughter. Patient is full code. Daughter acknowledges understanding and agreement with care plan. +30 minutes. Patient daughter wants retirement facility. (16) Discharge planning issues Current Visit: Yes Status: Acute Subjective Date of service: 11/15/21 Objective - Constitutional Vitals: Vital Signs - 12hr 11/15/21 11/15/21 11/15/21 09:54 09:55 09:56 Temperature Pulse Rate 89 89 89 Respiratory Rate Blood Pressure 100/64 100/64 100/64 O2 Sat by Pulse Oximetry 11/15/21 11/15/21 11/15/21 09:57 11:39 13:00 Temperature 98.1 F Pulse Rate 89 86 Respiratory 18 17 Rate Blood Pressure 100/64 107/59 O2 Sat by Pulse 93 98 Oximetry General appearance: Present: no acute distress, well-nourished - EENT Eyes: PERRL, EOM intact ENT: hearing intact, clear oral mucosa Ears: bilateral: normal - Neck Neck: supple, normal ROM - Respiratory Respiratory effort: normal Respiratory: bilateral: CTA - Breasts Breasts: normal - Cardiovascular Rhythm: regular Heart Sounds: Present: S1 & S2. Absent: gallop, rub Extremities: pulses intact, No edema, normal color, Full ROM - Gastrointestinal General gastrointestinal: Present: soft, non-tender, non-distended, normal bowel sounds - Genitourinary Male genitourinary: normal - Integumentary Integumentary: clear, warm, dry - Musculoskeletal Musculoskeletal: 1, strength equal bilaterally - Neurologic Neurologic: moves all extremities - Psychiatric Psychiatric: memory intact, appropriate mood/affect, intact judgment & insight - Labs CBC & Chem 7: 11/14/21 06:07 11/13/21 05:52 HEART Score - HEART Score Troponin: Troponin T < 0.010 ng/mL (0.00-0.029) 11/10/21 10:34
[2021-11-15] MEDS: TEMAZEPAM 15 MG CAP PO SCH (22:00)
[2021-11-16 08:44] LABS: Hematocrit 41.7 % (35.5-45.6); Hemoglobin 13.7 gm/dl (11.8-15.2); Mean Corpuscular HGB Conc 33 % (32-34); Mean Corpuscular Volume 93 fl (84-94); Platelet Count 226 K/mm3 (140-440); Red Blood Count 4.49 M/mm3 (3.65-5.03); Red Cell Distribution Width 13.9 % (13.2-15.2)
[2021-11-16] MEDS: hydrALAZINE 25 MG TAB PO SCH ×2 (09:16→22:06)
[2021-11-16] MEDS: TAMSULOSIN 0.4 MG CAP PO SCH (09:16)
[2021-11-16] MEDS: METOPROLOL TARTRATE 25 MG TAB PO SCH ×2 (09:16→22:06)
[2021-11-16] MEDS: cefTRIAXone/NS 2 GM/100 ML 2 GM/100 ML BAG IV SCH (09:17)
[2021-11-16] MEDS: APIXABAN 5 MG TAB PO SCH ×2 (09:17→22:06)
[2021-11-16] MEDS: dilTIAZem CD 120 MG CAP PO SCH (12:39)
[2021-11-16] MEDS ORDERED: LACTULOSE 20 GM/30 ML ORAL LIQD PO ONE (18:00)
[2021-11-16] MEDS: TEMAZEPAM 15 MG CAP PO SCH (22:08)
--- NOTE | 2021-11-17 00:35 | Progress Note ---
Assessment and Plan - Patient Problems (1) Acute encephalopathy Current Visit: Yes Status: Acute Plan to address problem: Patient was confused and initially very lethargic Improved over the next 3 to 4 hours while in the emergency room with IV fluids a nd IV antibiotics Able to talk but still very confused (2) Urinary tract infection Current Visit: Yes Status: Acute Qualifiers: Urinary tract infection type: acute cystitis Plan to address problem: Patient has indwelling [place] catheter Patiently recently had ureteral stent exchange for nephrolithiasis Nonobstructing left-sided nephrolithiasis Urine cultures pending Patient started on IV Rocephin pending cultures (3) Failure to thrive Current Visit: Yes Status: Chronic Qualifiers: Failure to thrive age range: in adult Qualified Code(s): R62.7 - Adult failure to thrive Plan to address problem: Patient has not been eating or drinking and not taking care of his ADLs for the past 1 week (4) Anticoagulation adequate Current Visit: No Status: Chronic Plan to address problem: Continue Eliquis for atrial fibrillation (5) Atrial fibrillation Current Visit: No Status: Chronic Qualifiers: Atrial fibrillation type: persistent (not longstanding) Qualified Code(s): I48.19 - Other persistent atrial fibrillation; I48.1 - Persistent atrial fibrillation Plan to address problem: On Eliquis (6) BPH (benign prostatic hyperplasia) Current Visit: No Status: Chronic Qualifiers: Lower urinary tract symptom presence: symptoms present (7) HTN (hypertension) Current Visit: No Status: Chronic Qualifiers: Hypertension type: primary hypertension Qualified Code(s): I10 - Essential (primary) hypertension (8) History of CVA (cerebrovascular accident) Current Visit: No Status: Chronic (9) T2DM (type 2 diabetes mellitus) Current Visit: No Status: Chronic Qualifiers: Diabetes mellitus terminal carman insulin use: unspecified terminal carman insulin use status (10) CAD (coronary artery disease) Current Visit: Yes Status: Chronic Qualifiers: Coronary Disease-Associated Artery/Lesion type: [place] artery [place] vs. transplanted heart: [place] heart (11) Hyperlipidemia Current Visit: Yes Status: Chronic Qualifiers: Hyperlipidemia type: mixed hyperlipidemia Qualified Code(s): E78.2 - Mixed hyperlipidemia (12) CVA, old, cognitive deficits Current Visit: Yes Status: Chronic (13) DVT prophylaxis Current Visit: Yes Status: Acute (14) Discharge planning issues Current Visit: No Status: Acute (15) Advance care planning Current Visit: No Status: Acute (16) Discharge planning issues Current Visit: Yes Status: Acute Subjective Date of service: 11/16/21 Objective - Constitutional Vitals: Vital Signs - 12hr 11/16/21 11/16/21 11/16/21 12:39 12:41 16:25 Temperature 98.3 F Pulse Rate 103 H Respiratory 18 Rate Blood Pressure 99/67 118/77 O2 Sat by Pulse 97 99 Oximetry 11/16/21 11/16/21 22:01 22:06 Temperature 98.9 F Pulse Rate 100 H 100 H Respiratory 18 Rate Blood Pressure 125/72 125/72 O2 Sat by Pulse 96 Oximetry General appearance: Present: no acute distress, well-nourished - EENT Eyes: PERRL, EOM intact ENT: hearing intact, clear oral mucosa Ears: bilateral: normal - Neck Neck: supple, normal ROM - Respiratory Respiratory effort: normal Respiratory: bilateral: CTA - Breasts Breasts: normal - Cardiovascular Rhythm: regular Heart Sounds: Present: S1 & S2. Absent: gallop, rub Extremities: pulses intact, No edema, normal color, Full ROM - Gastrointestinal General gastrointestinal: Present: soft, non-tender, non-distended, normal bowel sounds - Genitourinary Male genitourinary: normal - Integumentary Integumentary: clear, warm, dry - Musculoskeletal Musculoskeletal: 1, strength equal bilaterally - Neurologic Neurologic: moves all extremities - Psychiatric Psychiatric: memory intact, appropriate mood/affect, intact judgment & insight - Labs CBC & Chem 7: 11/16/21 07:58 11/16/21 07:58 HEART Score - HEART Score Troponin: Troponin T < 0.010 ng/mL (0.00-0.029) 11/10/21 10:34
[2021-11-17] MEDS ORDERED: SODIUM CHLORIDE 0.9% 50 ML ONE (09:10)
[2021-11-17] MEDS: TAMSULOSIN 0.4 MG CAP PO SCH (09:36)
[2021-11-17] MEDS: APIXABAN 5 MG TAB PO SCH (09:36)
[2021-11-17] MEDS: METOPROLOL TARTRATE 25 MG TAB PO SCH (09:37)
[2021-11-17] MEDS: dilTIAZem CD 120 MG CAP PO SCH (09:37)
[2021-11-17] MEDS: hydrALAZINE 25 MG TAB PO SCH (09:37)
[2021-11-17 09:38] VITALS: BP 110/83
[2021-11-17] MEDS ORDERED: LACTULOSE 20 GM/30 ML ORAL LIQD PO ONE (10:30)
== END 2021-11-17 13:15 | DRG 71 ==
LOC: ED 08:40 → 3A 14:00
PROVIDERS: ADMIT Internal Medicine; ATTEND Internal Medicine
DX: G93.40 Encephalopathy, unspecified (principal); N39.0 Urinary tract infection, site not specified; I48.19 Other persistent atrial fibrillation; Z79.01 Long term (current) use of anticoagulants; K21.9 Gastro-esophageal reflux disease without esophagitis; E78.5 Hyperlipidemia, unspecified; Z20.822 Contact with and (suspected) exposure to COVID-19; N40.0 Benign prostatic hyperplasia without lower urinary tract symptoms; I50.9 Heart failure, unspecified; I11.0 Hypertensive heart disease with heart failure; Z87.891 Personal history of nicotine dependence; R62.7 Adult failure to thrive; Z68.25 Body mass index [BMI] 25.0-25.9, adult; Z86.73 Personal history of transient ischemic attack (TIA), and cerebral infarction without residual deficits; E11.9 Type 2 diabetes mellitus without complications; I25.10 Atherosclerotic heart disease of native coronary artery without angina pectoris
CPT/HCPCS: 36415; 74022; 74177; 80053; 81001; 82565; 82962; 84443; 84484; 85025; 85027; 85610; 85730; 87086; 93005; 93010; G0378; J3490; J0696; J2060; J7050; Q9967; U0003